=== PATIENT | male | born 1945 | race Caucasian/White ===

== ENCOUNTER 2019-12-30 07:54 | Outpatient (REF) | payer MEDICARE, SELFPAY ==
[2019-12-30 09:00] LABS: MANUAL DIFF FLAG NO
[2019-12-30 09:04] LABS: Basophils Percent Auto 0.7 % (0-2); Eosinophils Absolute Auto 0.1 X10*3/uL (0.0-0.4); Eosinophils Percent Auto 1.9 % (0-4); Hematocrit 37.9 % (42-52); Hemoglobin 12.8 g/dl (14.0-18.0); Imm Gran Abs Auto 0.02 X10*3/uL (0.00-0.03); Imm Gran Pct Auto 0.3 % (0.0-0.4); Lymphocytes Absolute Auto 1.5 X10*3/uL (1.2-4.9); Mean Corpuscular HGB Conc 33.8 g/dl (31.0-36.0); Mean Corpuscular Hemoglobin 33.7 pg (27.0-33.0); Mean Corpuscular Volume 99.7 fL (80-98); Mean Platelet Volume 9.4 fL (9.4-12.4); Monocytes Absolute Auto 0.5 X10*3/uL (0.1-1.2); Monocytes Percent Auto 8.4 % (2-11); Neutrophils Absolute Auto 3.7 X10*3/uL (2.0-8.3); Neutrophils Percent Auto 63.7 % (45-73); Platelet Count 218 X10*3/uL (160-400); Red Cell Distribution Width 12.5 % (11.0-16.0); White Blood Count 5.8 X10*3/uL (4.8-10.8)
[2019-12-30 09:13] LABS: Glucose Urine UA NEG (NEG); Leukocyte Esterase Urine NEG (NEG); Nitrite Urine NEG (NEG); Urine Blood NEG (NEG); Urine Ketones NEG (NEG); Urine Protein NEG (NEG-TRACE)
[2019-12-30 09:15] LABS: Appearance Urine CLEAR; Color Urine YELLOW
[2019-12-30 09:30] LABS: Alanine Aminotransferase 12 U/L (0-40); Albumin Level 4.1 g/dL (3.5-5.0); Alkaline Phosphatase 48 U/L (39-117); Anion Gap 12 (12-20); Aspartate Amino Transferase 14 U/L (5-37); Bilirubin Total 1.2 mg/dL (0.0-1.0); Blood Urea Nitrogen 17 mg/dL (9-16); Calcium 8.3 mg/dL (8.4-10.2); Carbon Dioxide 26 mmol/L (22-29); Chloride 108 mmol/L (96-108); Cholesterol 134 mg/dL; Estimated Glomerular Filt Rate > 60; Glucose Fasting 119 mg/dL (60-99); HDL Cholesterol 36 mg/dL; LDL Cholesterol Calculated 84 mg/dl; Potassium 4.5 mmol/l (3.3-5.1); Sodium 141 mmol/L (135-145); Total Protein 6.8 g/dL (6.5-8.0); Triglycerides 74 mg/dL
[2019-12-30 09:46] LABS: Estimated Average Glucose 120 mg/dL; Hemoglobin A1c % 5.8 %
[2019-12-30 09:51] LABS: PSA,Total (Free>4and<10) 0.78 ng/mL (0.00-4.00); TSH reflex Free T4 0.69 mIU/mL (0.32-4.0)
[2019-12-30 09:54] LABS: RBC Urine 0 /HPF (0); Squamous Epithelial Cell Urine TRACE /LPF; WBC Urine 0 /HPF (0-4)
[2019-12-31 13:21] LABS: Herpes Simplex Type 2 IgG 7.52 index
[2020-01-05 16:41] LABS: HSV 1 IgM IFA Negative (Negative); HSV 2 IgM IFA Negative (Negative)
== END 2019-12-30 07:55 | disposition home or self-care (01) ==
LOC: HO.LAB 07:54
PROVIDERS: Visit Provider Internal Medicine
DX: E78.5 Hyperlipidemia, unspecified (principal); I10 Essential (primary) hypertension; C79.51 Secondary malignant neoplasm of bone; I25.10 Atherosclerotic heart disease of native coronary artery without angina pectoris; C61 Malignant neoplasm of prostate; R31.9 Hematuria, unspecified; Z20.828 Contact with and (suspected) exposure to other viral communicable diseases; E66.9 Obesity, unspecified
CPT/HCPCS: 36415; 80053; 80061; 81001; 81003; 81015; 83036; 84153; 84443; 85025; 86695; 86696

== ENCOUNTER → 2020-01-26 08:30 | Outpatient (BNV) | payer MEDICARE, SELFPAY | PROVIDERS: PCP Internal Medicine; Visit Provider Internal Medicine | DX: C61 Malignant neoplasm of prostate (principal); C79.51 Secondary malignant neoplasm of bone; C78.7 Secondary malignant neoplasm of liver and intrahepatic bile duct | CPT/HCPCS: 99212; 99213; 99214; 99215 ==

== ENCOUNTER 2020-04-04 15:00 | Outpatient (REF) | payer MEDICARE, SELFPAY ==
--- NOTE | 2020-04-05 10:15 | XR_ITS ---
EXAMINATION: XR KNEE STANDING BILATERAL XR KNEE LEFT CLINICAL INFORMATION: Left knee pain COMPARISON: 07/21/2013 TECHNIQUE: AP standing view both knees [place] and lateral views of left knee FINDINGS: The AP standing view of both knees shows normal alignment bilaterally. No fracture or subluxation. Small marginal osteophyte present at the medial tibiofemoral compartment of the right knee. There is atherosclerotic calcification of the bilateral femoral, popliteal and leg vessels. There is a stent of the distal right popliteal artery. The two views of the left knee show normal alignment and well-preserved joint spaces. Small osteophytes are present at the patellofemoral compartment. Small knee joint effusion. Enthesophyte formation of the patella and anterior tibial tubercle. Peripheral vessels are calcified. XR/XR knee standing BI IMPRESSION: * Mild osteoarthritis of the patellofemoral joint, and small effusion, of the left knee. * Mild osteoarthritis of the medial tibiofemoral compartment of the right knee. * Atherosclerotic peripheral vascular disease.
--- NOTE | 2020-04-05 10:15 | XR_ITS ---
EXAMINATION: XR KNEE STANDING BILATERAL XR KNEE LEFT CLINICAL INFORMATION: Left knee pain COMPARISON: 07/21/2013 TECHNIQUE: AP standing view both knees [place] and lateral views of left knee FINDINGS: The AP standing view of both knees shows normal alignment bilaterally. No fracture or subluxation. Small marginal osteophyte present at the medial tibiofemoral compartment of the right knee. There is atherosclerotic calcification of the bilateral femoral, popliteal and leg vessels. There is a stent of the distal right popliteal artery. The two views of the left knee show normal alignment and well-preserved joint spaces. Small osteophytes are present at the patellofemoral compartment. Small knee joint effusion. Enthesophyte formation of the patella and anterior tibial tubercle. Peripheral vessels are calcified. XR/XR knee LT 2V IMPRESSION: * Mild osteoarthritis of the patellofemoral joint, and small effusion, of the left knee. * Mild osteoarthritis of the medial tibiofemoral compartment of the right knee. * Atherosclerotic peripheral vascular disease.
== END 2020-04-04 15:01 | disposition home or self-care (01) ==
LOC: HO.HOSX 15:00
PROVIDERS: Visit Provider Orthopaedic Surgery
DX: M25.562 Pain in left knee (principal); M25.561 Pain in right knee; R73.01 Impaired fasting glucose; E78.00 Pure hypercholesterolemia, unspecified; I10 Essential (primary) hypertension
CPT/HCPCS: 20610; 73560; 73565; 99202; J1040

== ENCOUNTER → 2020-04-05 10:12 | Outpatient (BNVA) | payer MEDICARE, SELFPAY | PROVIDERS: PCP Internal Medicine; Visit Provider Orthopaedic Surgery | DX: M17.12 Unilateral primary osteoarthritis, left knee (principal) | CPT/HCPCS: 20610; 99202; J1040 ==

== ENCOUNTER 2020-05-30 07:53 | Outpatient (REF) | payer MEDICARE, SELFPAY ==
[2020-05-30 09:15] LABS: Anion Gap 13 (12-20); Blood Urea Nitrogen 22 mg/dL (9-16); Calcium 8.8 mg/dL (8.4-10.2); Carbon Dioxide 25 mmol/L (22-29); Chloride 105 mmol/L (96-108); Estimated Glomerular Filt Rate > 60; Glucose Random 131 mg/dL (60-115); Potassium 4.1 mmol/L (3.3-5.1); Sodium 139 mmol/L (135-145)
== END 2020-05-30 07:54 | disposition home or self-care (01) ==
LOC: HO.LAB 07:53
PROVIDERS: PCP Internal Medicine; Visit Provider Internal Medicine Cardiovascular Disease
DX: I10 Essential (primary) hypertension (principal)
CPT/HCPCS: 36415; 80048

== ENCOUNTER 2020-06-26 14:41 | Outpatient (REF) | payer MEDICARE, SELFPAY ==
[2020-06-26 15:08] LABS: MANUAL DIFF FLAG NO
[2020-06-26 15:15] LABS: Basophils Percent Auto 0.5 % (0-2); Eosinophils Absolute Auto 0.1 X10*3/uL (0.0-0.4); Eosinophils Percent Auto 1.4 % (0-4); Hematocrit 36.8 % (42-52); Hemoglobin 12.6 g/dl (14.0-18.0); Imm Gran Abs Auto 0.02 X10*3/uL (0.00-0.03); Imm Gran Pct Auto 0.3 % (0.0-0.4); Lymphocytes Absolute Auto 2.1 X10*3/uL (1.2-4.9); Lymphocytes Percent Auto 27.1 % (20-40); Mean Corpuscular HGB Conc 34.2 g/dl (31.0-36.0); Mean Corpuscular Hemoglobin 34.1 pg (27.0-33.0); Mean Corpuscular Volume 99.7 fL (80-98); Mean Platelet Volume 9.3 fL (9.4-12.4); Monocytes Absolute Auto 0.7 X10*3/uL (0.1-1.2); Monocytes Percent Auto 8.3 % (2-11); Neutrophils Absolute Auto 4.9 X10*3/uL (2.0-8.3); Neutrophils Percent Auto 62.4 % (45-73); Platelet Count 181 X10*3/uL (160-400); Red Blood Count 3.69 X10*6/uL (4.60-5.80); Red Cell Distribution Width 12.6 % (11.0-16.0); White Blood Count 7.8 X10*3/uL (4.8-10.8)
[2020-06-26 15:38] LABS: Estimated Average Glucose 117 mg/dL; Hemoglobin A1c % 5.7 %
[2020-06-26 15:50] LABS: Alanine Aminotransferase 16 U/L (0-40); Albumin Level 4.4 g/dL (3.5-5.0); Alkaline Phosphatase 52 U/L (39-117); Anion Gap 14 (12-20); Aspartate Amino Transferase 18 U/L (5-37); Bilirubin Total 2.3 mg/dL (0.0-1.0); Blood Urea Nitrogen 24 mg/dL (9-16); Calcium 9.5 mg/dL (8.4-10.2); Carbon Dioxide 23 mmol/L (22-29); Chloride 109 mmol/L (96-108); Cholesterol 137 mg/dL; Estimated Glomerular Filt Rate > 60; Glucose Fasting 92 mg/dL (60-99); HDL Cholesterol 43 mg/dL; LDL Cholesterol Calculated 65 mg/dl; Sodium 142 mmol/L (135-145); Total Protein 7.4 g/dL (6.5-8.0); Triglycerides 147 mg/dL
[2020-06-26 15:57] LABS: Glucose Urine UA NEG (NEG); Leukocyte Esterase Urine TRACE (NEG); Nitrite Urine NEG (NEG); Specific Gravity - Urine 1.025 (1.005-1.025); UACC Culture Trigger YES; Urine Blood 3+ (NEG); Urine Ketones 5 MG/DL (NEG); Urine Protein TRACE MG/DL (NEG-TRACE)
[2020-06-26 16:04] LABS: Appearance Urine CLOUDY; Color Urine YELLOW
[2020-06-26 16:12] LABS: TSH reflex Free T4 0.87 uIU/mL (0.32-4.0)
[2020-06-26 16:23] LABS: Bacteria Urine 1+ /LPF; Squamous Epithelial Cell Urine 1+ /LPF
[2020-06-27 08:31] LABS: Lyme Abs Screen <0.90 index
== END 2020-06-26 14:42 | disposition home or self-care (01) ==
LOC: HO.LAB 14:41
PROVIDERS: PCP Internal Medicine; Visit Provider Internal Medicine
DX: R73.01 Impaired fasting glucose (principal); I10 Essential (primary) hypertension; I25.10 Atherosclerotic heart disease of native coronary artery without angina pectoris; R31.9 Hematuria, unspecified; C61 Malignant neoplasm of prostate; C79.51 Secondary malignant neoplasm of bone; E78.00 Pure hypercholesterolemia, unspecified; E66.9 Obesity, unspecified; T14.8XXA Other injury of unspecified body region, initial encounter
CPT/HCPCS: 36415; 80053; 80061; 81001; 81003; 83036; 84443; 85025; 86617; 86618; 87086; 87186

== ENCOUNTER 2020-08-31 09:43 | Outpatient (REF) | payer MEDICARE, SELFPAY ==
--- NOTE | ~2020-08-31 | CT_ITS ---
EXAMINATION: CT HIP WITHOUT CONTRAST, RIGHT CLINICAL INFORMATION: Right hip pain, right groin pain. COMPARISON: Multiple prior examinations including PET/CT exam April 2019. TECHNIQUE: CT scan of the right hip was performed with reconstruction imaging performed at the acquisition workstation. This CT examination was performed using dose optimization techniques as appropriate, variously including the following: *Automated exposure control *Adjustment of mA and/or kV according to patient size (this includes techniques or standardized protocols for targeted exams where dose is matched to indication/reason for exam; i.e. extremities or head) *Use of iterative reconstruction technique DLP: 515 mGy-cm. FINDINGS: Slightly patchy but mostly diffuse sclerotic density noted throughout the visualized iliac bone and sacrum. There is a rounded less dense sclerosis in the ischium, essentially unchanged compared with the prior CT examination in 2019. I do not see a fracture. The femoral acetabular joint space is normal. There is arterial calcification. Postsurgical changes related to reported penile implant is stable. Prostate not visualized, consistent with postsurgical change No lymphadenopathy. CT/CT hip RT wo con IMPRESSION: Stable sclerotic changes throughout the right pelvis and visualized sacrum, essentially unchanged compared with the prior PET/CT scan. This is consistent with sclerotic metastases or treated metastases in this patient with a diagnosis of prostate cancer based on history given on review of prior imaging examinations. I do not see a fracture or other acute abnormality.
== END 2020-08-31 09:44 | disposition home or self-care (01) ==
LOC: HO.CT 09:43
PROVIDERS: PCP Internal Medicine; Visit Provider Internal Medicine
DX: M25.551 Pain in right hip (principal); C61 Malignant neoplasm of prostate; C79.51 Secondary malignant neoplasm of bone
CPT/HCPCS: 73700

== ENCOUNTER → 2020-12-21 10:58 | Outpatient (REF) | payer MEDICARE, SELFPAY ==
--- NOTE | ~2020-12-21 | NM_ITS ---
EXAMINATION: NM BONE SCAN OF THE WHOLE BODY CLINICAL INFORMATION: Bone metastases from prostate cancer. COMPARISON: The previous bone scan dated 11/19/2018 is available for comparison. Radiographs of the bilateral knees and left knee dated 04/05/2020 are the only recent radiographs available for comparison. CT scan of the right hip dated 08/31/2020 is available for comparison. TECHNIQUE: Multiple gamma scintillation camera images of the whole body were performed 2.75 hours following the intravenous administration of 40 mCi Tc-99m MDP. FINDINGS: In the head, no significant abnormalities are present. In the thoracic cage and upper extremities, there is minimally increased activity in the acromioclavicular joints bilaterally. In the spine, no significant abnormalities are present. In the pelvis, there is intense abnormally increased activity in an expansile large focus in the posterior right iliac bone, likely extending medially into the right sacral ala. In the lower extremities, there is minimally increased activity in the patellar compartments of both knees and in a small mild focus in the medial compartment on the left. No other definite bony abnormalities are noted. The urinary bladder and faint visualization of both kidneys are noted. Compared to the previous bone scan dated 11/19/2018 there has been some enlargement of the posterior right iliac bone lesion which now extends more laterally. Abnormal activity in the right anterior iliac crest is much less intense but persists on the current study. The scan is otherwise not significantly changed. The CT scan of the right hip dated 08/31/2020 shows extensive sclerosis in the right iliac bone extending superiorly from the acetabulum that corresponds to the prominent bone scan abnormalities described above, and these changes a road into the right sacral ala, but are incompletely visualized on the CT study. NM/NM bone scan whole body IMPRESSION: Extensive metastatic disease to the right posterior iliac bone. No additional metastatic disease is present.
== END ==
LOC: HO.NUCMED 10:58
PROVIDERS: Visit Provider Internal Medicine
DX: C61 Malignant neoplasm of prostate (principal); C79.51 Secondary malignant neoplasm of bone
CPT/HCPCS: 78306; A9503

== ENCOUNTER 2021-01-30 08:13 | Outpatient (REF) | payer MEDICARE, SELFPAY ==
--- NOTE | ~2021-01-30 | PE_ITS ---
EXAMINATION: Fluorine-18 FDG PET/CT Scan CLINICAL INDICATION: Subsequent treatment management. Prostate cancer metastatic to bone, restaging. PROCEDURE: 66 minutes following the intravenous administration of 16.9 mCi of fluorine 18 FDG, images from the base of the skull to the mid thighs were obtained using a combined PET/CT scanner with CT scan based attenuation correction. No oral contrast was administered. No intravenous contrast was administered. Transverse, coronal, sagittal, and volume reconstruction projections were obtained. The patient's blood glucose as determined by a finger stick, was 110 mg/dl immediately prior to injection. Total CT exam dose-length product 1172.11 mGy-cm * These CT images were obtained using dose optimization techniques as appropriate, variously including the following: Automated exposure control * Adjustment of mA and/or kV according to patient size (this includes techniques or standardized protocols for targeted exams where dose is matched to indication/reason for exam; i.e. extremities or head) * Use of iterative reconstruction technique COMPARISON: Previous PET CT scans dated 04/20/2019 and 09/11/2017 are available for comparison. CT scan of the right hip dated 08/31/2020 and bone scan dated 12/21/2020 are also available for comparison FINDINGS: (Slice numbers described in this report are numbered superiorly to inferiorly with slice #1 in the head) NECK AND VISUALIZED HEAD: No foci of abnormal FDG activity are noted. The distribution of FDG activity is physiological. There is no cervical lymphadenopathy. THORAX: There is a posterolateral pleural-based FDG avid left lower lobe pulmonary nodule which has enlarged significantly since prior studies, now showing SUVmax 9.3, slice 84/311 an measuring 2.1 x 1.6 cm in largest transverse dimensions, and approximately 1.5 cm cephalocaudad. This showed only weak FDG activity, SUVs Max 2.0 and is much smaller in size measuring approximately 1.2 x 0.6 cm in largest transverse dimensions, both measurements made retrospectively on the 04/20/2019 PET/CT scan. Multiple additional subcentimeter pulmonary nodules are present and are similar or smaller in size than on 04/20/2019, with a few weakly FDG avid, such as a right upper lobe nodule that shows mild FDG activity, SUVmax 2.9, slice 80/311 corresponding to a nodule on the CT images that measures 1.4 x 0.9 cm in largest transverse dimensions. This is similar in size and FDG avidity to 04/20/2019. Multiple additional larger and more prominently FDG avid pulmonary nodules present on the baseline 09/11/2017 PET/CT scan are now much smaller and more difficult to resolve on the CT images and most of these are now too small to be characterized on the FDG PET images. There is no mediastinal, supraclavicular, or axillary lymphadenopathy. There is no pleural or pericardial fluid. Extensive calcification of the mitral valve annulus is noted. ABDOMEN AND PELVIS: No foci of abnormal FDG activity are present in the abdomen or pelvis. The liver, gallbladder, spleen, kidneys, adrenal glands, and pancreas are unremarkable. There is no retroperitoneal, mesenteric, pelvic or inguinal lymphadenopathy. There is mild FDG activity throughout the gastrointestinal tract without a suspicious focal component. There is a superficial focus of increased FDG activity in the midline anterior lower abdomen with no corresponding CT finding, likely some urinary contamination at this site. There is also a prominent focus of FDG activity in the region of the penile bulb which is probably some retained urinary activity in the proximal urethra. Again noted and unchanged from prior studies is a penile implant and associated reservoir and catheter. The prostate gland has been resected and fiducial markers unchanged in appearance from the prior study are present. MUSCULOSKELETAL: There is mild FDG activity associated with extensive sclerosis in the right iliac bone, now showing SUVmax 5.3, slice 193/311. This is significantly more intense than the FDG activity present at this site on 04/20/2019 when this region showed SUVmax 3.0, but this is also significantly less intense than on the baseline 09/11/2017 PET/CT scan when the region of FDG avidity was significantly larger and more intense, on that date showing SUVmax 7.7. Extensive sclerosis in the right iliac bone mid and right side of the sacrum, the latter with significant lytic component present does not show significant abnormal FDG activity. There are additional sclerotic foci with no associated abnormal FDG activity in the spine, most prominently at L4 and T7. There are diffuse degenerative changes in the spine. Was 7. VASCULAR: Diffuse vascular calcifications including coronary are noted. PET/PET CT fusion skull to thigh IMPRESSION: 1. There has been enlargement and increased FDG avidity of a left lower lobe pulmonary nodule, and this is evidence of progression of malignant disease at this site. 2. A few additional small FDG avid pulmonary nodules are present, similar or slightly smaller than on 04/20/2019 but much less FDG avid and smaller in size than these nodules were on the baseline 09/11/2017 study. 3. There has also been a mild increase in FDG avidity in a focus in the posterior right iliac bone, contained within an extensive larger sclerotic focus that shows only minimal FDG avidity. This region is more intense than on 04/20/2019, which is evidence of progression since that date, but remains much less extensive and less intense than on the baseline 09/11/2017 study. 4. No additional abnormalities suspicious for other new or progressive metastatic lesions. 5. Diffuse vascular calcifications including coronary.
== END 2021-01-30 08:14 | disposition home or self-care (01) ==
LOC: HO.PET 08:13
PROVIDERS: PCP Internal Medicine; Visit Provider Internal Medicine
DX: Z13.89 Encounter for screening for other disorder (principal)

== ENCOUNTER 2021-02-05 11:00 | Outpatient (REF) | payer MEDICARE, SELFPAY ==
[2021-02-05 11:10] LABS: MANUAL DIFF FLAG NO
[2021-02-05 11:59] LABS: Basophils Absolute Auto 0.1 X10*3/uL (0.0-0.2); Basophils Percent Auto 0.8 % (0-2); Eosinophils Absolute Auto 0.1 X10*3/uL (0.0-0.4); Eosinophils Percent Auto 1.5 % (0-4); Hematocrit 39.1 % (42.0-52.0); Hemoglobin 13.6 g/dl (14.0-18.0); Imm Gran Abs Auto 0.02 X10*3/uL (0.00-0.03); Imm Gran Pct Auto 0.3 % (0.0-0.4); Lymphocytes Absolute Auto 1.8 X10*3/uL (1.2-4.9); Lymphocytes Percent Auto 27.1 % (20-40); Mean Corpuscular HGB Conc 34.8 g/dl (31.0-36.0); Mean Corpuscular Hemoglobin 34.7 pg (27.0-33.0); Mean Corpuscular Volume 99.7 fL (80.0-98.0); Mean Platelet Volume 9.4 fL (9.4-12.4); Monocytes Absolute Auto 0.7 X10*3/uL (0.1-1.2); Neutrophils Percent Auto 60.3 % (45-73); Platelet Count 204 X10*3/uL (160-400); Red Blood Count 3.92 X10*6/uL (4.60-5.80); White Blood Count 6.6 X10*3/uL (4.8-10.8)
[2021-02-05 12:36] LABS: Vitamin D 25-OH Total 27.3 ng/mL (>30)
[2021-02-05 12:51] LABS: Alanine Aminotransferase 15 U/L (0-40); Albumin Level 4.4 g/dL (3.5-5.0); Alkaline Phosphatase 60 U/L (39-117); Anion Gap 16 (12-20); Aspartate Amino Transferase 15 U/L (5-37); Bilirubin Total 1.7 mg/dL (0.0-1.0); Blood Urea Nitrogen 20 mg/dL (9-16); Calcium 9.3 mg/dL (8.4-10.2); Carbon Dioxide 21 mmol/L (22-29); Chloride 108 mmol/L (96-108); Cholesterol 159 mg/dL; Estimated Glomerular Filt Rate > 60; Glucose Fasting 97 mg/dL (60-99); HDL Cholesterol 39 mg/dL; LDL Cholesterol Calculated 96 mg/dl; Sodium 141 mmol/L (135-145); Total Protein 7.4 g/dL (6.5-8.0); Triglycerides 121 mg/dL
[2021-02-05 12:57] LABS: Estimated Average Glucose 128 mg/dL; Hemoglobin A1c % 6.1 %
[2021-02-05 13:32] LABS: Appearance Urine CLEAR; Color Urine YELLOW; Glucose Urine UA NEG (NEG); Leukocyte Esterase Urine NEG (NEG); Nitrite Urine NEG (NEG); Specific Gravity - Urine 1.015 (1.005-1.025); Urine Blood NEG (NEG); Urine Ketones NEG (NEG); Urine Protein NEG (NEG-TRACE)
== END 2021-02-05 11:01 | disposition home or self-care (01) ==
LOC: HO.LAB 11:00
PROVIDERS: PCP Internal Medicine; Visit Provider Internal Medicine
DX: C61 Malignant neoplasm of prostate (principal); C79.51 Secondary malignant neoplasm of bone; E55.9 Vitamin D deficiency, unspecified; I10 Essential (primary) hypertension; I25.10 Atherosclerotic heart disease of native coronary artery without angina pectoris; R31.9 Hematuria, unspecified; E78.00 Pure hypercholesterolemia, unspecified; R73.01 Impaired fasting glucose; E66.9 Obesity, unspecified
CPT/HCPCS: 36415; 80053; 80061; 81003; 82306; 83036; 84443; 85025

== ENCOUNTER 2021-06-04 07:46 | Outpatient (REF) | payer MEDICARE, SELFPAY ==
[2021-06-04 08:51] LABS: Estimated Average Glucose 128 mg/dL; Hemoglobin A1c % 6.1 %
[2021-06-04 09:15] LABS: Cholesterol 145 mg/dL; HDL Cholesterol 25 mg/dL; LDL Cholesterol Calculated 93 mg/dl; Triglycerides 135 mg/dL
[2021-06-04 09:30] LABS: Appearance Urine CLEAR; Color Urine YELLOW; Glucose Urine UA NEG (NEG); Leukocyte Esterase Urine NEG (NEG); Nitrite Urine NEG (NEG); Specific Gravity - Urine 1.015 (1.005-1.025); TSH reflex Free T4 1.27 uIU/mL (0.32-4.0); Urine Blood NEG (NEG); Urine Ketones NEG (NEG); Urine Protein TRACE MG/DL (NEG-TRACE)
== END 2021-06-04 07:47 | disposition home or self-care (01) ==
LOC: HO.LAB 07:46
PROVIDERS: PCP Internal Medicine; Visit Provider Internal Medicine
DX: E78.00 Pure hypercholesterolemia, unspecified (principal); E55.9 Vitamin D deficiency, unspecified; I10 Essential (primary) hypertension; R73.01 Impaired fasting glucose
CPT/HCPCS: 36415; 80061; 81003; 82306; 83036; 84443

== ENCOUNTER 2021-08-03 09:32 | Outpatient (REF) | payer MEDICARE, SELFPAY ==
--- NOTE | ~2021-08-03 | XR_ITS ---
EXAMINATION: XR HIP, RIGHT CLINICAL INFORMATION: Chronic right hip pain. COMPARISON: CT right hip 08/31/2020. TECHNIQUE: Two views of the right hip. FINDINGS: There is a sclerotic-appearing entire right pelvis with mild thickening, likely metastatic disease. The sclerosis extends into the right acetabulum and likely narrows the right hip joint. The right femur appears unremarkable. No acute fracture or dislocation seen. There is vascular calcification of right superficial femoral vein. XR/XR hip RT min 2V IMPRESSION: Sclerotic-appearing entire right pelvis and likely right sacrum with mild thickening suspicious of sclerotic metastatic disease. This finding was seen on the previous CT hip exam 08/31/2020.
== END 2021-08-03 09:33 | disposition home or self-care (01) ==
LOC: HO.XRAY 09:32
PROVIDERS: PCP Internal Medicine; Visit Provider Internal Medicine
DX: C61 Malignant neoplasm of prostate (principal); C79.51 Secondary malignant neoplasm of bone
CPT/HCPCS: 73502

== ENCOUNTER 2021-08-14 10:11 | Outpatient (REF) | payer MEDICARE, SELFPAY ==
--- NOTE | ~2021-08-14 | PE_ITS ---
EXAMINATION: Fluorine-18 FDG PET/CT Scan CLINICAL INDICATION: Subsequent treatment management. Metastatic prostate cancer, post chemotherapy scan, last treatment 07/05/2021.. PROCEDURE: 66 minutes following the intravenous administration of 20.3 mCi of fluorine 18 FDG, images from the base of the skull to the mid thighs were obtained using a combined PET/CT scanner with CT scan based attenuation correction. No oral contrast was administered. No intravenous contrast was administered. Transverse, coronal, sagittal, and volume reconstruction projections were obtained. The patient's blood glucose as determined by a finger stick, was 110 mg/dl immediately prior to injection. Total CT exam dose-length product 1392.70 mGy-cm * These CT images were obtained using dose optimization techniques as appropriate, variously including the following: Automated exposure control * Adjustment of mA and/or kV according to patient size (this includes techniques or standardized protocols for targeted exams where dose is matched to indication/reason for exam; i.e. extremities or head) * Use of iterative reconstruction technique COMPARISON: Prior PET/CT scans dated 01/30/2021, 04/20/2019 and 09/11/2017 are available for comparison. FINDINGS: (Slice numbers described in this report are numbered superiorly to inferiorly with slice #1 in the head) NECK AND VISUALIZED HEAD: No foci of abnormal FDG activity are noted. The distribution of FDG activity is physiological. There is no cervical lymphadenopathy. THORAX: There is been a marked decrease in the FDG intensity of a left lower lobe pulmonary nodule, now showing SUVmax 4.1, slice 97/311 versus SUVmax 9.3 on 01/30/2021. This also appears slightly smaller in size on the CT images, now measuring 2.2 x 1.3 cm in largest transverse dimensions versus 2.1 x 1.6 cm previously. Superior and medial to this a smaller nodule is now only weakly FDG avid, SUVmax 1.5, slice 87/311 versus SUVmax 2.6 on 01/30/2021. A previously visualized 1.4 x 0.9 cm right upper lobe nodule present on 01/30/2021 is now inseparable from adjacent vessels and mild FDG activity present previously at this site is no longer present. A sharply marginated posterior pleural-based left lower lobe mass now shows fluid density and measures 3.9 x 2.5 cm in largest transverse dimensions, not significantly changed from the earliest PET/CT scan is available for comparison dated 09/11/2017 when this measured 3.7 x 2.4 cm in largest transverse dimensions. This shows mild FDG activity, SUVmax 3.3, slice 95/267, which is identical to the SUVmax 175-2018, and similar to the more recent PET CT scans. There is a posterior subpleural 1.4 x 0.8 cm nodule in the base of the left lower lobe, slice 127/311 with no associated abnormal FDG activity. This is significantly smaller than on the prior study when this measured 1.8 x 1.8 cm in largest transverse dimensions a few additional small subcentimeter pulmonary nodules are probably present but not well visualized and all are too small to be characterized on the FDG PET images. There are no additional foci of abnormal FDG activity in the chest. There is no mediastinal, supraclavicular, or axillary lymphadenopathy. There is no pleural or pericardial fluid, or pneumothorax. Dense calcifications of the mitral valve annulus and aortic valvular calcifications are noted, similar in appearance to the prior studies and with no associated abnormal FDG activity. ABDOMEN AND PELVIS: There are no foci of abnormal FDG activity in the abdomen or pelvis. The liver, gallbladder, adrenal glands, pancreas, and spleen are unremarkable. A hypodense posterior medial cyst in the left kidney is markedly FDG photopenic and unchanged from prior studies and likely a benign simple cyst. The kidneys are otherwise unremarkable the several calcifications which are likely vascular. There is mild FDG activity throughout the gastrointestinal tract without a suspicious focal component, likely physiological. There is diverticulosis without evidence of diverticulitis. The hollow viscera are otherwise unremarkable. The prostate gland has been resected and metallic fiducial markers are present in the prostate bed unchanged in appearance from prior studies. There is mildly increased activity in the region of the penile bulb, much less prominent than on the prior 01/30/2021 study and likely due to some retained urine in the urethra. A penile implant and associated reservoir and catheter are noted. MUSCULOSKELETAL: There is dense sclerosis throughout the left iliac bone and adjacent left side of the sacrum. This is similar in appearance on the CT images through the 01/30/2021 study but the FDG activity in this region is now significantly decreased, with a small focus of increased FDG activity in the posterior right iliac bone showing SUVmax 3.7, slice 307/311 versus SUVmax 5.3 on 01/30/2021. Dense sclerosis is also present in the posterior aspect of the L4 vertebral body and anteriorly abutting the superior endplate of T7 both showing no abnormal FDG activity. There are diffuse degenerative changes in the spine, most prominently in the mid and lower thoracic spine. No additional suspicious sclerotic or lytic lesions are visualized. VASCULAR: Diffuse vascular calcifications including coronary are noted. PET/PET CT fusion skull to thigh IMPRESSION: 1. There has been a significant decrease in the FDG avidity of a previously visualized left lower lobe pulmonary nodule, consistent with a significant partial metabolic response to therapy of this lesion. 2. A posterior pleural-based mass posteriorly in the left lower lobe appears stable in size on the CT images since the earliest PET/CT available, 09/11/2017 and now shows only very mild FDG activity. 3. Additional pulmonary nodules show only minimal FDG activity as described above and likely represent stable or improving malignant disease. 4. Several dense sclerotic lesions including extensive dense sclerosis of the left hemipelvis and left side of the sacrum now show only mild FDG activity in the posterior left iliac bone, consistent with healing metastases. These are less intensely FDG avid than the prior study and much less intensely FDG avid than the baseline 09/11/2017 PET/CT scan. 5. No additional abnormalities suspicious for other metastatic or malignant lesions are noted. 6. Diffuse vascular calcifications including dense coronary calcifications.
== END 2021-08-14 10:12 | disposition home or self-care (01) ==
LOC: HO.PET 10:11
PROVIDERS: PCP Internal Medicine; Visit Provider Internal Medicine
DX: Z13.89 Encounter for screening for other disorder (principal)

== ENCOUNTER 2021-09-11 08:44 | Outpatient (REF) | payer MEDICARE, SELFPAY ==
[2021-09-11 09:04] LABS: MANUAL DIFF FLAG NO
[2021-09-11 09:17] LABS: Basophils Percent Auto 0.3 % (0-2); Eosinophils Percent Auto 0.5 % (0-4); Hematocrit 36.9 % (42.0-52.0); Hemoglobin 12.3 g/dl (14.0-18.0); Imm Gran Abs Auto 0.03 X10*3/uL (0.00-0.03); Imm Gran Pct Auto 0.5 % (0.0-0.4); Lymphocytes Absolute Auto 1.6 X10*3/uL (1.2-4.9); Lymphocytes Percent Auto 27.1 % (20-40); Mean Corpuscular HGB Conc 33.3 g/dl (31.0-36.0); Mean Corpuscular Hemoglobin 33.1 pg (27.0-33.0); Mean Corpuscular Volume 99.2 fL (80.0-98.0); Mean Platelet Volume 8.9 fL (9.4-12.4); Monocytes Absolute Auto 0.5 X10*3/uL (0.1-1.2); Monocytes Percent Auto 7.7 % (2-11); Neutrophils Absolute Auto 3.7 x10*3/uL (2.0-8.3); Neutrophils Percent Auto 63.9 % (45-73); Platelet Count 165 X10*3/uL (160-400); Red Blood Count 3.72 X10*6/uL (4.60-5.80); Red Cell Distribution Width 14.6 % (11.0-16.0); White Blood Count 5.8 X10*3/uL (4.8-10.8)
[2021-09-11 09:33] LABS: Estimated Average Glucose 114 mg/dL; Hemoglobin A1c % 5.6 %
[2021-09-11 09:43] LABS: Alanine Aminotransferase 16 U/L (0-40); Albumin Level 4.5 g/dL (3.5-5.0); Alkaline Phosphatase 73 U/L (39-117); Anion Gap 13 (12-20); Aspartate Amino Transferase 19 U/L (5-37); Bilirubin Total 1.3 mg/dL (0.0-1.0); Blood Urea Nitrogen 17 mg/dL (9-16); Calcium 8.9 mg/dL (8.4-10.2); Carbon Dioxide 23 mmol/L (22-29); Chloride 109 mmol/L (96-108); Cholesterol 148 mg/dL; Estimated Glomerular Filt Rate > 60; Glucose Fasting 115 mg/dL (60-99); HDL Cholesterol 43 mg/dL; LDL Cholesterol Calculated 77 mg/dl; Potassium 4.2 mmol/L (3.3-5.1); Sodium 141 mmol/L (135-145); Triglycerides 142 mg/dL
[2021-09-11 09:56] LABS: Appearance Urine CLEAR; Color Urine YELLOW; Glucose Urine UA NEG (NEG); Leukocyte Esterase Urine NEG (NEG); Nitrite Urine NEG (NEG); UACC Culture Trigger NO; Urine Blood TRACE (NEG); Urine Ketones NEG (NEG); Urine Protein NEG (NEG-TRACE)
[2021-09-11 09:57] LABS: TSH reflex Free T4 1.08 uIU/mL (0.32-4.0); Vitamin D 25-OH Total 24.5 ng/mL (>30)
[2021-09-11 10:12] LABS: Squamous Epithelial Cell Urine TRACE /LPF; WBC Urine 0 /HPF (0-4)
== END 2021-09-11 08:45 | disposition home or self-care (01) ==
LOC: HO.LAB 08:44
PROVIDERS: PCP Internal Medicine; Visit Provider Internal Medicine
DX: I10 Essential (primary) hypertension (principal); E55.9 Vitamin D deficiency, unspecified; R73.01 Impaired fasting glucose; E78.00 Pure hypercholesterolemia, unspecified
CPT/HCPCS: 36415; 80053; 80061; 81001; 82306; 83036; 84443; 85025

== ENCOUNTER 2022-01-10 08:28 | Outpatient (REF) | payer MEDICARE, SELFPAY ==
[2022-01-10 08:38] LABS: MANUAL DIFF FLAG NO
[2022-01-10 09:43] LABS: Basophils Percent Auto 0.7 % (0-2); Eosinophils Absolute Auto 0.1 X10*3/uL (0.0-0.4); Eosinophils Percent Auto 1.7 % (0-4); Hematocrit 41.1 % (42.0-52.0); Hemoglobin 13.8 g/dl (14.0-18.0); Imm Gran Abs Auto 0.01 X10*3/uL (0.00-0.03); Imm Gran Pct Auto 0.2 % (0.0-0.4); Lymphocytes Absolute Auto 1.5 X10*3/uL (1.2-4.9); Lymphocytes Percent Auto 36.1 % (20-40); Mean Corpuscular HGB Conc 33.6 g/dl (31.0-36.0); Mean Corpuscular Hemoglobin 34.2 pg (27.0-33.0); Mean Corpuscular Volume 101.7 fL (80.0-98.0); Mean Platelet Volume 9.4 fL (9.4-12.4); Monocytes Absolute Auto 0.5 X10*3/uL (0.1-1.2); Monocytes Percent Auto 11.1 % (2-11); Neutrophils Absolute Auto 2.1 x10*3/uL (2.0-8.3); Neutrophils Percent Auto 50.2 % (45-73); Platelet Count 188 X10*3/uL (160-400); Red Blood Count 4.04 X10*6/uL (4.60-5.80); Red Cell Distribution Width 12.5 % (11.0-16.0); White Blood Count 4.2 X10*3/uL (4.8-10.8)
[2022-01-10 09:50] LABS: Estimated Average Glucose 120 mg/dL; Hemoglobin A1c % 5.8 %
[2022-01-10 10:06] LABS: Alanine Aminotransferase 15 U/L (0-40); Albumin Level 4.3 g/dL (3.5-5.0); Alkaline Phosphatase 123 U/L (39-117); Anion Gap 19 (12-20); Aspartate Amino Transferase 20 U/L (5-37); Bilirubin Total 1.5 mg/dL (0.0-1.0); Blood Urea Nitrogen 17 mg/dL (9-16); Calcium 9.3 mg/dL (8.4-10.2); Carbon Dioxide 19 mmol/L (22-29); Chloride 105 mmol/L (96-108); Cholesterol 163 mg/dL; Estimated Glomerular Filt Rate > 60; Glucose Fasting 104 mg/dL (60-99); HDL Cholesterol 39 mg/dL; LDL Cholesterol Calculated 100 mg/dl; Potassium 4.4 mmol/L (3.3-5.1); Sodium 139 mmol/L (135-145); Total Protein 7.1 g/dL (6.5-8.0); Triglycerides 123 mg/dL
[2022-01-10 10:31] LABS: Appearance Urine Hazy; Color Urine Yellow; Glucose Urine UA Negative (Negative); Leukocyte Esterase Urine Negative (Negative); Nitrite Urine Negative (Negative); Specific Gravity - Urine 1.025 (1.005-1.025); Urine Blood Negative (Negative); Urine Ketones Trace mg/dL (Negative); Urine Protein Trace mg/dL (Neg-Trace)
[2022-01-10 10:31] LABS: Vitamin D 25-OH Total 31.7 ng/mL (>30)
== END 2022-01-10 08:29 | disposition home or self-care (01) ==
LOC: HO.LAB 08:28
PROVIDERS: PCP Internal Medicine; Visit Provider Internal Medicine
DX: E55.9 Vitamin D deficiency, unspecified (principal); R73.01 Impaired fasting glucose; E78.00 Pure hypercholesterolemia, unspecified; I10 Essential (primary) hypertension
CPT/HCPCS: 36415; 80053; 80061; 81003; 82306; 83036; 85025

== ENCOUNTER 2022-02-21 10:43 | Outpatient (REF) | payer MEDICARE, SELFPAY ==
--- NOTE | 2022-02-21 09:00 | EMG_ITS ---
Left tibial and peroneal motor studies were performed. Left superficial peroneal and sural sensory studies were performed. Tibial H-reflex was obtained and EMG examination was done. 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 MD ORLIN Ortiz/JOVI / [phone]
== END 2022-02-21 10:44 | disposition home or self-care (01) ==
LOC: HO.NEURO 10:43
PROVIDERS: PCP Internal Medicine; Visit Provider Internal Medicine
DX: R20.2 Paresthesia of skin (principal)
CPT/HCPCS: 95886; 95909

== ENCOUNTER 2022-03-08 12:45 | Outpatient (REF) | payer MEDICARE, SELFPAY ==
--- NOTE | ~2022-03-08 | MR_ITS ---
MRI OF THE BRAIN WITH AND WITHOUT IV CONTRAST INDICATION: Brain lesion seen on PSMA PET scan. COMPARISON: PET/CT 08/14/2021. TECHNIQUE: Multiplanar multisequence MR imaging of the brain was obtained without and following the administration of 10 mL of Gadavist without complication. FINDINGS: Large volume heterogeneously enhancing metastatic disease burden throughout the supratentorial and infratentorial brain, some of which is hemorrhagic. The largest lesion within the supratentorial brain is located within the right temporal periventricular white matter measuring up to 4 cm in size surrounded by significant parenchymal edema. The largest lesion within the infratentorial brain is located within the left cerebellar hemisphere measuring up to 2.8 cm in size surrounded by parenchymal edema. There are multiple smaller enhancing lesions scattered throughout the cerebral and cerebellar hemispheres bilaterally. There is no significant midline shift or other herniation pattern. The larger lesions within the right temporal lobe and left cerebellum are hemorrhagic. There is no hydrocephalus, extra-axial surface collection, or herniation. The major flow voids at the skull base are preserved. There is no acute infarct on diffusion-weighted imaging. There is no intracranial hemorrhage on the gradient recalled echo acquisition. The midline structures are normal. The cerebellar tonsils are normally positioned. The cerebellum and brainstem are normal. The craniocervical junction is normal. Osseous marrow signal intensity is homogenous. The visualized soft tissues are unremarkable. There is a small fluid level within the right maxillary sinus. There is mild mucosal thickening within the ethmoid air cells bilaterally. Mastoid air cells are clear. There is a round 9 mm T2 signal hyperintense cystic focus within the deep lobe of the left parotid gland. MR/MR head/brain wo/w con IMPRESSION: Large volume heterogeneously enhancing metastatic disease burden throughout the supratentorial and infratentorial brain, some of which is hemorrhagic. The largest lesion within the supratentorial brain is located within the right temporal periventricular white matter measuring up to 4 cm in size surrounded by significant parenchymal edema. The largest lesion within the infratentorial brain is located within the left cerebellar hemisphere measuring up to 2.8 cm in size surrounded by parenchymal edema. There are multiple smaller enhancing lesions scattered throughout the cerebral and cerebellar hemispheres bilaterally. There is no significant midline shift or other herniation pattern. The larger lesions within the right temporal lobe and left cerebellum are hemorrhagic. Covering provider paged with these findings at 12:10 PM on 03/13/2022.
== END 2022-03-08 12:46 | disposition home or self-care (01) ==
LOC: HO.MRI 12:45
PROVIDERS: Visit Provider Internal Medicine
DX: C61 Malignant neoplasm of prostate (principal); C79.51 Secondary malignant neoplasm of bone; G93.9 Disorder of brain, unspecified
CPT/HCPCS: 70553; A9585

== ENCOUNTER 2022-03-27 08:59 | Outpatient (REF) | payer MEDICARE, SELFPAY ==
--- NOTE | ~2022-03-27 | US_ITS ---
EXAMINATION: US ABDOMEN COMPLETE CLINICAL INFORMATION: Liver mass seen on PSMA PET scan. COMPARISON: PET/CT fusion skull to thigh 08/14/2021. CT of the abdomen and pelvis with contrast 04/21/2014. TECHNIQUE: Real-time imaging of the abdominal viscera. Technically somewhat limited study secondary to body habitus. FINDINGS: PANCREAS: Normal. ABDOMINAL AORTA: The proximal, mid, and distal segments are normal in caliber. INFERIOR VENA CAVA: Visualized portions are normal. LIVER: The liver is normal in size. The liver contour is normal. Parenchymal echogenicity is normal. There is a 1.9 x 1.5 x 1.7 cm isoechoic to slightly hypoechoic mass seen in the right lobe of the liver, which demonstrates some vascularity. In the left lobe of the liver, there is a larger 7.4 x 4.8 x 7.7 cm hypoechoic mass present with well-defined border with internal vascularity. These masses are not seen on the 09/03/2021 Fluorine-18 FDG PET/CT Scan nor on the contrast-enhanced CT scan of the abdomen and pelvis from 04/21/2014. There is no intrahepatic biliary duct dilatation seen. GALLBLADDER: The gallbladder is physiologically distended without evidence of stones, sludge, polyps, wall thickening or pericholecystic fluid. COMMON BILE DUCT: Normal in caliber measuring 0.6 cm in diameter. RIGHT KIDNEY: No hydronephrosis. No renal calculi or focal parenchymal lesions. The kidney measures 11.5 cm in maximum dimension. LEFT KIDNEY: No hydronephrosis. No renal calculi or focal parenchymal lesions. The kidney measures 11.1 cm in maximum dimension. SPLEEN: Normal. The spleen measures 10.1 cm in maximum dimension. FREE FLUID: None. US/US abdomen complete IMPRESSION: Two liver masses are seen. These are not seen on the 09/03/2021 PET/CT scan or on the contrast-enhanced CT scan of the abdomen and pelvis from 04/21/2014. If biopsy is needed, these would be easily amenable to ultrasound-guided biopsy, especially the larger lesion in the left lobe of the liver.
== END 2022-03-27 09:00 | disposition home or self-care (01) ==
LOC: HO.US 08:59
PROVIDERS: PCP Internal Medicine; Visit Provider Internal Medicine
DX: C61 Malignant neoplasm of prostate (principal); C79.51 Secondary malignant neoplasm of bone; R16.0 Hepatomegaly, not elsewhere classified
CPT/HCPCS: 76700

== ENCOUNTER 2022-04-04 11:43 | Day surgery (SDC) | payer MEDICARE, SELFPAY ==
[2022-04-04] VITALS (7 sets, daily range): BP systolic 121–140; BP diastolic 58–67; PULSE 60–70; RESP 12–18; TEMP 36.6–36.8; O2SAT 96–98; BMI 28.0
--- NOTE | ~2022-04-04 | US_ITS ---
EXAMINATION: US ULTRASOUND-GUIDED LIVER BIOPSY CLINICAL INFORMATION: Liver masses with no primary known. COMPARISON: None. TECHNIQUE: Following explaining ultrasound-guided liver biopsy procedure, benefits and risks, a written consent was obtained. Patient was placed supine on ultrasound stretcher and preliminary ultrasound imaging was obtained through the right and left hepatic lobes. A left hepatic lobe lesion was targeted. An optimal site was selected along the epigastric region under ultrasound and the area marked. The marked area was cleaned and draped in the usual sterile manner. 1% lidocaine was injected at the puncture site. Through a small skin incision, a 20-gauge guide needle was advanced and placed along the outer capsule of the left hepatic lobe lesion. Coaxially, a 2-pass core biopsy of the lesion was obtained. Immediate results from pathology revealed abnormal liver cells and exam was terminated. The tissue collected was sent in formalin solution and for slide evaluation. Postprocedure, the needles were withdrawn and complete hemostasis was achieved at the puncture site. Sterile dressing was applied postprocedure. Patient tolerated the procedure extremely well. Conscious sedation was utilized during the exam and patient monitored by IR nursing and IR radiologist for 20 minutes. FINDINGS: On preliminary ultrasound imaging, there is a large left lobe lesion measuring 6.64 x 5.46 x 7.93 cm. Ultrasound-guided left hepatic lobe lesion core biopsy was performed coaxially. US/US biopsy liver IMPRESSION: Successful ultrasound-guided left hepatic lobe core biopsy performed.
[2022-04-04 12:07] LABS: INTERNATIONAL NORM RATIO 1.2 (0.9-1.1); Prothrombin Time 13.5 SEC (10.0-13.1)
[2022-04-04 12:10] LABS: Partial Thromboplastin Time 27.9 SEC (26.0-36.4)
[2022-04-04] MEDS: Lidocaine HCl 1 % MPF 5 ML VIAL 10 ML SUBCUT (14:05)
== END 2022-04-04 16:06 | disposition home or self-care (01) ==
PROVIDERS: PCP Internal Medicine; Visit Provider Radiology Diagnostic Radiology
DX: C78.7 Secondary malignant neoplasm of liver and intrahepatic bile duct (principal); C79.51 Secondary malignant neoplasm of bone; C79.31 Secondary malignant neoplasm of brain; R91.8 Other nonspecific abnormal finding of lung field; C61 Malignant neoplasm of prostate; Z92.21 Personal history of antineoplastic chemotherapy; Z90.79 Acquired absence of other genital organ(s); I10 Essential (primary) hypertension; E78.00 Pure hypercholesterolemia, unspecified; R73.01 Impaired fasting glucose; E66.9 Obesity, unspecified; Z68.30 Body mass index [BMI] 30.0-30.9, adult; Z79.52 Long term (current) use of systemic steroids; Z79.899 Other long term (current) drug therapy; Z88.8 Allergy status to other drugs, medicaments and biological substances; Z87.891 Personal history of nicotine dependence
CPT/HCPCS: 36415; 47000; 76942; 85610; 85730; 88307; 88333; 88341; 88342; 88344; 99152; 99153; J2250; J3010

== ENCOUNTER 2022-05-15 10:56 | Outpatient (REF) | payer MEDICARE, SELFPAY ==
[2022-05-15 11:22] LABS: Hematocrit 35.1 % (42.0-52.0); Hemoglobin 11.9 g/dl (14.0-18.0); Mean Corpuscular HGB Conc 33.9 g/dl (31.0-36.0); Mean Corpuscular Hemoglobin 33.8 pg (27.0-33.0); Mean Corpuscular Volume 99.7 fL (80.0-98.0); Mean Platelet Volume 9.7 fL (9.4-12.4); NRBC Pct Auto 0.3 /100WBC (0.0-0.2); Platelet Count 152 X10*3/uL (160-400); Red Blood Count 3.52 X10*6/uL (4.60-5.80); Red Cell Distribution Width 13.5 % (11.0-16.0); White Blood Count 13.3 X10*3/uL (4.8-10.8)
[2022-05-15 11:28] LABS: Estimated Average Glucose 134 mg/dL; Hemoglobin A1c % 6.3 %
[2022-05-15 11:46] LABS: Alanine Aminotransferase 22 U/L (0-40); Albumin Level 3.6 g/dL (3.5-5.0); Alkaline Phosphatase 210 U/L (39-117); Anion Gap 15 (12-20); Aspartate Amino Transferase 24 U/L (5-37); Bilirubin Total 0.8 mg/dL (0.0-1.0); Blood Urea Nitrogen 9 mg/dL (9-16); Carbon Dioxide 21 mmol/L (22-29); Chloride 105 mmol/L (96-108); Cholesterol 103 mg/dL; Estimated Glomerular Filt Rate > 60; Glucose Fasting 144 mg/dL (60-99); Glucose Random 144 mg/dL (60-115); HDL Cholesterol 25 mg/dL; LDL Cholesterol Calculated 51 mg/dl; Potassium 3.6 mmol/L (3.3-5.1); Sodium 137 mmol/L (135-145); Total Protein 6.1 g/dL (6.5-8.0); Triglycerides 135 mg/dL
[2022-05-15 11:49] LABS: Band Neutrophils Percent 7 % (3-5); Lymphocytes Absolute Manual 1.7 X10*3/uL (1.2-4.9); Lymphocytes Percent Manual 13 % (20-40); Metamyelocytes Absolute 1.1 X10*3/uL; Metamyelocytes Percent 8 %; Monocytes Absolute Manual 0.8 X10*3/uL (0.1-1.2); Monocytes Percent Manual 6 % (2-11); Myelocytes Absolute 0.4 X10*/uL; Myelocytes Percent 3 %; Neutrophils Absolute Manual 9.3 X10*3/uL (2.0-8.3); Neutrophils Percent Manual 63 % (45-73); RBC Morphology NORMAL
[2022-05-15 11:50] LABS: Platelet Estimate SLIGHTLY DECREASED (NORMAL); Platelet Morphology Comment NORMAL
[2022-05-15 12:14] LABS: TSH reflex Free T4 0.89 uIU/mL (0.32-4.0); Vitamin B12 1952 pg/mL (200-900); Vitamin D 25-OH Total 25.6 ng/mL (>30)
[2022-05-15 14:12] LABS: Appearance Urine Clear; Color Urine Yellow; Glucose Urine UA Negative (Negative); Leukocyte Esterase Urine Negative (Negative); Nitrite Urine Negative (Negative); Specific Gravity - Urine 1.015 (1.005-1.025); UMIC TRIGGER UACC YES; Urine Blood Negative (Negative); Urine Ketones Negative (Negative); Urine Protein 100 (2+) mg/dL (Neg-Trace)
[2022-05-15 14:15] LABS: Bacteria Urine None Seen (None Seen); RBC Urine 0-2 /HPF (0-2); UACC Culture Trigger YES
== END 2022-05-15 10:57 | disposition home or self-care (01) ==
LOC: HO.LAB 10:56
PROVIDERS: Absent Provider Internal Medicine; PCP Internal Medicine; Visit Provider Internal Medicine
DX: E55.9 Vitamin D deficiency, unspecified (principal); R73.01 Impaired fasting glucose; E53.8 Deficiency of other specified B group vitamins; C61 Malignant neoplasm of prostate; C79.51 Secondary malignant neoplasm of bone; E78.00 Pure hypercholesterolemia, unspecified; R82.90 Unspecified abnormal findings in urine
CPT/HCPCS: 36415; 80053; 80061; 81001; 82306; 82607; 82746; 83036; 84443; 85007; 85027; 87086

== ENCOUNTER 2022-06-07 11:59 | Observation (INO) | payer MEDICARE, SELFPAY ==
[2022-06-07] VITALS (11 sets, daily range): BP systolic 91–141; BP diastolic 54–72; PULSE 71–151; RESP 14–22; TEMP 36.4–36.8; O2SAT 94–100; BMI 27.7; BMI 25.9
--- NOTE | ~2022-06-07 | XR_ITS ---
EXAMINATION: XR CHEST CLINICAL INFORMATION: Metastatic prostate cancer COMPARISON: Radiographs 09/22/2017. CT 12/30/2017. PET CT 08/14/2021. TECHNIQUE: Frontal view of the chest was obtained. FINDINGS: Redemonstration of a circumscribed retrocardiac lesion. Scattered coarse and interstitial markings with linear scarring in the peripheral left upper lobe. No consolidation, edema, or pleural effusion. Stable cardiomediastinal silhouette. XR/XR chest 1V IMPRESSION: 1. No acute cardiopulmonary findings. 2. Redemonstration of a retrocardiac lesion.
--- NOTE | 2022-06-07 12:00 | ECG_ITS ---
Test Reason : AFIB Blood Pressure : / mmHG Vent. Rate : 154 BPM Atrial Rate : 159 BPM P-R Int : 000 ms QRS Dur : 138 ms QT Int : 306 ms P-R-T Axes : 000 125 -37 degrees QTc Int : 490 ms Atrial fibrillation with rapid ventricular response Right bundle branch block Left posterior fascicular block Bifascicular block T wave abnormality, consider inferior ischemia Abnormal ECG When compared with ECG of 07-JUN-2022 11:17, No significant changes seen Referred By: Sharmaine Monsalve Electronically Signed By:GELACIO FIGUEROA
[2022-06-07] MEDS: Metoprolol Tartrate 5 MG/5 ML VIAL IVPUSH (12:19)
--- NOTE | 2022-06-07 12:19 | ED.ARRPALP ---
HPI - Arrhythmia/Palpitations General Chief Complaint: Arrhythmia/Palpitations Stated Complaint: Afib? Time Seen by Provider: 06/07/22 12:07 History of Present Illness HPI narrative: Patient is a 76-year-old male with a history of prostate cancer metastatic to the bones. Presented today with having palpitations. Patient you very weak tired. Was at the oncologist's office. Noted to have a heart rate approximately 150. Sent to the emergency department for further evaluation. There is no fever no chills. No focal weakness. No nausea no vomiting. Feels very tired. Sent in for further eval. No change in sleep pattern. Last chemotherapy was approximately 1 week ago. Related Data Home Medications Medication Instructions Recorded Confirmed calcium carbonate 600 mg calcium 600 mg PO DAILY 01/03/20 06/07/22 (1,500 mg) tablet (Calcium) denosumab 120 mg/1.7 mL (70 mg/mL) 120 mg subcut Q4W 01/03/20 06/07/22 subcutaneous solution leuprolide acetate (6 month) 45 mg 45 mg IM [id number] 01/03/20 06/03/22 intramuscular syringe kit (Lupron Depot) metoprolol succinate 25 mg 25 mg PO DAILY 09/07/20 06/07/22 tablet,extended release 24 hr atorvastatin 80 mg tablet 80 mg PO BEDTIME 06/07/22 06/07/22 prednisone 5 mg tablet 5 mg PO DAILY 06/07/22 06/07/22 Previous Rx's Medication Instructions Recorded ondansetron 8 mg disintegrating 8 mg PO Q8H PRN Nausea #30 tabs 03/12/21 tablet prochlorperazine maleate 10 mg 10 mg PO Q6H PRN Nausea #30 tabs 06/03/22 tablet (Compazine) Allergies Allergy/AdvReac Type Severity Reaction Status Date / Time lisinopril Allergy Severe angioedema Verified 06/03/22 10:14 Review of Systems Review of Systems: No chest pain or diaphoresis Yes all other systems are reviewed and are negative PMFSH Past Medical History Attestation statement: The following information was validated with the patient. Medical History Benign essential hypertension CAD (coronary artery disease) Central serous retinopathy Hematuria Impaired fasting glucose Obesity (BMI 30-39.9) Psoriasis Pulmonary nodules Pure hypercholesterolemia Tick bite Surgical History History of bladder surgery History of prostatectomy History of right knee surgery Family History Family History Father Heart disease CVD (cardiovascular disease) Mother Acute CVA (cerebrovascular accident) CVD (cardiovascular disease) Sister No problems noted. Sister Pacemaker Social History Social History Household Members: Spouse Housing: House Are you a primary director critical care to a significant other at home: No Do you presently have visiting nurse or other home services: No Alcohol intake: never Patient Tobacco Use Status: Former Tobacco user Tobacco use type: Cigarette Smoked in Last 30 Days: No Second Hand Smoke Exposure: Yes Use of substances other than those prescribed or required for medical reasons: No Advance Directives: No Advance Directives Information Provided: Yes service: No Current occupational status: retired Cognitive needs: No Hearing needs: No Vision needs: Yes (reading glasses) Physical Exam Vital Signs: Vital Signs: Last Vital Signs Temp 97.8 F 06/07/22 12:07 Pulse 78 06/07/22 14:09 Resp 22 H 06/07/22 14:09 BP 130/65 06/07/22 14:09 Pulse Ox 100 06/07/22 14:09 O2 Del Method Room Air 06/07/22 14:09 BMI result Body Mass Index 27.7 Appearance: Alert. Oriented X3. No acute distress. Eyes: Pupils equal, round and reactive to light. ENT: Pharynx normal. Neck: Normal inspection. Neck supple. No lymph nodes noted. No crepitus CVS: Normal irregularly irregular Pulses normal. Positive 2/6 murmur Respiratory: No respiratory distress. Breath sounds normal. No Wheezing. No rales Abdomen: Soft and nontender. No rigidity. No distention. good BS x4 Skin: Skin warm and dry. Normal skin color. Normal skin turgor. Extremities: No lower extremity edema. Neurovascular intact to all extremities. No Lacerations. No Rash Neuro: Oriented X 3. No motor deficit. No sensory deficit. Moving all extermities. No slurred speech Medications Administered Discontinued Medications Generic Name Dose Route Start Last Admin Trade Name Freq PRN Reason Stop Dose Admin Sodium Chloride 500 mls @ 999 mls/hr 06/07/22 13:00 06/07/22 13:03 Ns IV 06/07/22 13:30 999 mls/hr .Q31M RICH Administration Metoprolol Tartrate 5 mg 06/07/22 12:14 06/07/22 12:19 Metoprolol Tartrate 5 Mg/5 Ml Vial IVPUSH 06/07/22 12:15 5 mg ONCE ONE Administration Metoprolol Tartrate 5 mg 06/07/22 12:53 06/07/22 14:17 Metoprolol Tartrate 5 Mg/5 Ml Vial IVPUSH 06/07/22 12:54 Not Given ONCE ONE Medical Decision Making Medical Decision Making [facility] Narrative: Patient is 76 years old with a history of prostate cancer with metastasis to the bones. Presented today with feeling generalized malaise weakness. The initial heart rate was 150. The initial EKG by my interpretation shows an atrial fibrillation/atrial flutter pattern heart rate was 150. Patient was given Lopressor 5 mg. Significant history of coronary artery disease. History of aortic stenosis. Heart rate came down to approximately 120. Blood pressure take down to approximately 90/50 IV fluids ordered. Blood pressure was coming back up a 2nd dose of Lopressor was to be given when patient broke spontaneously into a sinus pattern heart rate was 80 with a patterns consistent with right bundle branch block. Patient's case discussed with cardiology as troponin is elevated at 160. Will admit for further evaluation. Differential Diagnosis Differential Diagnoses: The differential diagnosis associated with the presentation includes Lab Data [facility] Lab Attestation statement: I reviewed the patient's lab results. 06/07/22 12:23 06/07/22 14:43 Labs: Lab Results 06/07/22 06/07/22 06/07/22 Range/Units 12:23 12: 13:03 WBC 11.4 H (4.8-10.8) X10*3/uL RBC 3.22 L (4.60-5.80) X10*6/uL Hgb 10.9 L (14.0-18.0) g/dl Hct 32.7 L (42.0-52.0) % MCV 101.6 H (80.0-98.0) fL MCH 33.9 H (27.0-33.0) pg MCHC 33.3 (31.0-36.0) g/dl RDW 15.7 (11.0-16.0) % Plt Count 155 L (160-400) X10*3/uL MPV 10.1 (9.4-12.4) fL Immature Gran % (Auto) 1.7 H (0.0-0.4) % Neut % (Auto) 78.7 H (45-73) % Lymph % (Auto) 10.6 L (20-40) % [place] % (Auto) 8.7 (2-11) % Eos % (Auto) 0.0 (0-4) % Baso % (Auto) 0.3 (0-2) % Lymph # (Auto) 1.2 (1.2-4.9) X10*3/uL [place] # (Auto) 1.0 (0.1-1.2) X10*3/uL Eos # (Auto) 0.0 (0.0-0.4) X10*3/uL Baso # (Auto) 0.0 (0.0-0.2) X10*3/uL Abs Immat Gran (auto) 0.20 H (0.00-0.03) X10*3/uL Absolute Neuts (auto) 9.0 H (2.0-8.3) x10*3/uL Absolute Nucleated RBC 0.000 (0.0-0.012) X10*3/uL Nucleated RBC % (auto) 0.0 (0.0-0.2) /100WBC Troponin I High Sens (<3.5-35.0) ng/L B-Natriuretic Peptide 428 H (<100) pg/mL COVID-19 ([facility]) Negative (Negative) COVID-19 Clin Com See Note 06/07/22 Range/Units Unknown WBC (4.8-10.8) X10*3/uL RBC (4.60-5.80) X10*6/uL Hgb (14.0-18.0) g/dl Hct (42.0-52.0) % MCV (80.0-98.0) fL MCH (27.0-33.0) pg MCHC (31.0-36.0) g/dl RDW (11.0-16.0) % Plt Count (160-400) X10*3/uL MPV (9.4-12.4) fL Immature Gran % (Auto) (0.0-0.4) % Neut % (Auto) (45-73) % Lymph % (Auto) (20-40) % [place] % (Auto) (2-11) % Eos % (Auto) (0-4) % Baso % (Auto) (0-2) % Lymph # (Auto) (1.2-4.9) X10*3/uL [place] # (Auto) (0.1-1.2) X10*3/uL Eos # (Auto) (0.0-0.4) X10*3/uL Baso # (Auto) (0.0-0.2) X10*3/uL Abs Immat Gran (auto) (0.00-0.03) X10*3/uL Absolute Neuts (auto) (2.0-8.3) x10*3/uL Absolute Nucleated RBC (0.0-0.012) X10*3/uL Nucleated RBC % (auto) (0.0-0.2) /100WBC Troponin I High Sens 162.1 H* (<3.5-35.0) ng/L B-Natriuretic Peptide (<100) pg/mL COVID-19 ([facility]) (Negative) COVID-19 Clin Com Independent Interpretation I performed an independent interpretation of an: EKG Interpretation: Initial EKG atrial fibrillation heart rate 150 2nd EKG atrial fibrillation Heart rate approximately 130 3rd EKG showed sinus pattern heart rate of 70 with a right bundle-branch block Independent Historian Daughter External Record Review External record reviewed: Inpatient record and Outpatient record Chronic Conditions Patient?s care impacted by: Hypertension Critical Care Time Critical Care Time Critical Care Time: Yes Total Critical Care Time: 40 Attestation: I have personally provided 40 minutes of critical care time exclusive of time spent on separately billable procedures. Time includes review of lab data, radiology results, discussion with consultants, and monitoring for potential decompensation. Interventions were performed as documented above Discharge Plan Discharge Clinical Impression: CAD (coronary artery disease), A-fib Patient Disposition: Admitted As Inpatient Prescriptions: No Action metoprolol succinate 25 mg tablet extended release 24 hr 25 mg PO DAILY ondansetron 8 mg Tablet,Disintegrating 8 mg PO Q8H PRN (Reason: Nausea) Qty: 30 3RF prochlorperazine maleate [Compazine] 10 mg Tablet 10 mg PO Q6H PRN (Reason: Nausea) Qty: 30 3RF atorvastatin 80 mg tablet 80 mg PO BEDTIME prednisone 5 mg tablet 5 mg PO DAILY calcium carbonate [Calcium 600] 600 mg calcium (1,500 mg) tablet 600 mg PO DAILY denosumab 120 mg/1.7 mL (70 mg/mL) solution 120 mg subcut Q4W Lupron Depot (6 Month) 45 mg syringe kit 45 mg IM [id number]
--- NOTE | 2022-06-07 12:33 | ECG_ITS ---
Test Reason : REPEAT AFIB Blood Pressure : / mmHG Vent. Rate : 141 BPM Atrial Rate : 000 BPM P-R Int : 000 ms QRS Dur : 144 ms QT Int : 340 ms P-R-T Axes : 000 108 -17 degrees QTc Int : 520 ms Atrial fibrillation with rapid ventricular response Right bundle branch block T wave abnormality, consider inferior ischemia Abnormal ECG When compared with ECG of 07-JUN-2022 12:04, No significant changes seen Referred By: Lisbet Singh Electronically Signed By:GELACIO FIGUEROA
[2022-06-07 12:34] LABS: Basophils Percent Auto 0.3 % (0-2); Hematocrit 32.7 % (42.0-52.0); Hemoglobin 10.9 g/dl (14.0-18.0); Imm Gran Pct Auto 1.7 % (0.0-0.4); Lymphocytes Absolute Auto 1.2 X10*3/uL (1.2-4.9); Lymphocytes Percent Auto 10.6 % (20-40); MANUAL DIFF FLAG NO; Mean Corpuscular HGB Conc 33.3 g/dl (31.0-36.0); Mean Corpuscular Hemoglobin 33.9 pg (27.0-33.0); Mean Corpuscular Volume 101.6 fL (80.0-98.0); Mean Platelet Volume 10.1 fL (9.4-12.4); Monocytes Percent Auto 8.7 % (2-11); Neutrophils Percent Auto 78.7 % (45-73); Platelet Count 155 X10*3/uL (160-400); Red Blood Count 3.22 X10*6/uL (4.60-5.80); Red Cell Distribution Width 15.7 % (11.0-16.0); White Blood Count 11.4 X10*3/uL (4.8-10.8)
--- NOTE | 2022-06-07 12:56 | ECG_ITS ---
Test Reason : REPEAT Blood Pressure : / mmHG Vent. Rate : 080 BPM Atrial Rate : 080 BPM P-R Int : 160 ms QRS Dur : 154 ms QT Int : 438 ms P-R-T Axes : 055 092 -02 degrees QTc Int : 505 ms Normal sinus rhythm Right bundle branch block Abnormal ECG When compared with ECG of 07-JUN-2022 12:46, Sinus rhythm has replaced Atrial fibrillation Vent. rate has decreased BY 61 BPM Referred By: Lisbet Singh Electronically Signed By:GELACIO FIGUEROA
[2022-06-07] MEDS: 0.9 % Sodium Chloride 500 ML 999 ML IV (13:03)
[2022-06-07 13:22] LABS: Troponin-I High Sensitivity 162.1 ng/L (<3.5-35.0)
[2022-06-07 13:25] LABS: COVID-19 Test Negative (Negative); IDNOW Serial# BCCEAD1C
--- NOTE | 2022-06-07 13:51 | PHA.MEDREC ---
Pharmacy Consult ? Medication Reconciliation Pharmacy has completed the medication reconciliation.
--- NOTE | 2022-06-07 13:58 | CA_ITS ---
Transthoracic Echocardiogram Patient (Last, First, Middle): Armin Guerra S Gender: Male Date of : 1945 Age: 76 Procedure Date: 06/07/2022 Procedure Type: Transthoracic Echocardiogram Location: ER Height: 185. cm Weight: 95.26 kg BSA: 2.19 m2 Heart Rate: 78 bpm BP: 115 / 62 mmHg Electroencephalographic Technologist: BETH Referring MD: aDvy Abdalla MD Symptoms: AFib, elevated trops Study Quality: Fair ECG Rhythm: Sinus Conclusions: - The left ventricular systolic function is normal. The calculated ejection fraction is 58% by biplane method. - There is moderate calcification of the aortic valve. There is mild to moderate aortic valve stenosis. - There is moderate mitral annular calcification. Findings Left Ventricle Normal left ventricular cavity size. There is mildly increased left ventricular wall thickness. The left ventricular systolic function is normal. The calculated ejection fraction is 58% by biplane method. There is no evidence of regional wall motion abnormalities. E/E prime ratio is >15, consistent with elevated filling pressures. Evidence suggests grade II (moderate) diastolic dysfunction. Right Ventricle Normal right ventricular cavity size and systolic function. Atria Both atria are normal in size. Aortic Valve There is moderate calcification of the aortic valve. There is mild to moderate aortic valve stenosis. The mean gradient is 14 mmHg. The aortic valve area is 1.33 cm2. There is mild aortic valve regurgitation. Mitral Valve There is moderate mitral annular calcification. There is trace mitral valve regurgitation. There is no mitral valve stenosis. Pulmonic Valve The pulmonic valve is likely normal. Tricuspid Valve There is trace tricuspid valve regurgitation. There is no evidence of pulmonary hypertension. Great Vessels The asc aorta is normal in size. Venous The inferior vena cava is normal in size and collapses greater than 50% with inspiration. Pericardium/Pleural There is no evidence of pericardial effusion. Prior Study Comparison Changes noted compared to prior study dated: 05/12/2007. Aortic stenosis present. Measurements 2D Linear Measurements IVSd: 1.21 0.6-0.9/0.6-1.0 cm LVIDd: 4.44 3.9-5.3/4.2-5.9 cm LVIDd Index: 2.03 2.4-3.2/2.2-3.1 cm/m2 LVIDs: 3.24 2.0-3.6 cm LVPWd: 1.18 0.7-1.1 cm LA Diam: 3.90 2.7-3.8/3.0-4.0 cm LAIDs Index: 1.78 1.5-2.3 cm/m2 LV Mass: 240.33 67-162/88-224 g LV Mass Index: 109.74 43-95/49-115 g/m2 LVOT Diam: 2.30 3.0+(-)1.3 cm 2D Systolic Function EF 4C: 56.90 >55% EF 2C: 57.90 >55% EF BiP: 57.70 >55% Mitral Valve MV Pk E: 1.15 MV PK A: 0.89 MV Decel Time: 219.00 E/A: 1.30 E'Lateral: 7.40 E'Medial: 5.00 E/E' Med: 23.00 E/E' Lat: 15.50 PHT: 64.00 MVA PHT: 3.44 Decel Greenlee: 5.25 Aortic Valve AoV Pk Theodore: 2.56 AoV Mn Theodore: 1.78 AoV VTI: 0.50 AoV Pk Grad: 26.00 Aov Mn Grad: 14.00 DOMINIQUE Cont.VTI: 1.33 AI Pk Theodore: 3.96 AI Greenlee: 2.42 LVOT LVOT Pk Theodore: 0.87 LVOT Mn Theodore: 0.54 LVOT VTI: 0.16 LVOT Pk Grad: 3.00 LVOT Mn Grad: 1.00 LVOT Diam: 2.30 LVOT Area: 4.15 Diastolic Function MV Pk E: 1.15 MV Pk A: 0.89 E/A: 1.30 E'Medial: 5.00 E/E' Med: 23.00 E' Laterial: 7.40 E/E' Lat: 15.50 Right Ventricle TAPSE (mm): 18.30 TVS' Theodore: 10.10 Tricuspid Valve TR Pk Theodore: 2.09 TR Pk Grad: 17.00 RA Press: 3.00 RVSP: 20.00 Great Vessels Aorta Sinus of Valsalva: 3.50 2.0-3.5 cm Ao Asc: 3.50 2.1-3.4 cm Pulmonary Valve PV Pk Theodore: 0.94 Peak PV Grad: 4.00 Updated in Other Vendor System with Status of Final Davy Rm MD electronically signed on 06/08/2022 9:22:28 AM with status of Final
[2022-06-07 14:04] LABS: B Type Natriuretic Peptide 428 pg/mL (<100)
--- NOTE | 2022-06-07 14:58 | P.HPHOSP_ITS ---
History of Present Illness Date of Service: 06/07/22 Attending physician on admission: August Ritter Chief Complaint: Tachycardia and hypertension Pt is a 76-year-old male with a PMH significant for?prostate cancer initially diagnosed in 2007 with metastasis to the bones and seen by Dr. Hartley, HLD, HTN, PVD, CAD, and PCI s/p drug-eluding stent to LAD who presents to the ED with?tachycardia and hypotension. Patient is being seen by Dr. Hartley for a follow-up visit after chemotherapy last week. Presented with generalized weakness, dizziness, anorexia, and recent weight loss. At the office he was noted to have a heart rate in the 120s and blood pressure of 80/50. EKG revealed atrial flutter with RVR of 150 and RBBB. Patient was given IV fluids in the office and sent to the ED for further evaluation and treatment. In the ED patient was given IV fluids with improvement due to his blood pressure. Given 2 doses of Lopressor, patient spontaneously converted back to normal sinus rhythm with a rate of 80. First troponin came back elevated at 160. ED talked to Cardiology who suggested admission for further workup and evaluation. After conversion back to normal sinus rhythm, patient states that he no longer feels dizzy lightheaded. Denies ever feeling any palpitations. Denies history of AFib. Patient does not complain any acute pain: No chest pain/pressure, shortness of breath, abdominal pain. No fever, chills, nausea, vomiting, diarrhea. In the ED patient was tachycardic up to 151, and tachypneic up to 22 satting at 100% on RA. Labs were significant for WBC of 11.4, H&H of 10.9/32.7, platelets of 155, BNP elevated of 428, initial troponin elevated at 162.1. EKG demonstrated atrial fibrillation with RVR of 152, repeat showed normal sinus rhythm with right bundle-branch block. Pt was treated with IVF and 2 doses of metoprolol IV. Pt will be admitted to observation on telemetry for further workup of new onset AFib with RVR. Review of Systems Review of Systems: Generalized weakness Dizziness/lightheadedness Anorexia Denies chest pain/pressure, palpitations No shortness of breath Denies fever, chills, nausea, vomiting, diarrhea, abdominal pain Yes all other systems are reviewed and are negative PMFSH Medical History Benign essential hypertension CAD (coronary artery disease) Central serous retinopathy Hematuria Impaired fasting glucose Obesity (BMI 30-39.9) Psoriasis Pulmonary nodules Pure hypercholesterolemia Tick bite Family History Father Heart disease CVD (cardiovascular disease) Mother Acute CVA (cerebrovascular accident) CVD (cardiovascular disease) Sister No problems noted. Sister Pacemaker Surgical History History of bladder surgery History of prostatectomy History of right knee surgery Social History Household Members: Spouse Housing: House Are you a primary critical care clinical nurse specialist to a significant other at home: No Do you presently have visiting nurse or other home services: No Alcohol intake: never Patient Tobacco Use Status: Former Tobacco user Tobacco use type: Cigarette Second Hand Smoke Exposure: Yes service: No Current occupational status: retired Cognitive needs: No Hearing needs: No Vision needs: Yes (reading glasses) Meds Allergies Allergy/AdvReac Type Severity Reaction Status Date / Time lisinopril Allergy Severe angioedema Verified 06/03/22 10:14 Active Medications: Current Medications Pharmacy Consult (Consult Rx Perform Med Rec) 1 each MISCELLANE ONCE PRN PRN Reason: Consult order Home Medications Medication Instructions Recorded Confirmed Last Taken Type calcium carbonate 600 mg calcium 600 mg PO DAILY 01/03/20 06/07/22 06/06/22 History (1,500 mg) tablet (Calcium) denosumab 120 mg/1.7 mL (70 mg/mL) 120 mg subcut Q4W 01/03/20 06/07/22 04/25/22 History subcutaneous solution leuprolide acetate (6 month) 45 mg 45 mg IM [id number] 01/03/20 06/03/22 Unknown History intramuscular syringe kit (Lupron Depot) atorvastatin 80 mg tablet 80 mg PO BEDTIME 06/07/22 06/07/22 06/06/22 History prednisone 5 mg tablet 5 mg PO DAILY 06/07/22 06/07/22 06/06/22 History Physical Exam Vital Signs and Narrative: Vital Signs: Last Vital Signs Temp 97.8 F 06/07/22 12:07 Pulse 78 06/07/22 14:09 Resp 22 H 06/07/22 14:09 BP 130/65 06/07/22 14:09 Pulse Ox 100 06/07/22 14:09 O2 Del Method Room Air 06/07/22 14:09 BMI result Body Mass Index 27.7 Constitutional: Alert, in no acute distress. Mental Status: Oriented to person, place and time. Eyes: Pupils are equal, round, and reactive to light. Ear, Nose, and Throat: Oropharynx clear, mucous membranes moist. Ears and nose without deformities. Trachea midline. Respiratory: Clear to auscultation bilaterally. No wheezing, rales, or rhonchi. Cardiovascular: S1, S2 regular. 2/6 murmur. Gastrointestinal: Abdomen soft, non-tender, non-distended. Normal bowel sounds. Neurologic: Cranial nerves II-XII are grossly intact bilaterally. No focal neurological deficits. Moves all extremities spontaneously. Skin: No rashes or lesions noted. Musculoskeletal: No cyanosis or clubbing. Extremities: No edema. Psychiatric: Normal mood and affect. Results Labs 06/07/22 12:23 06/07/22 14:43 Labs: Laboratory Results - last 24 hr 06/07/22 06/07/22 06/07/22 12:23 12:23 13:03 MCV 101.6 H MCH 33.9 H MCHC 33.3 RDW 15.7 Plt Count 155 L MPV 10.1 Immature Gran % (Auto) 1.7 H Neut % (Auto) 78.7 H Lymph % (Auto) 10.6 L Frontier % (Auto) 8.7 Eos % (Auto) 0.0 Baso % (Auto) 0.3 Lymph # (Auto) 1.2 Frontier # (Auto) 1.0 Eos # (Auto) 0.0 Baso # (Auto) 0.0 Abs Immat Gran (auto) 0.20 H Absolute Neuts (auto) 9.0 H Absolute Nucleated RBC 0.000 Nucleated RBC % (auto) 0.0 Troponin I High Sens B-Natriuretic Peptide 428 H COVID-19 ([facility]) Negative COVID-19 Clin Com See Note 06/07/22 Unknown MCV MCH MCHC RDW Plt Count MPV Immature Gran % (Auto) Neut % (Auto) Lymph % (Auto) Frontier % (Auto) Eos % (Auto) Baso % (Auto) Lymph # (Auto) Frontier # (Auto) Eos # (Auto) Baso # (Auto) Abs Immat Gran (auto) Absolute Neuts (auto) Absolute Nucleated RBC Nucleated RBC % (auto) Troponin I High Sens 162.1 H* B-Natriuretic Peptide COVID-19 ([facility]) COVID-19 Clin Com Assessment and Plan (1) Atrial fibrillation with RVR: Status: Acute Plan Pt is a 76-year-old male with a PMH significant for?prostate cancer initially diagnosed in 2007 with metastasis to the bones and seen by Dr. Hartley, HLD, HTN, PVD, CAD, and PCI s/p drug-eluding stent to LAD who presents to the ED with?tachycardia and hypotension. Patient is being seen by Dr. Hartley for a follow-up visit after chemotherapy last week. Presented with generalized weakne ss, dizziness, anorexia, and recent weight loss. At the office he was noted to have a heart rate in the 120s and blood pressure of 80/50. EKG revealed atrial flutter with RVR of 150 and RBBB. Pt will be admitted to observation on telemetry for further workup of new onset AFib with RVR. New onset AFib with RVR Patient presented with new onset AFib/atrial flutter with RVR in 150s Converted to normal sinus rhythm with rate in 70s-80s after 2 doses of IV metoprolol Check Echocardiogram Check CXR Lipid profile, check albumin, Check albumin Cardiology consult Discuss with Cardiology about long-term anticoagulation Admit to telemetry Elevated troponin Patient's initial troponin 162.1 Patient asymptomatic: Not complaining of chest pain/pressure, palpitations Repeat troponin Potassium Patient borderline hypokalemic at Will give 40 mEq of potassium chloride with goal of keeping potassium above 4 Follow BMP Magnesium Magnesium borderline low at 1.6 Will give Mag 2 g IV with goal of keeping magnesium above 2 Follow BMP Elevated BNP BNP elevated at 428, baseline unknown Most likely secondary to AFib Patient does not appear to be fluid overloaded, or in CHF HLD Continue statin DNR/DNI Attending:?Dr. Ritter DVT Prophylaxis: Lovenox Pt will be admitted to observation on telemetry for further workup and evaluation of new onset AFib with RVR. Time Spent With Patient Time: Total time managing care of this patient today ____ minutes. Quality Stroke Does the patient have a stroke diagnosis?: No VTE Prior VTE?: No VTE Risk Level:: Medical - moderate - high VTE Device Contraindication: Treatment Not Indicated VTE Drug Contraindication: N/A - Med Ordered
[2022-06-07 15:04] LABS: Anion Gap 11 (12-20); Blood Urea Nitrogen 7 mg/dL (9-16); Calcium 7.4 mg/dL (8.4-10.2); Carbon Dioxide 19 mmol/L (22-29); Chloride 111 mmol/L (96-108); Creatinine Clr Calc Pharmacy 104.2; Estimated Glomerular Filt Rate > 60; Glucose Random 121 mg/dL (60-115); Potassium 3.3 mmol/L (3.3-5.1); Sodium 138 mmol/L (135-145)
[2022-06-07 15:41] LABS: Magnesium 1.6 mg/dL (1.6-2.6)
[2022-06-07 16:02] LABS: Thyroid Stimulating Hormone 0.88 uIU/mL (0.32-4.0)
[2022-06-07 16:17] LABS: Albumin Level 3.4 g/dL (3.5-5.0)
[2022-06-07] MEDS: Enoxaparin Sodium 40 MG/0.4 ML SYRINGE SUBCUT (16:33)
[2022-06-07] MEDS: Potassium Chloride Packet 20 MEQ PACKET 40 MEQ PO (16:33)
[2022-06-07] MEDS: Magnesium Sulfate/H2O 2 GM/50 ML PIGGYBACK IV (16:34)
[2022-06-07] MEDS: 0.9 % Sodium Chloride Flush 3 ML SYRINGE IVFLUSH ×2 (16:41→19:42)
[2022-06-07 19:01] LABS: Cholesterol 101 mg/dL; HDL Cholesterol 27 mg/dL; LDL Cholesterol Calculated 50 mg/dl; Triglycerides 124 mg/dL
[2022-06-07 19:33] LABS: Troponin-I High Sensitivity 199.5 ng/L (<3.5-35.0)
[2022-06-07] MEDS: Atorvastatin Calcium 80 MG TABLET PO (19:41)
[2022-06-08 03:37] VITALS: BP 125/64; PULSE 74; RESP 20; TEMP 36.1; O2SAT 95
[2022-06-08] MEDS: Potassium Chloride Packet 20 MEQ PACKET 40 MEQ PO (05:42)
[2022-06-08] MEDS: Magnesium Sulfate/H2O 2 GM/50 ML PIGGYBACK IV (05:43)
[2022-06-08 06:43] LABS: Anion Gap 13 (12-20); Blood Urea Nitrogen 7 mg/dL (9-16); Calcium 7.5 mg/dL (8.4-10.2); Carbon Dioxide 20 mmol/L (22-29); Chloride 110 mmol/L (96-108); Creatinine Clr Calc Pharmacy 110.9; Estimated Glomerular Filt Rate > 60; Glucose Random 99 mg/dL (60-115); Potassium 3.7 mmol/L (3.3-5.1); Sodium 139 mmol/L (135-145)
[2022-06-08 07:39] VITALS: BP 113/60; PULSE 71; RESP 19; TEMP 36.7; O2SAT 97
[2022-06-08] MEDS: 0.9 % Sodium Chloride Flush 3 ML SYRINGE IVFLUSH (08:21)
[2022-06-08] MEDS: Metoprolol Succinate ER 25 MG TAB.ER.24H PO (08:22)
[2022-06-08] MEDS: predniSONE 5 MG TABLET PO (08:22)
--- NOTE | 2022-06-08 10:09 | P.CONCA_ITS ---
History of Present Illness History of Present Illness Date of Service: 06/08/22 Chief complaint: New onset Afib w/ RVR Narrative: This is a cardiology consultation regarding atrial fibrillation rapid rate. Patient states that he has a history of coronary stent many years ago. He sees Dr. Pina for outpatient care. For the last few days, he states he has not been feeling good. Extremely tired and weak and did not have any energy at all. 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 Yesterday, he has heart rate was rapid in the oncology office and he was sent to the emergency room. Found to be in atrial fibrillation rapid rate. It seems that he got IV Lopressor and then eventually converted back to sinus rhythm. There was slight increase in troponins. Subsequently admitted for further care. Patient does not have any chest pain or shortness of breath or palpitations or in fact any other cardiac complaints. Main issues tiredness and weakness. That seems improved from before. Review of Systems Review of Systems: Yes all other systems are reviewed and are negative Constitutional: Constitutional: Reports as per HPI, Reports no additional constitutional complaints, Reports fatigue, Reports lethargy and Reports malaise Eyes: Eyes: Reports as per HPI and Denies no additional eye complaints ENT: Denies system reviewed and no additional complaints, except as documented and Reports as per HPI Cardiovascular: Cardiovascular: Reports as per HPI, Reports no additional cardiovascular complaints, Denies acrocyanosis, Denies cool extremities, Denies chest pain, Denies leg edema, Denies lightheadedness, Denies palpitations and Denies dyspnea Respiratory: Respiratory: Reports as per HPI, Denies no additional respiratory complaints and Denies dyspnea Gastrointestinal: Gastrointestinal: Reports as per HPI and Denies no additional gastrointestinal complaints Genitourinary: Genitourinary: Reports no additional male genitourinary complaints and Reports as per HPI Musculoskeletal: Musculoskeletal: Reports no additional musculoskeletal c omplaints and Reports as per HPI Integumentary/Breasts: Skin/Breast: Reports system reviewed and no additional complaints, except as docu Neurologic: Reports system reviewed and no additional complaints, except as do cumented and Reports as per HPI Psychiatric: Psychiatric: Reports no additional psychiatric complaints and Reports as per HPI Endocrine: Endocrine: Reports no additional endocrine complaints, Reports as per HPI, Reports fatigue and Denies palpitations Hematologic/Lymphatic: Hematologic/Lymphatic: Reports no additional hematologic/lymphatic complaints and Reports as per HPI Allergic/Immunologic: Allergic/Immunologic: Reports no additional allergic/immunologic complaints and Reports as per HPI [facility] Past Medical History Medical History Benign essential hypertension CAD (coronary artery disease) Central serous retinopathy Hematuria Impaired fasting glucose Obesity (BMI 30-39.9) Psoriasis Pulmonary nodules Pure hypercholesterolemia Tick bite Family History Family History Father Heart disease CVD (cardiovascular disease) Mother Acute CVA (cerebrovascular accident) CVD (cardiovascular disease) Sister No problems noted. Sister Pacemaker Surgical History Surgical History History of bladder surgery History of prostatectomy History of right knee surgery Social History Social History Household Members: Spouse Housing: House Are you a primary acute care nursing assistant to a significant other at home: No Do you presently have visiting nurse or other home services: No Alcohol intake: never Patient Tobacco Use Status: Former Tobacco user Tobacco use type: Cigarette Smoked in Last 30 Days: No Patient Interested in Nicotine Replacement: No Second Hand Smoke Exposure: Yes Use of substances other than those prescribed or required for medical reasons: No Advance Directives: No Advance Directives Information Provided: Yes Nutrition Risks: Poor intake 0-25% >4 days service: No Current occupational status: retired Cognitive needs: No Hearing needs: No Vision needs: Yes (reading glasses) Meds Allergies Allergy/AdvReac Type Severity Reaction Status Date / Time lisinopril Allergy Severe angioedema Verified 06/03/22 10:14 Active Medications: Current Medications Acetaminophen (Acetaminophen 325 Mg Tablet) 650 mg PO Q6H PRN PRN Reason: Pain, Mild (Pain Scale 1-3) Atorvastatin Calcium (Atorvastatin Calcium 80 Mg Tablet) 80 mg PO BEDTIME [facility] Last Admin: 06/07/22 19:41 Dose: 80 mg Calcium Carbonate (Calcium Carbonate 500 Mg Tablet) 500 mg PO DAILY [facility] Last Admin: 06/08/22 08:22 Dose: 500 mg Docusate Sodium (Docusate Sodium 100 Mg Capsule) 100 mg PO DAILY PRN PRN Reason: Constipation Enoxaparin Sodium (Enoxaparin Sodium 40 Mg/0.4 Ml Syringe) 40 mg SUBCUT Q24H [facility] Last Admin: 06/07/22 16:33 Dose: 40 mg Metoprolol Succinate (Metoprolol Succinate Er 25 Mg Tab.Er.24h) 25 mg PO DAILY [facility]; Protocol Last Admin: 06/08/22 08:22 Dose: 25 mg Ondansetron HCl (Ondansetron Hcl 4 Mg/2 Ml Vial) 4 mg IVPUSH Q8H PRN PRN Reason: Nausea and Vomiting Pharmacy Consult (Consult Rx Perform Med Rec) 1 each MISCELLANE ONCE PRN PRN Reason: Consult order Prednisone (Prednisone 5 Mg Tablet) 5 mg PO DAILY [facility] Last Admin: 06/08/22 08:22 Dose: 5 mg Prochlorperazine Maleate (Prochlorperazine Maleate 5 Mg Tablet) 10 mg PO Q6H PRN PRN Reason: Nausea Sodium Chloride (0.9 % Sodium Chloride Flush 3 Ml Syringe) 3 ml IVFLUSH QSHIFT [facility] Last Admin: 06/08/22 08:21 Dose: 3 ml Home Medications Medication Instructions Recorded Confirmed Last Taken Type calcium carbonate 600 mg calcium 600 mg PO DAILY 01/03/20 06/07/22 06/06/22 History (1,500 mg) tablet (Calcium) denosumab 120 mg/1.7 mL (70 mg/mL) 120 mg subcut Q4W 01/03/20 06/07/22 04/25/22 History subcutaneous solution leuprolide acetate (6 month) 45 mg 45 mg IM [id number] 01/03/20 06/03/22 Unknown History intramuscular syringe kit (Lupron Depot) metoprolol succinate 25 mg 25 mg PO DAILY 09/07/20 06/07/22 06/06/22 History tablet,extended release 24 hr atorvastatin 80 mg tablet 80 mg PO BEDTIME 06/07/22 06/07/22 06/06/22 History prednisone 5 mg tablet 5 mg PO DAILY 06/07/22 06/07/22 06/06/22 History Physical Exam Vital Signs: Vital Signs: Last Vital Signs Temp 98.0 F 06/08/22 07:39 Pulse 71 06/08/22 07:39 Resp 19 06/08/22 07:39 BP 113/60 06/08/22 07:39 Pulse Ox 97 06/08/22 07:39 O2 Del Method Room Air 04/01/23 07:39 BMI result Body Mass Index 25.9 Const: General: comfortable and no acute distress Orientation/con sciousness: patient oriented x3 HEENT: Other: Unremarkable Head: Yes normal to inspection Neck: Neck: Yes normal visual inspection Chest: Chest palpation & inspection: normal inspection of the chest Resp: Auscultation: clear to auscultation bilaterally Cardio: Palpation: normal PMI Heart sounds: S1 normal heart sound present, S2 normal heart sound present, no gallops, Murmur heart sound present systolic II/ and at the right sternal border and no rubs GI: Palpation (GI): Soft to palpation Back/Spine/Pelvis: Other: unremarkable Skin: General skin exam: no rashes or lesions noted Neuro: General: patient oriented x3 Extrem: General: Yes normal to inspection Psych: Mental Status: mental status grossly normal Objective Labs and Meds 06/07/22 12:23 06/08/22 06:03 Lab results: Laboratory Results - last 24 hr 06/07/22 06/07/22 06/07/22 12:23 12:23 13:03 WBC 11.4 H RBC 3.22 L Hgb 10.9 L Hct 32.7 L MCV 101.6 H MCH 33.9 H MCHC 33.3 RDW 15.7 Plt Count 155 L MPV 10.1 Immature Gran % (Auto) 1.7 H Neut % (Auto) 78.7 H Lymph % (Auto) 10.6 L [place] % (Auto) 8.7 Eos % (Auto) 0.0 Baso % (Auto) 0.3 Lymph # (Auto) 1.2 [place] # (Auto) 1.0 Eos # (Auto) 0.0 Baso # (Auto) 0.0 Abs Immat Gran (auto) 0.20 H Absolute Neuts (auto) 9.0 H Absolute Nucleated RBC 0.000 Nucleated RBC % (auto) 0.0 Sodium Potassium Chloride Carbon Dioxide Anion Gap BUN Creatinine Estim Creat Clear Calc Estimated GFR Random Glucose Calcium Magnesium Troponin I High Sens B-Natriuretic Peptide 428 H Albumin Triglycerides Cholesterol LDL Cholesterol, Calc HDL Cholesterol TSH COVID-19 ([facility]) Negative COVID-19 Clin Com See Note 06/07/22 06/07/22 06/07/22 14:43 18:33 18:34 WBC RBC Hgb Hct MCV MCH MCHC RDW Plt Count MPV Immature Gran % (Auto) Neut % (Auto) Lymph % (Auto) [place] % (Auto) Eos % (Auto) Baso % (Auto) Lymph # (Auto) [place] # (Auto) Eos # (Auto) Baso # (Auto) Abs Immat Gran (auto) Absolute Neuts (auto) Absolute Nucleated RBC Nucleated RBC % (auto) Sodium 138 Potassium 3.3 Chloride 111 H Carbon Dioxide 19 L Anion Gap 11 L BUN 7 L Creatinine 0.66 Estim Creat Clear Calc 104.2 Estimated GFR > 60 Random Glucose 121 H Calcium 7.4 L D Magnesium 1.6 Troponin I High Sens 199.5 H* B-Natriuretic Peptide Albumin 3.4 L Triglycerides 124 Cholesterol 101 LDL Cholesterol, Calc 50 HDL Cholesterol 27 TSH 0.88 COVID-19 ([facility]) COVID-19 Clin Com 06/07/22 06/08/22 Unknown 06:03 WBC RBC Hgb Hct MCV MCH MCHC RDW Plt Count MPV Immature Gran % (Auto) Neut % (Auto) Lymph % (Auto) [place] % (Auto) Eos % (Auto) Baso % (Auto) Lymph # (Auto) [place] # (Auto) Eos # (Auto) Baso # (Auto) Abs Immat Gran (auto) Absolute Neuts (auto) Absolute Nucleated RBC Nucleated RBC % (auto) Sodium 139 Potassium 3.7 Chloride 110 H Carbon Dioxide 20 L Anion Gap 13 BUN 7 L Creatinine 0.62 Estim Creat Clear Calc 110.9 Estimated GFR > 60 Random Glucose 99 Calcium 7.5 L Magnesium 2.0 Troponin I High Sens 162.1 H* B-Natriuretic Peptide Albumin Triglycerides Cholesterol LDL Cholesterol, Calc HDL Cholesterol TSH COVID-19 ([facility]) COVID-19 Clin Com ECG Interpretation: EKG with likely atrial fibrillation rapid rate with right bundle-branch block pattern. Less likely flutter but can not exclude. Currently, on telemetry is in sinus rhythm. Imaging Radiologist's impression: Impressions Chest X-Ray 06/07/22 16:28 IMPRESSION: 1. No acute cardiopulmonary findings. 2. Redemonstration of a retrocardiac lesion. Assessment and Plan (1) Atrial fibrillation with RVR: Status: Acute (2) Myocardial injury: Status: Acute (3) CAD (coronary artery disease): Status: Acute (4) Prostate cancer metastatic to bone: Status: Chronic (5) Metabolic brain disease: Status: Acute (6) Non-rheumatic aortic stenosis: Status: Acute (7) Mitral annular calcification: Status: Acute Plan Echocardiogram with LVEF of 58%. No wall motion abnormalities. Grade 2 diastolic dysfunction. Moderate aortic valve calcification with [id number] stenosis. Moderate mitral annular calcification. High sensitivity troponins are 199 and 162. Cardiac BNP is 428. Overall, atrial fibrillation rapid rate in the setting of metastatic prostate cancer as well as brain metastasis. Currently, he is back in sinus rhythm on telemetry. We can increase home dose of beta-blockers. With regard to anticoagulation, due to brain Mets, probably increased chance of hemorrhagic complications and hence may hold off unless Hematology approves it. With regard to elevated troponins, likely from myocardial injury secondary to the atrial fibrillation rapid rate. No specific management for this. He does not have any angina. Also due to significant Oncology background, would not pursue this aggressively. With regard to aortic stenosis, not hemodynamically significant. Mitral annular calcification is also not of any significance at this time. Otherwise, likely conservative cardiac care due to metastatic prostate cancer/brain metastasis. Follow-up with his own nursing home administrator as an outpatient. Discussed with Dr. Car. Time Spent With Patient Time: Total time managing care of this patient today 75 minutes. This includes review of chart, laboratory data, imaging, review of telemetry, counseling patient, family, discussion with hospitalist, documentation, coordination of care. Procedures Date of Service Date of Service: 06/08/22
--- NOTE | 2022-06-08 10:47 | MHC.CM.PN ---
Addendum entered by Yamel Ramirez 06/08/22 14:03: DP: PT HAS BEEN MEDICALLY CLEARED FOR DC HOME, NO SERVICES. S/O [facility] WILL TRANSPORT HOME. Original Note: [facility] DELIVERED PT LIVES WITH S/O IN A [facility]. INDEPENDENT AT BASELINE. + HCP AT HOME, COPY REQUESTED. + COVID VAX X3 PCP DR. ALLEN AT [facility] DP: HOME, NO SERVICES ANTICIPATED. S/O WILL TRANSPORT
[2022-06-08 11:49] VITALS: BP 155/72; PULSE 74; RESP 18; TEMP 37.2; O2SAT 95
--- NOTE | 2022-06-08 14:01 | P.DS_ITS ---
DS: Providers Provider Date of Service: 06/08/22 Date of admission: 06/07/22 15:51 Date of discharge: 06/08/22 Primary care physician: Guido Joseph MD Consults: 06/07/22 16:02 Consult to Cardiology Routine Consulting Provider: [facility] Cardiovascular Services Reason for consultation: New onset AFib with RVR DS: Diagnosis Discharge Diagnosis (1) Atrial fibrillation with RVR: Status: Acute (2) Metabolic brain disease: Status: Acute (3) Non-rheumatic aortic stenosis: Status: Acute (4) Mitral annular calcification: Status: Acute (5) Metastasis to brain: Status: Acute DS: Summary Hospital Course Hospital Course: from admission H+P by hospitalist KATHLEEN Cardona, 06/07/22: Pt is a 76-year-old male with a PMH significant for?prostate cancer initially diagnosed in 2007 with metastasis to the bones and seen by Dr. Hartley, HLD, HTN, PVD, CAD, and PCI s/p drug-eluding stent to LAD who presents to the ED with?tachycardia and hypotension.? Patient is being seen by Dr. Hartley for a follow-up visit after chemotherapy last week.? Presented with generalized weakness, dizziness, anorexia, and recent weight loss. At the office he was noted to have a heart rate in the 120s and blood pressure of 80/50.? EKG revealed atrial flutter with RVR of 150 and RBBB.? Patient was given IV fluids in the office and sent to the ED for further evaluation and treatment.? In the ED patient was given IV fluids with improvement due to his blood pressure.? Given 2 doses of Lopressor, patient spontaneously converted back to normal sinus rhythm with a rate of 80.? First troponin came back elevated at 160.? ED talked to Cardiology who suggested admission for further workup and evaluation.? After conversion back to normal sinus rhythm, patient states that he no longer feels dizzy lightheaded.? Denies ever feeling any palpitations.? Denies history of AFib.? Patient does not complain any acute pain:? No chest pain/pressure, shortness of breath, abdominal pain.? No fever, chills, nausea, vomiting, diarrhea.? In the ED patient was tachycardic up to 151, and tachypneic up to 22 satting at 100% on RA. Labs were significant for WBC of 11.4, H&H of 10.9/32.7, platelets of 155, BNP elevated of 428, initial troponin elevated at 162.1. EKG demonstrated atrial fibrillation with RVR of 152, repeat showed normal sinus rhythm with right bundle-branch block. Pt was treated with IVF and 2 doses of metoprolol IV. Pt will be admitted to observation on telemetry for further workup of new onset AFib with RVR. He was admitted to the [facility] [place]. He remained in sinus rhythm with 3 short non-sustained runs of atrial fibrillation/atrial flutter. Cardiology was consulted. Per the investor relations manager Dr Jg Abdalla 06/08/22: This is a cardiology consultation regarding atrial fibrillation rapid rate.? Patient states that he has a history of coronary stent many years ago.? He sees Dr. Pina for outpatient care.? For the last few days, he states he has not been feeling good.? Extremely tired and weak and did not have any energy at all.? He is on chemotherapy for metastatic prostate cancer.? He also has brain metastasis.? Yesterday, he has heart rate was rapid in the oncology office and he was sent to the emergency room.? Found to be in atrial fibrillation rapid rate.? It seems that he got IV Lopressor and then eventually converted back to sinus rhythm.? There was slight increase in troponins.? Subsequently admitted for further care.? Patient does not have any chest pain or shortness of breath or palpitations or in fact any other cardiac complaints.? Main issues tiredness and weakness.? That seems improved from before... ...Echocardiogram with LVEF of 58%.? No wall motion abnormalities.? Grade 2 diastolic dysfunction.? Moderate aortic valve calcification with [id number] stenosis.? Moderate mitral annular calcification. High sensitivity troponins are 199 and 162.? Cardiac BNP is 428. Overall, atrial fibrillation rapid rate in the setting of metastatic prostate cancer as well as brain metastasis.? Currently, he is back in sinus rhythm on telemetry.? We can increase home dose of beta-blockers.? With regard to anticoagulation, due to brain Mets, probably increased chance of hemorrhagic complications and hence may hold off unless Hematology approves it.? With regard to elevated troponins, likely from myocardial injury secondary to the atrial fibrillation rapid rate.? No specific management for this.? He does not have any angina.? Also due to significant Oncology background, would not pursue this aggressively.? With regard to aortic stenosis, not hemodynamically significant.? Mitral annular calcification is also not of any significance at this time.? Otherwise, likely conservative cardiac care due to metastatic prostate cancer/brain metastasis. Follow-up with his own investor relations manager as an outpatient. So metoprolol succinate was increased from 25 mg once daily to 25 mg twice daily. Anticoagulation was not started given brain metastases that have bled in the past. He was discharged home to follow up with Primary Care, Oncology, and Cardiology. Time Spent with Patient Time attestation: Total time managing care of this patient today __30__ minutes. Discharge coordination time: Greater than 30 minutes Quality: Safe Use of Opioids Does Pt have an Active Cancer Diagnosis on the Problem List?: Yes Opioid Measure Date for [facility] Report: 05/09/22 Opioid Measure Time for [facility] Report: 14:05 Quality: Stroke Does the patient have a stroke diagnosis?: No Physical Exam Vital Signs: Vital Signs: Last Vital Signs Temp 98.9 F 06/08/22 11:49 Pulse 74 06/08/22 11:49 Resp 18 06/08/22 11:49 BP 155/72 H 06/08/22 11:49 Pulse Ox 95 06/08/22 11:49 O2 Del Method Room Air 06/08/22 11:49 BMI result Body Mass Index 25.9 Gen: in no acute distress HEENT: sclera anicteric, moist mucus membranes Neck: supple Lungs: clear to auscultation bilaterally Heart: regular rate and rhythm, no murmurs Abd: soft, non-tender, non-distended Ext: no edema Skin: warm/well-perfused Neuro: alert and oriented x3, no focal findings Psych: appropriate affect DS: Data Data Completed and Pending Completed studies during hospitalization [Text1]: Laboratory Results WBC 11.4 X10*3/uL (4.8-10.8) H 06/07/22 12:23 RBC 3.22 X10*6/uL (4.60-5.80) L 06/07/22 12:23 Hgb 10.9 g/dl (14.0-18.0) L 06/07/22 12:23 Hct 32.7 % (42.0-52.0) L 06/07/22 12:23 MCV 101.6 fL (80.0-98.0) H 06/07/22 12: MCH 33.9 pg (27.0-33.0) H 06/07/22 12: MCHC 33.3 g/dl (31.0-36.0) 06/07/22 12: RDW 15.7 % (11.0-16.0) 06/07/22 12: Plt Count 155 X10*3/uL (160-400) L 06/07/22 12: MPV 10.1 fL (9.4-12.4) 06/07/22 12: Immature Gran % (Auto) 1.7 % (0.0-0.4) H 06/07/22 12: Neut % (Auto) 78.7 % (45-73) H 06/07/22 12: Lymph % (Auto) 10.6 % (20-40) L 06/07/22 12: [place] % (Auto) 8.7 % (2-11) 06/07/22 12: Eos % (Auto) 0.0 % (0-4) 06/07/22 12: Baso % (Auto) 0.3 % (0-2) 06/07/22 12: Lymph # (Auto) 1.2 X10*3/uL (1.2-4.9) 06/07/22 12: [place] # (Auto) 1.0 X10*3/uL (0.1-1.2) 06/07/22 12: Eos # (Auto) 0.0 X10*3/uL (0.0-0.4) 06/07/22 12: Baso # (Auto) 0.0 X10*3/uL (0.0-0.2) 06/07/22 12: Abs Immat Gran (auto) 0.20 X10*3/uL (0.00-0.03) H 06/07/22 12: Absolute Neuts (auto) 9.0 x10*3/uL (2.0-8.3) H 06/07/22 12: Absolute Nucleated RBC 0.000 X10*3/uL (0.0-0.012) 06/07/22 12:23 Nucleated RBC % (auto) 0.0 /100WBC (0.0-0.2) 06/07/22 12:23 Sodium 139 mmol/L (135-145) 06/08/22 06:03 Potassium 3.7 mmol/L (3.3-5.1) 06/08/22 06:03 Chloride 110 mmol/L (96-108) H 06/08/22 06:03 Carbon Dioxide 20 mmol/L (22-29) L 06/08/22 06:03 Anion Gap 13 (12-20) 06/08/22 06:03 BUN 7 mg/dL (9-16) L 06/08/22 06:03 Creatinine 0.62 mg/dL (0.5-1.4) 06/08/22 06:03 Estim Creat Clear Calc 110.9 06/08/22 06:03 Estimated GFR > 60 06/08/22 06:03 Random Glucose 99 mg/dL (60-115) 06/08/22 06:03 Calcium 7.5 mg/dL (8.4-10.2) L 06/08/22 06:03 Magnesium 2.0 mg/dL (1.6-2.6) 06/08/22 06:03 Troponin I High Sens 162.1 ng/L (<3.5-35.0) H* 06/07/22 Unknown B-Natriuretic Peptide 428 pg/mL (<100) H 06/07/22 12:23 Albumin 3.4 g/dL (3.5-5.0) L 06/07/22 14:43 Triglycerides 124 mg/dL 06/07/22 18:33 Cholesterol 101 mg/dL 06/07/22 18:33 LDL Cholesterol, Calc 50 mg/dl 06/07/22 18:33 HDL Cholesterol 27 mg/dL 06/07/22 18:33 TSH 0.88 uIU/mL (0.32-4.0) 06/07/22 14:43 COVID-19 ([facility]) Negative (Negative) 06/07/22 13:03 COVID-19 Clin Com See Note 06/07/22 13:03 Impressions Chest X-Ray 06/07/22 16:28 IMPRESSION: 1. No acute cardiopulmonary findings. 2. Redemonstration of a retrocardiac lesion. Discharge Plan Discharge Patient Disposition: Home, Self-Care Discharge Diagnosis: paroxysmal atrial fibrillation Referrals: Guido Joseph MD [Primary Care Provider] - 1 Week Charles Pina MD [Physician] - 1 Week Cady Ordoñez MD [Physician] - 1 Week Discharge Medications: New metoprolol succinate 25 mg tablet extended release 24 hr 25 mg PO BID Qty: 60 0RF Continued ondansetron 8 mg Tablet,Disintegrating 8 mg PO Q8H PRN (Reason: Nausea) Qty: 30 3RF prochlorperazine maleate [Compazine] 10 mg Tablet 10 mg PO Q6H PRN (Reason: Nausea) Qty: 30 3RF atorvastatin 80 mg tablet 80 mg PO BEDTIME prednisone 5 mg tablet 5 mg PO DAILY calcium carbonate [Calcium 600] 600 mg calcium (1,500 mg) tablet 600 mg PO DAILY denosumab 120 mg/1.7 mL (70 mg/mL) solution 120 mg subcut Q4W Lupron Depot (6 Month) 45 mg syringe kit 45 mg IM [id number] Discontinued metoprolol succinate 25 mg tablet extended release 24 hr 25 mg PO DAILY Discharge Orders: Discharge Order (Routine); Ordered 06/08/22 Ordered By: Juliette Car Diet: Advance to usual diet Activity on Discharge: As tolerated Stand Alone Forms: Patient Portal Discharge page Care Plan Goals: control of atrial fibrillation Health Concerns: atrial fibrillation Plan of Treatment: increase metoprolol succinate to 25 mg twice daily no anticoagulation due to brain masses follow up with your primary care doctor, oncologist, and investor relations manager within 1-2 weeks Assessment: See Discharge Summary.
== END 2022-06-08 15:40 | disposition home or self-care (01) ==
LOC: HO.ED 14:58 → HO.EDOVER 16:01 → HO.IMC 16:11
PROVIDERS: Admitting Provider Student in an Organized Health Care Education/Training Program; Emergency Provider Emergency Medicine Emergency Medical Services; PCP Internal Medicine; Visit Provider Family Medicine
DX: I48.20 Chronic atrial fibrillation, unspecified (principal); I5A Non-ischemic myocardial injury (non-traumatic); I25.10 Atherosclerotic heart disease of native coronary artery without angina pectoris; G93.41 Metabolic encephalopathy; I35.0 Nonrheumatic aortic (valve) stenosis; I34.81 Nonrheumatic mitral (valve) annulus calcification; I45.10 Unspecified right bundle-branch block; R00.0 Tachycardia, unspecified; R53.1 Weakness; Z20.822 Contact with and (suspected) exposure to COVID-19; C61 Malignant neoplasm of prostate; C79.51 Secondary malignant neoplasm of bone; C79.31 Secondary malignant neoplasm of brain; I10 Essential (primary) hypertension; E78.00 Pure hypercholesterolemia, unspecified; Z87.891 Personal history of nicotine dependence; Z92.21 Personal history of antineoplastic chemotherapy; Z79.02 Long term (current) use of antithrombotics/antiplatelets; Z79.899 Other long term (current) drug therapy
CPT/HCPCS: 36415; 71045; 80048; 80061; 82040; 83735; 83880; 84443; 84484; 85025; 87635; 93005; 93306; 96361; 96365; 96366; 96372; 96374; 99222; 99285; J1650; J3475; Q9957

== ENCOUNTER 2022-09-18 11:00 | Outpatient (RCR) | payer MEDICARE, SELFPAY ==
[2019-12-28 08:33] LABS: MANUAL DIFF FLAG NO
[2019-12-28 08:43] LABS: Basophils Percent Auto 0.6 % (0-2); Eosinophils Absolute Auto 0.1 X10*3/uL (0.0-0.4); Eosinophils Percent Auto 1.8 % (0-4); Hematocrit 38.9 % (42-52); Hemoglobin 13.3 g/dl (14.0-18.0); Imm Gran Abs Auto 0.02 X10*3/uL (0.00-0.03); Imm Gran Pct Auto 0.3 % (0.0-0.4); Lymphocytes Absolute Auto 1.7 X10*3/uL (1.2-4.9); Lymphocytes Percent Auto 23.7 % (20-40); Mean Corpuscular HGB Conc 34.2 g/dl (31.0-36.0); Mean Corpuscular Hemoglobin 34.1 pg (27.0-33.0); Mean Corpuscular Volume 99.7 fL (80-98); Mean Platelet Volume 9.2 fL (9.4-12.4); Monocytes Absolute Auto 0.8 X10*3/uL (0.1-1.2); Monocytes Percent Auto 10.8 % (2-11); Neutrophils Absolute Auto 4.4 X10*3/uL (2.0-8.3); Neutrophils Percent Auto 62.8 % (45-73); Platelet Count 210 X10*3/uL (160-400); Red Cell Distribution Width 12.5 % (11.0-16.0)
[2019-12-28 09:07] LABS: Alanine Aminotransferase 13 U/L (0-40); Albumin Level 4.1 g/dL (3.5-5.0); Alkaline Phosphatase 47 U/L (39-117); Anion Gap 10 (12-20); Aspartate Amino Transferase 13 U/L (5-37); Bilirubin Total 1.5 mg/dL (0.0-1.0); Blood Urea Nitrogen 18 mg/dL (9-16); Calcium 8.7 mg/dL (8.4-10.2); Carbon Dioxide 27 mmol/L (22-29); Chloride 106 mmol/L (96-108); Estimated Glomerular Filt Rate > 60; Glucose Random 110 mg/dL (60-115); Potassium 4.2 mmol/l (3.3-5.1); Sodium 139 mmol/L (135-145); Total Protein 6.9 g/dL (6.5-8.0)
[2019-12-29 08:08] VITALS: BP 122/65; PULSE 60; RESP 20; TEMP 37.1; O2SAT 97
[2019-12-29 08:09] VITALS: BMI 32.3
[2020-01-25 08:28] LABS: MANUAL DIFF FLAG NO
[2020-01-25 08:29] LABS: Basophils Absolute Auto 0.1 X10*3/uL (0.0-0.2); Basophils Percent Auto 0.8 % (0-2); Eosinophils Absolute Auto 0.1 X10*3/uL (0.0-0.4); Eosinophils Percent Auto 1.7 % (0-4); Hematocrit 38.5 % (42-52); Hemoglobin 13.1 g/dl (14.0-18.0); Imm Gran Abs Auto 0.01 X10*3/uL (0.00-0.03); Imm Gran Pct Auto 0.2 % (0.0-0.4); Lymphocytes Absolute Auto 1.8 X10*3/uL (1.2-4.9); Lymphocytes Percent Auto 30.7 % (20-40); Mean Corpuscular Hemoglobin 33.4 pg (27.0-33.0); Mean Corpuscular Volume 98.2 fL (80-98); Mean Platelet Volume 9.3 fL (9.4-12.4); Monocytes Absolute Auto 0.5 X10*3/uL (0.1-1.2); Monocytes Percent Auto 8.8 % (2-11); Neutrophils Absolute Auto 3.5 X10*3/uL (2.0-8.3); Neutrophils Percent Auto 57.8 % (45-73); Platelet Count 207 X10*3/uL (160-400); Red Blood Count 3.92 X10*6/uL (4.60-5.80); Red Cell Distribution Width 12.5 % (11.0-16.0)
[2020-01-25 09:02] LABS: Alanine Aminotransferase 14 U/L (0-40); Albumin Level 4.3 g/dL (3.5-5.0); Alkaline Phosphatase 49 U/L (39-117); Anion Gap 15 (12-20); Aspartate Amino Transferase 16 U/L (5-37); Bilirubin Total 1.3 mg/dL (0.0-1.0); Blood Urea Nitrogen 19 mg/dL (9-16); Calcium 8.6 mg/dL (8.4-10.2); Carbon Dioxide 23 mmol/L (22-29); Chloride 107 mmol/L (96-108); Creatinine Clr Calc Pharmacy 87.4; Estimated Glomerular Filt Rate > 60; Glucose Random 103 mg/dL (60-115); Sodium 141 mmol/L (135-145); Total Protein 7.1 g/dL (6.5-8.0)
[2020-01-26 08:32] VITALS: BMI 32.5
[2020-01-26 08:34] VITALS: BP 141/66; PULSE 60; RESP 20; TEMP 37.1; O2SAT 97
--- NOTE | 2020-01-26 08:53 | P.PNHO_ITS ---
Medical Summary - Medical Summary Chief complaint: Follow-up Medical Summary: Diagnosis: Metastatic prostate cancer August 2017 Diagnosed with prostate cancer in 2007. Underwent robotic-assisted prostatectomy on 08/04/07. Adenocarcinoma with mucinous differentiation, pT3a pN0, [place] score 4+3 involving 75% of prostate gland. Underwent adjuvant IMRT following prostatectomy. Underwent surgery for correction of urinary incontinence in 2008, implantation of artificial urinary sphincter in September 2010. He has been on intermittent androgen deprivation, Eligard 45 mg q.6 months. Last PSA in August 2017 14.7 with the testosterone level at 29.5. He was started back on GnRH agonist q.6 months, he was prescribed Casodex but did not start it. One episode of gross hematuria which prompted urine cytology, negative, CT urogram abdomen/pelvis with adrenal cyst, no stone or obstruction. 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 CT abdomen/pelvis with IV contrast August 2017 at [facility] showed increasing size and number of pulmonary lesions, bony lesion in the right ilium measuring 5.7 cm and previously measured 1 cm. No Intra-abdominal lymphadenopathy, normal liver, spleen and pancreas. No hydronephrosis or nephrolithiasis. CT chest with contrast in August 2017 showed mild multiple pulmonary nodules concerning for metastatic disease some solid, some cavitary or cystic. Findings increased since February 2012. 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 Largest lesion in the right lung measuring 3.5x2.5 cm. PET scan performed 09/11/17 showed multifocal FDG avid metastatic lesions present throughout the lungs, largest in the left lower lobe measuring 3.7x2.4 cm with SUV of 3.3. Most intense lesion in the left upper lobe with SUV 4.7 measuring 1.5x1.1 cm. No other adenopathy. FDG avid sclerotic metastasis in the posterior right iliac bone SUV 7.7. Prominent activity in palatine tonsils bilaterally more intense on the right, nonspecific. No corresponding CT abnormality. Direct visualization is recommended. He was diagnosed with bone metastasis, bone scan performed at [facility] in August 2017 showed uptake in the right iliac bone representing a metastatic lesion. Resumed Eligard in August 2017, he stopped Casodex. PSA is rising, testosterone level was 0. Hormone refractory metastatic prostate cancer. Patient started abiraterone/prednisone on 07/15/18. Received 1st does of denosumab 07/02/2018.PET scan performed April 2019 shows marked metabolic response with minimal to no activity in the lung nodules and skeletal bones. Interval History Interval history: Patient is here in follow-up. He is doing quite well. He underwent bladder sphincter replacement surgery in December. He denies any significant urinary symptoms at this time. No significant fatigue. He denies exertional chest pain or shortness of breath. No change in bowel habits or leg swelling. He is taking prednisone and abiraterone, he reduced dose of abiraterone to half the amount. Review of Systems - Constitutional Reports as per HPI, Reports no additional constitutional complaints - Cardiovascular Reports no additional cardiovascular complaints - Respiratory Reports no additional respiratory complaints - Gastrointestinal Reports no additional gastrointestinal complaints - Genitourinary Genitourinary: Reports no additional male genitourinary complaints, Denies decreased urination, Denies urinary frequency, Denies urinary hesitancy, Denies urinary incontinence [facility] Medical History: Medical History (Last Updated 01/03/20 @ 10:19 by Guido Joseph MD) Benign essential hypertension CAD (coronary artery disease) Hematuria Impaired fasting glucose Obesity (BMI 30-39.9) Psoriasis Pulmonary nodules Pure hypercholesterolemia Family History: Family History (Last Updated 12/31/19 @ 13:12 by NAHOMI Brennan) Father Heart disease CVD (cardiovascular disease) Mother Acute CVA (cerebrovascular accident) CVD (cardiovascular disease) Sister No problems noted. Sister Pacemaker Surgical History: Surgical History (Last Updated 12/31/19 @ 13:10 by NAHOMI Brennan) History of bladder surgery History of prostatectomy Smoking status: Former smoker Oncology Screenings - ECOG Performance Status ECOG Performance Status: 1 Home Medications and Allergies Current Medications: Current Medications Generic Name Dose Route Start Last Admin Trade Name Freq PRN Reason Stop Dose Admin Denosumab 120 mg 01/26/20 00:00 01/26/20 08:44 Denosumab 120 Mg/1.7 Ml Vial SUBCUT 01/26/20 23:59 120 mg ONCE RICH Administration Home Medications Medication Instructions Recorded Confirmed Type amlodipine 1 tab PO DAILY 12/29/19 01/03/20 History atorvastatin 1 tab PO DAILY 12/29/19 01/03/20 History metoprolol succinate 1 tab PO BID 12/29/19 01/03/20 History abiraterone 250 mg tablet 500 mg PO DAILY tab 01/03/20 01/03/20 History calcium carbonate 600 mg calcium 600 mg PO DAILY 01/03/20 01/03/20 History (1,500 mg) tablet denosumab 120 mg/1.7 mL (70 mg/mL) 120 mg SUBCUT Q4W 01/03/20 01/03/20 History subcutaneous solution leuprolide (6 month) 45 mg 45 mg IM [id number] 01/03/20 01/03/20 History intramuscular syringe kit prednisone 5 mg tablet 5 mg PO DAILY tab 01/03/20 01/03/20 History Allergies Allergy/AdvReac Type Severity Reaction Status Date / Time lisinopril Allergy Severe angioedema Verified 01/03/20 10:06 Exam Vital signs: Vital Signs Temp 98.7 F 01/26/20 08:34 Pulse 60 01/26/20 08:34 Resp 20 01/26/20 08:34 BP 141/66 H 01/26/20 08:34 Pulse Ox 97 01/26/20 08:34 Intake & Output 01/25/20 01/26/20 01/26/20 18:59 06:59 18:59 Other: Weight 111.9 kg Weight 111.9 kg Body Mass Index 32.5 - Constitutional Present: no acute distress - Routine HEENT Exam Head: Present: normal inspection Eye: Present: EOMI - Routine Neck Exam Present: full ROM, normal inspection. Absent: lymphadenopathy - Routine Respiratory Exam Present: CTAB - Routine Cardiovascular Exam Cardiovascular: Present: S1, S2 - Routine Abdominal Exam Present: normal bowel sounds, soft - Routine Extremities Exam Absent: pedal edema Data - Labs CBC & Chem 7: 01/25/20 08:16 01/25/20 08:16 Labs: 12/28/19 08:20 Complete Blood Count Auto Diff Routine Comprehensive Met. Panel Routine 12/29/19 00:00 Denosumab [Xgeva] 120 mg SUBCUT ONCE 01/25/20 00:00 Denosumab [Xgeva] 120 mg SUBCUT ONCE 01/25/20 08:16 CBC W/AUTO DIFF [Complete Blood Count Auto Diff] Routine Profile w/ Glucose [place] [Comprehensive Met. Panel] Routine Laboratory Last Values WBC 6.0 X10*3/uL (4.8-10.8) 01/25/20 08:16 RBC 3.92 X10*6/uL (4.60-5.80) L 01/25/20 08:16 Hgb 13.1 g/dl (14.0-18.0) L 01/25/20 08:16 Hct 38.5 % (42-52) L 01/25/20 08:16 MCV 98.2 fL (80-98) H 01/25/20 08:16 MCH 33.4 pg (27.0-33.0) H 01/25/20 08:16 MCHC 34.0 g/dl (31.0-36.0) 01/25/20 08:16 RDW 12.5 % (11.0-16.0) 01/25/20 08:16 Plt Count 207 X10*3/uL (160-400) 01/25/20 08:16 MPV 9.3 fL (9.4-12.4) L 01/25/20 08:16 Immature Gran % (Auto) 0.2 % (0.0-0.4) 01/25/20 08:16 Neut % (Auto) 57.8 % (45-73) 01/25/20 08:16 Lymph % (Auto) 30.7 % (20-40) 01/25/20 08:16 [place] % (Auto) 8.8 % (2-11) 01/25/20 08:16 Eos % (Auto) 1.7 % (0-4) 01/25/20 08:16 Baso % (Auto) 0.8 % (0-2) 01/25/20 08:16 Lymph # (Auto) 1.8 X10*3/uL (1.2-4.9) 01/25/20 08:16 [place] # (Auto) 0.5 X10*3/uL (0.1-1.2) 01/25/20 08:16 Eos # (Auto) 0.1 X10*3/uL (0.0-0.4) 01/25/20 08:16 Baso # (Auto) 0.1 X10*3/uL (0.0-0.2) 01/25/20 08:16 Abs Immat Gran (auto) 0.01 X10*3/uL (0.00-0.03) 01/25/20 08:16 Absolute Neuts (auto) 3.5 X10*3/uL (2.0-8.3) 01/25/20 08:16 Absolute Nucleated RBC 0.000 X10*3/uL (0.0-0.012) 01/25/20 08:16 Nucleated RBC % (auto) 0.0 /100WBC (0.0-0.2) 01/25/20 08:16 Sodium 141 mmol/L (135-145) 01/25/20 08:16 Potassium 4.0 mmol/l (3.3-5.1) 01/25/20 08:16 Chloride 107 mmol/L (96-108) 01/25/20 08:16 Carbon Dioxide 23 mmol/L (22-29) 01/25/20 08:16 Anion Gap 15 (12-20) 01/25/20 08:16 BUN 19 mg/dL (9-16) H 01/25/20 08:16 Creatinine 0.94 mg/dL (0.5-1.4) 01/25/20 08:16 Estim Creat Clear Calc 87.4 01/25/20 08:16 Estimated GFR > 60 01/25/20 08:16 Random Glucose 103 mg/dL (60-115) 01/25/20 08:16 Calcium 8.6 mg/dL (8.4-10.2) 01/25/20 08:16 Total Bilirubin 1.3 mg/dL (0.0-1.0) H 01/25/20 08:16 AST 16 U/L (5-37) 01/25/20 08:16 ALT 14 U/L (0-40) 01/25/20 08:16 Alkaline Phosphatase 49 U/L (39-117) 01/25/20 08:16 Total Protein 7.1 g/dL (6.5-8.0) 01/25/20 08:16 Albumin 4.3 g/dL (3.5-5.0) 01/25/20 08:16 Progress Note: A/P (1) Prostate cancer metastatic to bone Status: Acute Assessment and plan: 1. This is a 73-year-old male with metastatic hormone refractory prostate cancer. Initially diagnosed in 2007, underwent radical prostatectomy followed by adjuvant IMRT, intermittent androgen deprivation. Patient is on Lupron every 6 months. He started Zytiga 1000 mg daily with prednisone 5 mg b.i.d. and denosumab since July 15, 2018. He is now on prednisone 5 mg once a day and Zytiga 500 mg daily. Patient cut down dose of Zytiga to 500 mg. he wants to stay with this does, he is aware of risk of progression of cancer. Continue to monitor PSA. 2. Bilateral pulmonary nodules, probably metastatic. FNA was nondiagnostic, he does not want repeat biopsy of excision biopsy. Size and FDG avidity of lung nodules is also decreasing with above treatment. 3. Recurrent hematuria. Diagnosed with hemorrhagic cystitis. Cystoscopy negative for bladder tumor. Radiation cystitis causing bleeding as well as increased risk because of aspirin and prednisone more likely. Zytiga is generally not associated with hematuria. 4. 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 Steroids are implicated in this disease. Last PSA was 0.76. Repeat next month. - Time Spent With Patient Total time spent is greater than 50% in coordination of care (as documented) at patient's floor/unit and/or counseling patient: 15 - 24 minutes
[2020-02-22 08:05] LABS: MANUAL DIFF FLAG NO
[2020-02-22 08:11] LABS: Basophils Absolute Auto 0.1 X10*3/uL (0.0-0.2); Basophils Percent Auto 0.8 % (0-2); Eosinophils Absolute Auto 0.1 X10*3/uL (0.0-0.4); Eosinophils Percent Auto 1.6 % (0-4); Hematocrit 38.7 % (42-52); Hemoglobin 13.3 g/dl (14.0-18.0); Imm Gran Abs Auto 0.01 X10*3/uL (0.00-0.03); Imm Gran Pct Auto 0.2 % (0.0-0.4); Lymphocytes Absolute Auto 1.8 X10*3/uL (1.2-4.9); Lymphocytes Percent Auto 29.4 % (20-40); Mean Corpuscular HGB Conc 34.4 g/dl (31.0-36.0); Mean Corpuscular Hemoglobin 33.8 pg (27.0-33.0); Mean Corpuscular Volume 98.2 fL (80-98); Mean Platelet Volume 9.3 fL (9.4-12.4); Monocytes Absolute Auto 0.4 X10*3/uL (0.1-1.2); Monocytes Percent Auto 6.6 % (2-11); Neutrophils Absolute Auto 3.8 X10*3/uL (2.0-8.3); Neutrophils Percent Auto 61.4 % (45-73); Platelet Count 195 X10*3/uL (160-400); Red Blood Count 3.94 X10*6/uL (4.60-5.80); Red Cell Distribution Width 12.2 % (11.0-16.0); White Blood Count 6.3 X10*3/uL (4.8-10.8)
[2020-02-22 08:41] LABS: Alanine Aminotransferase 16 U/L (0-40); Albumin Level 4.3 g/dL (3.5-5.0); Alkaline Phosphatase 42 U/L (39-117); Anion Gap 14 (12-20); Aspartate Amino Transferase 17 U/L (5-37); Bilirubin Total 1.4 mg/dL (0.0-1.0); Blood Urea Nitrogen 21 mg/dL (9-16); Carbon Dioxide 23 mmol/L (22-29); Chloride 106 mmol/L (96-108); Creatinine Clr Calc Pharmacy 81.5; Estimated Glomerular Filt Rate > 60; Glucose Random 129 mg/dL (60-115); Potassium 4.1 mmol/l (3.3-5.1); Sodium 139 mmol/L (135-145); Total Protein 7.1 g/dL (6.5-8.0)
[2020-02-22 09:03] LABS: Prostate Specific Antigen 1.04 ng/mL (<0.05-4.0)
--- NOTE | 2020-02-22 10:11 | MHC.HEMONC ---
Labs obtained follow up tomorrow for exam and denosumab injection.
[2020-02-23 08:13] VITALS: BP 131/64; PULSE 60; RESP 18; TEMP 36.7; O2SAT 98; BMI 32.3
--- NOTE | 2020-02-23 09:18 | PM.HEMONCPN ---
Medical Summary - Medical Summary Date of Service: 02/23/20 Chief complaint: Follow-up Medical Summary: Diagnosis: Metastatic prostate cancer August 2017 Diagnosed with prostate cancer in 2007. Underwent robotic-assisted prostatectomy on 08/04/07. Adenocarcinoma with mucinous differentiation, pT3a pN0, [place] score 4+3 involving 75% of prostate gland. Underwent adjuvant IMRT following prostatectomy. Underwent surgery for correction of urinary incontinence in 2008, implantation of artificial urinary sphincter in September 2010. He has been on intermittent androgen deprivation, Eligard 45 mg q.6 months. Last PSA in August 2017 14.7 with the testosterone level at 29.5. He was started back on GnRH agonist q.6 months, he was prescribed Casodex but did not start it. One episode of gross hematuria which prompted urine cytology, negative, CT urogram abdomen/pelvis with adrenal cyst, no stone or obstruction. 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 CT abdomen/pelvis with IV contrast August 2017 at [facility] showed increasing size and number of pulmonary lesions, bony lesion in the right ilium measuring 5.7 cm and previously measured 1 cm. No Intra-abdominal lymphadenopathy, normal liver, spleen and pancreas. No hydronephrosis or nephrolithiasis. CT chest with contrast in August 2017 showed mild multiple pulmonary nodules concerning for metastatic disease some solid, some cavitary or cystic. Findings increased since February 2012. 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 Largest lesion in the right lung measuring 3.5x2.5 cm. PET scan performed 09/11/17 showed multifocal FDG avid metastatic lesions present throughout the lungs, largest in the left lower lobe measuring 3.7x2.4 cm with SUV of 3.3. Most intense lesion in the left upper lobe with SUV 4.7 measuring 1.5x1.1 cm. No other adenopathy. FDG avid sclerotic metastasis in the posterior right iliac bone SUV 7.7. Prominent activity in palatine tonsils bilaterally more intense on the right, nonspecific. No corresponding CT abnormality. Direct visualization is recommended. He was diagnosed with bone metastasis, bone scan performed at [facility] in August 2017 showed uptake in the right iliac bone representing a metastatic lesion. Resumed Eligard in August 2017, he stopped Casodex. PSA is rising, testosterone level was 0. Hormone refractory metastatic prostate cancer. Patient started abiraterone/prednisone on 07/15/18. Received 1st does of denosumab 07/02/2018.PET scan performed April 2019 shows marked metabolic response with minimal to no activity in the lung nodules and skeletal bones. Interval History Interval history: Patient is here in follow-up. He is doing quite well. He reports some fatigue but he is able to exercise at home. He denies any significant urinary symptoms at this time. No significant fatigue. He denies exertional chest pain or shortness of breath. No change in bowel habits or leg swelling. He is taking prednisone and abiraterone, he reduced dose of abiraterone to half the amount. Review of Systems - Constitutional Reports no additional constitutional complaints - Respiratory Reports no additional respiratory complaints - Gastrointestinal Reports no additional gastrointestinal complaints - Genitourinary Genitourinary: Reports no additional male genitourinary complaints [facility]LY [facility], [facility] Medical History: Medical History (Last Reviewed 02/06/20 @ 11:05 by Guido Joseph MD) Benign essential hypertension CAD (coronary artery disease) Hematuria Impaired fasting glucose Obesity (BMI 30-39.9) Psoriasis Pulmonary nodules Pure hypercholesterolemia Family History: Family History (Last Reviewed 02/06/20 @ 11:05 by Guido Joseph MD) Father Heart disease CVD (cardiovascular disease) Mother Acute CVA (cerebrovascular accident) CVD (cardiovascular disease) Sister No problems noted. Sister Pacemaker Surgical History: Surgical History (Last Reviewed 02/06/20 @ 11:05 by Guido Joseph MD) History of bladder surgery History of prostatectomy Smoking status: Former smoker Oncology Screenings - ECOG Performance Status ECOG Performance Status: 1 Home Medications and Allergies Current Medications: Current Medications Generic Name Dose Route Start Last Admin Trade Name Tuanq PRN Reason Stop Dose Admin Denosumab 120 mg 02/23/20 00:00 Denosumab 120 Mg/1.7 Ml Vial SUBCUT 02/23/20 23:59 ONCE RICH Home Medications Medication Instructions Recorded Confirmed Type amlodipine 1 tab PO DAILY 12/29/19 02/23/20 History atorvastatin 1 tab PO DAILY 12/29/19 02/23/20 History metoprolol succinate 1 tab PO BID 12/29/19 02/23/20 History abiraterone 250 mg tablet 500 mg PO DAILY tab 01/03/20 02/23/20 History calcium carbonate 600 mg calcium 600 mg PO DAILY 01/03/20 02/23/20 History (1,500 mg) tablet denosumab 120 mg/1.7 mL (70 mg/mL) 120 mg SUBCUT Q4W 01/03/20 02/23/20 History subcutaneous solution leuprolide (6 month) 45 mg 45 mg IM [id number] 01/03/20 02/23/20 History intramuscular syringe kit prednisone 5 mg tablet 5 mg PO DAILY tab 01/03/20 02/23/20 History Allergies Allergy/AdvReac Type Severity Reaction Status Date / Time lisinopril Allergy Severe angioedema Verified 01/03/20 10:06 Exam Vital signs: Vital Signs Temp 98.0 F 02/23/20 08:13 Pulse 60 02/23/20 08:13 Resp 18 02/23/20 08:13 BP 131/64 02/23/20 08:13 Pulse Ox 98 02/23/20 08:13 Intake & Output 02/22/20 02/23/20 02/23/20 18:59 06:59 18:59 Other: Weight 111.9 kg 111.4 kg Weight 111.4 kg Body Mass Index 32.3 - Constitutional Present: no acute distress - Routine HEENT Exam Head: Present: normal inspection - Routine Neck Exam Present: full ROM, normal inspection. Absent: lymphadenopathy - Routine Respiratory Exam Present: CTAB - Routine Cardiovascular Exam Cardiovascular: Present: S1, S2 - Routine Abdominal Exam Present: normal bowel sounds, soft - Routine Extremities Exam Absent: pedal edema Data - Labs CBC & Chem 7: 02/22/20 08:03 02/22/20 08:03 Labs: 12/28/19 08:20 Complete Blood Count Auto Diff Routine Comprehensive Met. Panel Routine 12/29/19 00:00 Denosumab [Xgeva] 120 mg SUBCUT ONCE 01/25/20 00:00 Denosumab [Xgeva] 120 mg SUBCUT ONCE 01/25/20 08:16 CBC W/AUTO DIFF [Complete Blood Count Auto Diff] Routine Profile w/ Glucose [place] [Comprehensive Met. Panel] Routine 01/26/20 00:00 Denosumab [Xgeva] 120 mg SUBCUT ONCE 02/22/20 08:03 Complete Blood Count Auto Diff Routine Comprehensive Met. Panel Routine Prostate Specific Antigen Routine Laboratory Last Values WBC 6.3 X10*3/uL (4.8-10.8) 02/22/20 08:03 RBC 3.94 X10*6/uL (4.60-5.80) L 02/22/20 08:03 Hgb 13.3 g/dl (14.0-18.0) L 02/22/20 08:03 Hct 38.7 % (42-52) L 02/22/20 08:03 MCV 98.2 fL (80-98) H 02/22/20 08:03 MCH 33.8 pg (27.0-33.0) H 02/22/20 08:03 MCHC 34.4 g/dl (31.0-36.0) 02/22/20 08:03 RDW 12.2 % (11.0-16.0) 02/22/20 08:03 Plt Count 195 X10*3/uL (160-400) 02/22/20 08:03 MPV 9.3 fL (9.4-12.4) L 02/22/20 08:03 Immature Gran % (Auto) 0.2 % (0.0-0.4) 02/22/20 08:03 Neut % (Auto) 61.4 % (45-73) 02/22/20 08:03 Lymph % (Auto) 29.4 % (20-40) 02/22/20 08:03 [place] % (Auto) 6.6 % (2-11) 02/22/20 08:03 Eos % (Auto) 1.6 % (0-4) 02/22/20 08:03 Baso % (Auto) 0.8 % (0-2) 02/22/20 08:03 Lymph # (Auto) 1.8 X10*3/uL (1.2-4.9) 02/22/20 08:03 [place] # (Auto) 0.4 X10*3/uL (0.1-1.2) 02/22/20 08:03 Eos # (Auto) 0.1 X10*3/uL (0.0-0.4) 02/22/20 08:03 Baso # (Auto) 0.1 X10*3/uL (0.0-0.2) 02/22/20 08:03 Abs Immat Gran (auto) 0.01 X10*3/uL (0.00-0.03) 02/22/20 08:03 Absolute Neuts (auto) 3.8 X10*3/uL (2.0-8.3) 02/22/20 08:03 Absolute Nucleated RBC 0.000 X10*3/uL (0.0-0.012) 02/22/20 08:03 Nucleated RBC % (auto) 0.0 /100WBC (0.0-0.2) 02/22/20 08:03 Sodium 139 mmol/L (135-145) 02/22/20 08:03 Potassium 4.1 mmol/l (3.3-5.1) 02/22/20 08:03 Chloride 106 mmol/L (96-108) 02/22/20 08:03 Carbon Dioxide 23 mmol/L (22-29) 02/22/20 08:03 Anion Gap 14 (-20) 02/22/20 08:03 BUN 21 mg/dL (9-16) H 02/22/20 08:03 Creatinine 1.01 mg/dL (0.5-1.4) 02/22/20 08:03 Estim Creat Clear Calc 81.5 02/22/20 08:03 Estimated GFR > 60 02/22/20 08:03 Random Glucose 129 mg/dL (60-115) H 02/22/20 08:03 Calcium 8.0 mg/dL (8.4-10.2) L D 02/22/20 08:03 Total Bilirubin 1.4 mg/dL (0.0-1.0) H 02/22/20 08:03 AST 17 U/L (5-37) 02/22/20 08:03 ALT 16 U/L (0-40) 02/22/20 08:03 Alkaline Phosphatase 42 U/L (39-117) 02/22/20 08:03 Total Protein 7.1 g/dL (6.5-8.0) 02/22/20 08:03 Albumin 4.3 g/dL (3.5-5.0) 02/22/20 08:03 Prostate Specific Ag 1.04 ng/mL (<0.05-4.0) 02/22/20 08:03 Progress Note: A/P (1) Prostate cancer metastatic to bone Status: Chronic Assessment and plan: 1. This is a 74-year-old male with metastatic hormone refractory prostate cancer. Initially diagnosed in 2007, underwent radical prostatectomy followed by adjuvant IMRT, intermittent androgen deprivation. Patient is on Lupron every 6 months. He started Zytiga 1000 mg daily with prednisone 5 mg b.i.d. and denosumab since July 15, 2018. He is now on prednisone 5 mg once a day and Zytiga 500 mg daily. Patient cut down dose of Zytiga to 500 mg. he wants to stay with this does, he is aware of risk of progression of cancer. Continue to monitor PSA. 2. Bilateral pulmonary nodules, probably metastatic. FNA was nondiagnostic, he does not want repeat biopsy of excision biopsy. Size and FDG avidity of lung nodules is also decreasing with above treatment. 3. Recurrent hematuria. Diagnosed with hemorrhagic cystitis. Cystoscopy negative for bladder tumor. Radiation cystitis causing bleeding as well as increased risk because of aspirin and prednisone more likely. Zytiga is generally not associated with hematuria. 4. 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 Steroids are implicated in this disease. His PSA has increased from 0.76 to 1.04. If continues to rise, he needs to go back on full dose of Zytiga. Patient was not administered denosumab today because of hypercalcemia. He was advised to increase calcium supplementation to 3 times a day. Follow-up in 1 month. - Time Spent With Patient Total time spent is greater than 50% in coordination of care (as documented) at patient's floor/unit and/or counseling patient: 15 - 24 minutes
--- NOTE | 2020-02-23 10:33 | MHC.HEMONC ---
Patient seen today for follow-up and injection. Injection not given due to lab work that was drawn yesterday. Patient summary updated with nurses. Provider seen patient. Follow-up given via telephone and will be mailed.
[2020-03-21 09:19] LABS: Alanine Aminotransferase 20 U/L (0-40); Albumin Level 4.3 g/dL (3.5-5.0); Alkaline Phosphatase 39 U/L (39-117); Anion Gap 12 (12-20); Aspartate Amino Transferase 17 U/L (5-37); Bilirubin Total 1.3 mg/dL (0.0-1.0); Blood Urea Nitrogen 24 mg/dL (9-16); Calcium 8.9 mg/dL (8.4-10.2); Carbon Dioxide 27 mmol/L (22-29); Chloride 106 mmol/L (96-108); Creatinine Clr Calc Pharmacy 77.5; Estimated Glomerular Filt Rate > 60; Glucose Random 130 mg/dL (60-115); Potassium 4.3 mmol/l (3.3-5.1); Sodium 141 mmol/L (135-145); Total Protein 7.1 g/dL (6.5-8.0)
[2020-03-21 09:42] LABS: Prostate Specific Antigen 1.23 ng/mL (<0.05-4.0)
--- NOTE | 2020-03-21 11:58 | MHC.HEMONC ---
labs reviewed for Denosumab tomorrow. Calcium WNL.
[2020-03-22 08:09] VITALS: BP 148/70; PULSE 56; RESP 12; TEMP 36.6; O2SAT 97; BMI 32.7
--- NOTE | 2020-03-22 08:13 | P.PNHO_ITS ---
Medical Summary - Medical Summary Date of Service: 03/22/20 Chief complaint: Follow-up Medical Summary: Diagnosis: Metastatic prostate cancer August 2017 Diagnosed with prostate cancer in 2007. Underwent robotic-assisted prostatectomy on 08/04/07. Adenocarcinoma with mucinous differentiation, pT3a pN0, [place] score 4+3 involving 75% of prostate gland. Underwent adjuvant IMRT following prostatectomy. Underwent surgery for correction of urinary incontinence in 2008, implantation of artificial urinary sphincter in September 2010. He has been on intermittent androgen deprivation, Eligard 45 mg q.6 months. Last PSA in August 2017 14.7 with the testosterone level at 29.5. He was started back on GnRH agonist q.6 months, he was prescribed Casodex but did not start it. One episode of gross hematuria which prompted urine cytology, negative, CT urogram abdomen/pelvis with adrenal cyst, no stone or obstruction. 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 CT abdomen/pelvis with IV contrast August 2017 at [facility] showed increasing size and number of pulmonary lesions, bony lesion in the right ilium measuring 5.7 cm and previously measured 1 cm. No Intra-abdominal lymphadenopathy, normal liver, spleen and pancreas. No hydronephrosis or nephrolithiasis. CT chest with contrast in August 2017 showed mild multiple pulmonary nodules concerning for metastatic disease some solid, some cavitary or cystic. Findings increased since February 2012. 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 Largest lesion in the right lung measuring 3.5x2.5 cm. PET scan performed 09/11/17 showed multifocal FDG avid metastatic lesions present throughout the lungs, largest in the left lower lobe measuring 3.7x2.4 cm with SUV of 3.3. Most intense lesion in the left upper lobe with SUV 4.7 measuring 1.5x1.1 cm. No other adenopathy. FDG avid sclerotic metastasis in the posterior right iliac bone SUV 7.7. Prominent activity in palatine tonsils bilaterally more intense on the right, nonspecific. No corresponding CT abnormality. Direct visualization is recommended. He was diagnosed with bone metastasis, bone scan performed at [facility] in August 2017 showed uptake in the right iliac bone representing a metastatic lesion. Resumed Eligard in August 2017, he stopped Casodex. PSA is rising, testosterone level was 0. Hormone refractory metastatic prostate cancer. Patient started abiraterone/prednisone on 07/15/18. Received 1st does of denosumab 07/02/2018.PET scan performed April 2019 shows marked metabolic response with minimal to no activity in the lung nodules and skeletal bones. Interval History Interval history: Patient is here in follow-up. He is doing quite well. He denies any hip or bone pain. He has been taking calcium religiously.. He denies any significant urinary symptoms at this time. No significant fatigue. He denies exertional chest pain or shortness of breath. No change in bowel habits or leg swelling. Review of Systems - Constitutional Reports no additional constitutional complaints, Denies fatigue, Denies lack of energy, Denies night sweats - Cardiovascular Denies chest pain, Denies chest pain with activity, Denies fast heart rate - Respiratory Denies cough, Denies dyspnea - Gastrointestinal Denies abdominal pain PMF Medical History: Medical History (Last Reviewed 02/06/20 @ 11:05 by Guido Joseph MD) Benign essential hypertension CAD (coronary artery disease) Hematuria Impaired fasting glucose Obesity (BMI 30-39.9) Psoriasis Pulmonary nodules Pure hypercholesterolemia Family History: Family History (Last Reviewed 02/06/20 @ 11:05 by Guido Joseph MD) Father Heart disease CVD (cardiovascular disease) Mother Acute CVA (cerebrovascular accident) CVD (cardiovascular disease) Sister No problems noted. Sister Pacemaker Surgical History: Surgical History (Last Reviewed 02/06/20 @ 11:05 by Guido Joseph MD) History of bladder surgery History of prostatectomy Smoking status: Former smoker Home Medications and Allergies Current Medications: Current Medications Generic Name Dose Route Start Last Admin Trade Name Freq PRN Reason Stop Dose Admin Denosumab 120 mg 03/22/20 00:00 Denosumab 120 Mg/1.7 Ml Vial SUBCUT 03/22/20 23:59 ONCE RICH Home Medications Medication Instructions Recorded Confirmed Type amlodipine 1 tab PO DAILY 12/29/19 02/23/20 History atorvastatin 1 tab PO DAILY 12/29/19 02/23/20 History metoprolol succinate 1 tab PO BID 12/29/19 02/23/20 History abiraterone 250 mg tablet 500 mg PO DAILY tab 01/03/20 02/23/20 History calcium carbonate 600 mg calcium 600 mg PO DAILY 01/03/20 02/23/20 History (1,500 mg) tablet denosumab 120 mg/1.7 mL (70 mg/mL) 120 mg SUBCUT Q4W 01/03/20 02/23/20 History subcutaneous solution leuprolide (6 month) 45 mg 45 mg IM [id number] 01/03/20 02/23/20 History intramuscular syringe kit prednisone 5 mg tablet 5 mg PO DAILY tab 01/03/20 02/23/20 History Allergies Allergy/AdvReac Type Severity Reaction Status Date / Time lisinopril Allergy Severe angioedema Verified 01/03/20 10:06 Exam Vital signs: Vital Signs Temp 97.8 F 03/22/20 08:09 Pulse 56 03/22/20 08:09 Resp 12 03/22/20 08:09 BP 148/70 H 03/22/20 08:09 Pulse Ox 97 03/22/20 08:09 Intake & Output 03/21/20 03/22/20 03/22/20 18:59 06:59 18:59 Other: Weight 111.4 kg 112.5 kg Weight 112.5 kg Body Mass Index 32.7 - Constitutional Present: no acute distress - Routine HEENT Exam Head: Present: normal inspection - Routine Neck Exam Present: full ROM, normal inspection. Absent: lymphadenopathy - Routine Respiratory Exam Present: CTAB - Routine Cardiovascular Exam Cardiovascular: Present: S1, S2 - Routine Abdominal Exam Present: normal bowel sounds, soft - Routine Extremities Exam Absent: pedal edema Data - Labs CBC & Chem 7: 02/22/20 08:03 03/21/20 08:16 Labs: 12/28/19 08:20 Complete Blood Count Auto Diff Routine Comprehensive Met. Panel Routine 12/29/19 00:00 Denosumab [Xgeva] 120 mg SUBCUT ONCE 01/25/20 00:00 Denosumab [Xgeva] 120 mg SUBCUT ONCE 01/25/20 08:16 CBC W/AUTO DIFF [Complete Blood Count Auto Diff] Routine Profile w/ Glucose [place] [Comprehensive Met. Panel] Routine 01/26/20 00:00 Denosumab [Xgeva] 120 mg SUBCUT ONCE 02/22/20 08:03 Complete Blood Count Auto Diff Routine Comprehensive Met. Panel Routine Prostate Specific Antigen Routine 02/23/20 00:00 Denosumab [Xgeva] 120 mg SUBCUT ONCE 03/21/20 08:16 Comprehensive Met. Panel Routine Prostate Specific Antigen Routine Laboratory Last Values WBC 6.3 X10*3/uL (4.8-10.8) 02/22/20 08:03 RBC 3.94 X10*6/uL (4.60-5.80) L 02/22/20 08:03 Hgb 13.3 g/dl (14.0-18.0) L 02/22/20 08:03 Hct 38.7 % (42-52) L 02/22/20 08:03 MCV 98.2 fL (80-98) H 02/22/20 08:03 MCH 33.8 pg (27.0-33.0) H 02/22/20 08:03 MCHC 34.4 g/dl (31.0-36.0) 02/22/20 08:03 RDW 12.2 % (11.0-16.0) 02/22/20 08:03 Plt Count 195 X10*3/uL (160-400) 02/22/20 08:03 MPV 9.3 fL (9.4-12.4) L 02/22/20 08:03 Immature Gran % (Auto) 0.2 % (0.0-0.4) 02/22/20 08:03 Neut % (Auto) 61.4 % (45-73) 02/22/20 08:03 Lymph % (Auto) 29.4 % (20-40) 02/22/20 08:03 [place] % (Auto) 6.6 % (2-11) 02/22/20 08:03 Eos % (Auto) 1.6 % (0-4) 02/22/20 08:03 Baso % (Auto) 0.8 % (0-2) 02/22/20 08:03 Lymph # (Auto) 1.8 X10*3/uL (1.2-4.9) 02/22/20 08:03 [place] # (Auto) 0.4 X10*3/uL (0.1-1.2) 02/22/20 08:03 Eos # (Auto) 0.1 X10*3/uL (0.0-0.4) 02/22/20 08:03 Baso # (Auto) 0.1 X10*3/uL (0.0-0.2) 02/22/20 08:03 Abs Immat Gran (auto) 0.01 X10*3/uL (0.00-0.03) 02/22/20 08:03 Absolute Neuts (auto) 3.8 X10*3/uL (2.0-8.3) 02/22/20 08:03 Absolute Nucleated RBC 0.000 X10*3/uL (0.0-0.012) 02/22/20 08:03 Nucleated RBC % (auto) 0.0 /100WBC (0.0-0.2) 02/22/20 08:03 Sodium 141 mmol/L (135-145) 03/21/20 08:16 Potassium 4.3 mmol/l (3.3-5.1) 03/21/20 08:16 Chloride 106 mmol/L (96-108) 03/21/20 08:16 Carbon Dioxide 27 mmol/L (22-29) 03/21/20 08:16 Anion Gap 12 (12-20) 03/21/20 08:16 BUN 24 mg/dL (9-16) H 03/21/20 08:16 Creatinine 1.06 mg/dL (0.5-1.4) 03/21/20 08:16 Estim Creat Clear Calc 77.5 03/21/20 08:16 Estimated GFR > 60 03/21/20 08:16 Random Glucose 130 mg/dL (60-115) H 03/21/20 08:16 Calcium 8.9 mg/dL (8.4-10.2) D 03/21/20 08:16 Total Bilirubin 1.3 mg/dL (0.0-1.0) H 03/21/20 08:16 AST 17 U/L (5-37) 03/21/20 08:16 ALT 20 U/L (0-40) 03/21/20 08:16 Alkaline Phosphatase 39 U/L (39-117) 03/21/20 08:16 Total Protein 7.1 g/dL (6.5-8.0) 03/21/20 08:16 Albumin 4.3 g/dL (3.5-5.0) 03/21/20 08:16 Prostate Specific Ag 1.23 ng/mL (<0.05-4.0) 03/21/20 08:16 Progress Note: A/P (1) Prostate cancer metastatic to bone Status: Chronic Assessment and plan: 1. This is a 74-year-old male with metastatic hormone refractory prostate canc er. Initially diagnosed in 2007, underwent radical prostatectomy followed by adjuvant IMRT, intermittent androgen deprivation. Patient is on Lupron every 6 months. He started Zytiga 1000 mg daily with prednisone 5 mg b.i.d. and denosumab since July 15, 2018. He is now on prednisone 5 mg once a day and Zytiga 500 mg daily. Patient cut down dose of Zytiga to 500 mg. PSA has been rising. Patient is now willing to go back to full does and see how he tolerates it. 2. Bilateral pulmonary nodules, probably metastatic. FNA was nondiagnostic, he does not want repeat biopsy of excision biopsy. Size and FDG avidity of lung nodules is also decreasing with above treatment. 3. Recurrent hematuria. Diagnosed with hemorrhagic cystitis. Cystoscopy negative for bladder tumor. Radiation cystitis causing bleeding as well as increased risk because of aspirin and prednisone more likely. Zytiga is gene rally not associated with hematuria. 4. 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 I spoke to his family services coordinator, dose of prednisone has been decreased to 5 mg once a day. Steroids are implicated in this disease. His calcium levels are now normal. Denosumab will be administered today. Follow-up in 1 month. - Time Spent With Patient Total time spent is greater than 50% in coordination of care (as documented) at patient's floor/unit and/or counseling patient: 25 - 35 minutes
--- NOTE | 2020-03-22 08:30 | MHC.HEMONCMA ---
Patient came in for a follow up today, he is also here for an injection. Patient's medications and allergies were reviewed.
[2020-04-18 08:09] LABS: MANUAL DIFF FLAG NO
[2020-04-18 08:29] LABS: Basophils Percent Auto 0.3 % (0-2); Eosinophils Absolute Auto 0.1 X10*3/uL (0.0-0.4); Eosinophils Percent Auto 1.4 % (0-4); Hematocrit 39.4 % (42-52); Hemoglobin 13.3 g/dl (14.0-18.0); Imm Gran Abs Auto 0.03 X10*3/uL (0.00-0.03); Imm Gran Pct Auto 0.5 % (0.0-0.4); Lymphocytes Absolute Auto 1.5 X10*3/uL (1.2-4.9); Lymphocytes Percent Auto 26.3 % (20-40); Mean Corpuscular HGB Conc 33.8 g/dl (31.0-36.0); Mean Corpuscular Hemoglobin 33.7 pg (27.0-33.0); Mean Corpuscular Volume 99.7 fL (80-98); Mean Platelet Volume 9.4 fL (9.4-12.4); Monocytes Absolute Auto 0.4 X10*3/uL (0.1-1.2); Monocytes Percent Auto 6.2 % (2-11); Neutrophils Absolute Auto 3.8 X10*3/uL (2.0-8.3); Neutrophils Percent Auto 65.3 % (45-73); Platelet Count 212 X10*3/uL (160-400); Red Blood Count 3.95 X10*6/uL (4.60-5.80); Red Cell Distribution Width 12.2 % (11.0-16.0); White Blood Count 5.8 X10*3/uL (4.8-10.8)
[2020-04-18 08:41] LABS: Glucose Urine UA NEG (NEG); Leukocyte Esterase Urine NEG (NEG); Nitrite Urine NEG (NEG); Urine Blood TRACE (NEG); Urine Ketones NEG (NEG); Urine Protein NEG (NEG-TRACE)
[2020-04-18 08:44] LABS: Appearance Urine HAZY; Color Urine YELLOW
[2020-04-18 08:56] LABS: Mucus Urine 1+ /LPF; Renal Epithelial Cells Urine 1+ /LPF; Squamous Epithelial Cell Urine 2+ /LPF
[2020-04-18 09:12] LABS: Alanine Aminotransferase 12 U/L (0-40); Albumin Level 4.2 g/dL (3.5-5.0); Alkaline Phosphatase 50 U/L (39-117); Anion Gap 12 (12-20); Aspartate Amino Transferase 14 U/L (5-37); Bilirubin Total 1.1 mg/dL (0.0-1.0); Blood Urea Nitrogen 25 mg/dL (9-16); Calcium 8.5 mg/dL (8.4-10.2); Carbon Dioxide 24 mmol/L (22-29); Chloride 106 mmol/L (96-108); Creatinine Clr Calc Pharmacy 86.9; Estimated Glomerular Filt Rate > 60; Glucose Random 149 mg/dL (60-115); Potassium 4.2 mmol/L (3.3-5.1); Sodium 138 mmol/L (135-145); Total Protein 7.2 g/dL (6.5-8.0)
[2020-04-18 09:13] LABS: Cholesterol 139 mg/dL; HDL Cholesterol 41 mg/dL; LDL Cholesterol Calculated 82 mg/dl; Triglycerides 83 mg/dL
[2020-04-18 09:33] LABS: TSH reflex Free T4 1.13 uIU/mL (0.32-4.0)
--- NOTE | 2020-04-18 09:33 | MHC.HEMONC ---
Labs obtained, CA+ 8.5 patient to follow up on 04/19/20 for Denosumab injection.
[2020-04-19 08:17] VITALS: BP 132/66; PULSE 56; RESP 18; TEMP 36.7; O2SAT 96; BMI 32.8
--- NOTE | 2020-04-19 08:54 | MHC.HEMONC ---
Pt labs from yesterday reviewed. Calcium WNL. Pt feels well today. Received first Covid injection last week. He received Denosumab a/o this morning. Has f/u with Dr Ordoñez next month.
[2020-05-22 09:23] LABS: MANUAL DIFF FLAG NO
[2020-05-22 09:30] LABS: Basophils Absolute Auto 0.1 X10*3/uL (0.0-0.2); Basophils Percent Auto 0.8 % (0-2); Eosinophils Absolute Auto 0.1 X10*3/uL (0.0-0.4); Eosinophils Percent Auto 1.8 % (0-4); Hematocrit 40.5 % (42-52); Hemoglobin 13.8 g/dl (14.0-18.0); Imm Gran Abs Auto 0.02 X10*3/uL (0.00-0.03); Imm Gran Pct Auto 0.3 % (0.0-0.4); Lymphocytes Absolute Auto 1.6 X10*3/uL (1.2-4.9); Lymphocytes Percent Auto 24.7 % (20-40); Mean Corpuscular HGB Conc 34.1 g/dl (31.0-36.0); Mean Corpuscular Hemoglobin 33.8 pg (27.0-33.0); Mean Corpuscular Volume 99.3 fL (80-98); Mean Platelet Volume 9.4 fL (9.4-12.4); Monocytes Absolute Auto 0.4 X10*3/uL (0.1-1.2); Monocytes Percent Auto 6.8 % (2-11); Neutrophils Absolute Auto 4.1 X10*3/uL (2.0-8.3); Neutrophils Percent Auto 65.6 % (45-73); Platelet Count 193 X10*3/uL (160-400); Red Blood Count 4.08 X10*6/uL (4.60-5.80); Red Cell Distribution Width 12.4 % (11.0-16.0); White Blood Count 6.3 X10*3/uL (4.8-10.8)
[2020-05-22 09:59] LABS: Alanine Aminotransferase 13 U/L (0-40); Albumin Level 4.5 g/dL (3.5-5.0); Alkaline Phosphatase 52 U/L (39-117); Anion Gap 12 (12-20); Aspartate Amino Transferase 14 U/L (5-37); Bilirubin Total 1.4 mg/dL (0.0-1.0); Blood Urea Nitrogen 19 mg/dL (9-16); Calcium 9.5 mg/dL (8.4-10.2); Carbon Dioxide 27 mmol/L (22-29); Chloride 104 mmol/L (96-108); Creatinine Clr Calc Pharmacy 87.1; Estimated Glomerular Filt Rate > 60; Glucose Fasting 115 mg/dL (60-99); Potassium 4.4 mmol/L (3.3-5.1); Sodium 139 mmol/L (135-145); Total Protein 7.4 g/dL (6.5-8.0)
[2020-05-23 08:15] VITALS: BP 144/70; PULSE 54; RESP 12; TEMP 36.3; O2SAT 96; BMI 32.8
--- NOTE | 2020-05-23 08:25 | PM.HEMONCPN ---
Medical Summary - Medical Summary Date of Service: 05/23/20 Chief complaint: Follow-up Medical Summary: Diagnosis: Metastatic prostate cancer August 2017 Diagnosed with prostate cancer in 2007. Underwent robotic-assisted prostatectomy on 08/04/07. Adenocarcinoma with mucinous differentiation, pT3a pN0, Anthony score 4+3 involving 75% of prostate gland. Underwent adjuvant IMRT following prostatectomy. Underwent surgery for correction of urinary incontinence in 2008, implantation of artificial urinary sphincter in September 2010. He has been on intermittent androgen deprivation, Eligard 45 mg q.6 months. Last PSA in August 2017 14.7 with the testosterone level at 29.5. He was started back on GnRH agonist q.6 months, he was prescribed Casodex but did not start it. One episode of gross hematuria which prompted urine cytology, negative, CT urogram abdomen/pelvis with adrenal cyst, no stone or obstruction. 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 CT abdomen/pelvis with IV contrast August 2017 at [facility] showed increasing size and number of pulmonary lesions, bony lesion in the right ilium measuring 5.7 cm and previously measured 1 cm. No Intra-abdominal lymphadenopathy, normal liver, spleen and pancreas. No hydronephrosis or nephrolithiasis. CT chest with contrast in August 2017 showed mild multiple pulmonary nodules concerning for metastatic disease some solid, some cavitary or cystic. Findings increased since February 2012. 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 Largest lesion in the right lung measuring 3.5x2.5 cm. PET scan performed 09/11/17 showed multifocal FDG avid metastatic lesions present throughout the lungs, largest in the left lower lobe measuring 3.7x2.4 cm with SUV of 3.3. Most intense lesion in the left upper lobe with SUV 4.7 measuring 1.5x1.1 cm. No other adenopathy. FDG avid sclerotic metastasis in the posterior right iliac bone SUV 7.7. Prominent activity in palatine tonsils bilaterally more intense on the right, nonspecific. No corresponding CT abnormality. Direct visualization is recommended. He was diagnosed with bone metastasis, bone scan performed at [facility] in August 2017 showed uptake in the right iliac bone representing a metastatic lesion. Resumed Eligard in August 2017, he stopped Casodex. PSA is rising, testosterone level was 0. Hormone refractory metastatic prostate cancer. Patient started abiraterone/prednisone on 07/15/18. Received 1st does of denosumab 07/02/2018.PET scan performed April 2019 shows marked metabolic response with minimal to no activity in the lung nodules and skeletal bones. Interval History Interval history: Patient is here in follow-up. He is doing quite well. He denies any hip or bone pain. He reports intermittent mild hematuria. He is now taking full doses of the medication. No significant fatigue. He denies exertional chest pain or shortness of breath. No change in bowel habits or leg swelling. He has received both doses of COVID-19 vaccine and he tolerated it well. Review of Systems - Constitutional Reports no additional constitutional complaints - Cardiovascular Reports no additional cardiovascular complaints - Respiratory Reports no additional respiratory complaints - Gastrointestinal Reports no additional gastrointestinal complaints [facility] Medical History: Medical History (Last Reviewed 02/06/20 @ 11:05 by Guido Joseph MD) Benign essential hypertension CAD (coronary artery disease) Hematuria Impaired fasting glucose Obesity (BMI 30-39.9) Psoriasis Pulmonary nodules Pure hypercholesterolemia Family History: Family History (Last Reviewed 02/06/20 @ 11:05 by Guido Joseph MD) Father Heart disease CVD (cardiovascular disease) Mother Acute CVA (cerebrovascular accident) CVD (cardiovascular disease) Sister No problems noted. Sister Pacemaker Surgical History: Surgical History (Last Updated 04/05/20 @ 10:36 by Ericka Gomez MA) History of bladder surgery History of prostatectomy History of right knee surgery Social History: Social History (Last Updated 05/23/20 @ 08:18 by Melanie Catherine) Alcohol History: Alcohol intake: current Alcohol History Details: Alcohol intake frequency: a few times a month Alcohol type: beer Tobacco History: Smoking Status: Former smoker Tobacco Type: Cigarette Packs Per Day: 1.5 Smoking Quit Date: 1979 Substance Use History: Use of substances other than those prescribed or required for medical reasons: No Advance Directives: Advance Directives: No Advance Directives Information Provided: No Occupation Assessmet: Current occupational status: retired 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 Smoking status: Former smoker Home Medications and Allergies Home Medications Medication Instructions Recorded Confirmed Type amlodipine 1 tab PO DAILY 12/29/19 05/08/20 History atorvastatin 1 tab PO DAILY 12/29/19 05/08/20 History metoprolol succinate 1 tab PO BID 12/29/19 05/08/20 History abiraterone 250 mg tablet 500 mg PO DAILY tab 01/03/20 05/08/20 History calcium carbonate 600 mg calcium 600 mg PO DAILY 01/03/20 05/08/20 History (1,500 mg) tablet denosumab 120 mg/1.7 mL (70 mg/mL) 120 mg SUBCUT Q4W 01/03/20 05/08/20 History subcutaneous solution leuprolide (6 month) 45 mg 45 mg IM [id number] 01/03/20 05/08/20 History intramuscular syringe kit prednisone 5 mg tablet 5 mg PO DAILY tab 01/03/20 05/08/20 History losartan 50 mg tablet 50 mg PO DAILY 05/08/20 05/23/20 History Allergies Allergy/AdvReac Type Severity Reaction Status Date / Time lisinopril Allergy Severe angioedema Verified 05/08/20 10:38 Exam Vital signs: Vital Signs Temp 97.4 F 05/23/20 08:15 Pulse 54 05/23/20 08:15 Resp 12 05/23/20 08:15 BP 144/70 H 05/23/20 08:15 Pulse Ox 96 05/23/20 08:15 Intake & Output 05/22/20 05/23/20 05/23/20 18:59 06:59 18:59 Other: Weight 112.9 kg Weight in Grams [id number] Weight 112.9 kg Body Mass Index 32.8 - Constitutional Present: no acute distress - Routine HEENT Exam Head: Present: normal inspection - Routine Neck Exam Present: full ROM, normal inspection. Absent: lymphadenopathy - Routine Respiratory Exam Present: CTAB - Routine Cardiovascular Exam Cardiovascular: Present: S1, S2 - Routine Abdominal Exam Present: normal bowel sounds, soft - Routine Extremities Exam Absent: pedal edema Data - Labs CBC & Chem 7: 05/22/20 09:05 05/22/20 09:05 Labs: 12/28/19 08:20 Complete Blood Count Auto Diff Routine Comprehensive Met. Panel Routine 12/29/19 00:00 Denosumab [Xgeva] 120 mg SUBCUT ONCE 01/25/20 00:00 Denosumab [Xgeva] 120 mg SUBCUT ONCE 01/25/20 08:16 CBC W/AUTO DIFF [Complete Blood Count Auto Diff] Routine Profile w/ Glucose [place] [Comprehensive Met. Panel] Routine 01/26/20 00:00 Denosumab [Xgeva] 120 mg SUBCUT ONCE 02/22/20 08:03 Complete Blood Count Auto Diff Routine Comprehensive Met. Panel Routine Prostate Specific Antigen Routine 02/23/20 00:00 Denosumab [Xgeva] 120 mg SUBCUT ONCE 03/21/20 08:16 Comprehensive Met. Panel Routine Prostate Specific Antigen Routine Laboratory Last Values WBC 6.3 X10*3/uL (4.8-10.8) 02/22/20 08:03 RBC 3.94 X10*6/uL (4.60-5.80) L 02/22/20 08:03 Hgb 13.3 g/dl (14.0-18.0) L 02/22/20 08:03 Hct 38.7 % (42-52) L 02/22/20 08:03 MCV 98.2 fL (80-98) H 02/22/20 08:03 MCH 33.8 pg (27.0-33.0) H 02/22/20 08:03 MCHC 34.4 g/dl (31.0-36.0) 02/22/20 08:03 RDW 12.2 % (11.0-16.0) 02/22/20 08:03 Plt Count 195 X10*3/uL (160-400) 02/22/20 08:03 MPV 9.3 fL (9.4-12.4) L 02/22/20 08:03 Immature Gran % (Auto) 0.2 % (0.0-0.4) 02/22/20 08:03 Neut % (Auto) 61.4 % (45-73) 02/22/20 08:03 Lymph % (Auto) 29.4 % (20-40) 02/22/20 08:03 [place] % (Auto) 6.6 % (2-11) 02/22/20 08:03 Eos % (Auto) 1.6 % (0-4) 02/22/20 08:03 Baso % (Auto) 0.8 % (0-2) 02/22/20 08:03 Lymph # (Auto) 1.8 X10*3/uL (1.2-4.9) 02/22/20 08:03 [place] # (Auto) 0.4 X10*3/uL (0.1-1.2) 02/22/20 08:03 Eos # (Auto) 0.1 X10*3/uL (0.0-0.4) 02/22/20 08:03 Baso # (Auto) 0.1 X10*3/uL (0.0-0.2) 02/22/20 08:03 Abs Immat Gran (auto) 0.01 X10*3/uL (0.00-0.03) 02/22/20 08:03 Absolute Neuts (auto) 3.8 X10*3/uL (2.0-8.3) 02/22/20 08:03 Absolute Nucleated RBC 0.000 X10*3/uL (0.0-0.012) 02/22/20 08:03 Nucleated RBC % (auto) 0.0 /100WBC (0.0-0.2) 02/22/20 08:03 Sodium 141 mmol/L (135-145) 03/21/20 08:16 Potassium 4.3 mmol/l (3.3-5.1) 03/21/20 08:16 Chloride 106 mmol/L (96-108) 03/21/20 08:16 Carbon Dioxide 27 mmol/L (22-29) 03/21/20 08:16 Anion Gap 12 (-20) 03/21/20 08:16 BUN 24 mg/dL (9-16) H 03/21/20 08:16 Creatinine 1.06 mg/dL (0.5-1.4) 03/21/20 08:16 Estim Creat Clear Calc 77.5 03/21/20 08:16 Estimated GFR > 60 03/21/20 08:16 Random Glucose 130 mg/dL (60-115) H 03/21/20 08:16 Calcium 8.9 mg/dL (8.4-10.2) D 03/21/20 08:16 Total Bilirubin 1.3 mg/dL (0.0-1.0) H 03/21/20 08:16 AST 17 U/L (5-37) 03/21/20 08:16 ALT 20 U/L (0-40) 03/21/20 08:16 Alkaline Phosphatase 39 U/L (39-117) 03/21/20 08:16 Total Protein 7.1 g/dL (6.5-8.0) 03/21/20 08:16 Albumin 4.3 g/dL (3.5-5.0) 03/21/20 08:16 Prostate Specific Ag 1.23 ng/mL (<0.05-4.0) 03/21/20 08:16 Progress Note: A/P (1) Prostate cancer metastatic to bone Status: Chronic Assessment and plan: 1. This is a 74-year-old male with metastatic hormone refractory prostate cancer. Initially diagnosed in 2007, underwent radical prostatectomy followed by adjuvant IMRT, intermittent androgen deprivation. Patient is on Lupron every 6 months. He started Zytiga 1000 mg daily with prednisone 5 mg b.i.d. and denosumab since July 15, 2018. He is now on prednisone 5 mg once a day and Zytiga 1000 mg daily. He went back to full dose since March 2020. 2. Bilateral pulmonary nodules, probably metastatic. FNA was nondiagnostic, he does not want repeat biopsy of excision biopsy. Size and FDG avidity of lung nodules is also decreasing with above treatment. 3. Recurrent hematuria. Diagnosed with hemorrhagic cystitis. Cystoscopy negative for bladder tumor. Radiation cystitis causing bleeding as well as increased risk because of aspirin and prednisone more likely. Zytiga is generally not associated with hematuria. 4. 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 I spoke to his color room attendant, dose of prednisone has been decreased to 5 mg once a day. Steroids are implicated in this disease. His calcium levels are now normal. Denosumab will be administered today. Follow-up in 2 months. - Time Spent With Patient Total time spent is greater than 50% in coordination of care (as documented) at patient's floor/unit and/or counseling patient: 25 - 35 minutes
[2020-05-23 09:01] LABS: Prostate Specific Antigen 1.74 ng/mL (<0.05-4.0)
--- NOTE | 2020-05-23 09:13 | MHC.HEMONC ---
Pt here for ONC follow up with Dr Ordoñez and Xgeva injection ( no prior authorization required per Martha) Lab drawn yesterday 05/22/16, calcium level 104. Xgeva given SC in left arm per pt request. Follow up appointment given
--- NOTE | 2020-05-23 09:13 | MHC.HEMONCMA ---
Patient came in for a follow up today, states that he is doing well. He is also here for his XGEVA injection. Clinical summary was reviewed and updated. Pt had labs yesterday so no need for them today, he will come back in a month for another XGEVA injection and 6 months for a follow up with the doctor.
--- NOTE | 2020-05-23 09:44 | MHC.HEMONCSW ---
PATIENT HAD MONTHLY XGEVA INJECTION. REMAINS INDEPENDENT. REPORTS COPING WELL, DENIES DISTRESS. AWARE OF MY AVAILABILITY IF NEEDED.
[2020-06-19 08:29] LABS: MANUAL DIFF FLAG NO
[2020-06-19 08:34] LABS: Basophils Percent Auto 0.7 % (0-2); Eosinophils Absolute Auto 0.1 X10*3/uL (0.0-0.4); Eosinophils Percent Auto 1.3 % (0-4); Hematocrit 38.1 % (42-52); Hemoglobin 13.4 g/dl (14.0-18.0); Imm Gran Abs Auto 0.02 X10*3/uL (0.00-0.03); Imm Gran Pct Auto 0.3 % (0.0-0.4); Lymphocytes Absolute Auto 1.5 X10*3/uL (1.2-4.9); Lymphocytes Percent Auto 24.6 % (20-40); Mean Corpuscular HGB Conc 35.2 g/dl (31.0-36.0); Mean Corpuscular Hemoglobin 34.8 pg (27.0-33.0); Mean Platelet Volume 9.3 fL (9.4-12.4); Monocytes Absolute Auto 0.4 X10*3/uL (0.1-1.2); Monocytes Percent Auto 7.1 % (2-11); Neutrophils Absolute Auto 3.9 X10*3/uL (2.0-8.3); Platelet Count 178 X10*3/uL (160-400); Red Blood Count 3.85 X10*6/uL (4.60-5.80); Red Cell Distribution Width 12.4 % (11.0-16.0); White Blood Count 5.9 X10*3/uL (4.8-10.8)
[2020-06-19 09:06] LABS: Alanine Aminotransferase 15 U/L (0-40); Albumin Level 4.2 g/dL (3.5-5.0); Alkaline Phosphatase 50 U/L (39-117); Anion Gap 14 (12-20); Aspartate Amino Transferase 13 U/L (5-37); Bilirubin Total 1.6 mg/dL (0.0-1.0); Blood Urea Nitrogen 19 mg/dL (9-16); Calcium 8.7 mg/dL (8.4-10.2); Carbon Dioxide 22 mmol/L (22-29); Chloride 106 mmol/L (96-108); Estimated Glomerular Filt Rate > 60; Glucose Fasting 134 mg/dL (60-99); Potassium 3.9 mmol/L (3.3-5.1); Sodium 138 mmol/L (135-145); Total Protein 7.1 g/dL (6.5-8.0)
[2020-06-20 08:05] VITALS: BP 120/58; PULSE 58; RESP 18; TEMP 36.6; O2SAT 95; BMI 33.1
--- NOTE | 2020-06-20 08:34 | MHC.HEMONC ---
Pt here for Denosumab injection. Ca 8.7 Pt states he feels well. Clinical summary updated by nurse. Denosumab given SC in right deltoid. Follow up appointment and discharge packet given
[2020-07-17 08:59] LABS: MANUAL DIFF FLAG NO
[2020-07-17 09:05] LABS: Basophils Absolute Auto 0.1 X10*3/uL (0.0-0.2); Basophils Percent Auto 0.9 % (0-2); Eosinophils Absolute Auto 0.1 X10*3/uL (0.0-0.4); Eosinophils Percent Auto 1.9 % (0-4); Hematocrit 37.6 % (42-52); Imm Gran Abs Auto 0.02 X10*3/uL (0.00-0.03); Imm Gran Pct Auto 0.4 % (0.0-0.4); Lymphocytes Absolute Auto 1.5 X10*3/uL (1.2-4.9); Lymphocytes Percent Auto 28.5 % (20-40); Mean Corpuscular HGB Conc 34.6 g/dl (31.0-36.0); Mean Corpuscular Hemoglobin 34.7 pg (27.0-33.0); Mean Corpuscular Volume 100.3 fL (80-98); Mean Platelet Volume 9.6 fL (9.4-12.4); Monocytes Absolute Auto 0.4 X10*3/uL (0.1-1.2); Monocytes Percent Auto 8.3 % (2-11); Neutrophils Absolute Auto 3.2 X10*3/uL (2.0-8.3); Platelet Count 187 X10*3/uL (160-400); Red Blood Count 3.75 X10*6/uL (4.60-5.80); Red Cell Distribution Width 12.3 % (11.0-16.0); White Blood Count 5.3 X10*3/uL (4.8-10.8)
[2020-07-17 09:28] LABS: Alanine Aminotransferase 15 U/L (0-40); Albumin Level 4.2 g/dL (3.5-5.0); Alkaline Phosphatase 51 U/L (39-117); Anion Gap 13 (12-20); Aspartate Amino Transferase 15 U/L (5-37); Bilirubin Total 1.7 mg/dL (0.0-1.0); Blood Urea Nitrogen 21 mg/dL (9-16); Calcium 9.5 mg/dL (8.4-10.2); Carbon Dioxide 25 mmol/L (22-29); Chloride 106 mmol/L (96-108); Creatinine Clr Calc Pharmacy 87.5; Estimated Glomerular Filt Rate > 60; Glucose Random 135 mg/dL (60-115); Sodium 140 mmol/L (135-145); Total Protein 7.1 g/dL (6.5-8.0)
[2020-07-17 11:22] LABS: Prostate Specific Antigen 2.12 ng/mL (<0.05-4.0)
[2020-07-18 08:15] VITALS: BP 126/66; PULSE 59; RESP 18; TEMP 36.5; O2SAT 96; BMI 32.7
--- NOTE | 2020-07-18 08:21 | P.PNHO_ITS ---
Medical Summary - Medical Summary Date of Service: 07/18/20 Chief complaint: Follow-up Medical Summary: Diagnosis: Metastatic prostate cancer August 2017 Diagnosed with prostate cancer in 2007. Underwent robotic-assisted prostatectomy on 08/04/07. Adenocarcinoma with mucinous differentiation, pT3a pN0, Wet[place] score 4+3 involving 75% of prostate gland. Underwent adjuvant IMRT following prostatectomy. Underwent surgery for correction of urinary incontinence in 2008, implantation of artificial urinary sphincter in September 2010. He has been on intermittent androgen deprivation, Eligard 45 mg q.6 months. Last PSA in August 2017 14.7 with the testosterone level at 29.5. He was started back on GnRH agonist q.6 months, he was prescribed Casodex but did not start it. One episode of gross hematuria which prompted urine cytology, negative, CT urogram abdomen/pelvis with adrenal cyst, no stone or obstruction. 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 CT abdomen/pelvis with IV contrast August 2017 at [facility] showed increasing size and number of pulmonary lesions, bony lesion in the right ilium measuring 5.7 cm and previously measured 1 cm. No Intra-abdominal lymphadenopathy, normal liver, spleen and pancreas. No hydronephrosis or nephrolithiasis. CT chest with contrast in August 2017 showed mild multiple pulmonary nodules concerning for metastatic disease some solid, some cavitary or cystic. Findings increased since February 2012. 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 Largest lesion in the right lung measuring 3.5x2.5 cm. PET scan performed 09/11/17 showed multifocal FDG avid metastatic lesions present throughout the lungs, largest in the left lower lobe measuring 3.7x2.4 cm with SUV of 3.3. Most intense lesion in the left upper lobe with SUV 4.7 measuring 1.5x1.1 cm. No other adenopathy. FDG avid sclerotic metastasis in the posterior right iliac bone SUV 7.7. Prominent activity in palatine tonsils bilaterally more intense on the right, nonspecific. No corresponding CT abnormality. Direct visualization is recommended. He was diagnosed with bone metastasis, bone scan performed at [facility] in August 2017 showed uptake in the right iliac bone representing a metastatic lesion. Resumed Eligard in August 2017, he stopped Casodex. PSA is rising, testosterone level was 0. Hormone refractory metastatic prostate cancer. Patient started abiraterone/prednisone on 07/15/18. Received 1st does of denosumab 07/02/2018.PET scan performed April 2019 shows marked metabolic response with minimal to no activity in the lung nodules and skeletal bones. Interval History Interval history: Patient is here in follow-up. He is doing quite well and has no complaints today. He just started golfing. He denies any body pains, exertional chest pain or shortness of breath. He is taking full dose of Zytiga as well as prednisone once a day. Review of Systems - Constitutional Reports as per HPI, Reports no additional constitutional complaints - Cardiovascular Reports no additional cardiovascular complaints - Respiratory Reports no additional respiratory complaints - Gastrointestinal Reports no additional gastrointestinal complaints [facility] Medical History: Medical History (Last Updated 06/26/20 @ 14:32 by Guido Joseph MD) Benign essential hypertension CAD (coronary artery disease) Hematuria Impaired fasting glucose Obesity (BMI 30-39.9) Psoriasis Pulmonary nodules Pure hypercholesterolemia Tick bite Family History: Family History (Last Reviewed 07/03/20 @ 00:55 by Guido Joseph MD) Father Heart disease CVD (cardiovascular disease) Mother Acute CVA (cerebrovascular accident) CVD (cardiovascular disease) Sister No problems noted. Sister Pacemaker Surgical History: Surgical History (Last Reviewed 07/03/20 @ 00:55 by Guido Joseph MD) History of bladder surgery History of prostatectomy History of right knee surgery Social History: Social History (Last Reviewed 07/03/20 @ 00:55 by Guido Joseph MD) Alcohol History: Alcohol intake: current Alcohol History Details: Alcohol intake frequency: a few times a month Alcohol type: beer Tobacco History: Smoking Status: Former smoker Tobacco Type: Cigarette Packs Per Day: 1.5 Smoking Quit Date: 1979 Substance Use History: Use of substances other than those prescribed or required for medical reasons : No Advance Directives: Advance Directives: No Advance Directives Information Provided: No Occupation Assessmet: Current occupational status: retired 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 Smoking status: Former smoker Home Medications and Allergies Current Medications: Current Medications Generic Name Dose Route Start Last Admin Trade Name Freq PRN Reason Stop Dose Admin Denosumab 120 mg 07/18/20 00:00 Denosumab 120 Mg/1.7 Ml Vial SUBCUT 07/18/20 23:59 ONCE RICH Home Medications Medication Instructions Recorded Confirmed Type amlodipine 1 tab PO DAILY 12/29/19 07/18/20 History atorvastatin 1 tab PO DAILY 12/29/19 07/18/20 History metoprolol succinate 1 tab PO BID 12/29/19 07/18/20 History abiraterone 250 mg tablet 500 mg PO DAILY tab 01/03/20 07/18/20 History calcium carbonate 600 mg calcium 600 mg PO DAILY 01/03/20 07/18/20 History (1,500 mg) tablet denosumab 120 mg/1.7 mL (70 mg/mL) 120 mg SUBCUT Q4W 01/03/20 07/18/20 History subcutaneous solution leuprolide (6 month) 45 mg 45 mg IM [id number] 01/03/20 07/18/20 History intramuscular syringe kit prednisone 5 mg tablet 5 mg PO DAILY tab 01/03/20 07/18/20 History losartan 50 mg tablet 50 mg PO DAILY 05/08/20 07/18/20 History Allergies Allergy/AdvReac Type Severity Reaction Status Date / Time lisinopril Allergy Severe angioedema Verified 07/03/20 00:54 Exam Vital signs: Vital Signs Temp 97.7 F 07/18/20 08:15 Pulse 59 07/18/20 08:15 Resp 18 07/18/20 08:15 BP 126/66 07/18/20 08:15 Pulse Ox 96 07/18/20 08:15 Intake & Output 07/17/20 07/18/20 07/18/20 18:59 06:59 18:59 Other: Weight 112.4 kg Frederic Weight in Grams [id number] Weight 112.4 kg Body Mass Index 32.7 - Constitutional Present: no acute distress - Routine HEENT Exam Head: Present: normal inspection - Routine Neck Exam Present: full ROM, normal inspection. Absent: lymphadenopathy - Routine Respiratory Exam Present: CTAB - Routine Cardiovascular Exam Cardiovascular: Present: S1, S2 - Routine Abdominal Exam Present: normal bowel sounds, soft - Routine Extremities Exam Absent: pedal edema Data - Labs CBC & Chem 7: 07/17/20 08:43 07/17/20 08:43 Labs: 12/28/19 08:20 Complete Blood Count Auto Diff Routine Comprehensive Met. Panel Routine 12/29/19 00:00 Denosumab [Xgeva] 120 mg SUBCUT ONCE 01/25/20 00:00 Denosumab [Xgeva] 120 mg SUBCUT ONCE 01/25/20 08:16 CBC W/AUTO DIFF [Complete Blood Count Auto Diff] Routine Profile w/ Glucose [place] [Comprehensive Met. Panel] Routine 01/26/20 00:00 Denosumab [Xgeva] 120 mg SUBCUT ONCE 02/22/20 08:03 Complete Blood Count Auto Diff Routine Comprehensive Met. Panel Routine Prostate Specific Antigen Routine 02/23/20 00:00 Denosumab [Xgeva] 120 mg SUBCUT ONCE 03/21/20 08:16 Comprehensive Met. Panel Routine Prostate Specific Antigen Routine Laboratory Last Values WBC 6.3 X10*3/uL (4.8-10.8) 02/22/20 08:03 RBC 3.94 X10*6/uL (4.60-5.80) L 02/22/20 08:03 Hgb 13.3 g/dl (14.0-18.0) L 02/22/20 08:03 Hct 38.7 % (42-52) L 02/22/20 08:03 MCV 98.2 fL (80-98) H 02/22/20 08:03 MCH 33.8 pg (27.0-33.0) H 02/22/20 08:03 MCHC 34.4 g/dl (31.0-36.0) 02/22/20 08:03 RDW 12.2 % (11.0-16.0) 02/22/20 08:03 Plt Count 195 X10*3/uL (160-400) 02/22/20 08:03 MPV 9.3 fL (9.4-12.4) L 02/22/20 08:03 Immature Gran % (Auto) 0.2 % (0.0-0.4) 02/22/20 08:03 Neut % (Auto) 61.4 % (45-73) 02/22/20 08:03 Lymph % (Auto) 29.4 % (20-40) 02/22/20 08:03 [place] % (Auto) 6.6 % (2-11) 02/22/20 08:03 Eos % (Auto) 1.6 % (0-4) 02/22/20 08:03 Baso % (Auto) 0.8 % (0-2) 02/22/20 08:03 Lymph # (Auto) 1.8 X10*3/uL (1.2-4.9) 02/22/20 08:03 [place] # (Auto) 0.4 X10*3/uL (0.1-1.2) 02/22/20 08:03 Eos # (Auto) 0.1 X10*3/uL (0.0-0.4) 02/22/20 08:03 Baso # (Auto) 0.1 X10*3/uL (0.0-0.2) 02/22/20 08:03 Abs Immat Gran (auto) 0.01 X10*3/uL (0.00-0.03) 02/22/20 08:03 Absolute Neuts (auto) 3.8 X10*3/uL (2.0-8.3) 02/22/20 08:03 Absolute Nucleated RBC 0.000 X10*3/uL (0.0-0.012) 02/22/20 08:03 Nucleated RBC % (auto) 0.0 /100WBC (0.0-0.2) 02/22/20 08:03 Sodium 141 mmol/L (135-145) 03/21/20 08:16 Potassium 4.3 mmol/l (3.3-5.1) 03/21/20 08:16 Chloride 106 mmol/L (96-108) 03/21/20 08:16 Carbon Dioxide 27 mmol/L (22-29) 03/21/20 08:16 Anion Gap 12 (12-20) 03/21/20 08:16 BUN 24 mg/dL (9-16) H 03/21/20 08:16 Creatinine 1.06 mg/dL (0.5-1.4) 03/21/20 08:16 Estim Creat Clear Calc 77.5 03/21/20 08:16 Estimated GFR > 60 03/21/20 08:16 Random Glucose 130 mg/dL (60-115) H 03/21/20 08:16 Calcium 8.9 mg/dL (8.4-10.2) D 03/21/20 08:16 Total Bilirubin 1.3 mg/dL (0.0-1.0) H 03/21/20 08:16 AST 17 U/L (5-37) 03/21/20 08:16 ALT 20 U/L (0-40) 03/21/20 08:16 Alkaline Phosphatase 39 U/L (39-117) 03/21/20 08:16 Total Protein 7.1 g/dL (6.5-8.0) 03/21/20 08:16 Albumin 4.3 g/dL (3.5-5.0) 03/21/20 08:16 Prostate Specific Ag 1.23 ng/mL (<0.05-4.0) 03/21/20 08:16 Progress Note: A/P (1) Prostate cancer metastatic to bone Status: Chronic Assessment and plan: 1. This is a 74-year-old male with metastatic hormone refractory prostate cancer. Initially diagnosed in 2007, underwent radical prostatectomy followed by adjuvant IMRT, intermittent androgen deprivation. Patient is on Lupron every 6 months. He started Zytiga 1000 mg daily with prednisone 5 mg b.i.d. and denosumab since July 15, 2018. He is now on prednisone 5 mg once a day and Zytiga 1000 mg daily. He went back to full dose since March 2020. 2. Bilateral pulmonary nodules, probably metastatic. FNA was nondiagnostic, he did not want repeat biopsy or excision biopsy. Size and FDG avidity of lung nodules decreasing with above treatment. 3. Recurrent hematuria. Diagnosed with hemorrhagic cystitis. Cystoscopy negative for bladder tumor. Radiation cystitis causing bleeding as well as increased risk because of aspirin and prednisone more likely. Zytiga is generally not associated with hematuria. 4. 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 Steroids are implicated in this disease. PSA is slowly trending upward. Repeat imaging to be performed if this increase continues. Follow-up in 2 months. - Time Spent With Patient Total time spent is greater than 50% in coordination of care (as documented) at patient's floor/unit and/or counseling patient: 15 - 24 minutes
--- NOTE | 2020-07-18 08:49 | MHC.HEMONC ---
Pt here for ONC follow up with Dr Ordoñez and denosumab injection. Labs drawn yesterday 07/17/20 reviewed. Calcium level 9.5 Denosumab injection given in left arm per pt request. No edema or redness at site. Clinical summary updated by nurse. Dr Ordoñez into see pt. Follow up appointment made and given to pt. Discharged home.
--- NOTE | 2020-08-08 10:42 | PM.EVENT ---
Rt right hip and groin pain. Patient called stating that he has been having right hip pain for about a month. It is getting worse. Pain is nonradiating, localized to the hip. No associated swelling. No recent trauma. Patient has metastatic prostate cancer, metastasis to bone. I will order a CT scan of hip with and without contrast to rule out progressive metastatic disease.
[2020-08-21 08:43] LABS: MANUAL DIFF FLAG NO
[2020-08-21 08:45] LABS: Basophils Percent Auto 0.5 % (0-2); Eosinophils Absolute Auto 0.1 X10*3/uL (0.0-0.4); Eosinophils Percent Auto 1.8 % (0-4); Hematocrit 38.9 % (42-52); Hemoglobin 13.2 g/dl (14.0-18.0); Imm Gran Abs Auto 0.02 X10*3/uL (0.00-0.03); Imm Gran Pct Auto 0.4 % (0.0-0.4); Lymphocytes Absolute Auto 1.6 X10*3/uL (1.2-4.9); Lymphocytes Percent Auto 29.1 % (20-40); Mean Corpuscular HGB Conc 33.9 g/dl (31.0-36.0); Mean Corpuscular Volume 100.3 fL (80-98); Mean Platelet Volume 9.4 fL (9.4-12.4); Monocytes Absolute Auto 0.5 X10*3/uL (0.1-1.2); Monocytes Percent Auto 8.4 % (2-11); Neutrophils Absolute Auto 3.4 X10*3/uL (2.0-8.3); Neutrophils Percent Auto 59.8 % (45-73); Platelet Count 214 X10*3/uL (160-400); Red Blood Count 3.88 X10*6/uL (4.60-5.80); Red Cell Distribution Width 11.9 % (11.0-16.0); White Blood Count 5.6 X10*3/uL (4.8-10.8)
[2020-08-21 09:28] LABS: Alanine Aminotransferase 13 U/L (0-40); Albumin Level 4.2 g/dL (3.5-5.0); Alkaline Phosphatase 52 U/L (39-117); Anion Gap 15 (12-20); Aspartate Amino Transferase 15 U/L (5-37); Bilirubin Total 1.8 mg/dL (0.0-1.0); Blood Urea Nitrogen 20 mg/dL (9-16); Calcium 9.1 mg/dL (8.4-10.2); Carbon Dioxide 22 mmol/L (22-29); Chloride 107 mmol/L (96-108); Creatinine Clr Calc Pharmacy 84.2; Estimated Glomerular Filt Rate > 60; Glucose Random 127 mg/dL (60-115); Potassium 3.9 mmol/L (3.3-5.1); Sodium 140 mmol/L (135-145)
--- NOTE | 2020-08-21 16:18 | MHC.HEMONC ---
Pt here for lab draw. Blood work drawn by awake overnight monitor and sent to lab. Pt discharged home.
[2020-08-22 08:32] VITALS: BP 132/60; PULSE 59; RESP 18; TEMP 36.7; O2SAT 95; BMI 33.0
--- NOTE | 2020-08-22 09:14 | PM.HEMONCPN ---
Medical Summary - Medical Summary Date of Service: 08/22/20 Chief complaint: Right hip pain Medical Summary: Diagnosis: Metastatic prostate cancer August 2017 Diagnosed with prostate cancer in 2007. Underwent robotic-assisted prostatectomy on 08/04/07. Adenocarcinoma with mucinous differentiation, pT3a pN0, Castor score 4+3 involving 75% of prostate gland. Underwent adjuvant IMRT following prostatectomy. Underwent surgery for correction of urinary incontinence in 2008, implantation of artificial urinary sphincter in September 2010. He has been on intermittent androgen deprivation, Eligard 45 mg q.6 months. Last PSA in August 2017 14.7 with the testosterone level at 29.5. He was started back on GnRH agonist q.6 months, he was prescribed Casodex but did not start it. One episode of gross hematuria which prompted urine cytology, negative, CT urogram abdomen/pelvis with adrenal cyst, no stone or obstruction. 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 CT abdomen/pelvis with IV contrast August 2017 at [facility] showed increasing size and number of pulmonary lesions, bony lesion in the right ilium measuring 5.7 cm and previously measured 1 cm. No Intra-abdominal lymphadenopathy, normal liver, spleen and pancreas. No hydronephrosis or nephrolithiasis. CT chest with contrast in August 2017 showed mild multiple pulmonary nodules concerning for metastatic disease some solid, some cavitary or cystic. Findings increased since February 2012. 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 Largest lesion in the right lung measuring 3.5x2.5 cm. PET scan performed 09/11/17 showed multifocal FDG avid metastatic lesions present throughout the lungs, largest in the left lower lobe measuring 3.7x2.4 cm with SUV of 3.3. Most intense lesion in the left upper lobe with SUV 4.7 measuring 1.5x1.1 cm. No other adenopathy. FDG avid sclerotic metastasis in the posterior right iliac bone SUV 7.7. Prominent activity in palatine tonsils bilaterally more intense on the right, nonspecific. No corresponding CT abnormality. Direct visualization is recommended. He was diagnosed with bone metastasis, bone scan performed at [facility] in August 2017 showed uptake in the right iliac bone representing a metastatic lesion. Resumed Eligard in August 2017, he stopped Casodex. PSA is rising, testosterone level was 0. Hormone refractory metastatic prostate cancer. Patient started abiraterone/prednisone on 07/15/18. Received 1st does of denosumab 07/02/2018.PET scan performed April 2019 shows marked metabolic response with minimal to no activity in the lung nodules and skeletal bones. Interval History Interval history: patient is here in follow-up. He is doing okay but reports continued pain in the right anterior hip. It is more pronounced when he sits on a chair and twists over to the right side. He is able to walk and play golf. He denies excess fatigue, loss of appetite or weight loss. No chest pain or shortness of breath. No cough or fever. Review of Systems - Constitutional Reports as per HPI, Reports no additional constitutional complaints [facility] Medical History: Medical History (Last Updated 06/26/20 @ 14:32 by Guido Joseph MD) Benign essential hypertension CAD (coronary artery disease) Hematuria Impaired fasting glucose Obesity (BMI 30-39.9) Psoriasis Pulmonary nodules Pure hypercholesterolemia Tick bite Family History: Family History (Last Reviewed 07/03/20 @ 00:55 by Guido Joseph MD) Father Heart disease CVD (cardiovascular disease) Mother Acute CVA (cerebrovascular accident) CVD (cardiovascular disease) Sister No problems noted. Sister Pacemaker Surgical History: Surgical History (Last Reviewed 07/03/20 @ 00:55 by Guido Joseph MD) History of bladder surgery History of prostatectomy History of right knee surgery Social History: Social History (Last Reviewed 07/03/20 @ 00:55 by Guido Joseph MD) Alcohol History: Alcohol intake: current Alcohol History Details: Alcohol intake frequency: a few times a month Alcohol type: beer Tobacco History: Cigarette Packs Per Day: 1.5 Substance Use History: Use of substances other than those prescribed or required for medical reasons: No Advance Directives: Advance Directives: No Advance Directives Information Provided: No Occupation Assessmet: Current occupational status: retired 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 Home Medications and Allergies Current Medications: Current Medications Generic Name Dose Route Start Last Admin Trade Name Freq PRN Reason Stop Dose Admin Denosumab 120 mg 08/22/20 00:00 08/22/20 09:00 Denosumab 120 Mg/1.7 Ml Vial SUBCUT 08/22/20 23:59 120 mg ONCE RICH Administration Home Medications Medication Instructions Recorded Confirmed Type amlodipine 1 tab PO DAILY 12/29/19 08/22/20 History atorvastatin 1 tab PO DAILY 12/29/19 08/22/20 History metoprolol succinate 1 tab PO BID 12/29/19 08/22/20 History abiraterone 250 mg tablet 500 mg PO DAILY tab 01/03/20 08/22/20 History calcium carbonate 600 mg calcium 600 mg PO DAILY 01/03/20 08/22/20 History (1,500 mg) tablet denosumab 120 mg/1.7 mL (70 mg/mL) 120 mg SUBCUT Q4W 01/03/20 08/22/20 History subcutaneous solution leuprolide (6 month) 45 mg 45 mg IM [id number] 01/03/20 08/22/20 History intramuscular syringe kit prednisone 5 mg tablet 5 mg PO DAILY tab 01/03/20 08/22/20 History losartan 50 mg tablet 50 mg PO DAILY 05/08/20 08/22/20 History Allergies Allergy/AdvReac Type Severity Reaction Status Date / Time lisinopril Allergy Severe angioedema Verified 07/03/20 00:54 Exam Vital signs: Vital Signs Temp 98.1 F 08/22/20 08:32 Pulse 59 08/22/20 08:32 Resp 18 08/22/20 08:32 BP 132/60 08/22/20 08:32 Pulse Ox 95 08/22/20 08:32 Intake & Output 08/21/20 08/22/20 08/22/20 18:59 06:59 18:59 Other: Weight 113.4 kg Weight in Grams [id number] Weight 113.4 kg Body Mass Index 33.0 - Constitutional Present: no acute distress - Routine HEENT Exam Head: Present: normal inspection - Routine Neck Exam Present: full ROM, normal inspection. Absent: lymphadenopathy - Routine Respiratory Exam Present: CTAB - Routine Cardiovascular Exam Cardiovascular: Present: S1, S2 - Routine Abdominal Exam Present: normal bowel sounds, soft - Routine Extremities Exam Absent: pedal edema Data - Labs CBC & Chem 7: 08/21/20 08:19 08/21/20 08:19 Labs: 12/28/19 08:20 Complete Blood Count Auto Diff Routine Comprehensive Met. Panel Routine 12/29/19 00:00 Denosumab [Xgeva] 120 mg SUBCUT ONCE 01/25/20 00:00 Denosumab [Xgeva] 120 mg SUBCUT ONCE 01/25/20 08:16 CBC W/AUTO DIFF [Complete Blood Count Auto Diff] Routine Profile w/ Glucose [place] [Comprehensive Met. Panel] Routine 01/26/20 00:00 Denosumab [Xgeva] 120 mg SUBCUT ONCE 02/22/20 08:03 Complete Blood Count Auto Diff Routine Comprehensive Met. Panel Routine Prostate Specific Antigen Routine 02/23/20 00:00 Denosumab [Xgeva] 120 mg SUBCUT ONCE 03/21/20 08:16 Comprehensive Met. Panel Routine Prostate Specific Antigen Routine Laboratory Last Values WBC 6.3 X10*3/uL (4.8-10.8) 02/22/20 08:03 RBC 3.94 X10*6/uL (4.60-5.80) L 02/22/20 08:03 Hgb 13.3 g/dl (14.0-18.0) L 02/22/20 08:03 Hct 38.7 % (42-52) L 02/22/20 08:03 MCV 98.2 fL (80-98) H 02/22/20 08:03 MCH 33.8 pg (27.0-33.0) H 02/22/20 08:03 MCHC 34.4 g/dl (31.0-36.0) 02/22/20 08:03 RDW 12.2 % (11.0-16.0) 02/22/20 08:03 Plt Count 195 X10*3/uL (160-400) 02/22/20 08:03 MPV 9.3 fL (9.4-12.4) L 02/22/20 08:03 Immature Gran % (Auto) 0.2 % (0.0-0.4) 02/22/20 08:03 Neut % (Auto) 61.4 % (45-73) 02/22/20 08:03 Lymph % (Auto) 29.4 % (20-40) 02/22/20 08:03 [place] % (Auto) 6.6 % (2-11) 02/22/20 08:03 Eos % (Auto) 1.6 % (0-4) 02/22/20 08:03 Baso % (Auto) 0.8 % (0-2) 02/22/20 08:03 Lymph # (Auto) 1.8 X10*3/uL (1.2-4.9) 02/22/20 08:03 [place] # (Auto) 0.4 X10*3/uL (0.1-1.2) 02/22/20 08:03 Eos # (Auto) 0.1 X10*3/uL (0.0-0.4) 02/22/20 08:03 Baso # (Auto) 0.1 X10*3/uL (0.0-0.2) 02/22/20 08:03 Abs Immat Gran (auto) 0.01 X10*3/uL (0.00-0.03) 02/22/20 08:03 Absolute Neuts (auto) 3.8 X10*3/uL (2.0-8.3) 02/22/20 08:03 Absolute Nucleated RBC 0.000 X10*3/uL (0.0-0.012) 02/22/20 08:03 Nucleated RBC % (auto) 0.0 /100WBC (0.0-0.2) 02/22/20 08:03 Sodium 141 mmol/L (135-145) 03/21/20 08:16 Potassium 4.3 mmol/l (3.3-5.1) 03/21/20 08:16 Chloride 106 mmol/L (96-108) 03/21/20 08:16 Carbon Dioxide 27 mmol/L (22-29) 03/21/20 08:16 Anion Gap 12 (12-20) 03/21/20 08:16 BUN 24 mg/dL (9-16) H 03/21/20 08:16 Creatinine 1.06 mg/dL (0.5-1.4) 03/21/20 08:16 Estim Creat Clear Calc 77.5 03/21/20 08:16 Estimated GFR > 60 03/21/20 08:16 Random Glucose 130 mg/dL (60-115) H 03/21/20 08:16 Calcium 8.9 mg/dL (8.4-10.2) D 03/21/20 08:16 Total Bilirubin 1.3 mg/dL (0.0-1.0) H 03/21/20 08:16 AST 17 U/L (5-37) 03/21/20 08:16 ALT 20 U/L (0-40) 03/21/20 08:16 Alkaline Phosphatase 39 U/L (39-117) 03/21/20 08:16 Total Protein 7.1 g/dL (6.5-8.0) 03/21/20 08:16 Albumin 4.3 g/dL (3.5-5.0) 03/21/20 08:16 Prostate Specific Ag 1.23 ng/mL (<0.05-4.0) 03/21/20 08:16 Progress Note: A/P (1) Prostate cancer metastatic to bone Status: Chronic Assessment and plan: 1. This is a 74-year-old male with metastatic hormone refractory prostate cancer. Initially diagnosed in 2007, underwent radical prostatectomy followed by adjuvant IMRT, intermittent androgen deprivation. Patient is on Lupron every 6 months. He started Zytiga 1000 mg daily with prednisone 5 mg b.i.d. and denosumab since July 15, 2018. He is now on prednisone 5 mg once a day and Zytiga 1000 mg daily. He went back to full dose since March 2020. 2. Bilateral pulmonary nodules, probably metastatic. FNA was nondiagnostic, he did not want repeat biopsy or excision biopsy. Size and FDG avidity of lung nodules decreasing with above treatment. 3. Recurrent hematuria. Diagnosed with hemorrhagic cystitis. Cystoscopy negative for bladder tumor. Radiation cystitis causing bleeding as well as increased risk because of aspirin and prednisone more likely. Zytiga is generally not associated with hematuria. 4. 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 Steroids are implicated in this disease. 5. Right hip pain. Could be related to bone metastasis. CT of hip ordered. Radiation therapy will be recommended if pain secondary to bone Mets. PSA is slowly trending upward. Follow-up in 1 months. - Time Spent With Patient Total time spent is greater than 50% in coordination of care (as documented) at patient's floor/unit and/or counseling patient: 15 - 24 minutes
--- NOTE | 2020-08-22 09:27 | MHC.HEMONC ---
Pt here for ONC follow up and Denosumab injection. Labs drawn yesterday reviewed. CA 9.1 Dr Ordoñez into see pt. Clinical summary updated by nurse. Pt states he feels well today. Denosumab given in left arm SC per pt request. Follow up appointment made and given to pt. Discharged home.
[2020-09-18 09:40] LABS: Alanine Aminotransferase 11 U/L (0-40); Albumin Level 4.2 g/dL (3.5-5.0); Alkaline Phosphatase 55 U/L (39-117); Anion Gap 13 (12-20); Aspartate Amino Transferase 15 U/L (5-37); Bilirubin Total 1.6 mg/dL (0.0-1.0); Blood Urea Nitrogen 16 mg/dL (9-16); Calcium 9.2 mg/dL (8.4-10.2); Carbon Dioxide 25 mmol/L (22-29); Chloride 106 mmol/L (96-108); Creatinine Clr Calc Pharmacy 89.1; Estimated Glomerular Filt Rate > 60; Glucose Random 129 mg/dL (60-115); Potassium 4.1 mmol/L (3.3-5.1); Sodium 140 mmol/L (135-145); Total Protein 7.1 g/dL (6.5-8.0)
[2020-09-18 10:05] LABS: Prostate Specific Antigen 2.99 ng/mL (<0.05-4.0)
[2020-09-19 15:40] VITALS: BP 126/59; PULSE 66; RESP 14; TEMP 36.8; O2SAT 96; BMI 33.5
--- NOTE | 2020-09-19 15:53 | P.PNHO_ITS ---
Medical Summary - Medical Summary Date of Service: 09/19/20 Chief complaint: Right hip pain Medical Summary: Diagnosis: Metastatic prostate cancer August 2017 Diagnosed with prostate cancer in 2007. Underwent robotic-assisted prostatectomy on 08/04/07. Adenocarcinoma with mucinous differentiation, pT3a pN0, Logan score 4+3 involving 75% of prostate gland. Underwent adjuvant IMRT following prostatectomy. Underwent surgery for correction of urinary incontinence in 2008, implantation of artificial urinary sphincter in September 2010. He has been on intermittent androgen deprivation, Eligard 45 mg q.6 months. Last PSA in August 2017 14.7 with the testosterone level at 29.5. He was started back on GnRH agonist q.6 months, he was prescribed Casodex but did not start it. One episode of gross hematuria which prompted urine cytology, negative, CT urogram abdomen/pelvis with adrenal cyst, no stone or obstruction. 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 CT abdomen/pelvis with IV contrast August 2017 at [facility] showed increasing size and number of pulmonary lesions, bony lesion in the right ilium measuring 5.7 cm and previously measured 1 cm. No Intra-abdominal lymphadenopathy, normal liver, spleen and pancreas. No hydronephrosis or nephrolithiasis. CT chest with contrast in August 2017 showed mild multiple pulmonary nodules concerning for metastatic disease some solid, some cavitary or cystic. Findings increased since February 2012. 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 Largest lesion in the right lung measuring 3.5x2.5 cm. PET scan performed 09/11/17 showed multifocal FDG avid metastatic lesions present throughout the lungs, largest in the left lower lobe measuring 3.7x2.4 cm with SUV of 3.3. Most intense lesion in the left upper lobe with SUV 4.7 measuring 1.5x1.1 cm. No other adenopathy. FDG avid sclerotic metastasis in the posterior right iliac bone SUV 7.7. Prominent activity in palatine tonsils bilaterally mor e intense on the right, nonspecific. No corresponding CT abnormality. Direct visualization is recommended. He was diagnosed with bone metastasis, bone scan performed at [facility] in August 2017 showed uptake in the right iliac bone representing a metastatic lesion. Resumed Eligard in August 2017, he stopped Casodex. PSA is rising, testosterone level was 0. Hormone refractory metastatic prostate cancer. Patient started abiraterone/prednisone on 07/15/18. Received 1st does of denosumab 07/02/2018.PET scan performed April 2019 shows marked metabolic response with minimal to no activity in the lung nodules and skeletal bones. Interval History Interval history: Patient is here in follow-up. He underwent CT imaging of the hip which did not show any acute pathology. He continues to have on an off groin pain. No swelling. It seems to come and go without any triggering factors. Sometimes it is worse after he sits for a long period of time. He reports no change in bowel habits. No hematochezia melena. He continues to play golf and has no difficulty ambulating. Review of Systems - Constitutional Reports as per HPI, Reports no additional constitutional complaints - Cardiovascular Reports no additional cardiovascular complaints - Respiratory Reports no additional respiratory complaints - Gastrointestinal Reports no additional gastrointestinal complaints [facility] Medical History: Medical History (Last Updated 09/07/20 @ 09:28 by Guido Joseph MD) Benign essential hypertension CAD (coronary artery disease) Central serous retinopathy Hematuria Impaired fasting glucose Obesity (BMI 30-39.9) Psoriasis Pulmonary nodules Pure hypercholesterolemia Tick bite Family History: Family History (Last Reviewed 09/07/20 @ 08:57 by Guido Joseph MD) Father Heart disease CVD (cardiovascular disease) Mother Acute CVA (cerebrovascular accident) CVD (cardiovascular disease) Sister No problems noted. Sister Pacemaker Surgical History: Surgical History (Last Reviewed 09/07/20 @ 08:57 by Guido Joseph MD) History of bladder surgery History of prostatectomy History of right knee surgery Social History: Social History (Last Reviewed 09/07/20 @ 08:57 by Guido Joseph MD) Living Situation History: Housing: House Alcohol History: Alcohol intake: current Alcohol History Details: Alcohol intake frequency: a few times a week Alcohol type: beer Tobacco History: Patient Tobacco Use Status: Former Tobacco user Substance Use History: Use of substances other than those prescribed or required for medical reasons : No Advance Directives: Advance Directives: No Advance Directives Information Provided: No Occupation Assessmet: Current occupational status: retired 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 Home Medications and Allergies Current Medications: Current Medications Generic Name Dose Route Start Last Admin Trade Name Freq PRN Reason Stop Dose Admin Denosumab 120 mg 09/19/20 00:00 09/19/20 15:45 Denosumab 120 Mg/1.7 Ml Vial SUBCUT 09/19/20 23:59 120 mg ONCE RICH Administration Home Medications Medication Instructions Recorded Confirmed Type abiraterone 250 mg tablet 500 mg PO DAILY tab 01/03/20 09/07/20 History calcium carbonate 600 mg calcium 600 mg PO DAILY 01/03/20 09/07/20 History (1,500 mg) tablet denosumab 120 mg/1.7 mL (70 mg/mL) 120 mg SUBCUT Q4W 01/03/20 09/07/20 History subcutaneous solution leuprolide (6 month) 45 mg 45 mg IM [id number] 01/03/20 09/07/20 History intramuscular syringe kit prednisone 5 mg tablet 5 mg PO DAILY tab 01/03/20 09/07/20 History losartan 50 mg tablet 50 mg PO DAILY 05/08/20 09/07/20 History amlodipine 10 mg tablet 10 mg PO DAILY 09/07/20 09/19/20 History atorvastatin 80 mg tablet 80 mg PO DAILY 09/07/20 09/19/20 History metoprolol succinate 25 mg 25 mg PO BID 09/07/20 09/19/20 History tablet,extended release 24 hr Allergies Allergy/AdvReac Type Severity Reaction Status Date / Time lisinopril Allergy Severe angioedema Verified 09/07/20 08:56 Exam Vital signs: Vital Signs Temp 98.2 F 09/19/20 15:40 Pulse 66 09/19/20 15:40 Resp 14 09/19/20 15:40 BP 126/59 L 09/19/20 15:40 Pulse Ox 96 09/19/20 15:40 Intake & Output 09/18/20 09/19/20 09/19/20 18:59 06:59 18:59 Other: Weight 115.4 kg [place] Weight in Grams 225609 Weight 115.4 kg Body Mass Index 33.5 - Constitutional Present: no acute distress - Routine HEENT Exam Head: Present: normal inspection - Routine Neck Exam Present: full ROM, normal inspection. Absent: lymphadenopathy - Routine Respiratory Exam Present: CTAB - Routine Cardiovascular Exam Cardiovascular: Present: S1, S2 - Routine Abdominal Exam Present: normal bowel sounds, soft - Routine Extremities Exam Absent: pedal edema Data - Labs CBC & Chem 7: 08/21/20 08:19 09/18/20 09:01 Labs: 12/28/19 08:20 Complete Blood Count Auto Diff Routine Comprehensive Met. Panel Routine 10/21/20 00:00 Denosumab [Xgeva] 120 mg SUBCUT ONCE 01/25/20 00:00 Denosumab [Xgeva] 120 mg SUBCUT ONCE 01/25/20 08:16 CBC W/AUTO DIFF [Complete Blood Count Auto Diff] Routine Profile w/ Glucose [place] [Comprehensive Met. Panel] Routine 01/26/20 00:00 Denosumab [Xgeva] 120 mg SUBCUT ONCE 02/22/20 08:03 Complete Blood Count Auto Diff Routine Comprehensive Met. Panel Routine Prostate Specific Antigen Routine 02/23/20 00:00 Denosumab [Xgeva] 120 mg SUBCUT ONCE 03/21/20 08:16 Comprehensive Met. Panel Routine Prostate Specific Antigen Routine Laboratory Last Values WBC 6.3 X10*3/uL (4.8-10.8) 02/22/20 08:03 RBC 3.94 X10*6/uL (4.60-5.80) L 02/22/20 08:03 Hgb 13.3 g/dl (14.0-18.0) L 02/22/20 08:03 Hct 38.7 % (42-52) L 02/22/20 08:03 MCV 98.2 fL (80-98) H 02/22/20 08:03 MCH 33.8 pg (27.0-33.0) H 02/22/20 08:03 MCHC 34.4 g/dl (31.0-36.0) 02/22/20 08:03 RDW 12.2 % (11.0-16.0) 02/22/20 08:03 Plt Count 195 X10*3/uL (160-400) 02/22/20 08:03 MPV 9.3 fL (9.4-12.4) L 02/22/20 08:03 Immature Gran % (Auto) 0.2 % (0.0-0.4) 02/22/20 08:03 Neut % (Auto) 61.4 % (45-73) 02/22/20 08:03 Lymph % (Auto) 29.4 % (20-40) 02/22/20 08:03 [place] % (Auto) 6.6 % (2-11) 02/22/20 08:03 Eos % (Auto) 1.6 % (0-4) 02/22/20 08:03 Baso % (Auto) 0.8 % (0-2) 02/22/20 08:03 Lymph # (Auto) 1.8 X10*3/uL (1.2-4.9) 02/22/20 08:03 [place] # (Auto) 0.4 X10*3/uL (0.1-1.2) 02/22/20 08:03 Eos # (Auto) 0.1 X10*3/uL (0.0-0.4) 02/22/20 08:03 Baso # (Auto) 0.1 X10*3/uL (0.0-0.2) 02/22/20 08:03 Abs Immat Gran (auto) 0.01 X10*3/uL (0.00-0.03) 02/22/20 08:03 Absolute Neuts (auto) 3.8 X10*3/uL (2.0-8.3) 02/22/20 08:03 Absolute Nucleated RBC 0.000 X10*3/uL (0.0-0.012) 02/22/20 08:03 Nucleated RBC % (auto) 0.0 /100WBC (0.0-0.2) 02/22/20 08:03 Sodium 141 mmol/L (135-145) 03/21/20 08:16 Potassium 4.3 mmol/l (3.3-5.1) 03/21/20 08:16 Chloride 106 mmol/L (96-108) 03/21/20 08:16 Carbon Dioxide 27 mmol/L (22-29) 03/21/20 08:16 Anion Gap 12 (-20) 03/21/20 08:16 BUN 24 mg/dL (9-16) H 03/21/20 08:16 Creatinine 1.06 mg/dL (0.5-1.4) 03/21/20 08:16 Estim Creat Clear Calc 77.5 03/21/20 08:16 Estimated GFR > 60 03/21/20 08:16 Random Glucose 130 mg/dL (60-115) H 03/21/20 08:16 Calcium 8.9 mg/dL (8.4-10.2) D 03/21/20 08:16 Total Bilirubin 1.3 mg/dL (0.0-1.0) H 03/21/20 08:16 AST 17 U/L (5-37) 03/21/20 08:16 ALT 20 U/L (0-40) 03/21/20 08:16 Alkaline Phosphatase 39 U/L (39-117) 03/21/20 08:16 Total Protein 7.1 g/dL (6.5-8.0) 03/21/20 08:16 Albumin 4.3 g/dL (3.5-5.0) 03/21/20 08:16 Prostate Specific Ag 1.23 ng/mL (<0.05-4.0) 03/21/20 08:16 Progress Note: A/P (1) Prostate cancer metastatic to bone Status: Chronic Assessment and plan: 1. This is a 74-year-old male with metastatic hormone refractory prostate cancer. Initially diagnosed in 2007, underwent radical prostatectomy followed by adjuvant IMRT, intermittent androgen deprivation. Patient is on Lupron every 6 months. He started Zytiga 1000 mg daily with prednisone 5 mg b.i.d. and denosumab since July 15, 2018. He is now on prednisone 5 mg once a day and Zytiga 1000 mg daily. He went back to full dose since March 2020. 2. Bilateral pulmonary nodules, probably metastatic. FNA was nondiagnostic, he did not want repeat biopsy or excision biopsy. Size and FDG avidity of lung nodules decreasing with above treatment. 3. Recurrent hematuria. Diagnosed with hemorrhagic cystitis. Cystoscopy negative for bladder tumor. Radiation cystitis causing bleeding as well as increased risk because of aspirin and prednisone more likely. Zytiga is generally not associated with hematuria. 4. 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 I spoke to his featheredger and reducer machine, dose of prednisone has been decreased to 5 mg once a day. Steroids are implicated in this disease. 5. Right hip pain. CT of hip shows stable sclerotic bone metastasis and no acute pathology. Pain appears more to be arthritic in nature. I have recommended Tylenol alternating with ibuprofen for a week to 10 days to see if he has a response. Radiation therapy will be recommended if pain secondary to bone Mets. Follow-up in 2 months. - Time Spent With Patient Time Spent with Patient (in minutes): 15 Comment: Total time spent was 15 minutes, 10 minutes [id number] encounter and 5 minutes reviewing data.
--- NOTE | 2020-09-19 15:56 | MHC.HEMONC ---
labs reviewed. LEIGH given a/o.
--- NOTE | 2020-09-19 16:23 | MHC.HEMONCMA ---
Patient came in for a follow up today, states that he is still having right hip pain. Clinical summary was reviewed and updated. Patient had labs yesterday for today's injection and will return in 6 months for a follow up.
[2020-10-19 09:52] LABS: MANUAL DIFF FLAG NO
[2020-10-19 10:02] LABS: Basophils Absolute Auto 0.1 X10*3/uL (0.0-0.2); Basophils Percent Auto 0.9 % (0-2); Eosinophils Absolute Auto 0.2 X10*3/uL (0.0-0.4); Hematocrit 38.5 % (42-52); Hemoglobin 13.3 g/dl (14.0-18.0); Imm Gran Abs Auto 0.02 X10*3/uL (0.00-0.03); Imm Gran Pct Auto 0.3 % (0.0-0.4); Lymphocytes Absolute Auto 1.7 X10*3/uL (1.2-4.9); Lymphocytes Percent Auto 25.1 % (20-40); Mean Corpuscular HGB Conc 34.5 g/dl (31.0-36.0); Mean Corpuscular Hemoglobin 34.2 pg (27.0-33.0); Mean Platelet Volume 9.4 fL (9.4-12.4); Monocytes Absolute Auto 0.6 X10*3/uL (0.1-1.2); Monocytes Percent Auto 9.5 % (2-11); Neutrophils Absolute Auto 4.1 X10*3/uL (2.0-8.3); Neutrophils Percent Auto 61.2 % (45-73); Platelet Count 185 X10*3/uL (160-400); Red Blood Count 3.89 X10*6/uL (4.60-5.80); White Blood Count 6.7 X10*3/uL (4.8-10.8)
[2020-10-19 10:28] LABS: Alanine Aminotransferase 18 U/L (0-40); Albumin Level 4.4 g/dL (3.5-5.0); Alkaline Phosphatase 55 U/L (39-117); Anion Gap 13 (12-20); Aspartate Amino Transferase 19 U/L (5-37); Bilirubin Total 2.5 mg/dL (0.0-1.0); Blood Urea Nitrogen 18 mg/dL (9-16); Calcium 9.6 mg/dL (8.4-10.2); Carbon Dioxide 23 mmol/L (22-29); Chloride 107 mmol/L (96-108); Creatinine Clr Calc Pharmacy 80.4; Estimated Glomerular Filt Rate > 60; Glucose Random 100 mg/dL (60-115); Potassium 4.4 mmol/L (3.3-5.1); Sodium 139 mmol/L (135-145); Total Protein 7.3 g/dL (6.5-8.0)
[2020-10-20 09:32] VITALS: BP 146/69; PULSE 62; RESP 18; TEMP 36.7; O2SAT 96; BMI 33.0
--- NOTE | 2020-10-20 10:57 | MHC.HEMONC ---
CA+ 9.6 denosumab given follow up in 1 month.
[2020-11-20 08:33] LABS: MANUAL DIFF FLAG NO
[2020-11-20 08:41] LABS: Basophils Percent Auto 0.7 % (0-2); Eosinophils Absolute Auto 0.1 X10*3/uL (0.0-0.4); Eosinophils Percent Auto 1.5 % (0-4); Hematocrit 38.2 % (42-52); Hemoglobin 13.1 g/dl (14.0-18.0); Imm Gran Abs Auto 0.01 X10*3/uL (0.00-0.03); Imm Gran Pct Auto 0.2 % (0.0-0.4); Lymphocytes Absolute Auto 1.6 X10*3/uL (1.2-4.9); Lymphocytes Percent Auto 26.4 % (20-40); Mean Corpuscular HGB Conc 34.3 g/dl (31.0-36.0); Mean Corpuscular Hemoglobin 33.5 pg (27.0-33.0); Mean Corpuscular Volume 97.7 fL (80-98); Mean Platelet Volume 9.4 fL (9.4-12.4); Monocytes Absolute Auto 0.6 X10*3/uL (0.1-1.2); Monocytes Percent Auto 9.6 % (2-11); Neutrophils Absolute Auto 3.7 X10*3/uL (2.0-8.3); Neutrophils Percent Auto 61.6 % (45-73); Platelet Count 211 X10*3/uL (160-400); Red Blood Count 3.91 X10*6/uL (4.60-5.80); Red Cell Distribution Width 12.2 % (11.0-16.0); White Blood Count 6.1 X10*3/uL (4.8-10.8)
[2020-11-20 09:07] LABS: Alanine Aminotransferase 14 U/L (0-40); Albumin Level 4.3 g/dL (3.5-5.0); Alkaline Phosphatase 57 U/L (39-117); Anion Gap 12 (12-20); Aspartate Amino Transferase 14 U/L (5-37); Bilirubin Total 1.6 mg/dL (0.0-1.0); Blood Urea Nitrogen 16 mg/dL (9-16); Calcium 9.6 mg/dL (8.4-10.2); Carbon Dioxide 23 mmol/L (22-29); Chloride 108 mmol/L (96-108); Creatinine Clr Calc Pharmacy 83.7; Estimated Glomerular Filt Rate > 60; Glucose Random 130 mg/dL (60-115); Potassium 3.9 mmol/L (3.3-5.1); Sodium 139 mmol/L (135-145); Total Protein 7.1 g/dL (6.5-8.0)
[2020-11-20 10:54] VITALS: BP 170/78; PULSE 59; RESP 14; TEMP 36.2; O2SAT 97; BMI 33.3
--- NOTE | 2020-11-20 11:06 | P.PNHO_ITS ---
Medical Summary - Medical Summary Date of Service: 11/20/20 Chief complaint: Follow-up Medical Summary: Diagnosis: Metastatic prostate cancer August 2017 Diagnosed with prostate cancer in 2007. Underwent robotic-assisted prostatectomy on 08/04/07. Adenocarcinoma with mucinous differentiation, pT3a pN0, [place] score 4+3 involving 75% of prostate gland. Underwent adjuvant IMRT following prostatectomy. Underwent surgery for correction of urinary incontinence in 2008, implantation of artificial urinary sphincter in September 2010. He has been on intermittent androgen deprivation, Eligard 45 mg q.6 months. Last PSA in August 2017 14.7 with the testosterone level at 29.5. He was started back on GnRH agonist q.6 months, he was prescribed Casodex but did not start it. One episode of gross hematuria which prompted urine cytology, negative, CT urogram abdomen/pelvis with adrenal cyst, no stone or obstruction. 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 CT abdomen/pelvis with IV contrast August 2017 at [facility] showed increasing size and number of pulmonary lesions, bony lesion in the right ilium measuring 5.7 cm and previously measured 1 cm. No Intra-abdominal lymphadenopathy, normal liver, spleen and pancreas. No hydronephrosis or nephrolithiasis. CT chest with contrast in August 2017 showed mild multiple pulmonary nodules concerning for metastatic disease some solid, some cavitary or cystic. Findings increased since February 2012. 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 Largest lesion in the right lung measuring 3.5x2.5 cm. PET scan performed 09/11/17 showed multifocal FDG avid metastatic lesions present throughout the lungs, largest in the left lower lobe measuring 3.7x2.4 cm with SUV of 3.3. Most intense lesion in the left upper lobe with SUV 4.7 measuring 1.5x1.1 cm. No other adenopathy. FDG avid sclerotic metastasis in the posterior right iliac bone SUV 7.7. Prominent activity in palatine tonsils bilaterally more intense on the right, nonspecific. No corresponding CT abnormality. Direct visualization is recommended. He was diagnosed with bone metastasis, bone scan performed at [facility] in August 2017 showed uptake in the right iliac bone representing a metastatic lesion. Resumed Eligard in August 2017, he stopped Casodex. PSA is rising, testosterone level was 0. Hormone refractory metastatic prostate cancer. Patient started abiraterone/prednisone on 07/15/18. Received 1st does of denosumab 07/02/2018.PET scan performed April 2019 shows marked metabolic response with minimal to no activity in the lung nodules and skeletal bones. Interval History Interval history: Patient is here in follow-up. He continues to have right-sided hip pain some of which he attributes to increase golfing. He does not take any pain medication but it is more noticeable than his previous visit. It seems to come and go without any triggering factors. Sometimes it is worse after he sits for a long period of time. He reports no change in bowel habits. No hematochezia melena. He has no other complaints such as fatigue, loss of appetite or weight loss. Review of Systems - Constitutional Reports as per HPI, Reports no additional constitutional complaints - Cardiovascular Reports no additional cardiovascular complaints - Respiratory Reports no additional respiratory complaints - Gastrointestinal Reports no additional gastrointestinal complaints [facility] Medical History: Medical History (Last Reviewed 11/20/20 @ 10:55 by Melanie Catherine) Benign essential hypertension CAD (coronary artery disease) Central serous retinopathy Hematuria Impaired fasting glucose Obesity (BMI 30-39.9) Psoriasis Pulmonary nodules Pure hypercholesterolemia Tick bite Family History: Family History (Last Reviewed 11/20/20 @ 10:55 by Melanie Catherine) Father Heart disease CVD (cardiovascular disease) Mother Acute CVA (cerebrovascular accident) CVD (cardiovascular disease) Sister No problems noted. Sister Pacemaker Surgical History: Surgical History (Last Reviewed 11/20/20 @ 10:55 by Melanie Catherine) History of bladder surgery History of prostatectomy History of right knee surgery Social History: Social History (Last Reviewed 11/20/20 @ 10:55 by Melanie Catherine) Living Situation History: Housing: House Alcohol History: Alcohol intake: current Alcohol History Details: Alcohol intake frequency: a few times a week Alcohol type: beer Tobacco History: Patient Tobacco Use Status: Former Tobacco user Substance Use History: Use of substances other than those prescribed or required for medical reasons : No Advance Directives: Advance Directives: No Advance Directives Information Provided: No Occupation Assessmet: Current occupational status: retired 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 Performance Status ECOG Performance Status: 1 Home Medications and Allergies Current Medications: Current Medications Generic Name Dose Route Start Last Admin Trade Name Freq PRN Reason Stop Dose Admin Denosumab 120 mg 11/20/20 00:00 Denosumab 120 Mg/1.7 Ml Vial SUBCUT 11/20/20 23:59 ONCE RICH Home Medications Medication Instructions Recorded Confirmed Type abiraterone 250 mg tablet 500 mg PO DAILY tab 01/03/20 11/20/20 History calcium carbonate 600 mg calcium 600 mg PO DAILY 01/03/20 11/20/20 History (1,500 mg) tablet (Calcium) denosumab 120 mg/1.7 mL (70 mg/mL) 120 mg SUBCUT Q4W 01/03/20 11/20/20 History subcutaneous solution leuprolide (6 month) 45 mg 45 mg IM [id number] 01/03/20 11/20/20 History intramuscular syringe kit (Lupron Depot) prednisone 5 mg tablet 5 mg PO DAILY tab 01/03/20 11/20/20 History losartan 50 mg tablet 50 mg PO DAILY 05/08/20 11/20/20 History amlodipine 10 mg tablet 10 mg PO DAILY 09/07/20 11/20/20 History metoprolol succinate 25 mg 25 mg PO BID 09/07/20 11/20/20 History tablet,extended release 24 hr Allergies Allergy/AdvReac Type Severity Reaction Status Date / Time lisinopril Allergy Severe angioedema Verified 11/20/20 10:56 Exam Vital signs: Vital Signs Temp 97.2 F 11/20/20 10:54 Pulse 59 11/20/20 10:54 Resp 14 11/20/20 10:54 BP 170/78 H 11/20/20 10:54 Pulse Ox 97 11/20/20 10:54 Intake & Output 11/19/20 11/20/20 11/20/20 18:59 06:59 18:59 Other: Weight 114.6 kg Weight in Grams [id number] Weight 114.6 kg Body Mass Index 33.3 - Constitutional Present: no acute distress - Routine HEENT Exam Head: Present: normal inspection - Routine Neck Exam Present: full ROM, normal inspection. Absent: lymphadenopathy - Routine Respiratory Exam Present: CTAB - Routine Cardiovascular Exam Cardiovascular: Present: S1, S2 - Routine Abdominal Exam Present: normal bowel sounds, soft - Routine Extremities Exam Absent: pedal edema Data - Labs CBC & Chem 7: 11/20/20 08:20 11/20/20 08:20 Labs: 12/28/19 08:20 Complete Blood Count Auto Diff Routine Comprehensive Met. Panel Routine 12/29/19 00:00 Denosumab [Xgeva] 120 mg SUBCUT ONCE 01/25/20 00:00 Denosumab [Xgeva] 120 mg SUBCUT ONCE 01/25/20 08:16 CBC W/AUTO DIFF [Complete Blood Count Auto Diff] Routine Profile w/ Glucose Mcconnell [Comprehensive Met. Panel] Routine 01/26/20 00:00 Denosumab [Xgeva] 120 mg SUBCUT ONCE 02/22/20 08:03 Complete Blood Count Auto Diff Routine Comprehensive Met. Panel Routine Prostate Specific Antigen Routine 02/23/20 00:00 Denosumab [Xgeva] 120 mg SUBCUT ONCE 03/21/20 08:16 Comprehensive Met. Panel Routine Prostate Specific Antigen Routine Laboratory Last Values WBC 6.3 X10*3/uL (4.8-10.8) 02/22/20 08:03 RBC 3.94 X10*6/uL (4.60-5.80) L 02/22/20 08:03 Hgb 13.3 g/dl (14.0-18.0) L 02/22/20 08:03 Hct 38.7 % (42-52) L 02/22/20 08:03 MCV 98.2 fL (80-98) H 02/22/20 08:03 MCH 33.8 pg (27.0-33.0) H 02/22/20 08:03 MCHC 34.4 g/dl (31.0-36.0) 02/22/20 08:03 RDW 12.2 % (11.0-16.0) 02/22/20 08:03 Plt Count 195 X10*3/uL (160-400) 02/22/20 08:03 MPV 9.3 fL (9.4-12.4) L 02/22/20 08:03 Immature Gran % (Auto) 0.2 % (0.0-0.4) 02/22/20 08:03 Neut % (Auto) 61.4 % (45-73) 02/22/20 08:03 Lymph % (Auto) 29.4 % (20-40) 02/22/20 08:03 [place] % (Auto) 6.6 % (2-11) 02/22/20 08:03 Eos % (Auto) 1.6 % (0-4) 02/22/20 08:03 Baso % (Auto) 0.8 % (0-2) 02/22/20 08:03 Lymph # (Auto) 1.8 X10*3/uL (1.2-4.9) 02/22/20 08:03 [place] # (Auto) 0.4 X10*3/uL (0.1-1.2) 02/22/20 08:03 Eos # (Auto) 0.1 X10*3/uL (0.0-0.4) 02/22/20 08:03 Baso # (Auto) 0.1 X10*3/uL (0.0-0.2) 02/22/20 08:03 Abs Immat Gran (auto) 0.01 X10*3/uL (0.00-0.03) 02/22/20 08:03 Absolute Neuts (auto) 3.8 X10*3/uL (2.0-8.3) 02/22/20 08:03 Absolute Nucleated RBC 0.000 X10*3/uL (0.0-0.012) 02/22/20 08:03 Nucleated RBC % (auto) 0.0 /100WBC (0.0-0.2) 02/22/20 08:03 Sodium 141 mmol/L (135-145) 03/21/20 08:16 Potassium 4.3 mmol/l (3.3-5.1) 03/21/20 08:16 Chloride 106 mmol/L (96-108) 03/21/20 08:16 Carbon Dioxide 27 mmol/L (22-29) 03/21/20 08:16 Anion Gap 12 (-) 03/21/20 08:16 BUN 24 mg/dL (9-16) H 03/21/20 08:16 Creatinine 1.06 mg/dL (0.5-1.4) 03/21/20 08:16 Estim Creat Clear Calc 77.5 03/21/20 08:16 Estimated GFR > 60 03/21/20 08:16 Random Glucose 130 mg/dL (60-115) H 03/21/20 08:16 Calcium 8.9 mg/dL (8.4-10.2) D 03/21/20 08:16 Total Bilirubin 1.3 mg/dL (0.0-1.0) H 03/21/20 08:16 AST 17 U/L (5-37) 03/21/20 08:16 ALT 20 U/L (0-40) 03/21/20 08:16 Alkaline Phosphatase 39 U/L (39-117) 03/21/20 08:16 Total Protein 7.1 g/dL (6.5-8.0) 03/21/20 08:16 Albumin 4.3 g/dL (3.5-5.0) 03/21/20 08:16 Prostate Specific Ag 1.23 ng/mL (<0.05-4.0) 03/21/20 08:16 Assessment and Plan Patient Active problem list reviewed?: Yes (1) Prostate cancer metastatic to bone Status: Chronic Assessment and plan: 1. This is a 74-year-old male with metastatic hormone refractory prostate cancer. Initially diagnosed in 2007, underwent radical prostatectomy followed by adjuvant IMRT, intermittent androgen deprivation. Patient is on Lupron every 6 months. He started Zytiga 1000 mg daily with prednisone 5 mg b.i.d. and denosumab since July 15, 2018. He is now on prednisone 5 mg once a day and Zytiga 1000 mg daily. He went back to full dose since March 2020. 2. Bilateral pulmonary nodules, probably metastatic. FNA was nondiagnostic, he did not want repeat biopsy or excision biopsy. Size and FDG avidity of lung nodules decreasing with above treatment. 3. Recurrent hematuria. Diagnosed with hemorrhagic cystitis. Cystoscopy negative for bladder tumor. Radiation cystitis causing bleeding as well as increased risk because of aspirin and prednisone more likely. Zytiga is generally not associated with hematuria. 4. 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 I spoke to his market risk manager, dose of prednisone has been decreased to 5 mg once a day. Steroids are implicated in this disease. 5. Right hip pain. CT of hip shows stable sclerotic bone metastasis and no acute pathology. Pain appears more to be arthritic in nature. Restaging bone scan has been ordered. He had a previous 1 at [facility] in 2018. Follow-up in 2 months. - Time Spent With Patient Time Spent with Patient (in minutes): 20
[2020-11-20 12:34] LABS: Prostate Specific Antigen 3.13 ng/mL (<0.05-4.0)
--- NOTE | 2020-11-20 15:46 | MHC.HEMONCMA ---
Patient came in for a follow up, states he is doing well. Clinical summary was reviewed and updated. Patient had labs and will return in 2 months for a follow up.
--- NOTE | 2020-11-21 10:49 | MHC.HEMONCMA ---
Bone scan was placed in order french comber.
[2020-12-19 08:20] LABS: MANUAL DIFF FLAG NO
[2020-12-19 08:24] LABS: Basophils Absolute Auto 0.1 X10*3/uL (0.0-0.2); Eosinophils Absolute Auto 0.1 X10*3/uL (0.0-0.4); Eosinophils Percent Auto 1.8 % (0-4); Hematocrit 38.5 % (42-52); Hemoglobin 13.6 g/dl (14.0-18.0); Imm Gran Abs Auto 0.01 X10*3/uL (0.00-0.03); Imm Gran Pct Auto 0.2 % (0.0-0.4); Lymphocytes Absolute Auto 1.5 X10*3/uL (1.2-4.9); Mean Corpuscular HGB Conc 35.3 g/dl (31.0-36.0); Mean Corpuscular Hemoglobin 35.1 pg (27.0-33.0); Mean Corpuscular Volume 99.2 fL (80-98); Mean Platelet Volume 9.2 fL (9.4-12.4); Monocytes Absolute Auto 0.4 X10*3/uL (0.1-1.2); Monocytes Percent Auto 8.4 % (2-11); Neutrophils Absolute Auto 3.1 X10*3/uL (2.0-8.3); Neutrophils Percent Auto 59.6 % (45-73); Platelet Count 189 X10*3/uL (160-400); Red Blood Count 3.88 X10*6/uL (4.60-5.80); Red Cell Distribution Width 12.2 % (11.0-16.0); White Blood Count 5.1 X10*3/uL (4.8-10.8)
[2020-12-19 08:43] LABS: Alanine Aminotransferase 16 U/L (0-40); Albumin Level 4.3 g/dL (3.5-5.0); Alkaline Phosphatase 57 U/L (39-117); Anion Gap 12 (12-20); Aspartate Amino Transferase 15 U/L (5-37); Bilirubin Total 1.7 mg/dL (0.0-1.0); Blood Urea Nitrogen 16 mg/dL (9-16); Calcium 8.8 mg/dL (8.4-10.2); Carbon Dioxide 23 mmol/L (22-29); Chloride 108 mmol/L (96-108); Creatinine Clr Calc Pharmacy 89.1; Estimated Glomerular Filt Rate > 60; Glucose Random 131 mg/dL (60-115); Potassium 4.1 mmol/L (3.3-5.1); Sodium 139 mmol/L (135-145)
--- NOTE | 2020-12-20 13:29 | MHC.HEMONC ---
CA 8.8 Denosumabd given follow up in 1 month for follow up and injection. Patient requested labs friday before apt.
--- NOTE | 2021-01-05 12:21 | MHC.HEMONCMA ---
[facility] pharmacy called for refill on Zytiga 250mg for patient, note given to Dr Ordoñez for refill.
[2021-01-19 10:15] LABS: MANUAL DIFF FLAG NO
[2021-01-19 10:20] LABS: Basophils Absolute Auto 0.1 X10*3/uL (0.0-0.2); Eosinophils Absolute Auto 0.1 X10*3/uL (0.0-0.4); Eosinophils Percent Auto 1.8 % (0-4); Hematocrit 37.7 % (42.0-52.0); Hemoglobin 13.1 g/dl (14.0-18.0); Imm Gran Abs Auto 0.01 X10*3/uL (0.00-0.03); Imm Gran Pct Auto 0.2 % (0.0-0.4); Lymphocytes Absolute Auto 1.5 X10*3/uL (1.2-4.9); Mean Corpuscular HGB Conc 34.7 g/dl (31.0-36.0); Mean Corpuscular Hemoglobin 34.7 pg (27.0-33.0); Mean Platelet Volume 9.5 fL (9.4-12.4); Monocytes Absolute Auto 0.6 X10*3/uL (0.1-1.2); Monocytes Percent Auto 11.2 % (2-11); Neutrophils Absolute Auto 2.8 x10*3/uL (2.0-8.3); Neutrophils Percent Auto 55.8 % (45-73); Platelet Count 193 X10*3/uL (160-400); Red Blood Count 3.77 X10*6/uL (4.60-5.80); Red Cell Distribution Width 12.2 % (11.0-16.0)
[2021-01-19 10:34] LABS: Alanine Aminotransferase 17 U/L (0-40); Albumin Level 4.3 g/dL (3.5-5.0); Alkaline Phosphatase 58 U/L (39-117); Anion Gap 12 (12-20); Aspartate Amino Transferase 18 U/L (5-37); Bilirubin Total 1.9 mg/dL (0.0-1.0); Blood Urea Nitrogen 17 mg/dL (9-16); Calcium 9.4 mg/dL (8.4-10.2); Carbon Dioxide 23 mmol/L (22-29); Chloride 108 mmol/L (96-108); Creatinine Clr Calc Pharmacy 88.2; Estimated Glomerular Filt Rate > 60; Glucose Random 93 mg/dL (60-115); Potassium 4.1 mmol/L (3.3-5.1); Sodium 139 mmol/L (135-145); Total Protein 7.2 g/dL (6.5-8.0)
--- NOTE | 2021-01-22 09:50 | PM.HEMONCPN ---
Medical Summary - Medical Summary Date of Service: 01/22/21 Chief complaint: Follow-up Medical Summary: Diagnosis: Metastatic prostate cancer August 2017 Diagnosed with prostate cancer in 2007. Underwent robotic-assisted prostatectomy on 08/04/07. Adenocarcinoma with mucinous differentiation, pT3a pN0, [place] score 4+3 involving 75% of prostate gland. Underwent adjuvant IMRT following prostatectomy. Underwent surgery for correction of urinary incontinence in 2008, implantation of artificial urinary sphincter in September 2010. He has been on intermittent androgen deprivation, Eligard 45 mg q.6 months. Last PSA in August 2017 14.7 with the testosterone level at 29.5. He was started back on GnRH agonist q.6 months, he was prescribed Casodex but did not start it. One episode of gross hematuria which prompted urine cytology, negative, CT urogram abdomen/pelvis with adrenal cyst, no stone or obstruction. 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 CT abdomen/pelvis with IV contrast August 2017 at [facility] showed increasing size and number of pulmonary lesions, bony lesion in the right ilium measuring 5.7 cm and previously measured 1 cm. No Intra-abdominal lymphadenopathy, normal liver, spleen and pancreas. No hydronephrosis or nephrolithiasis. CT chest with contrast in August 2017 showed mild multiple pulmonary nodules concerning for metastatic disease some solid, some cavitary or cystic. Findings increased since February 2012. 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 Largest lesion in the right lung measuring 3.5x2.5 cm. PET scan performed 09/11/17 showed multifocal FDG avid metastatic lesions present throughout the lungs, largest in the left lower lobe measuring 3.7x2.4 cm with SUV of 3.3. Most intense lesion in the left upper lobe with SUV 4.7 measuring 1.5x1.1 cm. No other adenopathy. FDG avid sclerotic metastasis in the posterior right iliac bone SUV 7.7. Prominent activity in palatine tonsils bilaterally more intense on the right, nonspecific. No corresponding CT abnormality. Direct visualization is recommended. He was diagnosed with bone metastasis, bone scan performed at [facility] in August 2017 showed uptake in the right iliac bone representing a metastatic lesion. Resumed Eligard in August 2017, he stopped Casodex. PSA is rising, testosterone level was 0. Hormone refractory metastatic prostate cancer. Patient started abiraterone/prednisone on 07/15/18. Received 1st does of denosumab 07/02/2018.PET scan performed April 2019 shows marked metabolic response with minimal to no activity in the lung nodules and skeletal bones. Interval History Interval history: Patient is here in follow-up. He is doing quite well, he denies any complaints at this time. His right hip is not bothering him anymore. He reports no change in bowel habits. No hematochezia melena. He has no other complaints such as fatigue, loss of appetite or weight loss. Review of Systems - Constitutional Reports as per HPI, Reports no additional constitutional complaints - Cardiovascular Reports no additional cardiovascular complaints - Respiratory Reports no additional respiratory complaints - Gastrointestinal Reports no additional gastrointestinal complaints REPLACED BY [facility] Medical History: Medical History (Last Reviewed 01/22/21 @ 10:00 by Melanie Catherine) Benign essential hypertension CAD (coronary artery disease) Central serous retinopathy Hematuria Impaired fasting glucose Obesity (BMI 30-39.9) Psoriasis Pulmonary nodules Pure hypercholesterolemia Tick bite Family History: Family History (Last Reviewed 01/22/21 @ 10:00 by Melanie Catherine) Father Heart disease CVD (cardiovascular disease) Mother Acute CVA (cerebrovascular accident) CVD (cardiovascular disease) Sister No problems noted. Sister Pacemaker Surgical History: Surgical History (Last Reviewed 01/22/21 @ 10:00 by Melanie Catherine) History of bladder surgery History of prostatectomy History of right knee surgery Social History: Social History (Last Reviewed 01/22/21 @ 10:00 by Melanie Catherine) Living Situation History: Housing: House Alcohol History: Alcohol intake: current Alcohol History Details: Alcohol intake frequency: a few times a week Alcohol type: beer Tobacco History: Patient Tobacco Use Status: Former Tobacco user Substance Use History: Use of substances other than those prescribed or required for medical reasons: No Advance Directives: Advance Directives: No Advance Directives Information Provided: No Occupation Assessmet: Current occupational status: retired 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 Performance Status ECOG Performance Status: 1 Home Medications and Allergies Current Medications: Current Medications Denosumab (Denosumab 120 Mg/1.7 Ml Vial) 120 mg SUBCUT ONCE RICH Stop: 01/22/21 23:59 Home Medications Medication Instructions Recorded Confirmed Type calcium carbonate 600 mg calcium 600 mg PO DAILY 01/03/20 01/22/21 History (1,500 mg) tablet (Calcium) denosumab 120 mg/1.7 mL (70 mg/mL) 120 mg SUBCUT Q4W 01/03/20 01/22/21 History subcutaneous solution leuprolide (6 month) 45 mg 45 mg IM [id number] 01/03/20 01/22/21 History intramuscular syringe kit (Lupron Depot) prednisone 5 mg tablet 5 mg PO DAILY tab 01/03/20 01/22/21 History losartan 50 mg tablet 50 mg PO DAILY 05/08/20 01/22/21 History amlodipine 10 mg tablet 10 mg PO DAILY 09/07/20 01/22/21 History metoprolol succinate 25 mg 25 mg PO BID 09/07/20 01/22/21 History tablet,extended release 24 hr Allergies Allergy/AdvReac Type Severity Reaction Status Date / Time lisinopril Allergy Severe angioedema Verified 01/22/21 10:00 Exam Vital signs: Vital Signs Temp 97.2 F 11/20/20 10:54 Pulse 59 11/20/20 10:54 Resp 14 11/20/20 10:54 BP 170/78 H 11/20/20 10:54 Pulse Ox 97 11/20/20 10:54 Intake & Output 01/21/21 01/22/21 01/22/21 18:59 06:59 18:59 Other: Weight 114.6 kg Weight 114.6 kg Body Mass Index 33.3 - Constitutional Present: no acute distress - Routine HEENT Exam Head: Present: normal inspection - Routine Neck Exam Present: full ROM, normal inspection. Absent: lymphadenopathy - Routine Respiratory Exam Present: CTAB - Routine Cardiovascular Exam Cardiovascular: Present: S1, S2 - Routine Abdominal Exam Present: normal bowel sounds, soft - Routine Extremities Exam Absent: pedal edema Data - Labs CBC & Chem 7: 01/19/21 10:04 01/19/21 10:04 Assessment and Plan Patient Active problem list reviewed?: Yes (1) Prostate cancer metastatic to bone Status: Chronic Assessment and plan: 1. This is a 75-year-old male with metastatic hormone refractory prostate cancer. Initially diagnosed in 2007, underwent radical prostatectomy followed by adjuvant IMRT, intermittent androgen deprivation. Patient is on Lupron every 6 months. He started Zytiga 1000 mg daily with prednisone 5 mg b.i.d. and denosumab since July 15, 2018. He is now on prednisone 5 mg once a day and Zytiga 1000 mg daily. He went back to full dose since March 2020. 2. Bilateral pulmonary nodules, probably metastatic. FNA was nondiagnostic, he did not want repeat biopsy or excision biopsy. Size and FDG avidity of lung nodules decreasing with above treatment. 3. Recurrent hematuria. Diagnosed with hemorrhagic cystitis. Cystoscopy negative for bladder tumor. Radiation cystitis causing bleeding as well as increased risk because of aspirin and prednisone more likely. Zytiga is generally not associated with hematuria. 4. 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 I spoke to his banjo repairer, dose of prednisone has been decreased to 5 mg once a day. Steroids are implicated in this disease. 5. Right hip pain. CT of hip shows stable sclerotic bone metastasis and no acute pathology. Pain appears more to be arthritic in nature. PSA is slowly rising. Bone scan performed December 2020 shows extensive metastatic disease to right posterior iliac bone, this now extends more laterally compared to previous scan. He has been referred to Radiation Oncology. [id number] is also an option at this time. He would be a candidate now for docetaxel based on progressive disease on current treatment. Serum testosterone level is pending. Follow-up in 2 weeks. - Time Spent With Patient Time Spent with Patient (in minutes): 20
[2021-01-22 09:57] VITALS: BP 174/81; PULSE 60; RESP 16; TEMP 36.3; O2SAT 97; BMI 33.5
--- NOTE | 2021-01-22 10:45 | MHC.HEMONC ---
Patient present for follow up and monthly Xgeva injection. Labs from 01/19/21 reviewed, calcium=9.4. Medication administered in JACOBY, patient tolerated it well. Next injection and follow up scheduled for 02/21/21.
[2021-01-22 11:34] LABS: Prostate Specific Antigen Scr 4.75 ng/mL (<0.05-4.0)
--- NOTE | 2021-01-22 12:46 | MHC.HEMONCMA ---
Patient came in for a follow up, states that he is doing well. Clinical summary was reviewed and updated. Patient had labs and will return in 1 month for a follow up. Dr Ordoñez referred the patient to [facility] for RAD/ONC- I will call them to schedule an appt.
--- NOTE | 2021-01-26 10:01 | MHC.HEMONC ---
Pt has PET order being worked on by Melanie LR. I called [facility] at [facility] and pt will be seen by Dr Avery at 9AM on Feb 07. I called him and he knows where it is. He is being seen for bone mets.
--- NOTE | 2021-01-26 10:15 | MHC.HEMONCMA ---
[facility] PET form filled out and signed by the doctor, supporting documentation and form faxed to [facility]. Awaiting time/date.
[2021-02-01 10:27] LABS: Testosterone, Total <1 ng/dL (250-1100)
[2021-02-16 10:09] LABS: MANUAL DIFF FLAG NO
[2021-02-16 10:13] LABS: Basophils Absolute Auto 0.1 X10*3/uL (0.0-0.2); Basophils Percent Auto 0.9 % (0-2); Eosinophils Absolute Auto 0.1 X10*3/uL (0.0-0.4); Eosinophils Percent Auto 2.1 % (0-4); Hematocrit 39.9 % (42.0-52.0); Hemoglobin 13.6 g/dl (14.0-18.0); Imm Gran Abs Auto 0.01 X10*3/uL (0.00-0.03); Imm Gran Pct Auto 0.2 % (0.0-0.4); Lymphocytes Absolute Auto 1.7 X10*3/uL (1.2-4.9); Lymphocytes Percent Auto 29.7 % (20-40); Mean Corpuscular HGB Conc 34.1 g/dl (31.0-36.0); Mean Corpuscular Hemoglobin 33.8 pg (27.0-33.0); Mean Corpuscular Volume 99.3 fL (80.0-98.0); Monocytes Absolute Auto 0.6 X10*3/uL (0.1-1.2); Monocytes Percent Auto 11.1 % (2-11); Neutrophils Absolute Auto 3.2 x10*3/uL (2.0-8.3); Platelet Count 182 X10*3/uL (160-400); Red Blood Count 4.02 X10*6/uL (4.60-5.80); Red Cell Distribution Width 11.9 % (11.0-16.0); White Blood Count 5.7 X10*3/uL (4.8-10.8)
[2021-02-16 10:41] LABS: Alanine Aminotransferase 18 U/L (0-40); Albumin Level 4.4 g/dL (3.5-5.0); Alkaline Phosphatase 60 U/L (39-117); Anion Gap 12 (12-20); Aspartate Amino Transferase 19 U/L (5-37); Bilirubin Total 1.8 mg/dL (0.0-1.0); Blood Urea Nitrogen 17 mg/dL (9-16); Calcium 10.1 mg/dL (8.4-10.2); Carbon Dioxide 26 mmol/L (22-29); Chloride 107 mmol/L (96-108); Creatinine Clr Calc Pharmacy 74.1; Estimated Glomerular Filt Rate > 60; Glucose Random 115 mg/dL (60-115); Sodium 141 mmol/L (135-145); Total Protein 7.4 g/dL (6.5-8.0)
--- NOTE | 2021-02-21 13:32 | PM.HEMONCPN ---
Medical Summary - Medical Summary Date of Service: 02/21/21 Chief complaint: follow-up Medical Summary: Diagnosis: Metastatic prostate cancer August 2017 Diagnosed with prostate cancer in 2007. Underwent robotic-assisted prostatectomy on 08/04/07. Adenocarcinoma with mucinous differentiation, pT3a pN0, [place] score 4+3 involving 75% of prostate gland. Underwent adjuvant IMRT following prostatectomy. Underwent surgery for correction of urinary incontinence in 2008, implantation of artificial urinary sphincter in September 2010. He has been on intermittent androgen deprivation, Eligard 45 mg q.6 months. Last PSA in August 2017 14.7 with the testosterone level at 29.5. He was started back on GnRH agonist q.6 months, he was prescribed Casodex but did not start it. One episode of gross hematuria which prompted urine cytology, negative, CT urogram abdomen/pelvis with adrenal cyst, no stone or obstruction. 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 CT abdomen/pelvis with IV contrast August 2017 at [facility] showed increasing size and number of pulmonary lesions, bony lesion in the right ilium measuring 5.7 cm and previously measured 1 cm. No Intra-abdominal lymphadenopathy, normal liver, spleen and pancreas. No hydronephrosis or nephrolithiasis. CT chest with contrast in August 2017 showed mild multiple pulmonary nodules concerning for metastatic disease some solid, some cavitary or cystic. Findings increased since February 2012. 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 Largest lesion in the right lung measuring 3.5x2.5 cm. PET scan performed 09/11/17 showed multifocal FDG avid metastatic lesions present throughout the lungs, largest in the left lower lobe measuring 3.7x2.4 cm with SUV of 3.3. Most intense lesion in the left upper lobe with SUV 4.7 measuring 1.5x1.1 cm. No other adenopathy. FDG avid sclerotic metastasis in the posterior right iliac bone SUV 7.7. Prominent activity in palatine tonsils bilaterally more intense on the right, nonspecific. No corresponding CT abnormality. Direct visualization is recommended. He was diagnosed with bone metastasis, bone scan performed at [facility] in August 2017 showed uptake in the right iliac bone representing a metastatic lesion. Resumed Eligard in August 2017, he stopped Casodex. PSA is rising, testosterone level was 0. Hormone refractory metastatic prostate cancer. Patient started abiraterone/prednisone on 07/15/18. Received 1st does of denosumab 07/02/2018.PET scan performed April 2019 shows marked metabolic response with minimal to no activity in the lung nodules and skeletal bones. Interval History Interval history: Patient is here in follow-up. He is doing quite well, he denies any complaints at this time. His right hip is not bothering him anymore. He reports no change in bowel habits. No hematochezia melena. He has no other complaints such as fatigue, loss of appetite or weight loss. He is here to discuss results of PET scan and further management. [facility] Medical History: Medical History (Last Reviewed 02/21/21 @ 13:37 by Miguel Ángel Mcdonald RN) Benign essential hypertension CAD (coronary artery disease) Central serous retinopathy Hematuria Impaired fasting glucose Obesity (BMI 30-39.9) Psoriasis Pulmonary nodules Pure hypercholesterolemia Tick bite Family History: Family History (Last Reviewed 02/21/21 @ 13:37 by Miguel Ángel Mcdonald RN) Father Heart disease CVD (cardiovascular disease) Mother Acute CVA (cerebrovascular accident) CVD (cardiovascular disease) Sister No problems noted. Sister Pacemaker Surgical History: Surgical History (Last Reviewed 02/21/21 @ 13:37 by Miguel Ángel Mcdonald RN) History of bladder surgery History of prostatectomy History of right knee surgery Social History: Social History (Last Reviewed 02/21/21 @ 13:37 by Miguel Ángel Mcdonald RN) Living Situation History: Housing: House Alcohol History: Alcohol intake: current Alcohol History Details: Alcohol intake frequency: a few times a week Alcohol type: beer Tobacco History: Patient Tobacco Use Status: Former Tobacco user Substance Use History: Use of substances other than those prescribed or required for medical reasons: No Advance Directives: Advance Directives: No Advance Directives Information Provided: No Occupation Assessmet: Current occupational status: retired 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 Performance Status ECOG Performance Status: 1 Home Medications and Allergies Home Medications Medication Instructions Recorded Confirmed Type calcium carbonate 600 mg calcium 600 mg PO DAILY 01/03/20 02/21/21 History (1,500 mg) tablet (Calcium) denosumab 120 mg/1.7 mL (70 mg/mL) 120 mg SUBCUT Q4W 01/03/20 02/21/21 History subcutaneous solution leuprolide (6 month) 45 mg 45 mg IM [id number] 01/03/20 02/21/21 History intramuscular syringe kit (Lupron Depot) losartan 50 mg tablet 50 mg PO DAILY 05/08/20 02/21/21 History amlodipine 10 mg tablet 10 mg PO DAILY 09/07/20 02/21/21 History metoprolol succinate 25 mg 25 mg PO BID 09/07/20 02/21/21 History tablet,extended release 24 hr Allergies Allergy/AdvReac Type Severity Reaction Status Date / Time lisinopril Allergy Severe angioedema Verified 02/21/21 13:38 Exam Vital signs: Vital Signs Temp 97.3 F 01/22/21 09:57 Pulse 60 01/22/21 09:57 Resp 16 01/22/21 09:57 BP 174/81 H 01/22/21 09:57 Pulse Ox 97 01/22/21 09:57 Weight 115.2 kg BMI result Body Mass Index 33.5 - Constitutional Present: no acute distress - Routine HEENT Exam Head: Present: normal inspection - Routine Neck Exam Present: full ROM, normal inspection. Absent: lymphadenopathy - Routine Respiratory Exam Present: CTAB - Routine Cardiovascular Exam Cardiovascular: Present: S1, S2 - Routine Abdominal Exam Present: normal bowel sounds, soft - Routine Extremities Exam Absent: pedal edema Data - Labs CBC & Chem 7: 02/16/21 10:07 02/16/21 10:07 Assessment and Plan Patient Active problem list reviewed?: Yes (1) Prostate cancer metastatic to bone Status: Chronic Assessment and plan: 1. This is a 75-year-old male with metastatic hormone refractory prostate cancer. Initially diagnosed in 2007, underwent radical prostatectomy followed by adjuvant IMRT, intermittent androgen deprivation. Patient is on Lupron every 6 months. He started Zytiga 1000 mg daily with prednisone 5 mg b.i.d. and denosumab since July 15, 2018. He is now on prednisone 5 mg once a day and Zytiga 1000 mg daily. He went back to full dose since March 2020. 2. Bilateral pulmonary nodules, probably metastatic. FNA was nondiagnostic, he did not want repeat biopsy or excision biopsy. Size and FDG avidity of lung nodules decreasing with above treatment. PSA is slowly rising. Bone scan performed December 2020 shows extensive metastatic disease to right posterior iliac bone, this now extends more laterally compared to previous scan. PET-CT performed 02/2021 showed new uptake in enlargement of left lower lobe pulmonary nodules, few additional bilateral small pulmonary nodules seen. Mild increase in FDG avidity in right posterior iliac bone. He was seen by radiation oncology at [facility], as he is asymptomatic from bony disease, palliative radiation therapy is being deferred. Today we discussed treatment with chemotherapy, docetaxel 75 mg/M2 based on progressive disease has been recommended. He is willing to proceed, he wants to start in the 1st week of March. We discussed possible side effects such as leukopenia, risk of infection and organ damage. Zytiga will be discontinued. He will continue with Lupron every 6 months and denosumab monthly. Follow-up in 3 weeks. - Time Spent With Patient Time Spent with Patient (in minutes): 20
[2021-02-21 13:35] VITALS: BP 127/58; PULSE 61; RESP 18; TEMP 36.8; O2SAT 95; BMI 33.1
--- NOTE | 2021-02-21 15:53 | MHC.HEMONC ---
Pt arrived for his sched monthly Xgeva injection and Onc f/u, VSS, no labs drawn today, but labs drawn on 02/16 were reviewed, Ca was 10.1, Dr. Ordoñez was informed. Nurse updated pt's med/surg/fam hx and med list, and pt reported he continues on daily Zytiga 1,000 mg and Prednisone 5 mg. Pt said he feels well today, he had PET scan, and he met w/ [facility], was told he is not currently a candidate for rad tx. Nurse admin monthly Xgeve/Denosumab 120 mg SC to pt's LUE, which he tolerated well. Dr. Ordoñez was in to meet w/ pt, notified him that it is pertinent now to begin chemo tx, Taxotere [id number]. Pt reacted calmly, smiling, said it was about what I expected. Pt was d/c home w/ f/u appts for his next Xgeva injection and labs booked, was told nurse would call him at home to book his chemo tx and teaching appt. Nurse consulted w/ Nurse Jeff Sullivan, began chemo initiation checklist. Nurse printed pt's insurance info, pt is on Medicare, and submitted to [employer], as well as requesting that she check for PA for Taxotere, Neulasta, and Emend. Nurse reached pt by phone and booked his appts for chemo teaching on 03/08/21 at 13:00, and his first chemo tx, Taxotere, c1d1, on 03/13/21 at 10:00. Nurse also passed along Dr. Ordoñez's instructions that pt finish the daily Zytiga 1,000 mg that he has at home, which pt said was about 30 tabs, 4 tabs/day, and to continue daily prednisone 5 mg, even after Zytiga runs out, every day up until the start of his chemo on 03/13/21. Pt was lastly informed that his Xgeva 120 mg injections would now be given at a freq of [id number], and his next injection would coincide w/ his 2nd chemo day at the end of March. Pt was grateful. Nurse also sent an email to chemo pharmacists, notifying them of his upcoming chemo schedule.
--- NOTE | 2021-02-22 12:26 | HO.HEMONCPA ---
NO PA REQUIRED FOR EMEND,TAXOTERE, & NEULASTA. DRUGS COVERED UNDER MEDICARE PART B.
--- NOTE | 2021-02-26 13:01 | MHC.HEMONC ---
Nurse received t/c from pt, who stated that he is scheduled to see his urologist, Dr. Lin, the following day to receive his [id number] Eligard injection, and he inquired whether it is still appropriate to receive this when he is about to begin chemo the of March. Nurse checked w/ Nurse Jeff Sullivan, who was unable to contact Dr. Ordoñez, so nurse checked w/ covering provider, Dr. Hartley. Dr. Hartley states that it is standard for a pt to continue on Eligard injections while simultaneously receiving chemo tx. Nurse called pt at home, spoke w/ his HCP Janeen Escoto, left a message that pt should attend tomorrow's appt w/ Dr. Lin and receive his Eligard injection as scheduled.
--- NOTE | 2021-03-07 14:19 | MHC.HEMONC ---
pt not feeling well so teach for tomorrow cancelled. Will delay until chemo on 03/13. He will call if he does not feel better.
--- NOTE | 2021-03-12 08:49 | MHC.HEMONC ---
pt still not feeling well and wanted chemo moved to next week. I will inform Dr Ordoñez.
[2021-03-20 09:30] LABS: MANUAL DIFF FLAG NO
[2021-03-20 09:33] LABS: Basophils Percent Auto 0.5 % (0-2); Eosinophils Absolute Auto 0.1 X10*3/uL (0.0-0.4); Eosinophils Percent Auto 2.1 % (0-4); Hematocrit 37.5 % (42.0-52.0); Hemoglobin 12.9 g/dl (14.0-18.0); Imm Gran Abs Auto 0.05 X10*3/uL (0.00-0.03); Imm Gran Pct Auto 0.8 % (0.0-0.4); Lymphocytes Absolute Auto 1.5 X10*3/uL (1.2-4.9); Lymphocytes Percent Auto 24.3 % (20-40); Mean Corpuscular HGB Conc 34.4 g/dl (31.0-36.0); Mean Corpuscular Hemoglobin 33.7 pg (27.0-33.0); Mean Corpuscular Volume 97.9 fL (80.0-98.0); Mean Platelet Volume 8.9 fL (9.4-12.4); Monocytes Absolute Auto 0.5 X10*3/uL (0.1-1.2); Monocytes Percent Auto 8.1 % (2-11); Neutrophils Percent Auto 64.2 % (45-73); Platelet Count 240 X10*3/uL (160-400); Red Blood Count 3.83 X10*6/uL (4.60-5.80); Red Cell Distribution Width 11.9 % (11.0-16.0); White Blood Count 6.3 X10*3/uL (4.8-10.8)
[2021-03-20 09:38] VITALS: BP 171/72; PULSE 63; TEMP 36.1; O2SAT 96
[2021-03-20 09:39] VITALS: BMI 32.9
[2021-03-20 09:49] LABS: Alanine Aminotransferase 17 U/L (0-40); Albumin Level 3.9 g/dL (3.5-5.0); Alkaline Phosphatase 72 U/L (39-117); Anion Gap 11 (12-20); Aspartate Amino Transferase 15 U/L (5-37); Bilirubin Total 1.1 mg/dL (0.0-1.0); Blood Urea Nitrogen 20 mg/dL (9-16); Calcium 9.4 mg/dL (8.4-10.2); Carbon Dioxide 26 mmol/L (22-29); Chloride 106 mmol/L (96-108); Creatinine Clr Calc Pharmacy 82.4; Estimated Glomerular Filt Rate > 60; Glucose Random 121 mg/dL (60-115); Sodium 139 mmol/L (135-145)
[2021-03-20] MEDS: Famotidine 20 MG TABLET PO (10:41)
[2021-03-20] MEDS: diphenhydrAMINE HCL 25 MG TABLET PO (10:56)
[2021-03-20] MEDS: dexAMETHasone sod phosphate/NS 12 MG/50 ML PIGGYBACK 200 MG IV (10:59)
[2021-03-20] MEDS: Fosaprepitant Dimeglumine 150 MG in 0.9 % Sodium Chloride 145 ML 300 MG IV (11:27)
--- NOTE | 2021-03-20 11:52 | MHC.HEMONC ---
Addendum entered by Stephanie Ramey RN 03/20/21 12:05: Per Dr Ordoñez, no neulasta to be given. Original Note: Here for c1d1 taxotere. Premeds and chemo tolerated well. he will take dexamethasone for 2 days after chemo and prednisone daily. pt aware of next appt.
--- NOTE | 2021-03-20 12:27 | MHC.HEMONC ---
Pt in gor c1d1 Taxotere per Dr Ordoñez. He was supposed to start chemo a couple of weeks ago but was ill. I did teaching with him while Stephanie got his pre-meds going. I reviewed common side effects of systemic chemotherapy as he has not had before (lowered counts, decreased energy and appetite) as well as drug specific side effects (allergic reaction, neuropathy, nausea). He was given chemo book and drug information from [facility]. He will be taking Prednisone 5mg daily except for the two days following Taxotere as he will be on Dexamethasone. This will be clearly written on his D/C instructions. Pt signed consent and treatment was initiated.
--- NOTE | 2021-03-21 12:26 | MHC.HEMONC ---
c1d1 follow up call made. Pt feeling well, no side effects reported. He will call if anything changes. He is aware of lab draw in 2 weeks.
--- NOTE | 2021-03-26 10:50 | MHC.HEMONC ---
Pt called. He has had diarrhea since Friday. (1st Taxotere last Friday). He is going multiple times a day. Minimal c/o nausea. He is eating small amounts and drinking. He has not taken anything for diarrhea. I asked him to get Immodium AD. Take two tablets now and then one every six hours but not more than 4/day. He will call back later with update. May need hydration. Should be in for labs tomorrow.
--- NOTE | 2021-03-27 11:15 | MHC.HEMONC ---
Pt coming in following phone call that he is not feeling well. He is very weak and not drinking adequately. He had some relief from Immodium yesterday but had some explsive diarrhea at 3 a.m. He did take Immodium after that and it seems a bit better. No fevers but has minor sore throat. He also c/o headache. Dr Ordoñez asked that he come in for labs (including COVID swab) and hydration. Pt informed and will come in.
[2021-03-27 11:40] LABS: Hematocrit 37.7 % (42.0-52.0); Hemoglobin 12.9 g/dl (14.0-18.0); Mean Corpuscular HGB Conc 34.2 g/dl (31.0-36.0); Mean Corpuscular Hemoglobin 33.9 pg (27.0-33.0); Mean Platelet Volume 9.8 fL (9.4-12.4); Platelet Count 165 X10*3/uL (160-400); Red Blood Count 3.81 X10*6/uL (4.60-5.80); Red Cell Distribution Width 11.9 % (11.0-16.0); WBC ABN SCTR FOR CBC 1; White Blood Count 1.5 X10*3/uL (4.8-10.8)
[2021-03-27 11:51] VITALS: BP 106/56; PULSE 69; RESP 18; TEMP 35.6; O2SAT 96; BMI 32.5
[2021-03-27 11:56] LABS: Alanine Aminotransferase 22 U/L (0-40); Albumin Level 3.8 g/dL (3.5-5.0); Alkaline Phosphatase 62 U/L (39-117); Anion Gap 13 (12-20); Aspartate Amino Transferase 16 U/L (5-37); Bilirubin Total 1.8 mg/dL (0.0-1.0); Blood Urea Nitrogen 20 mg/dL (9-16); Carbon Dioxide 21 mmol/L (22-29); Chloride 104 mmol/L (96-108); Creatinine Clr Calc Pharmacy 87.1; Estimated Glomerular Filt Rate > 60; Glucose Random 136 mg/dL (60-115); Magnesium 1.9 mg/dL (1.6-2.6); Potassium 3.9 mmol/L (3.3-5.1); Sodium 134 mmol/L (135-145); Total Protein 6.7 g/dL (6.5-8.0)
[2021-03-27 12:01] LABS: Atypical Lymphs Percent Manual 1 % (0-6); Band Neutrophils Percent 14 % (3-5); Lymphocytes Absolute Manual 0.6 X10*3/uL (1.2-4.9); Lymphocytes Percent Manual 37 % (20-40); Monocytes Absolute Manual 0.1 X10*3/uL (0.1-1.2); Monocytes Percent Manual 4 % (2-11); Neutrophils Absolute Manual 0.9 X10*3/uL (2.0-8.3); Neutrophils Percent Manual 44 % (45-73)
[2021-03-27 12:06] LABS: Burr Cells 1+ (0-2) /OIF; Platelet Estimate NORMAL (NORMAL); Platelet Morphology Comment NORMAL; RBC Morphology NOTED
[2021-03-27] MEDS: 0.9 % Sodium Chloride 1,000 ML 999 ML IV (12:06)
[2021-03-27 12:07] LABS: WBC Morphology Comment DYSMORPHIC
[2021-03-27 13:18] LABS: Influenza A PCR NEGATIVE (Negative); Influenza B PCR NEGATIVE (Negative); Resp Syncy Virus RNA Qual PCR NEGATIVE (Negative); SARS COV2 PCR INHOUSE POSITIVE (Negative)
--- NOTE | 2021-03-27 14:42 | MHC.HEMONC ---
Pt here for lab draw and IV hydration. Pt states he has had diarrhea for several days. States immodium helps with diarrhea. States feels very fatigued with nausea and headache. States has had the chills. Dr Ordoñez notified. Covid swab obtained-specimen to lab. Labs drawn by phlebtomist-specimen to lab. #22 angio inserted in right hand with blood return noted. 1000ml 0.9% NS infusing. Covid positive. Dr Ordoñez notified. Pt given educational material on covid, quarantine, good hand washing and PPE use. Peripheral IV removed after IV fluids infused. No edema or redness at site. Discharge packet given with follow up appointment.
--- NOTE | 2021-03-29 16:20 | MHC.HEMONC ---
Pt called to re schedule lab draw to 04/09/21 at 1000 secondary to positive covid
[2021-04-09 10:36] LABS: MANUAL DIFF FLAG NO
[2021-04-09 10:38] LABS: Basophils Absolute Auto 0.1 X10*3/uL (0.0-0.2); Basophils Percent Auto 0.7 % (0-2); Eosinophils Percent Auto 0.4 % (0-4); Hematocrit 35.9 % (42.0-52.0); Imm Gran Abs Auto 0.06 X10*3/uL (0.00-0.03); Imm Gran Pct Auto 0.7 % (0.0-0.4); Lymphocytes Absolute Auto 1.9 X10*3/uL (1.2-4.9); Mean Corpuscular HGB Conc 33.4 g/dl (31.0-36.0); Mean Corpuscular Hemoglobin 33.6 pg (27.0-33.0); Mean Corpuscular Volume 100.6 fL (80.0-98.0); Mean Platelet Volume 8.7 fL (9.4-12.4); Monocytes Absolute Auto 0.6 X10*3/uL (0.1-1.2); Monocytes Percent Auto 7.4 % (2-11); Neutrophils Absolute Auto 5.9 x10*3/uL (2.0-8.3); Neutrophils Percent Auto 68.8 % (45-73); Platelet Count 252 X10*3/uL (160-400); Red Blood Count 3.57 X10*6/uL (4.60-5.80); Red Cell Distribution Width 12.3 % (11.0-16.0); White Blood Count 8.6 X10*3/uL (4.8-10.8)
[2021-04-09 11:01] LABS: Alanine Aminotransferase 24 U/L (0-40); Albumin Level 3.8 g/dL (3.5-5.0); Alkaline Phosphatase 56 U/L (39-117); Anion Gap 11 (12-20); Aspartate Amino Transferase 15 U/L (5-37); Bilirubin Total 0.7 mg/dL (0.0-1.0); Blood Urea Nitrogen 23 mg/dL (9-16); Calcium 9.7 mg/dL (8.4-10.2); Carbon Dioxide 25 mmol/L (22-29); Chloride 106 mmol/L (96-108); Creatinine Clr Calc Pharmacy 81.8; Estimated Glomerular Filt Rate > 60; Glucose Random 125 mg/dL (60-115); Sodium 138 mmol/L (135-145); Total Protein 6.6 g/dL (6.5-8.0)
[2021-04-10 09:53] VITALS: BMI 32.5
[2021-04-10] MEDS: Famotidine 20 MG TABLET PO (10:56)
[2021-04-10] MEDS: diphenhydrAMINE HCL 25 MG TABLET PO (10:57)
[2021-04-10 11:05] VITALS: BP 130/61; PULSE 65; RESP 20; TEMP 36.6; O2SAT 98
[2021-04-10] MEDS: dexAMETHasone sod phosphate/NS 12 MG/50 ML PIGGYBACK 200 MG IV (11:21)
--- NOTE | 2021-04-10 15:19 | MHC.HEMONC ---
Addendum entered by Elizabeth Saha RN 04/10/21 15:27: Xgeva sc given as ordered Original Note: Here for C2 D1 Docetaxel. Had covid in March, and is feeling much better, except he does state he still has some nasal stuffiness. Denies any other symptoms, no fever. IV started right hand, #22 angio with good blood return. Labs done 04/09 were reviewed. Premedicated as ordered. Treatment done and tolerated well. Scheduled for next treatment in 3 weeks.
[2021-05-01 09:05] VITALS: BMI 32.5
[2021-05-01 09:05] LABS: MANUAL DIFF FLAG NO
[2021-05-01 09:08] VITALS: BP 151/70; PULSE 65; RESP 20; TEMP 37.1; O2SAT 96
[2021-05-01 09:09] LABS: Basophils Absolute Auto 0.1 X10*3/uL (0.0-0.2); Basophils Percent Auto 0.6 % (0-2); Eosinophils Percent Auto 0.2 % (0-4); Hematocrit 35.9 % (42.0-52.0); Hemoglobin 12.2 g/dl (14.0-18.0); Imm Gran Abs Auto 0.08 X10*3/uL (0.00-0.03); Imm Gran Pct Auto 0.9 % (0.0-0.4); Lymphocytes Absolute Auto 1.9 X10*3/uL (1.2-4.9); Lymphocytes Percent Auto 20.8 % (20-40); Mean Corpuscular Hemoglobin 33.8 pg (27.0-33.0); Mean Corpuscular Volume 99.4 fL (80.0-98.0); Mean Platelet Volume 8.9 fL (9.4-12.4); Monocytes Absolute Auto 0.9 X10*3/uL (0.1-1.2); Monocytes Percent Auto 9.4 % (2-11); Neutrophils Absolute Auto 6.1 x10*3/uL (2.0-8.3); Neutrophils Percent Auto 68.1 % (45-73); Platelet Count 201 X10*3/uL (160-400); Red Blood Count 3.61 X10*6/uL (4.60-5.80); Red Cell Distribution Width 13.3 % (11.0-16.0)
[2021-05-01 09:22] LABS: Alanine Aminotransferase 17 U/L (0-40); Albumin Level 4.2 g/dL (3.5-5.0); Alkaline Phosphatase 48 U/L (39-117); Anion Gap 15 (12-20); Aspartate Amino Transferase 16 U/L (5-37); Bilirubin Total 1.1 mg/dL (0.0-1.0); Blood Urea Nitrogen 19 mg/dL (9-16); Calcium 9.5 mg/dL (8.4-10.2); Carbon Dioxide 21 mmol/L (22-29); Chloride 106 mmol/L (96-108); Creatinine Clr Calc Pharmacy 85.4; Estimated Glomerular Filt Rate > 60; Glucose Random 107 mg/dL (60-115); Potassium 3.8 mmol/L (3.3-5.1); Sodium 138 mmol/L (135-145); Total Protein 7.1 g/dL (6.5-8.0)
[2021-05-01] MEDS: Famotidine 20 MG TABLET PO (09:54)
[2021-05-01] MEDS: diphenhydrAMINE HCL 25 MG TABLET PO (09:55)
[2021-05-01] MEDS: dexAMETHasone sod phosphate/NS 12 MG/50 ML PIGGYBACK 200 MG IV (10:18)
--- NOTE | 2021-05-01 13:32 | MHC.HEMONC ---
Here for C3 D1 Docetaxel. States tolerated last treatment well. Labs drawn and reviewed. IV started right hand with good blood return noted. Premeds given as ordered. Treatment done and tolerated well. IV dc'd. Next treatment scheduled for 3 weeks.
[2021-05-21 09:09] LABS: MANUAL DIFF FLAG NO
[2021-05-21 09:17] LABS: Basophils Absolute Auto 0.1 X10*3/uL (0.0-0.2); Basophils Percent Auto 0.9 % (0-2); Eosinophils Percent Auto 0.2 % (0-4); Hematocrit 35.3 % (42.0-52.0); Hemoglobin 11.6 g/dl (14.0-18.0); Imm Gran Pct Auto 1.2 % (0.0-0.4); Lymphocytes Absolute Auto 1.3 X10*3/uL (1.2-4.9); Lymphocytes Percent Auto 15.6 % (20-40); Mean Corpuscular HGB Conc 32.9 g/dl (31.0-36.0); Mean Corpuscular Volume 100.6 fL (80.0-98.0); Mean Platelet Volume 8.8 fL (9.4-12.4); Monocytes Absolute Auto 0.8 X10*3/uL (0.1-1.2); Monocytes Percent Auto 10.3 % (2-11); Neutrophils Absolute Auto 5.8 x10*3/uL (2.0-8.3); Neutrophils Percent Auto 71.8 % (45-73); Platelet Count 188 X10*3/uL (160-400); Red Blood Count 3.51 X10*6/uL (4.60-5.80); White Blood Count 8.1 X10*3/uL (4.8-10.8)
--- NOTE | 2021-05-21 09:32 | MHC.HEMONC ---
Pt arrived for sched lab work on the day prior to chemo, was drawn peripherally and discharged.
[2021-05-21 09:48] LABS: Alanine Aminotransferase 18 U/L (0-40); Albumin Level 3.8 g/dL (3.5-5.0); Alkaline Phosphatase 51 U/L (39-117); Anion Gap 12 (12-20); Aspartate Amino Transferase 16 U/L (5-37); Bilirubin Total 1.2 mg/dL (0.0-1.0); Blood Urea Nitrogen 14 mg/dL (9-16); Calcium 9.3 mg/dL (8.4-10.2); Carbon Dioxide 23 mmol/L (22-29); Chloride 106 mmol/L (96-108); Creatinine Clr Calc Pharmacy 87.2; Estimated Glomerular Filt Rate > 60; Glucose Random 116 mg/dL (60-115); Potassium 4.1 mmol/L (3.3-5.1); Sodium 137 mmol/L (135-145); Total Protein 6.4 g/dL (6.5-8.0)
--- NOTE | 2021-05-22 09:52 | P.PNHO_ITS ---
Medical Summary - Medical Summary Date of Service: 05/22/21 Chief complaint: follow-up Medical Summary: Diagnosis: Metastatic prostate cancer August 2017 Diagnosed with prostate cancer in 2007. Underwent robotic-assisted prostatectomy on 08/04/07. Adenocarcinoma with mucinous differentiation, pT3a pN0, [place] score 4+3 involving 75% of prostate gland. Underwent adjuvant IMRT following prostatectomy. Underwent surgery for correction of urinary incontinence in 2008, implantation of artificial urinary sphincter in September 2010. He has been on intermittent androgen deprivation, Eligard 45 mg q.6 months. Last PSA in August 2017 14.7 with the testosterone level at 29.5. He was started back on GnRH agonist q.6 months, he was prescribed Casodex but did not start it. One episode of gross hematuria which prompted urine cytology, negative, CT urogram abdomen/pelvis with adrenal cyst, no stone or obstruction. 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 CT abdomen/pelvis with IV contrast August 2017 at [facility] showed increasing size and number of pulmonary lesions, bony lesion in the right ilium measuring 5.7 cm and previously measured 1 cm. No Intra-abdominal lymphadenopathy, normal liver, spleen and pancreas. No hydronephrosis or nephrolithiasis. CT chest with contrast in August 2017 showed mild multiple pulmonary nodules concerning for metastatic disease some solid, some cavitary or cystic. Findings increased since February 2012. 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 Largest lesion in the right lung measuring 3.5x2.5 cm. PET scan performed 09/11/17 showed multifocal FDG avid metastatic lesions present throughout the lungs, largest in the left lower lobe measuring 3.7x2.4 cm with SUV of 3.3. Most intense lesion in the left upper lobe with SUV 4.7 measuring 1.5x1.1 cm. No other adenopathy. FDG avid sclerotic metastasis in the posterior right iliac bone SUV 7.7. Prominent activity in palatine tonsils bilaterally more intense on the right, nonspecific. No corresponding CT abnormality. Direct visualization is recommended. He was diagnosed with bone metastasis, bone scan performed at [facility] in August 2017 showed uptake in the right iliac bone representing a metastatic lesion. Resumed Eligard in August 2017, he stopped Casodex. PSA is rising, testosterone level was 0. Hormone refractory metastatic prostate cancer. Patient started abiraterone/prednisone on 07/15/18. Received 1st does of denosumab 07/02/2018.PET scan performed April 2019 shows marked metabolic response with minimal to no activity in the lung nodules and skeletal bones. Bone scan performed December 2020 shows extensive metastatic disease to right posterior iliac bone, this now extends more laterally compared to previous scan. PET-CT performed 02/2021 showed new uptake in enlargement of left lower lobe pulmonary nodules, few additional bilateral small pulmonary nodules seen. Mild increase in FDG avidity in right posterior iliac bone. He was seen by radiation oncology at [facility], as he is asymptomatic from bony disease, palliative radiation therapy was deferred. He started chemotherapy, Taxotere in March 2021. Interval History Interval history: Patient is here in follow-up. He is doing okay, tolerating treatment fairly well. He does report fatigue but no acute complaints such as nausea, emesis, diarrhea or abdominal pain. Hips are not bothering him at this time. Review of Systems - Constitutional Reports as per HPI, Reports no additional constitutional complaints, Denies chills, Denies fatigue, Denies fever(s), Reports lack of energy, Denies poor appetite, Denies weight loss [facility] Medical History: Medical History (Last Reviewed 02/21/21 @ 13:37 by Miguel Ángel Mcdonald RN) Benign essential hypertension CAD (coronary artery disease) Central serous retinopathy Hematuria Impaired fasting glucose Obesity (BMI 30-39.9) Psoriasis Pulmonary nodules Pure hypercholesterolemia Tick bite Family History: Family History (Last Reviewed 02/21/21 @ 13:37 by Miguel Ángel Mcdonald RN) Father Heart disease CVD (cardiovascular disease) Mother Acute CVA (cerebrovascular accident) CVD (cardiovascular disease) Sister No problems noted. Sister Pacemaker Surgical History: Surgical History (Last Reviewed 02/21/21 @ 13:37 by Miguel Ángel Mcdonald RN) History of bladder surgery History of prostatectomy History of right knee surgery Social History: Social History (Last Reviewed 02/21/21 @ 13:37 by Miguel Ángel Mcdonald RN) Living Situation History: Housing: House Tobacco History: Patient Tobacco Use Status: Former Tobacco user Substance Use History: Use of substances other than those prescribed or required for medical reasons : No Advance Directives: Advance Directives: No Advance Directives Information Provided: No Occupation Assessmet: Current occupational status: retired 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 Performance Status ECOG Performance Status: 1 Home Medications and Allergies Home Medications Medication Instructions Recorded Confirmed Type calcium carbonate 600 mg calcium 600 mg PO DAILY 01/03/20 02/21/21 History (1,500 mg) tablet (Calcium) denosumab 120 mg/1.7 mL (70 mg/mL) 120 mg SUBCUT Q4W 01/03/20 02/21/21 History subcutaneous solution leuprolide (6 month) 45 mg 45 mg IM [id number] 01/03/20 02/21/21 History intramuscular syringe kit (Lupron Depot) losartan 50 mg tablet 50 mg PO DAILY 05/08/20 02/21/21 History amlodipine 10 mg tablet 10 mg PO DAILY 09/07/20 02/21/21 History metoprolol succinate 25 mg 25 mg PO BID 09/07/20 02/21/21 History tablet,extended release 24 hr Allergies Allergy/AdvReac Type Severity Reaction Status Date / Time lisinopril Allergy Severe angioedema Verified 02/21/21 13:38 Exam Vital signs: Vital Signs Temp 98.8 F 05/01/21 09:08 Pulse 65 05/01/21 09:08 Resp 20 05/01/21 09:08 BP 151/70 H 05/01/21 09:08 Pulse Ox 96 05/01/21 09:08 Weight 112 kg BMI result Body Mass Index 32.5 - Constitutional Present: no acute distress - Routine HEENT Exam Head: Present: normal inspection - Routine Neck Exam Present: full ROM, normal inspection. Absent: lymphadenopathy - Routine Respiratory Exam Present: CTAB - Routine Cardiovascular Exam Cardiovascular: Present: S1, S2 - Routine Abdominal Exam Present: normal bowel sounds, soft - Routine Extremities Exam Absent: pedal edema Data - Labs CBC & Chem 7: 05/21/21 09:07 05/21/21 09:07 Assessment and Plan Patient Active problem list reviewed?: Yes (1) Prostate cancer metastatic to bone Status: Chronic Assessment and plan: 1. This is a 75-year-old male with metastatic hormone refractory prostate cancer. Initially diagnosed in 2007, underwent radical prostatectomy followed by adjuvant IMRT, intermittent androgen deprivation. Patient is on Lupron every 6 months. He started Zytiga 1000 mg daily with prednisone 5 mg b.i.d. and denosumab since July 15, 2018. He is now on prednisone 5 mg once a day and Zytiga 1000 mg daily. He went back to full dose since March 2020. PET-CT performed 02/2021 showed new uptake in enlargement of left lower lobe pulmonary nodules, few additional bilateral small pulmonary nodules seen. Mild increase in FDG avidity in right posterior iliac bone. He started chemotherapy in the second-line setting, docetaxel 75 mg/M2 q. 3 weeks in March 2021. He will continue with Lupron every 6 months and denosumab monthly. Labs are good, PSA is pending. Proceed with cycle 4 treatment today. Follow-up in 3 weeks. - Time Spent With Patient Time Spent with Patient (in minutes): 10
[2021-05-22 10:13] VITALS: BP 152/75; PULSE 69; RESP 20; TEMP 37.3; O2SAT 96; BMI 32.3
[2021-05-22] MEDS: Famotidine 20 MG TABLET PO (10:50)
[2021-05-22] MEDS: diphenhydrAMINE HCL 25 MG TABLET PO (10:50)
[2021-05-22] MEDS: dexAMETHasone sod phosphate/NS 12 MG/50 ML PIGGYBACK 200 MG IV (11:11)
--- NOTE | 2021-05-22 13:49 | MHC.HEMONC ---
Pt here for C4 D1 Docetaxel. States feeling well after last treatment. Only c/o is he still has a lot of mucous from his nose, with some blood at times. Otherwise tolerating treatments well. IV started left hand, #22 angio. Premeds given as ordered. Treatment done and tolerated well. Dr Ordoñez in to see pt in follow up. Will have 2 more cycles, then will have scans. Next treatment scheduled in 3 weeks.
--- NOTE | 2021-05-22 13:55 | MHC.HEMONCSW ---
MET WITH PT WHO IS KNOWN TO ME FROM PREVIOUS ENCOUNTERS. HE IS ALERT, REMAINS INDEPENDENT AND REPORTS COPING WELL. HE IS RECEIVING CHEMOTHERAPY FOR PROSTATE CANCER WITH BONE METASTASES. PREVIOUS HEALTH CARE PROXY WAS DONE. AWARE OF AREA SERVICES BUT NOT INTERESTED AT THIS TIME. DOES NOT FEEL COUNSELING REFERRAL IS NEEDED. SUPPORTIVE COUNSELING PROVIDED.
--- NOTE | 2021-05-31 15:40 | HO.HEMONCSCH ---
Addendum entered by Miguel Ángel Mcdonald RN 06/01/21 14:53: Nurse notified Dr. Ordoñez that pt's next two txs have been pushed back from Fri to Fri of the same week. Original Note: Nurse called pt to inquire about switching his next chemo cycle start day. pt said he is feeling terrible. On further questioning, pt said his biggest complaint is the terrible fatigue, he's turning into a real couch potato . He said he has occasional constipation and diarrhea, but PRN meds manage those symptoms well enough. Nurse asked pt if he would be able to reschedule his next chemo cycle, C5D1 Taxotere, from 06/12 to 06/15/21, and continue having his txs on Fridays. Pt said that Dr. Ordoñez told him he only has 2 txs left anyway, but that this would be fine. Nurse confirmed w/ pt that he'll continue to come in the day beforehand to have labs drawn. Nurse rescheduled pt's next two chemo txs to be on Fridays.
[2021-06-14 09:07] LABS: MANUAL DIFF FLAG NO
[2021-06-14 09:30] LABS: Basophils Absolute Auto 0.1 X10*3/uL (0.0-0.2); Basophils Percent Auto 0.9 % (0-2); Eosinophils Absolute Auto 0.1 X10*3/uL (0.0-0.4); Eosinophils Percent Auto 0.7 % (0-4); Hematocrit 38.1 % (42.0-52.0); Hemoglobin 12.2 g/dl (14.0-18.0); Imm Gran Abs Auto 0.07 X10*3/uL (0.00-0.03); Lymphocytes Absolute Auto 1.6 X10*3/uL (1.2-4.9); Lymphocytes Percent Auto 23.7 % (20-40); Mean Corpuscular Hemoglobin 33.1 pg (27.0-33.0); Mean Corpuscular Volume 103.3 fL (80.0-98.0); Mean Platelet Volume 9.5 fL (9.4-12.4); Monocytes Absolute Auto 0.6 X10*3/uL (0.1-1.2); Neutrophils Absolute Auto 4.4 x10*3/uL (2.0-8.3); Neutrophils Percent Auto 64.7 % (45-73); Platelet Count 222 X10*3/uL (160-400); Red Blood Count 3.69 X10*6/uL (4.60-5.80); Red Cell Distribution Width 15.3 % (11.0-16.0); White Blood Count 6.9 X10*3/uL (4.8-10.8)
[2021-06-14 09:43] LABS: Alanine Aminotransferase 20 U/L (0-40); Alkaline Phosphatase 50 U/L (39-117); Anion Gap 13 (12-20); Aspartate Amino Transferase 17 U/L (5-37); Bilirubin Total 1.2 mg/dL (0.0-1.0); Blood Urea Nitrogen 14 mg/dL (9-16); Carbon Dioxide 21 mmol/L (22-29); Chloride 107 mmol/L (96-108); Creatinine Clr Calc Pharmacy 99.7; Estimated Glomerular Filt Rate > 60; Glucose Random 119 mg/dL (60-115); Potassium 4.2 mmol/L (3.3-5.1); Sodium 137 mmol/L (135-145); Total Protein 6.5 g/dL (6.5-8.0)
--- NOTE | 2021-06-14 16:11 | MHC.HEMONC ---
Pt was here for pre-chemo labs, had blood drawn peripherally, departed unit. Pt is booked for C5D1 Docetaxel the following day, 06/15/21.
--- NOTE | 2021-06-15 09:55 | PM.HEMONCPN ---
Medical Summary - Medical Summary Date of Service: 06/15/21 Chief complaint: Follow-up Medical Summary: Diagnosis: Metastatic prostate cancer August 2017 Diagnosed with prostate cancer in 2007. Underwent robotic-assisted prostatectomy on 08/04/07. Adenocarcinoma with mucinous differentiation, pT3a pN0, [place] score 4+3 involving 75% of prostate gland. Underwent adjuvant IMRT following prostatectomy. Underwent surgery for correction of urinary incontinence in 2008, implantation of artificial urinary sphincter in September 2010. He has been on intermittent androgen deprivation, Eligard 45 mg q.6 months. Last PSA in August 2017 14.7 with the testosterone level at 29.5. He was started back on GnRH agonist q.6 months, he was prescribed Casodex but did not start it. One episode of gross hematuria which prompted urine cytology, negative, CT urogram abdomen/pelvis with adrenal cyst, no stone or obstruction. 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 CT abdomen/pelvis with IV contrast August 2017 at [facility] showed increasing size and number of pulmonary lesions, bony lesion in the right ilium measuring 5.7 cm and previously measured 1 cm. No Intra-abdominal lymphadenopathy, normal liver, spleen and pancreas. No hydronephrosis or nephrolithiasis. CT chest with contrast in August 2017 showed mild multiple pulmonary nodules concerning for metastatic disease some solid, some cavitary or cystic. Findings increased since February 2012. 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 Largest lesion in the right lung measuring 3.5x2.5 cm. PET scan performed 09/11/17 showed multifocal FDG avid metastatic lesions present throughout the lungs, largest in the left lower lobe measuring 3.7x2.4 cm with SUV of 3.3. Most intense lesion in the left upper lobe with SUV 4.7 measuring 1.5x1.1 cm. No other adenopathy. FDG avid sclerotic metastasis in the posterior right iliac bone SUV 7.7. Prominent activity in palatine tonsils bilaterally more intense on the right, nonspecific. No corresponding CT abnormality. Direct visualization is recommended. He was diagnosed with bone metastasis, bone scan performed at [facility] in August 2017 showed uptake in the right iliac bone representing a metastatic lesion. Resumed Eligard in August 2017, he stopped Casodex. PSA is rising, testosterone level was 0. Hormone refractory metastatic prostate cancer. Patient started abiraterone/prednisone on 07/15/18. Received 1st does of denosumab 07/02/2018.PET scan performed April 2019 shows marked metabolic response with minimal to no activity in the lung nodules and skeletal bones. Bone scan performed December 2020 shows extensive metastatic disease to right posterior iliac bone, this now extends more laterally compared to previous scan. PET-CT performed 02/2021 showed new uptake in enlargement of left lower lobe pulmonary nodules, few additional bilateral small pulmonary nodules seen. Mild increase in FDG avidity in right posterior iliac bone. He was seen by radiation oncology at [facility], as he is asymptomatic from bony disease, palliative radiation therapy was deferred. He started chemotherapy, Taxotere in March 2021. Interval History Interval history: Patient is here in follow-up. He is doing okay, tolerating treatment fairly well. He does report fatigue but no acute complaints such as nausea, emesis, diarrhea or abdominal pain. He is getting rather more tired after his treatments lately. Otherwise, he has no new complaints. Review of Systems - Constitutional Reports as per HPI, Reports no additional constitutional complaints PMFSH Medical History: Medical History (Last Reviewed 06/05/21 @ 10:14 by Guido Joseph MD) Benign essential hypertension CAD (coronary artery disease) Central serous retinopathy Hematuria Impaired fasting glucose Obesity (BMI 30-39.9) Psoriasis Pulmonary nodules Pure hypercholesterolemia Tick bite Family History: Family History (Last Reviewed 06/05/21 @ 10:14 by Guido Joseph MD) Father Heart disease CVD (cardiovascular disease) Mother Acute CVA (cerebrovascular accident) CVD (cardiovascular disease) Sister No problems noted. Sister Pacemaker Surgical History: Surgical History (Last Reviewed 06/05/21 @ 10:14 by Guido Joseph MD) History of bladder surgery History of prostatectomy History of right knee surgery Social History: Social History (Last Reviewed 06/05/21 @ 10:14 by Guido Joseph MD) Living Situation History: Housing: House Tobacco History: Patient Tobacco Use Status: Former Tobacco user Second Hand Smoke Exposure: Yes Substance Use History: Use of substances other than those prescribed or required for medical reasons: No Advance Directives: Advance Directives: No Advance Directives Information Provided: No Occupation Assessmet: Current occupational status: retired Home Medications and Allergies Current Medications: Current Medications Diphenhydramine HCl (Diphenhydramine Hcl 25 Mg Tablet) 25 mg PO ONCE RICH Stop: 06/15/21 23:59 Famotidine (Famotidine 20 Mg Tablet) 20 mg PO ONCE RICH Stop: 06/15/21 23:59 Heparin Sodium (Porcine) (Heparin Sodium,Porcine Flush 500 Unit/5 Ml Syringe) 500 unit IVFLUSH ONCE RICH Stop: 06/15/21 23:59 Ondansetron HCl (Zofran) 16 mg in 50 mls @ 200 mls/hr IV ONCE RICH Stop: 06/15/21 23:59 Dexamethasone Sodium Phosphate (Decadron) 12 mg in 50 mls @ 200 mls/hr IV ONCE RICH Stop: 06/15/21 23:59 Home Medications Medication Instructions Recorded Confirmed Type calcium carbonate 600 mg calcium 600 mg PO DAILY 01/03/20 06/05/21 History (1,500 mg) tablet (Calcium) denosumab 120 mg/1.7 mL (70 mg/mL) 120 mg SUBCUT Q4W 01/03/20 06/05/21 History subcutaneous solution leuprolide (6 month) 45 mg 45 mg IM [id number] 01/03/20 06/05/21 History intramuscular syringe kit (Lupron Depot) losartan 50 mg tablet 50 mg PO DAILY 05/08/20 06/05/21 History amlodipine 10 mg tablet 10 mg PO DAILY 09/07/20 06/05/21 History metoprolol succinate 25 mg 25 mg PO BID 09/07/20 06/05/21 History tablet,extended release 24 hr Allergies Allergy/AdvReac Type Severity Reaction Status Date / Time lisinopril Allergy Severe angioedema Verified 06/05/21 10:12 Exam Vital signs: Vital Signs Temp 99.1 F 05/22/21 10:13 Pulse 69 05/22/21 10:13 Resp 20 05/22/21 10:13 BP 152/75 H 05/22/21 10:13 Pulse Ox 96 05/22/21 10:13 Weight 111.1 kg BMI result Body Mass Index 32.3 - Constitutional Present: no acute distress - Routine HEENT Exam Head: Present: normal inspection - Routine Neck Exam Present: full ROM, normal inspection. Absent: lymphadenopathy - Routine Respiratory Exam Present: CTAB - Routine Cardiovascular Exam Cardiovascular: Present: S1, S2 - Routine Abdominal Exam Present: normal bowel sounds, soft - Routine Extremities Exam Absent: pedal edema Data - Labs CBC & Chem 7: 06/14/21 09:04 06/14/21 09:04 Assessment and Plan Patient Active problem list reviewed?: Yes (1) Prostate cancer metastatic to bone Status: Chronic Assessment and plan: 1. This is a 75-year-old male with metastatic hormone refractory prostate cancer. Initially diagnosed in 2007, underwent radical prostatectomy followed by adjuvant IMRT, intermittent androgen deprivation. Patient is on Lupron every 6 months. He started Zytiga 1000 mg daily with prednisone 5 mg b.i.d. and denosumab since July 15, 2018. He is now on prednisone 5 mg once a day and Zytiga 1000 mg daily. He went back to full dose since March 2020. PET-CT performed 02/2021 showed new uptake in enlargement of left lower lobe pulmonary nodules, few additional bilateral small pulmonary nodules seen. Mild increase in FDG avidity in right posterior iliac bone. He started chemotherapy in the second-line setting, docetaxel 75 mg/M2 q. 3 weeks in March 2021. He will continue with Lupron every 6 months and denosumab q4-6 weeks. Labs are good, PSA is pending. Proceed with cycle 5 treatment today. Follow-up in 3 weeks. - Time Spent With Patient Time Spent with Patient (in minutes): 10
[2021-06-15 10:00] VITALS: BP 129/61; PULSE 74; RESP 20; TEMP 36.5; O2SAT 97; BMI 31.6
[2021-06-15] MEDS: Famotidine 20 MG TABLET PO (10:12)
[2021-06-15] MEDS: dexAMETHasone sod phosphate/NS 12 MG/50 ML PIGGYBACK 200 MG IV (10:12)
[2021-06-15] MEDS: diphenhydrAMINE HCL 25 MG TABLET PO (10:12)
--- NOTE | 2021-06-15 11:53 | MHC.HEMONC ---
pt tolerated chemo well. next treatment will be cycle 6 and his last. pt also recieved denosumab pre Dr aguilar denosumab can be given q6w while on treatment next scheduled for july. will have to verify with if radhae want to continue this schedule after chemo or go back to monthly.
--- NOTE | 2021-06-15 16:42 | HO.HEMONCPA ---
NO PA REQUIRED FOR DENOSUMAB. DRUGS COVERED UNDER MEDICARE PART B BENEFITS
--- NOTE | 2021-06-26 12:01 | MHC.HEMONC ---
pt called to state he had run out of his daily prednisone 5 mg tabs, said he wasn't sure whether Dr. Ordoñez wanted him to stop. Nurse read Dr. Ordoñez's recent note and consulted w/ Dr. Hartley, confirmed on pt's tx plan that he continues to take prednisone 5 mg PO daily as well as Dexamethasone on days [address] Hartley sent new scrip to pt's pharmacy, [facility] on . Nurse called pt and updated him. Pt was appreciative. Pt stated he knows his next cycle is the following week, 07/06, w/ labs to be drawn the day prior.
[2021-07-05 09:12] LABS: MANUAL DIFF FLAG NO
[2021-07-05 09:24] LABS: Basophils Percent Auto 0.6 % (0-2); Eosinophils Percent Auto 0.1 % (0-4); Hematocrit 35.6 % (42.0-52.0); Hemoglobin 11.8 g/dl (14.0-18.0); Imm Gran Abs Auto 0.03 X10*3/uL (0.00-0.03); Imm Gran Pct Auto 0.4 % (0.0-0.4); Lymphocytes Absolute Auto 1.4 X10*3/uL (1.2-4.9); Lymphocytes Percent Auto 20.6 % (20-40); Mean Corpuscular HGB Conc 33.1 g/dl (31.0-36.0); Mean Corpuscular Hemoglobin 32.6 pg (27.0-33.0); Mean Corpuscular Volume 98.3 fL (80.0-98.0); Mean Platelet Volume 9.3 fL (9.4-12.4); Monocytes Absolute Auto 0.6 X10*3/uL (0.1-1.2); Monocytes Percent Auto 8.5 % (2-11); Neutrophils Absolute Auto 4.7 x10*3/uL (2.0-8.3); Neutrophils Percent Auto 69.8 % (45-73); Platelet Count 198 X10*3/uL (160-400); Red Blood Count 3.62 X10*6/uL (4.60-5.80); Red Cell Distribution Width 15.4 % (11.0-16.0); White Blood Count 6.7 X10*3/uL (4.8-10.8)
[2021-07-05 09:45] LABS: Alanine Aminotransferase 14 U/L (0-40); Albumin Level 4.1 g/dL (3.5-5.0); Alkaline Phosphatase 42 U/L (39-117); Anion Gap 11 (12-20); Aspartate Amino Transferase 16 U/L (5-37); Bilirubin Total 1.4 mg/dL (0.0-1.0); Blood Urea Nitrogen 18 mg/dL (9-16); Calcium 9.6 mg/dL (8.4-10.2); Carbon Dioxide 24 mmol/L (22-29); Chloride 107 mmol/L (96-108); Estimated Glomerular Filt Rate > 60; Glucose Random 118 mg/dL (60-115); Potassium 4.4 mmol/L (3.3-5.1); Sodium 138 mmol/L (135-145); Total Protein 6.6 g/dL (6.5-8.0)
[2021-07-06 10:04] VITALS: BP 155/87; PULSE 71; RESP 18; TEMP 36.5; O2SAT 96; BMI 31.8
[2021-07-06] MEDS: diphenhydrAMINE HCL 25 MG TABLET PO (10:53)
[2021-07-06] MEDS: Famotidine 20 MG TABLET PO (10:53)
[2021-07-06] MEDS: dexAMETHasone sod phosphate/NS 12 MG/50 ML PIGGYBACK 200 MG IV (11:13)
--- NOTE | 2021-07-06 14:41 | MHC.HEMONC ---
C6: DOCETAXEL. Labs completed day prior and reviewed. VSS. #22 placed to right hand. Patient pre-medicated as ordered. No complaints at this time. Infusion well tolerated. Home medications reconciled. Patient scheduled 08/03 for both Denosumab and exam with Dr. Ordoñez. Patient requested to come day prior for labs. Will address with Dr. Ordoñez orders for imaging post chemotherapy.
[2021-08-02 10:33] LABS: MANUAL DIFF FLAG NO
[2021-08-02 10:38] LABS: Basophils Percent Auto 0.6 % (0-2); Eosinophils Absolute Auto 0.1 X10*3/uL (0.0-0.4); Eosinophils Percent Auto 1.2 % (0-4); Hematocrit 34.7 % (42.0-52.0); Hemoglobin 11.4 g/dl (14.0-18.0); Imm Gran Abs Auto 0.02 X10*3/uL (0.00-0.03); Imm Gran Pct Auto 0.4 % (0.0-0.4); Lymphocytes Absolute Auto 1.3 X10*3/uL (1.2-4.9); Lymphocytes Percent Auto 27.6 % (20-40); Mean Corpuscular HGB Conc 32.9 g/dl (31.0-36.0); Mean Corpuscular Hemoglobin 32.6 pg (27.0-33.0); Mean Corpuscular Volume 99.1 fL (80.0-98.0); Mean Platelet Volume 9.2 fL (9.4-12.4); Monocytes Absolute Auto 0.6 X10*3/uL (0.1-1.2); Monocytes Percent Auto 11.3 % (2-11); Neutrophils Absolute Auto 2.9 x10*3/uL (2.0-8.3); Neutrophils Percent Auto 58.9 % (45-73); Platelet Count 186 X10*3/uL (160-400); Red Cell Distribution Width 15.9 % (11.0-16.0); White Blood Count 4.9 X10*3/uL (4.8-10.8)
[2021-08-02 10:56] LABS: Alanine Aminotransferase 19 U/L (0-40); Alkaline Phosphatase 46 U/L (39-117); Anion Gap 14 (12-20); Aspartate Amino Transferase 22 U/L (5-37); Bilirubin Total 1.6 mg/dL (0.0-1.0); Blood Urea Nitrogen 16 mg/dL (9-16); Calcium 9.5 mg/dL (8.4-10.2); Carbon Dioxide 21 mmol/L (22-29); Chloride 109 mmol/L (96-108); Creatinine Clr Calc Pharmacy 91.2; Estimated Glomerular Filt Rate > 60; Glucose Random 127 mg/dL (60-115); Potassium 4.2 mmol/L (3.3-5.1); Sodium 140 mmol/L (135-145); Total Protein 6.4 g/dL (6.5-8.0)
[2021-08-03 08:57] VITALS: BP 147/67; PULSE 73; RESP 14; TEMP 37; O2SAT 97; BMI 31.7
--- NOTE | 2021-08-03 09:14 | PM.HEMONCPN ---
Medical Summary - Medical Summary Date of Service: 08/03/21 Chief complaint: Right hip pain Medical Summary: Diagnosis: Metastatic prostate cancer August 2017 Diagnosed with prostate cancer in 2007. Underwent robotic-assisted prostatectomy on 08/04/07. Adenocarcinoma with mucinous differentiation, pT3a pN0, Rocky score 4+3 involving 75% of prostate gland. Underwent adjuvant IMRT following prostatectomy. Underwent surgery for correction of urinary incontinence in 2008, implantation of artificial urinary sphincter in September 2010. He has been on intermittent androgen deprivation, Eligard 45 mg q.6 months. Last PSA in August 2017 14.7 with the testosterone level at 29.5. He was started back on GnRH agonist q.6 months, he was prescribed Casodex but did not start it. One episode of gross hematuria which prompted urine cytology, negative, CT urogram abdomen/pelvis with adrenal cyst, no stone or obstruction. 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 CT abdomen/pelvis with IV contrast August 2017 at [facility] showed increasing size and number of pulmonary lesions, bony lesion in the right ilium measuring 5.7 cm and previously measured 1 cm. No Intra-abdominal lymphadenopathy, normal liver, spleen and pancreas. No hydronephrosis or nephrolithiasis. CT chest with contrast in August 2017 showed mild multiple pulmonary nodules concerning for metastatic disease some solid, some cavitary or cystic. Findings increased since February 2012. 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 Largest lesion in the right lung measuring 3.5x2.5 cm. PET scan performed 09/11/17 showed multifocal FDG avid metastatic lesions present throughout the lungs, largest in the left lower lobe measuring 3.7x2.4 cm with SUV of 3.3. Most intense lesion in the left upper lobe with SUV 4.7 measuring 1.5x1.1 cm. No other adenopathy. FDG avid sclerotic metastasis in the posterior right iliac bone SUV 7.7. Prominent activity in palatine tonsils bilaterally more intense on the right, nonspecific. No corresponding CT abnormality. Direct visualization is recommended. He was diagnosed with bone metastasis, bone scan performed at [facility] in August 2017 showed uptake in the right iliac bone representing a metastatic lesion. Resumed Eligard in August 2017, he stopped Casodex. PSA is rising, testosterone level was 0. Hormone refractory metastatic prostate cancer. Patient started abiraterone/prednisone on 07/15/18. Received 1st does of denosumab 07/02/2018.PET scan performed April 2019 shows marked metabolic response with minimal to no activity in the lung nodules and skeletal bones. Bone scan performed December 2020 shows extensive metastatic disease to right posterior iliac bone, this now extends more laterally compared to previous scan. PET-CT performed 02/2021 showed new uptake in enlargement of left lower lobe pulmonary nodules, few additional bilateral small pulmonary nodules seen. Mild increase in FDG avidity in right posterior iliac bone. He was seen by radiation oncology at [facility], as he is asymptomatic from bony disease, palliative radiation therapy was deferred. He started chemotherapy, Taxotere in March 2021. Interval History Interval history: Patient is here in follow-up. He completed 6 cycles of treatment. He states that it was a rather rough going through chemotherapy. He was quite tired for 2 weeks following treatment. He had both mild diarrhea as well as constipation. He has completely recovered now. He went golfing this week and he now has pain in his right hip. He is able to walk and is no significant swelling. He denies any fever or chills. [facility] Medical History: Medical History (Last Reviewed 08/03/21 @ 09:02 by Asia Dickey CMA) Benign essential hypertension CAD (coronary artery disease) Central serous retinopathy Hematuria Impaired fasting glucose Obesity (BMI 30-39.9) Psoriasis Pulmonary nodules Pure hypercholesterolemia Tick bite Family History: Family History (Last Reviewed 08/03/21 @ 09:02 by Asia Dickey CMA) Father Heart disease CVD (cardiovascular disease) Mother Acute CVA (cerebrovascular accident) CVD (cardiovascular disease) Sister No problems noted. Sister Pacemaker Surgical History: Surgical History (Last Reviewed 08/03/21 @ 09:02 by Asia Dickey CMA) History of bladder surgery History of prostatectomy History of right knee surgery Social History: Social History (Last Updated 08/03/21 @ 09:03 by sAia Dickey CMA) Living Situation History: Household Members: Spouse Housing: House Are you a primary primary care physician to a significant other at home: No Do you presently have visiting nurse or other home services: No Alcohol History Details: 1. How often do you have a drink containing alcohol?: b. Monthly or less 2. How many drinks containing alcohol do you have on a typical day when you are drinking?: a. 1 or 2 Tobacco History: Patient Tobacco Use Status: Former Tobacco user Second Hand Smoke Exposure: Yes Substance Use History: Use of substances other than those prescribed or required for medical reasons: No Domestic Abuse History: Have you been hit, kicked, punched, or otherwise hurt by someone within the past year? If so, by whom?: No Do you feel safe in your current relationship?: Yes Advance Directives: Advance Directives: No Advance Directives Information Provided: No Homicidal Assessment: Do you have thoughts of harming others: None Do you have a plan to hurt others: No Plan Do you have the means to hurt others: No Nutrition Assessment: Recently lost weight without trying: No Occupation Assessmet: service: No Current occupational status: retired Oncology Screenings - ECOG Performance Status ECOG Performance Status: 1 Home Medications and Allergies Current Medications: Current Medications Denosumab (Denosumab 120 Mg/1.7 Ml Vial) 120 mg SUBCUT ONCE RICH Stop: 08/03/21 23:59 Home Medications Medication Instructions Recorded Confirmed Type calcium carbonate 600 mg calcium 600 mg PO DAILY 01/03/20 08/03/21 History (1,500 mg) tablet (Calcium) denosumab 120 mg/1.7 mL (70 mg/mL) 120 mg SUBCUT Q4W 01/03/20 08/03/21 History subcutaneous solution leuprolide acetate (6 month) 45 mg 45 mg IM [id number] 01/03/20 08/03/21 History intramuscular syringe kit (Lupron Depot) losartan 50 mg tablet 50 mg PO DAILY 05/08/20 08/03/21 History amlodipine 10 mg tablet 10 mg PO DAILY 09/07/20 08/03/21 History metoprolol succinate 25 mg 25 mg PO BID 09/07/20 08/03/21 History tablet,extended release 24 hr Allergies Allergy/AdvReac Type Severity Reaction Status Date / Time lisinopril Allergy Severe angioedema Verified 08/03/21 09:03 Exam Vital signs: Vital Signs Temp 98.6 F 08/03/21 08:57 Pulse 73 08/03/21 08:57 Resp 14 08/03/21 08:57 BP 147/67 H 08/03/21 08:57 Pulse Ox 97 08/03/21 08:57 Intake & Output 08/02/21 08/03/21 08/03/21 18:59 06:59 18:59 Other: Weight 109.2 kg [place] Weight in Grams [id number] Weight 109.2 kg BMI result Body Mass Index 31.7 - Constitutional Present: no acute distress - Routine HEENT Exam Head: Present: normal inspection - Routine Neck Exam Present: full ROM, normal inspection. Absent: lymphadenopathy - Routine Respiratory Exam Present: CTAB - Routine Cardiovascular Exam Cardiovascular: Present: S1, S2 - Routine Abdominal Exam Present: normal bowel sounds, soft - Routine Extremities Exam Absent: pedal edema Data - Labs CBC & Chem 7: 08/02/21 10:18 08/02/21 10:18 Assessment and Plan Patient Active problem list reviewed?: Yes (1) Prostate cancer metastatic to bone Status: Chronic Assessment and plan: 1. This is a 75-year-old male with metastatic hormone refractory prostate cancer. Initially diagnosed in 2007, underwent radical prostatectomy followed by adjuvant IMRT, intermittent androgen deprivation. Patient is on Lupron every 6 months. He started Zytiga 1000 mg daily with prednisone 5 mg b.i.d. and denosumab since July 15, 2018. He is now on prednisone 5 mg once a day and Zytiga 1000 mg daily. He went back to full dose since March 2020. PET-CT performed 02/2021 showed new uptake in enlargement of left lower lobe pulmonary nodules, few additional bilateral small pulmonary nodules seen. Mild increase in FDG avidity in right posterior iliac bone. He received chemotherapy docetaxel from March 2021 to July 2021. He is on Lupron every 6 months and denosumab q4-6 weeks. I will repeat PET scan in August 2021. 2. Right hip pain. He has bony metastasis. He was previously referred to Radiation oncologist but not treated as he did not have significant symptoms at that time. X-ray right hip has been ordered. Follow-up in 3 weeks. - Time Spent With Patient Time Spent with Patient (in minutes): 15
--- NOTE | 2021-08-03 10:52 | HO.HEMONCPA ---
NO PA IS REQUIRED FOR PET CT , PATIENT HAS MEDICARE . I SENT IN CLINICAL INFORMATION TO [facility] , AWAITING APPT DATE & TIME.
--- NOTE | 2021-08-03 13:39 | MHC.HEMONC ---
Denosumab 120mg administered to left upper arm- well tolerated. Exam with Dr. Ordoñez. Labs completed day prior. VSS. Follow up in 6 weeks with Xgeva. Order for PET scan given to Jenae to book. Order for XRAY of right hip today.
--- NOTE | 2021-08-07 11:32 | HO.HEMONCSCH ---
PET scan appt. scheduled on 08/14/21.
[2021-09-13 10:25] LABS: MANUAL DIFF FLAG NO
[2021-09-13 10:33] LABS: Basophils Percent Auto 0.4 % (0-2); Eosinophils Percent Auto 0.4 % (0-4); Hematocrit 36.3 % (42.0-52.0); Hemoglobin 12.5 g/dl (14.0-18.0); Imm Gran Abs Auto 0.01 X10*3/uL (0.00-0.03); Imm Gran Pct Auto 0.2 % (0.0-0.4); Lymphocytes Absolute Auto 1.5 X10*3/uL (1.2-4.9); Lymphocytes Percent Auto 28.7 % (20-40); Mean Corpuscular HGB Conc 34.4 g/dl (31.0-36.0); Mean Corpuscular Volume 98.6 fL (80.0-98.0); Monocytes Absolute Auto 0.6 X10*3/uL (0.1-1.2); Neutrophils Absolute Auto 3.1 x10*3/uL (2.0-8.3); Neutrophils Percent Auto 59.3 % (45-73); Platelet Count 168 X10*3/uL (160-400); Red Blood Count 3.68 X10*6/uL (4.60-5.80); Red Cell Distribution Width 14.2 % (11.0-16.0); White Blood Count 5.3 X10*3/uL (4.8-10.8)
[2021-09-13 10:46] LABS: Alanine Aminotransferase 18 U/L (0-40); Albumin Level 4.4 g/dL (3.5-5.0); Alkaline Phosphatase 68 U/L (39-117); Anion Gap 12 (12-20); Aspartate Amino Transferase 19 U/L (5-37); Bilirubin Total 1.4 mg/dL (0.0-1.0); Blood Urea Nitrogen 13 mg/dL (9-16); Calcium 8.8 mg/dL (8.4-10.2); Carbon Dioxide 22 mmol/L (22-29); Chloride 108 mmol/L (96-108); Creatinine Clr Calc Pharmacy 94.3; Estimated Glomerular Filt Rate > 60; Glucose Random 106 mg/dL (60-115); Potassium 3.9 mmol/L (3.3-5.1); Sodium 138 mmol/L (135-145); Total Protein 6.9 g/dL (6.5-8.0)
--- NOTE | 2021-09-13 16:13 | MHC.HEMONC ---
Pt was in for labs, one day prior to sched Xgeva injection, had labs drawn peripherally, departed w/ plans to return the following day for Xgeva injection. Nurse confirmed pt's Ca is 8.8, WNL for Xgeva admin.
--- NOTE | 2021-09-14 10:30 | P.PNHO-ONC_ITS ---
Medical Summary - Medical Summary Date of Service: 09/14/21 Chief complaint: Follow-up Medical Summary: Diagnosis: Metastatic prostate cancer August 2017 Diagnosed with prostate cancer in 2007. Underwent robotic-assisted prostatectomy on 08/04/07. Adenocarcinoma with mucinous differentiation, pT3a pN0, Como score 4+3 involving 75% of prostate gland. Underwent adjuvant IMRT following prostatectomy. Underwent surgery for correction of urinary incontinence in 2008, implantation of artificial urinary sphincter in September 2010. He has been on intermittent androgen deprivation, Eligard 45 mg q.6 months. Last PSA in August 2017 14.7 with the testosterone level at 29.5. He was started back on GnRH agonist q.6 months, he was prescribed Casodex but did not start it. One episode of gross hematuria which prompted urine cytology, negative, CT urogram abdomen/pelvis with adrenal cyst, no stone or obstruction. 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 CT abdomen/pelvis with IV contrast August 2017 at [facility] showed increasing size and number of pulmonary lesions, bony lesion in the right ilium measuring 5.7 cm and previously measured 1 cm. No Intra-abdominal lymphadenopathy, normal liver, spleen and pancreas. No hydronephrosis or nephrolithiasis. CT chest with contrast in August 2017 showed mild multiple pulmonary nodules concerning for metastatic disease some solid, some cavitary or cystic. Findings increased since February 2012. 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 Largest lesion in the right lung measuring 3.5x2.5 cm. PET scan performed 09/11/17 showed multifocal FDG avid metastatic lesions present throughout the lungs, largest in the left lower lobe measuring 3.7x2.4 cm with SUV of 3.3. Most intense lesion in the left upper lobe with SUV 4.7 measuring 1.5x1.1 cm. No other adenopathy. FDG avid sclerotic metastasis in the posterior right iliac bone SUV 7.7. Prominent activity in palatine tonsils bilaterally more intense on the right, nonspecific. No corresponding CT abnormality. Direct visualization is recommended. He was diagnosed with bone metastasis, bone scan performed at [facility] in August 2017 showed uptake in the right iliac bone representing a metastatic lesion. Resumed Eligard in August 2017, he stopped Casodex. PSA is rising, testosterone level was 0. Hormone refractory metastatic prostate cancer. Patient started abiraterone/prednisone on 07/15/18. Received 1st does of denosumab 07/02/2018.PET scan performed April 2019 shows marked metabolic response with minimal to no activity in the lung nodules and skeletal bones. Bone scan performed December 2020 shows extensive metastatic disease to right posterior iliac bone, this now extends more laterally compared to previous scan. PET-CT performed 02/2021 showed new uptake in enlargement of left lower lobe pulmonary nodules, few additional bilateral small pulmonary nodules seen. Mild increase in FDG avidity in right posterior iliac bone. He was seen by radiation oncology at [facility], as he is asymptomatic from bony disease, palliative radiation therapy was deferred. He started chemotherapy, Taxotere in March 2021. Interval History Interval history: Patient is here in follow-up. He is doing quite well overall. He does report neuropathy on the balls of his feet and some nail changes. He is going to see a director of teacher education. He denies leg pain or swelling. He is back to playing golf. He denies any excess fatigue, shortness of breath, loss of appetite or weight loss. Review of Systems - Constitutional Reports as per HPI, Reports no additional constitutional complaints - Cardiovascular Reports no additional cardiovascular complaints - Respiratory Reports no additional respiratory complaints - Gastrointestinal Reports no additional gastrointestinal complaints [facility] Medical History: Medical History (Last Reviewed 09/14/21 @ 10:42 by Heather Tubbs) Benign essential hypertension CAD (coronary artery disease) Central serous retinopathy Hematuria Impaired fasting glucose Obesity (BMI 30-39.9) Psoriasis Pulmonary nodules Pure hypercholesterolemia Tick bite Family History: Family History (Last Reviewed 09/14/21 @ 10:42 by Heather Tubbs) Father Heart disease CVD (cardiovascular disease) Mother Acute CVA (cerebrovascular accident) CVD (cardiovascular disease) Sister No problems noted. Sister Pacemaker Surgical History: Surgical History (Last Reviewed 09/14/21 @ 10:42 by Heather Tubbs) History of bladder surgery History of prostatectomy History of right knee surgery Social History: Social History (Last Updated 09/14/21 @ 10:42 by Heather Tubbs) Living Situation History: Household Members: Spouse Housing: House Are you a primary rn intensive care unit to a significant other at home: No Do you presently have visiting nurse or other home services: No Alcohol History Details: 1. How often do you have a drink containing alcohol?: b. Monthly or less 2. How many drinks containing alcohol do you have on a typical day when you are drinking?: a. 1 or 2 Tobacco History: Patient Tobacco Use Status: Former Tobacco user Tobacco use type: Cigarette Second Hand Smoke Exposure: Yes Substance Use History: Use of substances other than those prescribed or required for medical reasons : No Domestic Abuse History: Have you been hit, kicked, punched, or otherwise hurt by someone within the past year? If so, by whom?: No Do you feel safe in your current relationship?: Yes Advance Directives: Advance Directives: No Advance Directives Information Provided: No Homicidal Assessment: Do you have thoughts of harming others: None Do you have a plan to hurt others: No Plan Do you have the means to hurt others: No Nutrition Assessment: Recently lost weight without trying: No Occupation Assessmet: service: No Current occupational status: retired Oncology Screenings - ECOG Performance Status ECOG Performance Status: 0 Home Medications and Allergies Home Medications Medication Instructions Recorded Confirmed Type calcium carbonate 600 mg calcium 600 mg PO DAILY 01/03/20 09/14/21 History (1,500 mg) tablet (Calcium) denosumab 120 mg/1.7 mL (70 mg/mL) 120 mg subcut Q4W 01/03/20 09/14/21 History subcutaneous solution leuprolide acetate (6 month) 45 mg 45 mg IM [id number] 01/03/20 09/14/21 History intramuscular syringe kit (Lupron Depot) losartan 50 mg tablet 50 mg PO DAILY 05/08/20 09/14/21 History amlodipine 10 mg tablet 10 mg PO DAILY 09/07/20 09/14/21 History metoprolol succinate 25 mg 25 mg PO BID 09/07/20 09/14/21 History tablet,extended release 24 hr Allergies Allergy/AdvReac Type Severity Reaction Status Date / Time lisinopril Allergy Severe angioedema Verified 09/13/21 11:41 Exam Vital signs: Vital Signs Temp 98.6 F 08/03/21 08:57 Pulse 73 08/03/21 08:57 Resp 14 08/03/21 08:57 BP 147/67 H 08/03/21 08:57 Pulse Ox 97 08/03/21 08:57 O2 Del Method 08/03/21 08:57 Weight 109.2 kg BMI result Body Mass Index 31.7 - Constitutional Present: no acute distress - Routine HEENT Exam Head: Present: normal inspection - Routine Neck Exam Present: full ROM, normal inspection. Absent: lymphadenopathy - Routine Respiratory Exam Present: CTAB - Routine Cardiovascular Exam Cardiovascular: Present: S1, S2 - Routine Abdominal Exam Present: normal bowel sounds, soft - Routine Extremities Exam Absent: pedal edema Data - Labs CBC & Chem 7: 09/13/21 10:22 07 10:22 Assessment and Plan Patient Active problem list reviewed?: Yes (1) Prostate cancer metastatic to bone Status: Chronic Assessment and plan: 1. This is a 75-year-old male with metastatic hormone refractory prostate cancer. Initially diagnosed in 2007, underwent radical prostatectomy followed by adjuvant IMRT, intermittent androgen deprivation. Patient is on Lupron every 6 months. He started Zytiga 1000 mg daily with prednisone 5 mg b.i.d. and denosumab since July 15, 2018. He is now on prednisone 5 mg once a day and Zytiga 1000 mg daily. He went back to full dose since March 2020. PET-CT performed 02/2021 showed new uptake in enlargement of left lower lobe pulmonary nodules, few additional bilateral small pulmonary nodules seen. Mild increase in FDG avidity in right posterior iliac bone. He received chemotherapy docetaxel from March 2021 to July 2021. He is on Lupron every 6 months and denosumab q4-6 weeks. Repeat PET scan in August 2021 Sure improvement with decrease in FDG activity in lung nodules and bones compared to previous scan. PSA is now increasing. He will be started on enzalutamide 160 mg once daily for castrate resistant prostate cancer. He will be scheduled for chemotherapy teach appointment to discuss side effects. 2. 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 Follow-up in 4 weeks. - Time Spent With Patient Time Spent with Patient (in minutes): 15
[2021-09-14 10:39] VITALS: BP 142/67; PULSE 67; RESP 14; TEMP 37.2; O2SAT 97; BMI 31.8
[2021-09-14 11:20] LABS: Prostate Specific Antigen 5.42 ng/mL (<0.05-4.0)
--- NOTE | 2021-09-14 14:19 | MHC.HEMONC ---
I called pt to discuss starting new pill, XTANDI and set up teach. he is reluctant to take it at this time as he does not feel his PSA is very high. I informed Dr Ordoñez and so we will wait until next visit.
--- NOTE | 2021-09-14 15:34 | MHC.HEMONC ---
Pt was in for Q6week Xgeva/Denosumab injection along w/ Onc f/u appt. Pt's VSS, had labs drawn the previous day, Ca resulted at 8.8. Nurse admin Xgeva 120 mg to pt's RUE, which was tolerated well. Nurse booked pt's next Xgeva for 6weeks away on 10/26, but noted that pt has a 1 month Onc f/u appt. Nurse asked Dr. Ordoñez, who said that pt could have f/u in 6 weeks to coincide w/ Xgeva injection and avoid making extra trips. Nurse also booked pt for labs the day before on 10/25, as he requested. Pt received d/c packet.
--- NOTE | 2021-09-25 14:59 | MHC.HEMONC ---
Pt received anisa money so he is now considering taking the treatment with Xtandi that Dr Ordoñez wanted. Jocelyn is setting up delivery next week and pt will come in for teaching.
--- NOTE | 2021-10-04 14:40 | MHC.HEMONC ---
Here for Enzalutimide teach, has medicine in hand, it was delivered yesterday. Plan to start tomorrow am. Common side effects and schedule discussed. Pt to return in 2 weeks for CBCd/CMP and PSA. If labs are good then, may go to monthly labs. Has many question regarding finances, enzalutimide is expensive and anisa is for $8000. Laurie to investigate and call patient with further information.
[2021-10-17 16:23] VITALS: BP 133/61; PULSE 85; RESP 16; TEMP 36.8; O2SAT 97; BMI 31.8
--- NOTE | 2021-10-17 16:27 | P.PNHO-ONC_ITS ---
Medical Summary - Medical Summary Date of Service: 10/17/21 Chief complaint: Follow-up Medical Summary: Diagnosis: Metastatic prostate cancer August 2017 Diagnosed with prostate cancer in 2007. Underwent robotic-assisted prostatectomy on 08/04/07. Adenocarcinoma with mucinous differentiation, pT3a pN0, David score 4+3 involving 75% of prostate gland. Underwent adjuvant IMRT following prostatectomy. Underwent surgery for correction of urinary incontinence in 2008, implantation of artificial urinary sphincter in September 2010. He has been on intermittent androgen deprivation, Eligard 45 mg q.6 months. Last PSA in August 2017 14.7 with the testosterone level at 29.5. He was started back on GnRH agonist q.6 months, he was prescribed Casodex but did not start it. One episode of gross hematuria which prompted urine cytology, negative, CT urogram abdomen/pelvis with adrenal cyst, no stone or obstruction. 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 CT abdomen/pelvis with IV contrast August 2017 at [facility] showed increasing size and number of pulmonary lesions, bony lesion in the right ilium measuring 5.7 cm and previously measured 1 cm. No Intra-abdominal lymphadenopathy, normal liver, spleen and pancreas. No hydronephrosis or nephrolithiasis. CT chest with contrast in August 2017 showed mild multiple pulmonary nodules concerning for metastatic disease some solid, some cavitary or cystic. Findings increased since February 2012. 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 Largest lesion in the right lung measuring 3.5x2.5 cm. PET scan performed 09/11/17 showed multifocal FDG avid metastatic lesions present throughout the lungs, largest in the left lower lobe measuring 3.7x2.4 cm with SUV of 3.3. Most intense lesion in the left upper lobe with SUV 4.7 measuring 1.5x1.1 cm. No other adenopathy. FDG avid sclerotic metastasis in the posterior right iliac bone SUV 7.7. Prominent activity in palatine tonsils bilaterally more intense on the right, nonspecific. No corresponding CT abnormality. Direct visualization is recommended. He was diagnosed with bone metastasis, bone scan performed at [facility] in August 2017 showed uptake in the right iliac bone representing a metastatic lesion. Resumed Eligard in August 2017, he stopped Casodex. PSA is rising, testosterone level was 0. Hormone refractory metastatic prostate cancer. Patient started abiraterone/prednisone on 07/15/18. Received 1st does of denosumab 07/02/2018.PET scan performed April 2019 shows marked metabolic response with minimal to no activity in the lung nodules and skeletal bones. Bone scan performed December 2020 shows extensive metastatic disease to right posterior iliac bone, this now extends more laterally compared to previous scan. PET-CT performed 02/2021 showed new uptake in enlargement of left lower lobe pulmonary nodules, few additional bilateral small pulmonary nodules seen. Mild increase in FDG avidity in right posterior iliac bone. He was seen by radiation oncology at [facility], as he is asymptomatic from bony disease, palliative radiation therapy was deferred. He started chemotherapy, Taxotere in March 2021. Interval History Interval history: Patient is here in follow-up. He is doing quite well overall. He has recovered almost completely except for some nail changes related to his chemotherapy. He is a little perturbed because he has to start back on oral hormone pills. He has no bone pain, his appetite is good and he does not understand why he has to take treatment again. Review of Systems - Constitutional Reports as per HPI, Reports no additional constitutional complaints - Cardiovascular Reports no additional cardiovascular complaints [facility] Medical History: Medical History (Last Reviewed 10/17/21 @ 16:26 by BHASKAR Nuñez) Benign essential hypertension CAD (coronary artery disease) Central serous retinopathy Hematuria Impaired fasting glucose Obesity (BMI 30-39.9) Psoriasis Pulmonary nodules Pure hypercholesterolemia Tick bite Family History: Family History (Last Reviewed 10/17/21 @ 16:26 by BHASKAR Nuñez) Father Heart disease CVD (cardiovascular disease) Mother Acute CVA (cerebrovascular accident) CVD (cardiovascular disease) Sister No problems noted. Sister Pacemaker Surgical History: Surgical History (Last Reviewed 10/17/21 @ 16:26 by BHASKAR Nuñez) History of bladder surgery History of prostatectomy History of right knee surgery Social History: Social History (Last Updated 10/17/21 @ 16:27 by BHASKAR Nuñez) Living Situation History: Household Members: Spouse Housing: House Are you a primary nonfarm animal caretaker to a significant other at home: No Do you presently have visiting nurse or other home services: No Alcohol History Details: 1. How often do you have a drink containing alcohol?: b. Monthly or less 2. How many drinks containing alcohol do you have on a typical day when you are drinking?: a. 1 or 2 Tobacco History: Patient Tobacco Use Status: Former Tobacco user Tobacco use type: Cigarette Second Hand Smoke Exposure: Yes Substance Use History: Use of substances other than those prescribed or required for medical reasons : No Domestic Abuse History: Have you been hit, kicked, punched, or otherwise hurt by someone within the past year? If so, by whom?: No Do you feel safe in your current relationship?: Yes Advance Directives: Advance Directives: No Advance Directives Information Provided: No Homicidal Assessment: Do you have thoughts of harming others: None Do you have a plan to hurt others: No Plan Do you have the means to hurt others: No Nutrition Assessment: Recently lost weight without trying: No Occupation Assessmet: service: No Current occupational status: retired Oncology Screenings - ECOG Performance Status ECOG Performance Status: 1 Home Medications and Allergies Home Medications Medication Instructions Recorded Confirmed Type calcium carbonate 600 mg calcium 600 mg PO DAILY 01/03/20 10/17/21 History (1,500 mg) tablet (Calcium) denosumab 120 mg/1.7 mL (70 mg/mL) 120 mg subcut Q4W 01/03/20 10/17/21 History subcutaneous solution leuprolide acetate (6 month) 45 mg 45 mg IM [id number] 01/03/20 10/17/21 History intramuscular syringe kit (Lupron Depot) losartan 50 mg tablet 50 mg PO DAILY 05/08/20 10/17/21 History amlodipine 10 mg tablet 10 mg PO DAILY 09/07/20 10/17/21 History metoprolol succinate 25 mg 25 mg PO BID 09/07/20 10/17/21 History tablet,extended release 24 hr Allergies Allergy/AdvReac Type Severity Reaction Status Date / Time lisinopril Allergy Severe angioedema Verified 10/17/21 16:28 Exam Vital signs: Vital Signs Temp 98.2 F 10/17/21 16:23 Pulse 85 10/17/21 16:23 Resp 16 10/17/21 16:23 BP 133/61 10/17/21 16:23 Pulse Ox 97 10/17/21 16:23 O2 Del Method 10/17/21 16:23 Intake & Output 10/16/21 10/17/21 10/17/21 18:59 06:59 18:59 Other: Weight 109.6 kg [place] Weight in Grams [id number] Weight 109.6 kg BMI result Body Mass Index 31.8 - Constitutional Present: no acute distress - Routine HEENT Exam Head: Present: normal inspection - Routine Neck Exam Present: full ROM, normal inspection. Absent: lymphadenopathy - Routine Respiratory Exam Present: CTAB - Routine Cardiovascular Exam Cardiovascular: Present: S1, S2 - Routine Abdominal Exam Present: normal bowel sounds, soft - Routine Extremities Exam Absent: pedal edema Data - Labs CBC & Chem 7: 09/13/21 10:22 09/13/21 10:22 Assessment and Plan Patient Active problem list reviewed?: Yes (1) Prostate cancer metastatic to bone Status: Chronic Assessment and plan: 1. This is a 75-year-old male with metastatic hormone refractory prostate can cer. Initially diagnosed in 2007, underwent radical prostatectomy followed by adjuvant IMRT, intermittent androgen deprivation. Patient is on Lupron every 6 months. He started Zytiga 1000 mg daily with prednisone 5 mg b.i.d. and denosumab since July 15, 2018. He is now on prednisone 5 mg once a day and Zytiga 1000 mg daily. He went back to full dose since March 2020. He received chemotherapy docetaxel from March 2021 to July 2021 for progressive disease. Repeat PET scan in August 2021 Sure improvement with decrease in FDG activity in lung nodules and bones compared to previous scan. PSA is now increasing. We discussed enzalutamide 160 mg once daily for castrate resistant prostate cancer. He received the medication but he is hesitant to started. He feels very well and is not happy about possible side effects and also the cost of the medication although he is getting drug assistance. Repeat PSA today, he will decide about starting treatment in a few days. 2. 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 Follow-up in 2 months. - Time Spent With Patient Time Spent with Patient (in minutes): 20
--- NOTE | 2021-10-23 13:36 | MHC.HEMONC ---
Pt called for PSA result. I informed him and he stated that he would start XTANDI on . Dr Ordoñez wants labs in 2 weeks. OK to wait until then to give Denosumab. Pt given new schedule and told us to call with any concerns.
[2021-10-24 17:52] LABS: Testosterone, Total <1 ng/dL (250-1100)
[2021-11-06 09:26] LABS: MANUAL DIFF FLAG NO
[2021-11-06 09:32] LABS: Basophils Percent Auto 0.3 % (0-2); Eosinophils Percent Auto 0.5 % (0-4); Hematocrit 38.9 % (42.0-52.0); Hemoglobin 13.3 g/dl (14.0-18.0); Imm Gran Abs Auto 0.02 X10*3/uL (0.00-0.03); Imm Gran Pct Auto 0.3 % (0.0-0.4); Lymphocytes Absolute Auto 1.3 X10*3/uL (1.2-4.9); Lymphocytes Percent Auto 20.7 % (20-40); Mean Corpuscular HGB Conc 34.2 g/dl (31.0-36.0); Mean Corpuscular Hemoglobin 33.4 pg (27.0-33.0); Mean Corpuscular Volume 97.7 fL (80.0-98.0); Mean Platelet Volume 8.8 fL (9.4-12.4); Monocytes Absolute Auto 0.5 X10*3/uL (0.1-1.2); Monocytes Percent Auto 8.6 % (2-11); Neutrophils Absolute Auto 4.4 x10*3/uL (2.0-8.3); Neutrophils Percent Auto 69.6 % (45-73); Platelet Count 176 X10*3/uL (160-400); Red Blood Count 3.98 X10*6/uL (4.60-5.80); Red Cell Distribution Width 12.5 % (11.0-16.0); White Blood Count 6.3 X10*3/uL (4.8-10.8)
[2021-11-06 09:47] LABS: Alanine Aminotransferase 16 U/L (0-40); Albumin Level 4.4 g/dL (3.5-5.0); Alkaline Phosphatase 88 U/L (39-117); Anion Gap 14 (12-20); Aspartate Amino Transferase 19 U/L (5-37); Bilirubin Total 1.3 mg/dL (0.0-1.0); Blood Urea Nitrogen 16 mg/dL (9-16); Calcium 9.3 mg/dL (8.4-10.2); Carbon Dioxide 22 mmol/L (22-29); Chloride 108 mmol/L (96-108); Creatinine Clr Calc Pharmacy 81.1; Estimated Glomerular Filt Rate > 60; Glucose Random 106 mg/dL (60-115); Potassium 4.3 mmol/L (3.3-5.1); Sodium 140 mmol/L (135-145); Total Protein 7.1 g/dL (6.5-8.0)
--- NOTE | 2021-11-06 15:41 | MHC.HEMONC ---
Pt here for lab draw. Blood drawn by java [email or web address] software engineer-specimen to lab
[2021-11-08 10:27] VITALS: BP 166/74; PULSE 58; RESP 18; TEMP 35.9; O2SAT 97; BMI 31.1
--- NOTE | 2021-11-08 10:30 | MHC.HEMONC ---
Denosumab 120mg sc given left upper arm and tolerated well. Calcium level 9.3 on 11/06. Next injection scheduled in 6 weeks with follow up.
--- NOTE | 2021-12-18 13:54 | P.PNHO-ONC_ITS ---
Medical Summary - Medical Summary Date of Service: 12/18/21 Chief complaint: Follow-up Medical Summary: Diagnosis: Metastatic prostate cancer August 2017 Diagnosed with prostate cancer in 2007. Underwent robotic-assisted prostatectomy on 08/04/07. Adenocarcinoma with mucinous differentiation, pT3a pN0, [place] score 4+3 involving 75% of prostate gland. Underwent adjuvant IMRT following prostatectomy. Underwent surgery for correction of urinary incontinence in 2008, implantation of artificial urinary sphincter in September 2010. He has been on intermittent androgen deprivation, Eligard 45 mg q.6 months. Last PSA in August 2017 14.7 with the testosterone level at 29.5. He was started back on GnRH agonist q.6 months, he was prescribed Casodex but did not start it. One episode of gross hematuria which prompted urine cytology, negative, CT urogram abdomen/pelvis with adrenal cyst, no stone or obstruction. 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 CT abdomen/pelvis with IV contrast August 2017 at [facility] showed increasing size and number of pulmonary lesions, bony lesion in the right ilium measuring 5.7 cm and previously measured 1 cm. No Intra-abdominal lymphadenopathy, normal liver, spleen and pancreas. No hydronephrosis or nephrolithiasis. CT chest with contrast in August 2017 showed mild multiple pulmonary nodules concerning for metastatic disease some solid, some cavitary or cystic. Findings increased since February 2012. 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 Largest lesion in the right lung measuring 3.5x2.5 cm. PET scan performed 09/11/17 showed multifocal FDG avid metastatic lesions present throughout the lungs, largest in the left lower lobe measuring 3.7x2.4 cm with SUV of 3.3. Most intense lesion in the left upper lobe with SUV 4.7 measuring 1.5x1.1 cm. No other adenopathy. FDG avid sclerotic metastasis in the posterior right iliac bone SUV 7.7. Prominent activity in palatine tonsils bilaterally more intense on the right, nonspecific. No corresponding CT abnormality. Direct visualization is recommended. He was diagnosed with bone metastasis, bone scan performed at [facility] in August 2017 showed uptake in the right iliac bone representing a metastatic lesion. Resumed Eligard in August 2017, he stopped Casodex. PSA is rising, testosterone level was 0. Hormone refractory metastatic prostate cancer. Patient started abiraterone/prednisone on 07/15/18. Received 1st does of denosumab 07/02/2018.PET scan performed April 2019 shows marked metabolic response with minimal to no activity in the lung nodules and skeletal bones. Bone scan performed December 2020 shows extensive metastatic disease to right posterior iliac bone, this now extends more laterally compared to previous scan. PET-CT performed 02/2021 showed new uptake in enlargement of left lower lobe pulmonary nodules, few additional bilateral small pulmonary nodules seen. Mild increase in FDG avidity in right posterior iliac bone. He was seen by radiation oncology at [facility], as he is asymptomatic from bony disease, palliative radiation therapy was deferred. He started chemotherapy, Taxotere in March 2021. Interval History Interval history: Patient is here in follow-up. He is doing quite well overall. He started taking enzalutamide since end of October. He is tolerating it well. He denies any complaints such as fatigue, shortness of breath or body aches. Review of Systems - Constitutional Reports as per HPI, Reports no additional constitutional complaints - Cardiovascular Reports no additional cardiovascular complaints - Respiratory Reports no additional respiratory complaints - Gastrointestinal Reports no additional gastrointestinal complaints [facility] Medical History: Medical History (Last Reviewed 12/18/21 @ 14:11 by Heather Tubbs) Benign essential hypertension CAD (coronary artery disease) Central serous retinopathy Hematuria Impaired fasting glucose Obesity (BMI 30-39.9) Psoriasis Pulmonary nodules Pure hypercholesterolemia Tick bite Family History: Family History (Last Reviewed 12/18/21 @ 14:11 by Heather Tubbs) Father Heart disease CVD (cardiovascular disease) Mother Acute CVA (cerebrovascular accident) CVD (cardiovascular disease) Sister No problems noted. Sister Pacemaker Surgical History: Surgical History (Last Reviewed 12/18/21 @ 14:11 by Heather Tubbs) History of bladder surgery History of prostatectomy History of right knee surgery Social History: Social History (Last Reviewed 12/18/21 @ 14:11 by Heather Tubbs) Living Situation History: Household Members: Spouse Housing: House Are you a primary wound care nurse to a significant other at home: No Do you presently have visiting nurse or other home services: No Alcohol History Details: 1. How often do you have a drink containing alcohol?: b. Monthly or less 2. How many drinks containing alcohol do you have on a typical day when you are drinking?: a. 1 or 2 Tobacco History: Patient Tobacco Use Status: Former Tobacco user Tobacco use type: Cigarette Second Hand Smoke Exposure: Yes Substance Use History: Use of substances other than those prescribed or required for medical reasons : No Domestic Abuse History: Have you been hit, kicked, punched, or otherwise hurt by someone within the past year? If so, by whom?: No Do you feel safe in your current relationship?: Yes Advance Directives: Advance Directives: No Advance Directives Information Provided: No Homicidal Assessment: Do you have thoughts of harming others: None Do you have a plan to hurt others: No Plan Do you have the means to hurt others: No Nutrition Assessment: Recently lost weight without trying: No Occupation Assessmet: service: No Current occupational status: retired Oncology Screenings - ECOG Performance Status ECOG Performance Status: 1 Home Medications and Allergies Home Medications Medication Instructions Recorded Confirmed Type calcium carbonate 600 mg calcium 600 mg PO DAILY 01/03/20 12/18/21 History (1,500 mg) tablet (Calcium) denosumab 120 mg/1.7 mL (70 mg/mL) 120 mg subcut Q4W 01/03/20 12/18/21 History subcutaneous solution leuprolide acetate (6 month) 45 mg 45 mg IM [id number] 01/03/20 12/18/21 History intramuscular syringe kit (Lupron Depot) losartan 50 mg tablet 50 mg PO DAILY 05/08/20 12/18/21 History amlodipine 10 mg tablet 10 mg PO DAILY 09/07/20 12/18/21 History metoprolol succinate 25 mg 25 mg PO BID 09/07/20 12/18/21 History tablet,extended release 24 hr Allergies Allergy/AdvReac Type Severity Reaction Status Date / Time lisinopril Allergy Severe angioedema Verified 10/17/21 16:28 Exam Vital signs: Vital Signs Temp 96.7 F L 11/08/21 10:27 Pulse 58 11/08/21 10:27 Resp 18 11/08/21 10:27 BP 166/74 H 11/08/21 10:27 Pulse Ox 97 11/08/21 10:27 O2 Del Method 11/08/21 10:27 Weight 107 kg BMI result Body Mass Index 31.1 - Constitutional Present: no acute distress - Routine HEENT Exam Head: Present: normal inspection - Routine Neck Exam Present: full ROM, normal inspection. Absent: lymphadenopathy - Routine Respiratory Exam Present: CTAB - Routine Cardiovascular Exam Cardiovascular: Present: S1, S2 - Routine Abdominal Exam Present: normal bowel sounds, soft - Routine Extremities Exam Absent: pedal edema Data - Labs CBC & Chem 7: 12/18/21 14:15 12/18/21 14:15 Assessment and Plan Patient Active problem list reviewed?: Yes (1) Prostate cancer metastatic to bone Status: Chronic Assessment and plan: 1. This is a 76-year-old male with metastatic hormone refractory prostate cancer. Initially diagnosed in 2007, underwent radical prostatectomy followed by adjuvant IMRT, intermittent androgen deprivation. Patient is on Lupron every 6 months. He started Zytiga 1000 mg daily with prednisone 5 mg b.i.d. and denosumab since July 15, 2018. He is now on prednisone 5 mg once a day and Zytiga 1000 mg daily. He went back to full dose since March 2020. He received chemotherapy docetaxel from March 2021 to July 2021 for progressive disease. He started enzalutamide 160 mg once daily from 11/08/2021. He is tolerating it well. Follow-up in 2 months. - Time Spent With Patient Time Spent with Patient (in minutes): 15
[2021-12-18 14:08] VITALS: BP 157/75; PULSE 70; RESP 14; TEMP 36.4; O2SAT 98; BMI 30.7
[2021-12-18 14:19] LABS: MANUAL DIFF FLAG NO
[2021-12-18 14:24] LABS: Basophils Percent Auto 0.7 % (0-2); Eosinophils Absolute Auto 0.1 X10*3/uL (0.0-0.4); Hematocrit 37.2 % (42.0-52.0); Imm Gran Abs Auto 0.02 X10*3/uL (0.00-0.03); Imm Gran Pct Auto 0.3 % (0.0-0.4); Lymphocytes Absolute Auto 1.8 X10*3/uL (1.2-4.9); Lymphocytes Percent Auto 30.6 % (20-40); Mean Corpuscular HGB Conc 34.9 g/dl (31.0-36.0); Mean Corpuscular Hemoglobin 34.8 pg (27.0-33.0); Mean Corpuscular Volume 99.5 fL (80.0-98.0); Mean Platelet Volume 8.8 fL (9.4-12.4); Monocytes Absolute Auto 0.7 X10*3/uL (0.1-1.2); Monocytes Percent Auto 11.9 % (2-11); Neutrophils Absolute Auto 3.2 x10*3/uL (2.0-8.3); Neutrophils Percent Auto 55.5 % (45-73); Platelet Count 172 X10*3/uL (160-400); Red Blood Count 3.74 X10*6/uL (4.60-5.80); Red Cell Distribution Width 12.6 % (11.0-16.0); White Blood Count 5.8 X10*3/uL (4.8-10.8)
[2021-12-18 14:43] LABS: Alanine Aminotransferase 12 U/L (0-40); Albumin Level 4.3 g/dL (3.5-5.0); Alkaline Phosphatase 110 U/L (39-117); Anion Gap 16 (12-20); Aspartate Amino Transferase 20 U/L (5-37); Bilirubin Total 1.4 mg/dL (0.0-1.0); Blood Urea Nitrogen 17 mg/dL (9-16); Calcium 9.3 mg/dL (8.4-10.2); Carbon Dioxide 22 mmol/L (22-29); Chloride 106 mmol/L (96-108); Creatinine Clr Calc Pharmacy 77.6; Estimated Glomerular Filt Rate > 60; Glucose Random 116 mg/dL (60-115); Sodium 140 mmol/L (135-145); Total Protein 7.1 g/dL (6.5-8.0)
[2021-12-18 15:06] LABS: Prostate Specific Antigen 12.33 ng/mL (<0.05-4.0)
--- NOTE | 2021-12-18 15:18 | MHC.HEMONCMA ---
patient seen today for follow up, VSS, Labs, 1 month followup.
--- NOTE | 2021-12-18 17:00 | MHC.HEMONC ---
Pt here for Denosumab injection and f/u with Dr Ordoñez. Calcium 9.3 Denosumab given left upper arm. Pt toll well. Calendar given for next appt 6 weeks.
[2022-01-28 11:31] LABS: Alanine Aminotransferase 16 U/L (0-40); Albumin Level 4.3 g/dL (3.5-5.0); Alkaline Phosphatase 162 U/L (39-117); Anion Gap 15 (12-20); Aspartate Amino Transferase 19 U/L (5-37); Bilirubin Total 0.9 mg/dL (0.0-1.0); Blood Urea Nitrogen 15 mg/dL (9-16); Calcium 9.4 mg/dL (8.4-10.2); Carbon Dioxide 25 mmol/L (22-29); Chloride 103 mmol/L (96-108); Creatinine Clr Calc Pharmacy 86.2; Estimated Glomerular Filt Rate > 60; Glucose Random 140 mg/dL (60-115); Potassium 4.2 mmol/L (3.3-5.1); Sodium 139 mmol/L (135-145); Total Protein 6.9 g/dL (6.5-8.0)
[2022-01-28 12:15] LABS: Prostate Specific Antigen 22.03 ng/mL (<0.05-4.0)
[2022-01-29 14:38] VITALS: BP 156/74; PULSE 79; RESP 16; TEMP 36.4; O2SAT 97
--- NOTE | 2022-01-29 15:15 | MHC.HEMONC ---
Xgeva 120mg s/c administered to left upper arm and well tolerated. Calcium 9.4- VSS. Calender provided. Patient to return in 6 weeks for Xgeva. Patient requesting to have labs done the day prior.
[2022-02-13 14:32] VITALS: BP 158/75; PULSE 71; RESP 14; O2SAT 98; BMI 30.9
--- NOTE | 2022-02-13 14:33 | PM.HEMONCPN ---
Medical Summary - Medical Summary Date of Service: 02/13/22 Chief complaint: Follow-up Medical Summary: Diagnosis: Metastatic prostate cancer August 2017 Diagnosed with prostate cancer in 2007. Underwent robotic-assisted prostatectomy on 08/04/07. Adenocarcinoma with mucinous differentiation, pT3a pN0, [place] score 4+3 involving 75% of prostate gland. Underwent adjuvant IMRT following prostatectomy. Underwent surgery for correction of urinary incontinence in 2008, implantation of artificial urinary sphincter in September 2010. He has been on intermittent androgen deprivation, Eligard 45 mg q.6 months. Last PSA in August 2017 14.7 with the testosterone level at 29.5. He was started back on GnRH agonist q.6 months, he was prescribed Casodex but did not start it. One episode of gross hematuria which prompted urine cytology, negative, CT urogram abdomen/pelvis with adrenal cyst, no stone or obstruction. 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 CT abdomen/pelvis with IV contrast August 2017 at [facility] showed increasing size and number of pulmonary lesions, bony lesion in the right ilium measuring 5.7 cm and previously measured 1 cm. No Intra-abdominal lymphadenopathy, normal liver, spleen and pancreas. No hydronephrosis or nephrolithiasis. CT chest with contrast in August 2017 showed mild multiple pulmonary nodules concerning for metastatic disease some solid, some cavitary or cystic. Findings increased since February 2012. 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 Largest lesion in the right lung measuring 3.5x2.5 cm. PET scan performed 09/11/17 showed multifocal FDG avid metastatic lesions present throughout the lungs, largest in the left lower lobe measuring 3.7x2.4 cm with SUV of 3.3. Most intense lesion in the left upper lobe with SUV 4.7 measuring 1.5x1.1 cm. No other adenopathy. FDG avid sclerotic metastasis in the posterior right iliac bone SUV 7.7. Prominent activity in palatine tonsils bilaterally more intense on the right, nonspecific. No corresponding CT abnormality. Direct visualization is recommended. He was diagnosed with bone metastasis, bone scan performed at [facility] in August 2017 showed uptake in the right iliac bone representing a metastatic lesion. Resumed Eligard in August 2017, he stopped Casodex. PSA is rising, testosterone level was 0. Hormone refractory metastatic prostate cancer. Patient started abiraterone/prednisone on 07/15/18. Received 1st does of denosumab 07/02/2018.PET scan performed April 2019 shows marked metabolic response with minimal to no activity in the lung nodules and skeletal bones. Bone scan performed December 2020 shows extensive metastatic disease to right posterior iliac bone, this now extends more laterally compared to previous scan. PET-CT performed 02/2021 showed new uptake in enlargement of left lower lobe pulmonary nodules, few additional bilateral small pulmonary nodules seen. Mild increase in FDG avidity in right posterior iliac bone. He was seen by radiation oncology at [facility], as he is asymptomatic from bony disease, palliative radiation therapy was deferred. He started chemotherapy, Taxotere in March 2021. Interval History Interval history: Patient is here in follow-up. He reports some fatigue, loss of nail from 2 of his toes and some numbness in his feet. He denies nausea, headache or dizziness. No abdominal pain. Review of Systems - Constitutional Reports as per HPI, Denies fatigue, Denies fever(s), Denies lack of energy, Denies malaise - Cardiovascular Reports no additional cardiovascular complaints - Respiratory Reports no additional respiratory complaints - Gastrointestinal Reports no additional gastrointestinal complaints [facility] Medical History: Medical History (Last Reviewed 02/13/22 @ 14:33 by Heather Tubbs) Benign essential hypertension CAD (coronary artery disease) Central serous retinopathy Hematuria Impaired fasting glucose Obesity (BMI 30-39.9) Psoriasis Pulmonary nodules Pure hypercholesterolemia Tick bite Family History: Family History (Last Reviewed 02/13/22 @ 14:33 by Heather Tubbs) Father Heart disease CVD (cardiovascular disease) Mother Acute CVA (cerebrovascular accident) CVD (cardiovascular disease) Sister No problems noted. Sister Pacemaker Surgical History: Surgical History (Last Reviewed 02/13/22 @ 14:33 by Heather Tubbs) History of bladder surgery History of prostatectomy History of right knee surgery Social History: Social History (Last Reviewed 02/13/22 @ 14:33 by Heather Tubbs) Living Situation History: Household Members: Spouse Housing: House Are you a primary insurance healthcare consultant to a significant other at home: No Do you presently have visiting nurse or other home services: No Alcohol History Details: 1. How often do you have a drink containing alcohol?: b. Monthly or less 2. How many drinks containing alcohol do you have on a typical day when you are drinking?: a. 1 or 2 Tobacco History: Patient Tobacco Use Status: Former Tobacco user Tobacco use type: Cigarette Second Hand Smoke Exposure: Yes Substance Use History: Use of substances other than those prescribed or required for medical reasons: No Domestic Abuse History: Have you been hit, kicked, punched, or otherwise hurt by someone within the past year? If so, by whom?: No Do you feel safe in your current relationship?: Yes Advance Directives: Advance Directives: No Advance Directives Information Provided: No Homicidal Assessment: Do you have thoughts of harming others: None Do you have a plan to hurt others: No Plan Do you have the means to hurt others: No Nutrition Assessment: Recently lost weight without trying: No Occupation Assessmet: service: No Current occupational status: retired Oncology Screenings - ECOG Performance Status ECOG Performance Status: 1 Home Medications and Allergies Home Medications Medication Instructions Recorded Confirmed Type calcium carbonate 600 mg calcium 600 mg PO DAILY 01/03/20 02/13/22 History (1,500 mg) tablet (Calcium) denosumab 120 mg/1.7 mL (70 mg/mL) 120 mg subcut Q4W 01/03/20 02/13/22 History subcutaneous solution leuprolide acetate (6 month) 45 mg 45 mg IM [id number] 01/03/20 02/13/22 History intramuscular syringe kit (Lupron Depot) losartan 50 mg tablet 50 mg PO DAILY 05/08/20 02/13/22 History amlodipine 10 mg tablet 10 mg PO DAILY 09/07/20 02/13/22 History metoprolol succinate 25 mg 25 mg PO BID 09/07/20 02/13/22 History tablet,extended release 24 hr Allergies Allergy/AdvReac Type Severity Reaction Status Date / Time lisinopril Allergy Severe angioedema Verified 01/15/22 09:59 Exam Vital signs: Vital Signs Temp 97.5 F 01/29/22 14:38 Pulse 71 02/13/22 14:32 Resp 14 02/13/22 14:32 BP 158/75 H 02/13/22 14:32 Pulse Ox 98 02/13/22 14:32 O2 Del Method 02/13/22 14:32 Intake & Output 02/12/22 02/13/22 02/13/22 18:59 06:59 18:59 Other: Weight 106.2 kg Weight in Grams [id number] Weight 106.2 kg BMI result Body Mass Index 30.9 - Constitutional Present: no acute distress - Routine HEENT Exam Head: Present: normal inspection - Routine Neck Exam Present: full ROM, normal inspection. Absent: lymphadenopathy - Routine Respiratory Exam Present: CTAB - Routine Cardiovascular Exam Cardiovascular: Present: S1, S2 - Routine Abdominal Exam Present: normal bowel sounds, soft - Routine Extremities Exam Absent: pedal edema Data - Labs CBC & Chem 7: 02/13/22 14:37 02/13/22 14:37 Assessment and Plan Patient Active problem list reviewed?: Yes (1) Prostate cancer metastatic to bone Status: Chronic Assessment and plan: 1. This is a 76-year-old male with metastatic hormone refractory prostate cancer. Initially diagnosed in 2007, underwent radical prostatectomy followed by adjuvant IMRT, intermittent androgen deprivation. Patient is on Lupron every 6 months. He started Zytiga 1000 mg daily with prednisone 5 mg b.i.d. and denosumab since July 15, 2018. He is now on prednisone 5 mg once a day and Zytiga 1000 mg daily. He went back to full dose since March 2020. He received chemotherapy docetaxel from March 2021 to July 2021 for progressive disease. He started enzalutamide 160 mg once daily from 11/08/2021. He is tolerating it well. PSA is being monitored. There has been some elevation in the recent months. PSMA PET scan has been ordered. Follow-up in 1 months. - Time Spent With Patient Time Spent with Patient (in minutes): 15
[2022-02-13 15:01] LABS: Hematocrit 38.4 % (42.0-52.0); Hemoglobin 13.2 g/dl (14.0-18.0); Mean Corpuscular HGB Conc 34.4 g/dl (31.0-36.0); Mean Corpuscular Hemoglobin 34.8 pg (27.0-33.0); Mean Corpuscular Volume 101.3 fL (80.0-98.0); Mean Platelet Volume 8.8 fL (9.4-12.4); Platelet Count 191 X10*3/uL (160-400); Red Blood Count 3.79 X10*6/uL (4.60-5.80); Red Cell Distribution Width 12.3 % (11.0-16.0); White Blood Count 5.9 X10*3/uL (4.8-10.8)
--- NOTE | 2022-02-13 15:28 | MHC.HEMONCMA ---
patient seen today for followup prostate ca, VSS, labs, 1 month followup.
[2022-02-13 15:39] LABS: Alanine Aminotransferase 14 U/L (0-40); Albumin Level 4.4 g/dL (3.5-5.0); Alkaline Phosphatase 186 U/L (39-117); Anion Gap 14 (12-20); Aspartate Amino Transferase 20 U/L (5-37); Bilirubin Total 1.5 mg/dL (0.0-1.0); Blood Urea Nitrogen 19 mg/dL (9-16); Carbon Dioxide 25 mmol/L (22-29); Chloride 105 mmol/L (96-108); Creatinine Clr Calc Pharmacy 85.5; Estimated Glomerular Filt Rate > 60; Glucose Random 88 mg/dL (60-115); Potassium 4.5 mmol/L (3.3-5.1); Prostate Specific Antigen 21.84 ng/mL (<0.05-4.0); Sodium 139 mmol/L (135-145)
--- NOTE | 2022-02-13 15:50 | MHC.HEMONCMA ---
a petscan was ordered and given to [facility] for authorization.
--- NOTE | 2022-02-13 17:01 | HO.HEMONCPA ---
NO PA REQUIRED FOR PET/CT SCAN. SCAN COVERED [facility] PART B BENEFITS.
--- NOTE | 2022-02-13 17:20 | HO.HEMONCSCH ---
PSMA PET/CT SCAN FAXED TO [facility] AWAITING APPT DATE & TIME
--- NOTE | 2022-03-05 15:49 | MHC.HEMONCMA ---
Dr. Solares from [facility] [phone], called to speak with Dr. Ordoñez about PMSA scan.
[2022-03-12 09:46] LABS: MANUAL DIFF FLAG NO
[2022-03-12 09:49] LABS: Hematocrit 36.9 % (42.0-52.0); Hemoglobin 12.5 g/dl (14.0-18.0); Mean Corpuscular HGB Conc 33.9 g/dl (31.0-36.0); Mean Corpuscular Hemoglobin 33.9 pg (27.0-33.0); Platelet Count 246 X10*3/uL (160-400); Red Blood Count 3.69 X10*6/uL (4.60-5.80); Red Cell Distribution Width 11.9 % (11.0-16.0); White Blood Count 5.6 X10*3/uL (4.8-10.8)
[2022-03-12 09:50] LABS: Basophils Percent Auto 0.5 % (0-2); Eosinophils Absolute Auto 0.1 X10*3/uL (0.0-0.4); Eosinophils Percent Auto 0.9 % (0-4); Imm Gran Abs Auto 0.01 X10*3/uL (0.00-0.03); Imm Gran Pct Auto 0.2 % (0.0-0.4); Lymphocytes Absolute Auto 1.2 X10*3/uL (1.2-4.9); Mean Platelet Volume 8.6 fL (9.4-12.4); Monocytes Absolute Auto 0.7 X10*3/uL (0.1-1.2); Monocytes Percent Auto 11.8 % (2-11); Neutrophils Absolute Auto 3.7 x10*3/uL (2.0-8.3); Neutrophils Percent Auto 65.6 % (45-73)
[2022-03-12 10:10] LABS: Alanine Aminotransferase 10 U/L (0-40); Albumin Level 4.2 g/dL (3.5-5.0); Alkaline Phosphatase 241 U/L (39-117); Anion Gap 13 (12-20); Aspartate Amino Transferase 22 U/L (5-37); Bilirubin Total 1.1 mg/dL (0.0-1.0); Blood Urea Nitrogen 11 mg/dL (9-16); Calcium 8.5 mg/dL (8.4-10.2); Carbon Dioxide 24 mmol/L (22-29); Chloride 105 mmol/L (96-108); Creatinine Clr Calc Pharmacy 89.4; Estimated Glomerular Filt Rate > 60; Glucose Random 115 mg/dL (60-115); Potassium 4.2 mmol/L (3.3-5.1); Sodium 138 mmol/L (135-145); Total Protein 6.9 g/dL (6.5-8.0)
--- NOTE | 2022-03-12 16:18 | MHC.HEMONC ---
Pt here for lab draw. Blood drawn by filter worker-specimen to lab.
--- NOTE | 2022-03-13 14:46 | PM.HEMONCPN ---
Medical Summary - Medical Summary Date of Service: 03/13/22 Chief complaint: Follow-up Medical Summary: Diagnosis: Metastatic prostate cancer August 2017 Diagnosed with prostate cancer in 2007. Underwent robotic-assisted prostatectomy on 08/04/07. Adenocarcinoma with mucinous differentiation, pT3a pN0, [place] score 4+3 involving 75% of prostate gland. Underwent adjuvant IMRT following prostatectomy. Underwent surgery for correction of urinary incontinence in 2008, implantation of artificial urinary sphincter in September 2010. He has been on intermittent androgen deprivation, Eligard 45 mg q.6 months. Last PSA in August 2017 14.7 with the testosterone level at 29.5. He was started back on GnRH agonist q.6 months, he was prescribed Casodex but did not start it. One episode of gross hematuria which prompted urine cytology, negative, CT urogram abdomen/pelvis with adrenal cyst, no stone or obstruction. 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 CT abdomen/pelvis with IV contrast August 2017 at [facility] showed increasing size and number of pulmonary lesions, bony lesion in the right ilium measuring 5.7 cm and previously measured 1 cm. No Intra-abdominal lymphadenopathy, normal liver, spleen and pancreas. No hydronephrosis or nephrolithiasis. CT chest with contrast in August 2017 showed mild multiple pulmonary nodules concerning for metastatic disease some solid, some cavitary or cystic. Findings increased since February 2012. 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 Largest lesion in the right lung measuring 3.5x2.5 cm. PET scan performed 09/11/17 showed multifocal FDG avid metastatic lesions present throughout the lungs, largest in the left lower lobe measuring 3.7x2.4 cm with SUV of 3.3. Most intense lesion in the left upper lobe with SUV 4.7 measuring 1.5x1.1 cm. No other adenopathy. FDG avid sclerotic metastasis in the posterior right iliac bone SUV 7.7. Prominent activity in palatine tonsils bilaterally more intense on the right, nonspecific. No corresponding CT abnormality. Direct visualization is recommended. He was diagnosed with bone metastasis, bone scan performed at [facility] in August 2017 showed uptake in the right iliac bone representing a metastatic lesion. Resumed Eligard in August 2017, he stopped Casodex. PSA is rising, testosterone level was 0. Hormone refractory metastatic prostate cancer. Patient started abiraterone/prednisone on 07/15/18. Received 1st does of denosumab 07/02/2018.PET scan performed April 2019 shows marked metabolic response with minimal to no activity in the lung nodules and skeletal bones. Bone scan performed December 2020 shows extensive metastatic disease to right posterior iliac bone, this now extends more laterally compared to previous scan. PET-CT performed 02/2021 showed new uptake in enlargement of left lower lobe pulmonary nodules, few additional bilateral small pulmonary nodules seen. Mild increase in FDG avidity in right posterior iliac bone. He was seen by radiation oncology at [facility], as he is asymptomatic from bony disease, palliative radiation therapy was deferred. He started chemotherapy, Taxotere in March 2021. Interval History Interval history: Patient is here in follow-up. He denies any acute complaints such as headache or dizziness. No blurry vision, focal weakness. He denies nausea, headache or dizziness. He denies any gait or speech problems. No abdominal pain. He is here to discuss results of recently performed imaging studies. Review of Systems - Constitutional Reports as per HPI, Denies anorexia, Reports fatigue, Reports malaise, Denies weight loss - Cardiovascular Reports no additional cardiovascular complaints - Respiratory Reports no additional respiratory complaints [facility] Medical History: Medical History (Last Reviewed 03/13/22 @ 14:50 by Heather Tubbs) Benign essential hypertension CAD (coronary artery disease) Central serous retinopathy Hematuria Impaired fasting glucose Obesity (BMI 30-39.9) Psoriasis Pulmonary nodules Pure hypercholesterolemia Tick bite Family History: Family History (Last Reviewed 03/13/22 @ 14:50 by Heather Tubbs) Father Heart disease CVD (cardiovascular disease) Mother Acute CVA (cerebrovascular accident) CVD (cardiovascular disease) Sister No problems noted. Sister Pacemaker Surgical History: Surgical History (Last Reviewed 03/13/22 @ 14:50 by Heather Tubbs) History of bladder surgery History of prostatectomy History of right knee surgery Social History: Social History (Last Reviewed 03/13/22 @ 14:50 by Heather Tubbs) Living Situation History: Household Members: Spouse Housing: House Are you a primary child care assistant to a significant other at home: No Do you presently have visiting nurse or other home services: No Alcohol History Details: 1. How often do you have a drink containing alcohol?: b. Monthly or less 2. How many drinks containing alcohol do you have on a typical day when you are drinking?: a. 1 or 2 Tobacco History: Patient Tobacco Use Status: Former Tobacco user Tobacco use type: Cigarette Second Hand Smoke Exposure: Yes Substance Use History: Use of substances other than those prescribed or required for medical reasons: No Domestic Abuse History: Have you been hit, kicked, punched, or otherwise hurt by someone within the past year? If so, by whom?: No Do you feel safe in your current relationship?: Yes Advance Directives: Advance Directives: No Advance Directives Information Provided: No Homicidal Assessment: Do you have thoughts of harming others: None Do you have a plan to hurt others: No Plan Do you have the means to hurt others: No Nutrition Assessment: Recently lost weight without trying: No Occupation Assessmet: service: No Current occupational status: retired Oncology Screenings - ECOG Performance Status ECOG Performance Status: 1 Home Medications and Allergies Current Medications: Current Medications Denosumab (Denosumab 120 Mg/1.7 Ml Vial) 120 mg SUBCUT ONCE RICH Stop: 03/13/22 23:59 Home Medications Medication Instructions Recorded Confirmed Type calcium carbonate 600 mg calcium 600 mg PO DAILY 01/03/20 03/13/22 History (1,500 mg) tablet (Calcium) denosumab 120 mg/1.7 mL (70 mg/mL) 120 mg subcut Q4W 01/03/20 03/13/22 History subcutaneous solution leuprolide acetate (6 month) 45 mg 45 mg IM [id number] 01/03/20 03/13/22 History intramuscular syringe kit (Lupron Depot) losartan 50 mg tablet 50 mg PO DAILY 05/08/20 03/13/22 History amlodipine 10 mg tablet 10 mg PO DAILY 09/07/20 03/13/22 History metoprolol succinate 25 mg 25 mg PO BID 09/07/20 03/13/22 History tablet,extended release 24 hr Allergies Allergy/AdvReac Type Severity Reaction Status Date / Time lisinopril Allergy Severe angioedema Verified 01/15/22 09:59 Exam Vital signs: Vital Signs Temp 97.5 F 01/29/22 14:38 Pulse 71 02/13/22 14:32 Resp 14 02/13/22 14:32 BP 158/75 H 02/13/22 14:32 Pulse Ox 98 02/13/22 14:32 O2 Del Method 02/13/22 14:32 Weight 106.2 kg BMI result Body Mass Index 30.9 - Constitutional Present: no acute distress - Routine HEENT Exam Head: Present: normal inspection - Routine Neck Exam Present: full ROM, normal inspection. Absent: lymphadenopathy - Routine Respiratory Exam Present: CTAB - Routine Cardiovascular Exam Cardiovascular: Present: S1, S2 - Routine Abdominal Exam Present: normal bowel sounds, soft - Routine Extremities Exam Absent: pedal edema Data - Labs CBC & Chem 7: 03/12/22 09:34 03/12/22 09:34 Assessment and Plan Patient Active problem list reviewed?: Yes (1) Prostate cancer metastatic to bone Status: Chronic Assessment and plan: 1. This is a 76-year-old male with metastatic hormone refractory prostate cancer. Initially diagnosed in 2007, underwent radical prostatectomy followed by adjuvant IMRT, intermittent androgen deprivation. Patient is on Lupron every 6 months. He started Zytiga 1000 mg daily with prednisone 5 mg b.i.d. and denosumab since July 15, 2018. He is now on prednisone 5 mg once a day and Zytiga 1000 mg daily. He went back to full dose since March 2020. He received chemotherapy docetaxel from March 2021 to July 2021 for progressive disease. He started enzalutamide 160 mg once daily from 11/08/2021. He is tolerating it well. His PSA in February was 21.84 NG/mL. PSMA PET scan performed at [facility] on 03/05/2022 revealed multiple brain lesions in the cerebellar /left cerebellar hemisphere masses with uptake, SUV 8.4. Abnormal right temporal lobe mass with SUV 8.9 and surrounding edema, abnormal inferior medial right cerebellar hemispheric small rounded lesion. Multifocal irregular pulmonary nodular lesions with SUV 5.1. Abnormal left paraesophageal soft tissue lymph node with SUV 5.4, mass in the left lower lobe of lung measuring 2.5 x 3.6 cm with SUV 8, 5 cm heterogenous mass in the left hepatic lobe, peripheral uptake max as 7.4, abnormal multifocal right iliac bone sclerosis with uptake SUV 16.9 and abnormal extensive sclerotic sacral or she is uptake SUV 24.4 and L5 vertebral body sclerotic lesion with SUV 6.7. Brain MRI with and without contrast performed 03/08/2022 at [facility] showed large volume heterogenously enhancing metastatic disease throughout supratentorial and infratentorial brain some of which is hemorrhagic. Largest lesion with the supratentorial brain in the right temporal periventricular white matter measuring up to 4 cm in size surrounded by significant edema. Largest in the infratentorial brain located in the left cerebellar hemisphere measuring up to 2.8 cm. Multiple small enhancing lesions throughout cerebral and cerebellar hemispheres bilaterally. No midline shift or herniation. I discussed above findings with patient. He does not have overt symptoms or denies any significant symptoms. He is being started on dexamethasone 4 mg p.o. 3 times a day. He is being referred urgently to radiation oncologist at [facility]. It is not clear whether all of this metastatic disease is from prostate cancer or he has a 2nd primary. He does not have any skin lesions but melanoma is a possible diagnosis. I have ordered ultrasound of liver/abdomen to see if liver lesion is amenable for biopsy. Follow-up in 1 week. - Time Spent With Patient Time Spent with Patient (in minutes): 45
[2022-03-13 14:47] VITALS: BP 165/79; PULSE 79; RESP 15; TEMP 36.7; O2SAT 97; BMI 30.2
--- NOTE | 2022-03-13 14:48 | MHC.HEMONC ---
Pt has appt at [facility] with Dr Moreno rose: new brain mets. Appt is Friday03/18/22 at 9 am and pt is aware.
--- NOTE | 2022-03-13 15:50 | MHC.HEMONC ---
Xgeva 120mg administered to right upper arm and well tolerated. Calcium 8.5- Exam with Dr. Ordoñez. Patient to return in 6wks for labs and injection. Discharge packet provided.
--- NOTE | 2022-03-13 16:32 | MHC.HEMONCMA ---
patient seen today for followup, VSS, labs, u/s abd/liver, 2 week followup.
--- NOTE | 2022-03-14 11:36 | MHC.HEMONCMA ---
entered on OF u/s bX liver and us abd complete.
--- NOTE | 2022-03-21 11:00 | MHC.HEMONC ---
Triage call: Medication clarification on current steroids (Dexamethasone and Prednisone). Patient instructed to stop taking Prednisone 5mg daily per Dr. Ordoñez. Continue Dexamethasone 4mg but decrease from TID to BID. Patient verbalizes understanding. Follow up appt 04/03/22. Patient has had 2 radiation appts and 8 more to complete.
--- NOTE | 2022-03-21 15:08 | MHC.HEMONCMA ---
notified patient of u/s booked with [facility] [id number] 03/27/22 at 9:30am, told patient to come 15 min early to patient reg in lobby, no fasting req.
[2022-04-03 11:11] VITALS: BP 167/77; PULSE 78; RESP 15; TEMP 36.1; O2SAT 99; BMI 28.4
[2022-04-03 11:11] LABS: Hematocrit 37.4 % (42.0-52.0); Hemoglobin 12.9 g/dl (14.0-18.0); Mean Corpuscular HGB Conc 34.5 g/dl (31.0-36.0); Mean Corpuscular Hemoglobin 34.1 pg (27.0-33.0); Mean Corpuscular Volume 98.9 fL (80.0-98.0); Mean Platelet Volume 8.6 fL (9.4-12.4); Platelet Count 271 X10*3/uL (160-400); Red Blood Count 3.78 X10*6/uL (4.60-5.80); Red Cell Distribution Width 12.3 % (11.0-16.0); White Blood Count 11.6 X10*3/uL (4.8-10.8)
--- NOTE | 2022-04-03 11:27 | MHC.HEMONCMA ---
patient seen today for follow up prostate/bone mets ca, VSS, labs, patient has thrush-sending medication to pharmacy, 3 week followup .
[2022-04-03 11:46] LABS: Alanine Aminotransferase 11 U/L (0-40); Alkaline Phosphatase 209 U/L (39-117); Anion Gap 17 (12-20); Aspartate Amino Transferase 17 U/L (5-37); Bilirubin Total 1.1 mg/dL (0.0-1.0); Blood Urea Nitrogen 18 mg/dL (9-16); Calcium 8.9 mg/dL (8.4-10.2); Carbon Dioxide 21 mmol/L (22-29); Chloride 103 mmol/L (96-108); Creatinine Clr Calc Pharmacy 72.7; Estimated Glomerular Filt Rate > 60; Glucose Random 116 mg/dL (60-115); Lactate Dehydrogenase 290 U/L (118-273); Sodium 137 mmol/L (135-145)
--- NOTE | 2022-04-03 15:38 | PM.HEMONCPN ---
Medical Summary - Medical Summary Date of Service: 04/03/22 Chief complaint: Sore throat Medical Summary: Diagnosis: Metastatic prostate cancer August 2017 Diagnosed with prostate cancer in 2007. Underwent robotic-assisted prostatectomy on 08/04/07. Adenocarcinoma with mucinous differentiation, pT3a pN0, [place] score 4+3 involving 75% of prostate gland. Underwent adjuvant IMRT following prostatectomy. Underwent surgery for correction of urinary incontinence in 2008, implantation of artificial urinary sphincter in September 2010. He has been on intermittent androgen deprivation, Eligard 45 mg q.6 months. Last PSA in August 2017 14.7 with the testosterone level at 29.5. He was started back on GnRH agonist q.6 months, he was prescribed Casodex but did not start it. One episode of gross hematuria which prompted urine cytology, negative, CT urogram abdomen/pelvis with adrenal cyst, no stone or obstruction. 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 CT abdomen/pelvis with IV contrast August 2017 at [facility] showed increasing size and number of pulmonary lesions, bony lesion in the right ilium measuring 5.7 cm and previously measured 1 cm. No Intra-abdominal lymphadenopathy, normal liver, spleen and pancreas. No hydronephrosis or nephrolithiasis. CT chest with contrast in August 2017 showed mild multiple pulmonary nodules concerning for metastatic disease some solid, some cavitary or cystic. Findings increased since February 2012. 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 Largest lesion in the right lung measuring 3.5x2.5 cm. PET scan performed 09/11/17 showed multifocal FDG avid metastatic lesions present throughout the lungs, largest in the left lower lobe measuring 3.7x2.4 cm with SUV of 3.3. Most intense lesion in the left upper lobe with SUV 4.7 measuring 1.5x1.1 cm. No other adenopathy. FDG avid sclerotic metastasis in the posterior right iliac bone SUV 7.7. Prominent activity in palatine tonsils bilaterally more intense on the right, nonspecific. No corresponding CT abnormality. Direct visualization is recommended. He was diagnosed with bone metastasis, bone scan performed at [facility] in August 2017 showed uptake in the right iliac bone representing a metastatic lesion. Resumed Eligard in August 2017, he stopped Casodex. PSA is rising, testosterone level was 0. Hormone refractory metastatic prostate cancer. Patient started abiraterone/prednisone on 07/15/18. Received 1st does of denosumab 07/02/2018.PET scan performed April 2019 shows marked metabolic response with minimal to no activity in the lung nodules and skeletal bones. Bone scan performed December 2020 shows extensive metastatic disease to right posterior iliac bone, this now extends more laterally compared to previous scan. PET-CT performed 02/2021 showed new uptake in enlargement of left lower lobe pulmonary nodules, few additional bilateral small pulmonary nodules seen. Mild increase in FDG avidity in right posterior iliac bone. He was seen by radiation oncology at [facility], as he is asymptomatic from bony disease, palliative radiation therapy was deferred. He started chemotherapy, Taxotere in March 2021. Interval History Interval history: Patient is here in follow-up. He is accompanied by his significant other and daughter today. Today is his last day of whole-brain radiation therapy. He reports a sore throat that just started this morning. He denies any cough, no fever or chills. He denies any headache or dizziness. He is being tapered off the steroids. He is going for liver biopsy tomorrow. Review of Systems - Constitutional Reports as per HPI, Reports no additional constitutional complaints, Denies lack of energy, Reports malaise, Reports poor appetite, Reports weakness, Reports weight loss - Cardiovascular Reports no additional cardiovascular complaints - Respiratory Reports no additional respiratory complaints - Gastrointestinal Reports no additional gastrointestinal complaints [facility] Medical History: Medical History (Last Reviewed 04/03/22 @ 11:14 by Heather Tubbs) Benign essential hypertension CAD (coronary artery disease) Central serous retinopathy Hematuria Impaired fasting glucose Obesity (BMI 30-39.9) Psoriasis Pulmonary nodules Pure hypercholesterolemia Tick bite Family History: Family History (Last Reviewed 04/03/22 @ 11:14 by Heather Tubbs) Father Heart disease CVD (cardiovascular disease) Mother Acute CVA (cerebrovascular accident) CVD (cardiovascular disease) Sister No problems noted. Sister Pacemaker Surgical History: Surgical History (Last Reviewed 04/03/22 @ 11:14 by Heather Tubbs) History of bladder surgery History of prostatectomy History of right knee surgery Social History: Social History (Last Reviewed 04/03/22 @ 11:14 by Heather Tubbs) Living Situation History: Household Members: Spouse Housing: House Are you a primary health care facilities inspector to a significant other at home: No Do you presently have visiting nurse or other home services: No Alcohol History Details: 1. How often do you have a drink containing alcohol?: b. Monthly or less 2. How many drinks containing alcohol do you have on a typical day when you are drinking?: a. 1 or 2 Tobacco History: Patient Tobacco Use Status: Former Tobacco user Tobacco use type: Cigarette Second Hand Smoke Exposure: Yes Substance Use History: Use of substances other than those prescribed or required for medical reasons: No Domestic Abuse History: Have you been hit, kicked, punched, or otherwise hurt by someone within the past year? If so, by whom?: No Do you feel safe in your current relationship?: Yes Advance Directives: Advance Directives: No Advance Directives Information Provided: No Homicidal Assessment: Do you have thoughts of harming others: None Do you have a plan to hurt others: No Plan Do you have the means to hurt others: No Nutrition Assessment: Recently lost weight without trying: No Occupation Assessmet: service: No Current occupational status: retired Home Medications and Allergies Home Medications Medication Instructions Recorded Confirmed Type calcium carbonate 600 mg calcium 600 mg PO DAILY 01/03/20 04/03/22 History (1,500 mg) tablet (Calcium) denosumab 120 mg/1.7 mL (70 mg/mL) 120 mg subcut Q4W 01/03/20 04/03/22 History subcutaneous solution leuprolide acetate (6 month) 45 mg 45 mg IM [id number] 01/03/20 04/03/22 History intramuscular syringe kit (Lupron Depot) losartan 50 mg tablet 50 mg PO DAILY 05/08/20 04/03/22 History amlodipine 10 mg tablet 10 mg PO DAILY 09/07/20 04/03/22 History metoprolol succinate 25 mg 25 mg PO BID 09/07/20 04/03/22 History tablet,extended release 24 hr Allergies Allergy/AdvReac Type Severity Reaction Status Date / Time lisinopril Allergy Severe angioedema Verified 01/15/22 09:59 Exam Vital signs: Vital Signs Temp 97.0 F 04/03/22 11:11 Pulse 78 04/03/22 11:11 Resp 15 04/03/22 11:11 BP 167/77 H 04/03/22 11:11 Pulse Ox 99 04/03/22 11:11 O2 Del Method 04/03/22 11:11 Intake & Output 04/02/22 04/03/22 04/03/22 18:59 06:59 18:59 Other: Weight 97.7 kg Weight in Grams [id number] Weight 97.7 kg BMI result Body Mass Index 28.4 - Constitutional Present: no acute distress - Routine HEENT Exam Head: Present: normal inspection Eye: Present: PERRL - Detailed ENT Exam Oropharynx: Present: white patches - Routine Neck Exam Present: full ROM, normal inspection. Absent: lymphadenopathy - Routine Respiratory Exam Present: CTAB - Routine Cardiovascular Exam Cardiovascular: Present: S1, S2 - Routine Abdominal Exam Present: normal bowel sounds, soft - Routine Extremities Exam Absent: pedal edema Data - Labs CBC & Chem 7: 04/03/22 11:05 04/03/22 11:05 Assessment and Plan Patient Active problem list reviewed?: Yes (1) Prostate cancer metastatic to bone Status: Chronic Assessment and plan: 1. This is a 76-year-old male with metastatic hormone refractory prostate cancer. Initially diagnosed in 2007, underwent radical prostatectomy followed by adjuvant IMRT, intermittent androgen deprivation. Patient is on Lupron every 6 months. He started Zytiga 1000 mg daily with prednisone 5 mg b.i.d. and denosumab since July 15, 2018. He is now on prednisone 5 mg once a day and Zytiga 1000 mg daily. He went back to full dose since March 2020. He received chemotherapy docetaxel from March 2021 to July 2021 for progressive disease. He started enzalutamide 160 mg once daily from 11/08/2021. PSMA PET scan performed at [facility] on 03/05/2022 revealed multiple brain lesions in the cerebellar /left cerebellar hemisphere masses with uptake, SUV 8.4. Abnormal right temporal lobe mass with SUV 8.9 and surrounding edema, abnormal inferior medial right cerebellar hemispheric small rounded lesion. Multifocal irregular pulmonary nodular lesions with SUV 5.1. Abnormal left paraesophageal soft tissue lymph node with SUV 5.4, mass in the left lower lobe of lung measuring 2.5 x 3.6 cm with SUV 8, 5 cm heterogenous mass in the left hepatic lobe, peripheral uptake max as 7.4, abnormal multifocal right iliac bone sclerosis with uptake SUV 16.9 and abnormal extensive sclerotic sacral or she is uptake SUV 24.4 and L5 vertebral body sclerotic lesion with SUV 6.7. Brain MRI with and without contrast performed 03/08/2022 [place] [facility] showed large volume heterogenously enhancing metastatic disease throughout supratentorial and infratentorial brain some of which is hemorrhagic. Largest lesion with the supratentorial brain in the right temporal periventricular white matter measuring up to 4 cm in size surrounded by significant edema. Largest in the infratentorial brain located in the left cerebellar hemisphere measuring up to 2.8 cm. Multiple small enhancing lesions throughout cerebral and cerebellar hemispheres bilaterally. No midline shift or herniation. He completed whole-brain RT at [facility] on 04/03/2022. He is being tapered off dexamethasone. He underwent liver ultrasound which did show 2 large lesions. He is scheduled for ultrasound-guided biopsy of this. He does state that he had some skin lesions removed from his back many years ago but these were benign. 2. Oral thrush. Start nystatin 100 1000 units swish and swallow 3 times a day. Follow-up in 2 weeks. - Time Spent With Patient Time Spent with Patient (in minutes): 15
--- NOTE | 2022-04-05 16:09 | MHC.HEMONC ---
Pt took t/c from pt's Janeen, said [facility] on [address] would not fill [facility] scrip. Nurse called [facility], spoke to pharmacist, they said the Nystatin ordered is 100,000 units/ml, pt to swish/swallow 100,000 units TID, but the instructions say to swish 5ml TID, which would be 500,000 units TID. Nurse clarified that Dr. Ordoñez wants order to be for 5 ml TID swish and swallow. Nurse notified pt's Janeen by phone, who was appreciative.
[2022-04-16 14:28] VITALS: BP 115/59; PULSE 83; RESP 15; TEMP 37.3; O2SAT 97; BMI 27.5
--- NOTE | 2022-04-16 14:54 | PM.HEMONCPN ---
Medical Summary - Medical Summary Date of Service: 04/22/22 Chief complaint: follow-up Medical Summary: Diagnosis: Metastatic prostate cancer August 2017 Diagnosed with prostate cancer in 2007. Underwent robotic-assisted prostatectomy on 08/04/07. Adenocarcinoma with mucinous differentiation, pT3a pN0, [place] score 4+3 involving 75% of prostate gland. Underwent adjuvant IMRT following prostatectomy. Underwent surgery for correction of urinary incontinence in 2008, implantation of artificial urinary sphincter in September 2010. He has been on intermittent androgen deprivation, Eligard 45 mg q.6 months. Last PSA in August 2017 14.7 with the testosterone level at 29.5. He was started back on GnRH agonist q.6 months, he was prescribed Casodex but did not start it. One episode of gross hematuria which prompted urine cytology, negative, CT urogram abdomen/pelvis with adrenal cyst, no stone or obstruction. 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 CT abdomen/pelvis with IV contrast August 2017 at [facility] showed increasing size and number of pulmonary lesions, bony lesion in the right ilium measuring 5.7 cm and previously measured 1 cm. No Intra-abdominal lymphadenopathy, normal liver, spleen and pancreas. No hydronephrosis or nephrolithiasis. CT chest with contrast in August 2017 showed mild multiple pulmonary nodules concerning for metastatic disease some solid, some cavitary or cystic. Findings increased since February 2012. 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 Largest lesion in the right lung measuring 3.5x2.5 cm. PET scan performed 09/11/17 showed multifocal FDG avid metastatic lesions present throughout the lungs, largest in the left lower lobe measuring 3.7x2.4 cm with SUV of 3.3. Most intense lesion in the left upper lobe with SUV 4.7 measuring 1.5x1.1 cm. No other adenopathy. FDG avid sclerotic metastasis in the posterior right iliac bone SUV 7.7. Prominent activity in palatine tonsils bilaterally more intense on the right, nonspecific. No corresponding CT abnormality. Direct visualization is recommended. He was diagnosed with bone metastasis, bone scan performed at [facility] in August 2017 showed uptake in the right iliac bone representing a metastatic lesion. Resumed Eligard in August 2017, he stopped Casodex. PSA is rising, testosterone level was 0. Hormone refractory metastatic prostate cancer. Patient started abiraterone/prednisone on 07/15/18. Received 1st does of denosumab 07/02/2018.PET scan performed April 2019 shows marked metabolic response with minimal to no activity in the lung nodules and skeletal bones. Bone scan performed December 2020 shows extensive metastatic disease to right posterior iliac bone, this now extends more laterally compared to previous scan. PET-CT performed 02/2021 showed new uptake in enlargement of left lower lobe pulmonary nodules, few additional bilateral small pulmonary nodules seen. Mild increase in FDG avidity in right posterior iliac bone. He was seen by radiation oncology at [facility], as he is asymptomatic from bony disease, palliative radiation therapy was deferred. He started chemotherapy, Taxotere in March 2021. Interval History Interval history: Patient is here in follow-up. He is accompanied by his significant other today. He is here to discuss results of liver biopsy. He denies any headache or dizziness. He reports fatigue. His appetite has been poor and he has lost weight. Denies any new or acute complaints today. Review of Systems - Constitutional Reports fatigue, Reports lack of energy, Reports malaise, Reports weakness - Neurologic Reports weakness PMFSH Medical History: Medical History (Last Reviewed 04/16/22 @ 14:30 by Heather Tubbs) Benign essential hypertension CAD (coronary artery disease) Central serous retinopathy Hematuria Impaired fasting glucose Obesity (BMI 30-39.9) Psoriasis Pulmonary nodules Pure hypercholesterolemia Tick bite Family History: Family History (Last Reviewed 04/16/22 @ 14:30 by Heather Tubbs) Father Heart disease CVD (cardiovascular disease) Mother Acute CVA (cerebrovascular accident) CVD (cardiovascular disease) Sister No problems noted. Sister Pacemaker Surgical History: Surgical History (Last Reviewed 04/16/22 @ 14:30 by Haether Tubbs) History of bladder surgery History of prostatectomy History of right knee surgery Social History: Social History (Last Reviewed 04/16/22 @ 14:30 by Heather Tubbs) Living Situation History: Household Members: Spouse Housing: House Are you a primary care management associate to a significant other at home: No Do you presently have visiting nurse or other home services: No Alcohol History Details: 1. How often do you have a drink containing alcohol?: b. Monthly or less 2. How many drinks containing alcohol do you have on a typical day when you are drinking?: a. 1 or 2 Tobacco History: Patient Tobacco Use Status: Former Tobacco user Tobacco use type: Cigarette Second Hand Smoke Exposure: Yes Substance Use History: Use of substances other than those prescribed or required for medical reasons: No Domestic Abuse History: Have you been hit, kicked, punched, or otherwise hurt by someone within the past year? If so, by whom?: No Do you feel safe in your current relationship?: Yes Advance Directives: Advance Directives: No Advance Directives Information Provided: No Homicidal Assessment: Do you have thoughts of harming others: None Do you have a plan to hurt others: No Plan Do you have the means to hurt others: No Nutrition Assessment: Recently lost weight without trying: No Occupation Assessmet: service: No Current occupational status: retired Home Medications and Allergies Home Medications Medication Instructions Recorded Confirmed Type calcium carbonate 600 mg calcium 600 mg PO DAILY 01/03/20 04/16/22 History (1,500 mg) tablet (Calcium) denosumab 120 mg/1.7 mL (70 mg/mL) 120 mg subcut Q4W 01/03/20 04/16/22 History subcutaneous solution leuprolide acetate (6 month) 45 mg 45 mg IM [id number] 01/03/20 04/16/22 History intramuscular syringe kit (Lupron Depot) losartan 50 mg tablet 50 mg PO DAILY 05/08/20 04/16/22 History amlodipine 10 mg tablet 10 mg PO DAILY 09/07/20 04/16/22 History metoprolol succinate 25 mg 25 mg PO BID 09/07/20 04/16/22 History tablet,extended release 24 hr Allergies Allergy/AdvReac Type Severity Reaction Status Date / Time lisinopril Allergy Severe angioedema Verified 01/15/22 09:59 Exam Vital signs: Vital Signs Temp 99.2 F 04/16/22 14:28 Pulse 83 04/16/22 14:28 Resp 15 04/16/22 14:28 BP 115/59 L 04/16/22 14:28 Pulse Ox 97 04/16/22 14:28 O2 Del Method 04/16/22 14:28 Intake & Output 04/15/22 04/16/22 04/16/22 18:59 06:59 18:59 Other: Weight 94.7 kg [place] Weight in Grams [id number] Weight 94.7 kg BMI result Body Mass Index 27.5 - Constitutional Present: no acute distress - Routine HEENT Exam Head: Present: normal inspection - Routine Neck Exam Present: full ROM, normal inspection. Absent: lymphadenopathy - Routine Respiratory Exam Present: CTAB - Routine Cardiovascular Exam Cardiovascular: Present: S1, S2 - Routine Abdominal Exam Present: normal bowel sounds, soft - Routine Extremities Exam Absent: pedal edema Data - Labs CBC & Chem 7: 04/03/22 11:05 04/03/22 11:05 Assessment and Plan Patient Active problem list reviewed?: Yes (1) Prostate cancer metastatic to bone Status: Chronic Assessment and plan: 1. This is a 76-year-old male with metastatic hormone refractory prostate cancer. Initially diagnosed in 2007, underwent radical prostatectomy followed by adjuvant IMRT, intermittent androgen deprivation. Patient is on Lupron every 6 months. He started Zytiga 1000 mg daily with prednisone 5 mg b.i.d. and denosumab since July 15, 2018. He is now on prednisone 5 mg once a day and Zytiga 1000 mg daily. He went back to full dose since March 2020. He received chemotherapy docetaxel from March 2021 to July 2021 for progressive disease. He started enzalutamide 160 mg once daily from 11/08/2021. PSMA PET scan performed at [facility] on 03/05/2022 revealed multiple brain lesions in the cerebellar /left cerebellar hemisphere masses with uptake, SUV 8.4. Abnormal right temporal lobe mass with SUV 8.9 and surrounding edema, abnormal inferior medial right cerebellar hemispheric small rounded lesion. Multifocal irregular pulmonary nodular lesions with SUV 5.1. Abnormal left paraesophageal soft tissue lymph node with SUV 5.4, mass in the left lower lobe of lung measuring 2.5 x 3.6 cm with SUV 8, 5 cm heterogenous mass in the left hepatic lobe, peripheral uptake max as 7.4, abnormal multifocal right iliac bone sclerosis with uptake SUV 16.9 and abnormal extensive sclerotic sacral or she is uptake SUV 24.4 and L5 vertebral body sclerotic lesion with SUV 6.7. Brain MRI with and without contrast performed 03/08/2022 at [facility] [place] showed large volume heterogenously enhancing metastatic disease throughout supratentorial and infratentorial brain some of which is hemorrhagic. Largest lesion with the supratentorial brain in the right temporal periventricular white matter measuring up to 4 cm in size surrounded by significant edema. Largest in the infratentorial brain located in the left cerebellar hemisphere measuring up to 2.8 cm. Multiple small enhancing lesions throughout cerebral and cerebellar hemispheres bilaterally. No midline shift or herniation. He completed whole-brain RT at [facility] on 04/03/2022. He is being tapered off dexamethasone. He underwent liver ultrasound which did show 2 large lesions. Biopsy of liver lesion/right lobe performed 04/04/2022 revealed metastatic poorly differentiated carcinoma consistent with prostatic primary. NGS revealed PIK3C variant gene, TMPRSS2-ERG chromosomal rearrangement. Other biologically relevant mutations seen in TP53, APC, PTEN, SETD 2, TET2 mutations seen. TMB 5.3, MSI stabe. Patient was offered option of going to [facility] for 2nd opinion and also to see if he is eligible for clinical trials. He is no longer taking enzalutamide. I discussed starting him on chemotherapy with cabazitaxel with or without carboplatin. He may also be a candidate for lutetium but I am not sure if he is eligible since he had brain metastasis. He was encouraged to get an opinion from [facility] if possible. Follow-up in 2 weeks. - Time Spent With Patient Time Spent with Patient (in minutes): 25
--- NOTE | 2022-04-16 15:04 | MHC.HEMONC ---
I sat in with patient at his f/u with Dr Ordoñez. He was accompanied by his SO. Liver bx was reviewed and chemo option discussed. Once final path is read Dr Ordoñez will announce plan. Mr Guerra is willing to try infusional chemo again. He was told by Dr Ordoñez to stop Amlodipine and continue Metoprolol as his BP was low today. I write this on his discharge instructions for him. I scheduled him for chemo teach next week at his [facility] appt.
--- NOTE | 2022-04-16 15:16 | MHC.HEMONCMA ---
patient seen today for go over results of [facility] Nancy to handle followup.
--- NOTE | 2022-04-22 12:27 | MHC.HEMONC ---
Dr Ordoñez asked me to call pt to let him know that liver bx showed prostate cancer and to see if he wanted [facility] referral to see if they had any clinical trials for him as his path showed some mutations. He will be in for teach (Cabazitaxel/Carbo) on Friday and he will let me know then.
[2022-04-23 10:40] LABS: MANUAL DIFF FLAG NO
[2022-04-23 10:47] LABS: Basophils Percent Auto 0.5 % (0-2); Eosinophils Absolute Auto 0.1 X10*3/uL (0.0-0.4); Hematocrit 35.8 % (42.0-52.0); Hemoglobin 11.8 g/dl (14.0-18.0); Imm Gran Abs Auto 0.09 X10*3/uL (0.00-0.03); Imm Gran Pct Auto 1.4 % (0.0-0.4); Mean Corpuscular Hemoglobin 33.7 pg (27.0-33.0); Mean Corpuscular Volume 102.3 fL (80.0-98.0); Mean Platelet Volume 8.6 fL (9.4-12.4); Monocytes Absolute Auto 0.6 X10*3/uL (0.1-1.2); Monocytes Percent Auto 9.8 % (2-11); Neutrophils Absolute Auto 4.5 x10*3/uL (2.0-8.3); Neutrophils Percent Auto 71.3 % (45-73); Platelet Count 201 X10*3/uL (160-400); Red Cell Distribution Width 12.9 % (11.0-16.0); White Blood Count 6.3 X10*3/uL (4.8-10.8)
[2022-04-23 11:10] LABS: Alanine Aminotransferase 17 U/L (0-40); Albumin Level 3.5 g/dL (3.5-5.0); Alkaline Phosphatase 239 U/L (39-117); Anion Gap 12 (12-20); Aspartate Amino Transferase 19 U/L (5-37); Bilirubin Total 1.2 mg/dL (0.0-1.0); Blood Urea Nitrogen 10 mg/dL (9-16); Calcium 8.7 mg/dL (8.4-10.2); Carbon Dioxide 24 mmol/L (22-29); Chloride 104 mmol/L (96-108); Creatinine Clr Calc Pharmacy 88.2; Estimated Glomerular Filt Rate > 60; Glucose Random 100 mg/dL (60-115); Potassium 4.4 mmol/L (3.3-5.1); Sodium 136 mmol/L (135-145); Total Protein 6.1 g/dL (6.5-8.0)
[2022-04-23 11:26] LABS: Prostate Specific Antigen 66.41 ng/mL (<0.05-4.0)
--- NOTE | 2022-04-23 12:43 | MHC.HEMONC ---
Nurse called pt at home, notified him that his scheduled chemo teach and chemotherapy start of new regimen will actually be rescheduled for this 04/25/22, at 13:00, his Xgeva injection will also be rescheduled for this time as well, so he will not need to come in an extra day on 04/24. Pt's kavon/ta said that pt was not expecting to actually start this tx this week, said pt had told Nurse Jeff Sullivan he would have to think about whether he wants to pursue this tx. Nurse assured pt he would not be forced to do anything and should feel no pressure, he was agreeable that he will come in Thur for teach and Xgeva and will decide then.
--- NOTE | 2022-04-23 14:08 | HO.HEMONCPA ---
No PA required for cabazltaxel, carboplatin emend and neulasta. Drugs covered under Medicare Part B benefits.
[2022-04-25 13:05] VITALS: BP 149/69; PULSE 77; RESP 18; TEMP 36.9; O2SAT 96
[2022-04-25 13:14] VITALS: BMI 28.1
--- NOTE | 2022-04-25 17:13 | MHC.HEMONC ---
Addendum entered by Miguel Ángel Mcdonald RN 04/25/22 17:25: Nurse notified Dr. Ordoñez, Nurse Jeff Sullivan, and pharmacist Carol that pt refused tx today, to begin the following 05/02. Original Note: Pt was here today for chemo teach, accompanied by his gf, for Q6week Xgeva, and possible new-start of C1D1 Cabazetaxel/Carbo, weight stable, VSS, had labs drawn 2 days prior. Nurse confirmed pt does not need PA for these drugs, including Emend and Neulasta inj. Pt said that he was a bit confused, since he had expected Dr. Ordoñez to be here to discuss the final results of recent liver biopsy, didn't really think he'd be starting his tx until after discussing w/ her. Nurse consulted w/ Nurse Jeff Sullivan, who pointed out that she had spoken w/ pt by phone to say that preliminary results of biopsy were sufficient to show lesion consistent w/ prostate CA, and Dr. Ordoñez recommended tx. Pt did admit this was true, but said he had still said he wanted time to think about it, though he also seems reluctant at this time to follow thru w/ trip to [place] for 2nd opinion. Nurse spoke at length w/ pt, validated his feeling that he wished to speak to Dr. Ordoñez, but she does not work on . Nurse assured pt we will attempt to book subsequent txs on days other than . Pt also admitted that he knows he is going to pursue this new tx, but he refused to do so today, because he just wasn't expecting to start it so soon. Pt asked if he could start tomorrow, but nurse explained that he is going to be receiving Neulasta injection the day after tx, so he cannot receive tx on Fridays. Finally, pt and nurse agreed that, if he was not going to be treated today, he would be scheduled for the following , 05/02/22, w/ labs to be drawn the day before tx. Nurse gave chemo teach, reviewing common side effects of Cabazetaxel and Carbo, as well as reviewing details of tx plan, including pre-meds and freq, pt to be treated every 21 days. Nurse also explained that pt would begin taking Prednisone 5mg BID daily once he starts his tx, w/ exception of day of tx, when he'll receive IV Dexamethasone in lieu of PO prednisone. Pt agreed to be treated next Thur, but was very insistent that Dr. Ordoñez call him at home to review the result of biopsy and the plan going forward, before he has first tx. Nurse admin Xgeva 120 mg SC to pt's LUE, which was well-tolerated. Pt was given d/c packet.
--- NOTE | 2022-04-26 10:31 | MHC.HEMONC ---
appt made for pt to see Dr Ordoñez on Friday as he has some concerns prior to undergoing chemo.
[2022-05-01 12:06] LABS: MANUAL DIFF FLAG NO
--- NOTE | 2022-05-01 12:08 | MHC.HEMONC ---
I left message on pt voicemail that he will be ordered prednisone at Pharmacy as part of treatment plan and no longer should he take dexamethasone.
[2022-05-01 12:10] LABS: Basophils Percent Auto 0.4 % (0-2); Eosinophils Percent Auto 0.4 % (0-4); Hematocrit 36.2 % (42.0-52.0); Hemoglobin 12.2 g/dl (14.0-18.0); Imm Gran Abs Auto 0.05 X10*3/uL (0.00-0.03); Imm Gran Pct Auto 0.7 % (0.0-0.4); Lymphocytes Absolute Auto 1.2 X10*3/uL (1.2-4.9); Lymphocytes Percent Auto 17.5 % (20-40); Mean Corpuscular HGB Conc 33.7 g/dl (31.0-36.0); Mean Corpuscular Hemoglobin 33.7 pg (27.0-33.0); Mean Platelet Volume 8.3 fL (9.4-12.4); Monocytes Absolute Auto 0.5 X10*3/uL (0.1-1.2); Monocytes Percent Auto 7.9 % (2-11); Neutrophils Absolute Auto 4.9 x10*3/uL (2.0-8.3); Neutrophils Percent Auto 73.1 % (45-73); Platelet Count 209 X10*3/uL (160-400); Red Blood Count 3.62 X10*6/uL (4.60-5.80); White Blood Count 6.7 X10*3/uL (4.8-10.8)
[2022-05-01 12:30] LABS: Alanine Aminotransferase 18 U/L (0-40); Albumin Level 3.7 g/dL (3.5-5.0); Alkaline Phosphatase 268 U/L (39-117); Anion Gap 15 (12-20); Aspartate Amino Transferase 22 U/L (5-37); Bilirubin Total 1.3 mg/dL (0.0-1.0); Blood Urea Nitrogen 12 mg/dL (9-16); Calcium 8.9 mg/dL (8.4-10.2); Carbon Dioxide 24 mmol/L (22-29); Chloride 106 mmol/L (96-108); Creatinine Clr Calc Pharmacy 96.8; Estimated Glomerular Filt Rate > 60; Glucose Random 114 mg/dL (60-115); Potassium 4.5 mmol/L (3.3-5.1); Sodium 140 mmol/L (135-145); Total Protein 6.5 g/dL (6.5-8.0)
[2022-05-02 13:15] VITALS: BP 131/63; PULSE 70; RESP 20; TEMP 37.5; O2SAT 96
[2022-05-02 13:16] VITALS: BMI 28.0
[2022-05-02] MEDS: Famotidine/PF 20 MG/2 ML VIAL IVPUSH (13:41)
[2022-05-02] MEDS: ondansetron HCL 16 MG in 0.9 % Sodium Chloride 50 ML 232 MG IV (13:44)
[2022-05-02] MEDS: dexAMETHasone sod phosphate 12 MG in 0.9 % Sodium Chloride 50 ML 212 MG IV (13:44)
[2022-05-02] MEDS: diphenhydrAMINE HCL 25 MG CAPSULE PO (13:45)
[2022-05-02] MEDS: Fosaprepitant Dimeglumine 150 MG in 0.9 % Sodium Chloride 145 ML 300 MG IV (13:45)
[2022-05-02] MEDS: Acetaminophen 325 MG TABLET 650 MG PO (13:46)
[2022-05-02 16:45] VITALS: BP 136/82; PULSE 67; RESP 18; TEMP 36.9; O2SAT 99
--- NOTE | 2022-05-02 17:01 | MHC.HEMONC ---
Here for C1 Cabazitaxel/Carbo. Labs done 05/01 reviewed. Pt signed consent for treatment. IV started left wrist with good blood return noted. Pt states is feeling well. Premedicated with tylenol, benadryl po, dexamethasone, pepcid, zofran, emend IV. Treatment done and tolerated well. No s/s reaction noted. VSS. IV dc'd with no redness or swelling at site. Scheduled to return 05/03 for neulasta injection. Discussed when to call with pt and his S.O. and they both state understanding. Departure packet given and pt departed unit.
[2022-05-03 06:35] LABS: HBS Num1 0.16 mIU/mL (0-7.99); HBc Num1 0.09 S/CO (0.00-0.79); HBsAGNum1 0.28 S/CO (0.00-0.99); Hepatitis A Antibody IgM 0.13 Index (0-0.79); Hepatitis B Core Antibody Nonreactive (Nonreactive); Hepatitis B Surface Antigen Negative (Negative); ~HepC Num1 0.08 S/CO (0.00-0.79); ~Hepatitis A Antibody IgM Nonreactive (Nonreactive); ~Hepatitis B Surface Antibody NONREACTIVE (Nonreactive); ~Hepatitis C Antibody Nonreactive (Nonreactive)
[2022-05-03 15:34] VITALS: BP 149/68; PULSE 71; RESP 20; TEMP 36.7; O2SAT 98
--- NOTE | 2022-05-03 15:39 | MHC.HEMONC ---
Here for neulasta injection. States he tolerated his chemo treatment well. He states he just had some diarrhea this morning, but otherwise feels good. Neulasta 6mg sc given right arm and tolerated well. Scheduled for lab draw in 1 week. Departed unit.
[2022-05-10 13:32] LABS: Alanine Aminotransferase 12 U/L (0-40); Albumin Level 3.9 g/dL (3.5-5.0); Alkaline Phosphatase 296 U/L (39-117); Anion Gap 14 (12-20); Aspartate Amino Transferase 15 U/L (5-37); Bilirubin Total 1.2 mg/dL (0.0-1.0); Blood Urea Nitrogen 19 mg/dL (9-16); Calcium 7.7 mg/dL (8.4-10.2); Carbon Dioxide 19 mmol/L (22-29); Chloride 106 mmol/L (96-108); Creatinine Clr Calc Pharmacy 89.7; Estimated Glomerular Filt Rate > 60; Glucose Random 130 mg/dL (60-115); Hematocrit 36.3 % (42.0-52.0); Hemoglobin 12.2 g/dl (14.0-18.0); Magnesium 2.1 mg/dL (1.6-2.6); Mean Corpuscular HGB Conc 33.6 g/dl (31.0-36.0); Mean Corpuscular Hemoglobin 33.2 pg (27.0-33.0); Mean Corpuscular Volume 98.9 fL (80.0-98.0); Mean Platelet Volume 10.3 fL (9.4-12.4); Platelet Count 133 X10*3/uL (160-400); Red Blood Count 3.67 X10*6/uL (4.60-5.80); Red Cell Distribution Width 12.8 % (11.0-16.0); Sodium 135 mmol/L (135-145); Total Protein 6.7 g/dL (6.5-8.0)
[2022-05-10 13:34] LABS: WBC ABN SCTR FOR CBC 1
[2022-05-10] MEDS: 0.9 % Sodium Chloride 1,000 ML 500 ML IV (13:34)
[2022-05-10 13:48] VITALS: BP 127/64; PULSE 98; RESP 20; TEMP 36.6; O2SAT 100
[2022-05-10 13:54] LABS: Band Neutrophils Percent 5 % (3-5); Basophils Percent Manual 3 % (0-2); Eosinophils Percent Manual 2 % (0-4); Lymphocytes Percent Manual 39 % (20-40); Monocytes Percent Manual 9 % (2-11); Neutrophils Percent Manual 42 % (45-73)
[2022-05-10 13:56] LABS: Platelet Estimate SLIGHTLY DECREASED (NORMAL); Platelet Morphology Comment NORMAL; RBC Morphology NOTED
[2022-05-10 13:57] LABS: Burr Cells 2+ (3-5) /OIF; Lymphocytes Absolute Manual 0.4 X10*3/uL (1.2-4.9); Monocytes Absolute Manual 0.1 X10*3/uL (0.1-1.2); Neutrophils Absolute Manual 0.5 X10*3/uL (2.0-8.3); White Blood Count 1.1 X10*3/uL (4.8-10.8)
[2022-05-10] MEDS: Calcium Gluconate/NaCl,Iso-Osm 2 GM/100 ML PLAST..BAG IV (14:41)
--- NOTE | 2022-05-10 16:32 | MHC.HEMONC ---
Triage call from pts S.O. Janeen. She stated pt has not been feeling well, stating he has been weak, not eating well, diarrhea overnight. Came in for labs and hydration. Labs drawn and results reviewed by Dr Ordoñez. WBC 1.1, ANC 0.5, calcium 7.7. IV started left AC with good blood return noted. Received NS 1000cc at 500cc/hr. Also received calcium gluconate 2gm over 2hours. States he feels about the same. Was able to nap here. Instructions given for immodium for home. Did have episode of diarrhea prior to leaving. S.O. will give immodium as soon as they get home. Pt and S.O. both instructed to call the oncall oncologist with any fever, chills, uncontrolled diarrhea. Scheduled for labs on 05/15. Departure packet given.
[2022-05-21 11:08] LABS: MANUAL DIFF FLAG NO
[2022-05-21 11:11] VITALS: BP 124/57; PULSE 78; RESP 17; TEMP 37; O2SAT 96; BMI 26.6
[2022-05-21 11:16] LABS: Basophils Absolute Auto 0.1 X10*3/uL (0.0-0.2); Basophils Percent Auto 0.5 % (0-2); Hematocrit 32.9 % (42.0-52.0); Imm Gran Abs Auto 0.17 X10*3/uL (0.00-0.03); Imm Gran Pct Auto 1.6 % (0.0-0.4); Lymphocytes Absolute Auto 1.3 X10*3/uL (1.2-4.9); Lymphocytes Percent Auto 12.4 % (20-40); Mean Corpuscular HGB Conc 33.4 g/dl (31.0-36.0); Mean Corpuscular Hemoglobin 33.1 pg (27.0-33.0); Mean Corpuscular Volume 99.1 fL (80.0-98.0); Monocytes Absolute Auto 1.3 X10*3/uL (0.1-1.2); Monocytes Percent Auto 12.3 % (2-11); Neutrophils Absolute Auto 7.9 x10*3/uL (2.0-8.3); Neutrophils Percent Auto 73.2 % (45-73); Platelet Count 209 X10*3/uL (160-400); Red Blood Count 3.32 X10*6/uL (4.60-5.80); Red Cell Distribution Width 13.8 % (11.0-16.0); White Blood Count 10.8 X10*3/uL (4.8-10.8)
--- NOTE | 2022-05-21 11:17 | P.PNHO-ONC_ITS ---
Medical Summary - Medical Summary Date of Service: 05/21/22 Chief complaint: Follow up Primary Care Provider: Guido Joseph MD Medical Summary: Diagnosis: Metastatic prostate cancer August 2017 Diagnosed with prostate cancer in 2007. Underwent robotic-assisted prostatectomy on 08/04/07. Adenocarcinoma with mucinous differentiation, pT3a pN0, Monroe score 4+3 involving 75% of prostate gland. Underwent adjuvant IMRT following prostatectomy. Underwent surgery for correction of urinary incontinence in 2008, implantation of artificial urinary sphincter in September 2010. He has been on intermittent androgen deprivation, Eligard 45 mg q.6 months. Last PSA in August 2017 14.7 with the testosterone level at 29.5. He was started back on GnRH agonist q.6 months, he was prescribed Casodex but did not start it. One episode of gross hematuria which prompted urine cytology, negative, CT urogram abdomen/pelvis with adrenal cyst, no stone or obstruction. 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 CT abdomen/pelvis with IV contrast August 2017 at [facility] showed increasing size and number of pulmonary lesions, bony lesion in the right ilium measuring 5.7 cm and previously measured 1 cm. No Intra-abdominal lymphadenopa thy, normal liver, spleen and pancreas. No hydronephrosis or nephrolithiasis. CT chest with contrast in August 2017 showed mild multiple pulmonary nodules concerning for metastatic disease some solid, some cavitary or cystic. Findings increased since February 2012. 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 Largest lesion in the right lung measuring 3.5x2.5 cm. PET scan performed 09/11/17 showed multifocal FDG avid metastatic lesions present throughout the lungs, largest in the left lower lobe measuring 3.7x2.4 cm with SUV of 3.3. Most intense lesion in the left upper lobe with SUV 4.7 measuring 1.5x1.1 cm. No other adenopathy. FDG avid sclerotic metastasis in the posterior right iliac bone SUV 7.7. Prominent activity in palatine tonsils bilaterally more intense on the right, nonspecific. No corresponding CT abnormality. Direct visualization is recommended. He was diagnosed with bone metastasis, bone scan performed at [facility] in August 2017 showed uptake in the right iliac bone representing a metastatic lesion. Resumed Eligard in August 2017, he stopped Casodex. PSA is rising, testosterone level was 0. Hormone refractory metastatic prostate cancer. Patient started abiraterone/prednisone on 07/15/18. Received 1st does of denosumab 07/02/2018.PET scan performed April 2019 shows marked metabolic response with minimal to no activity in the lung nodules and skeletal bones. Bone scan performed December 2020 shows extensive metastatic disease to right posterior iliac bone, this now extends more laterally compared to previous scan. PET-CT performed 02/2021 showed new uptake in enlargement of left lower lobe pulmonary nodules, few additional bilateral small pulmonary nodules seen. Mild increase in FDG avidity in right posterior iliac bone. He was seen by radiation oncology at [facility], as he is asymptomatic from bony disease, palliative radiation therapy was deferred. He started chemotherapy, Taxotere in March 2021. Interval History Interval history: Patient is here in follow-up. He is accompanied by his significant other today. He started chemotherapy, appetite is down but he is trying to eat and stay hydrated. He denies headache, dizziness, chest pain or shortness of breath. No fever or chills. Diarrhea has now resolved. Review of Systems - Constitutional Reports as per HPI, Reports fatigue, Reports lack of energy, Reports weight loss - Cardiovascular Reports no additional cardiovascular complaints - Respiratory Reports no additional respiratory complaints - Gastrointestinal Reports no additional gastrointestinal complaints - Neurologic Reports weakness PMFSH Medical History: Medical History (Last Reviewed 04/16/22 @ 14:30 by Heather Tubsb) Benign essential hypertension CAD (coronary artery disease) Central serous retinopathy Hematuria Impaired fasting glucose Obesity (BMI 30-39.9) Psoriasis Pulmonary nodules Pure hypercholesterolemia Tick bite Family History: Family History (Last Reviewed 04/16/22 @ 14:30 by Heather Tubbs) Father Heart disease CVD (cardiovascular disease) Mother Acute CVA (cerebrovascular accident) CVD (cardiovascular disease) Sister No problems noted. Sister Pacemaker Surgical History: Surgical History (Last Reviewed 04/16/22 @ 14:30 by Heather Tubbs) History of bladder surgery History of prostatectomy History of right knee surgery Social History: Social History (Last Reviewed 04/16/22 @ 14:30 by Heather Tubbs) Living Situation History: Household Members: Spouse Housing: House Are you a primary career placement specialist to a significant other at home: No Do you presently have visiting nurse or other home services: No Alcohol History Details: 1. How often do you have a drink containing alcohol?: b. Monthly or less 2. How many drinks containing alcohol do you have on a typical day when you are drinking?: a. 1 or 2 Tobacco History: Patient Tobacco Use Status: Former Tobacco user Tobacco use type: Cigarette Second Hand Smoke Exposure: Yes Substance Use History: Use of substances other than those prescribed or required for medical reasons : No Domestic Abuse History: Have you been hit, kicked, punched, or otherwise hurt by someone within the past year? If so, by whom?: No Do you feel safe in your current relationship?: Yes Advance Directives: Advance Directives: No Advance Directives Information Provided: No Homicidal Assessment: Do you have thoughts of harming others: None Do you have a plan to hurt others: No Plan Do you have the means to hurt others: No Nutrition Assessment: Recently lost weight without trying: No Occupation Assessmet: service: No Current occupational status: retired Home Medications and Allergies Home Medications Medication Instructions Recorded Confirmed Type calcium carbonate 600 mg calcium 600 mg PO DAILY 01/03/20 05/21/22 History (1,500 mg) tablet (Calcium) denosumab 120 mg/1.7 mL (70 mg/mL) 120 mg subcut Q4W 01/03/20 05/21/22 History subcutaneous solution leuprolide acetate (6 month) 45 mg 45 mg IM [id number] 01/03/20 05/21/22 History intramuscular syringe kit (Lupron Depot) losartan 50 mg tablet 50 mg PO DAILY 05/08/20 05/21/22 History amlodipine 10 mg tablet 10 mg PO DAILY 09/07/20 05/21/22 History metoprolol succinate 25 mg 25 mg PO BID 09/07/20 05/21/22 History tablet,extended release 24 hr Allergies Allergy/AdvReac Type Severity Reaction Status Date / Time lisinopril Allergy Severe angioedema Verified 01/15/22 09:59 Exam Vital signs: Vital Signs Temp 98.6 F 05/21/22 11:11 Pulse 78 05/21/22 11:11 Resp 17 05/21/22 11:11 BP 124/57 L 05/21/22 11:11 Pulse Ox 96 05/21/22 11:11 O2 Del Method 05/21/22 11:11 Intake & Output 05/20/22 05/21/22 05/21/22 18:59 06:59 18:59 Other: Weight 91.6 kg Weight in Grams 52492 Weight 91.6 kg BMI result Body Mass Index 26.6 - Constitutional Present: no acute distress - Routine HEENT Exam Head: Present: normal inspection - Routine Neck Exam Present: full ROM, normal inspection. Absent: lymphadenopathy - Routine Respiratory Exam Present: CTAB - Routine Cardiovascular Exam Cardiovascular: Present: S1, S2 - Routine Abdominal Exam Present: normal bowel sounds, soft - Routine Extremities Exam Absent: pedal edema Data - Labs CBC & Chem 7: 05/21/22 11:05 05/21/22 11:05 Assessment and Plan Patient Active problem list reviewed?: Yes (1) Prostate cancer metastatic to bone Status: Chronic Assessment and plan: 1. This is a 76-year-old male with metastatic hormone refractory prostate cancer. Initially diagnosed in 2007, underwent radical prostatectomy followed by adjuvant IMRT, intermittent androgen deprivation. Patient is on Lupron every 6 months. He started Zytiga 1000 mg daily with prednisone 5 mg b.i.d. and denosumab since July 15, 2018. He is now on prednisone 5 mg once a day and Zytiga 1000 mg daily. He went back to full dose since March 2020. He received chemotherapy docetaxel from March 2021 to July 2021 for progressive disease. He started enzalutamide 160 mg once daily from 11/08/2021. PSMA PET scan performed at [facility] on 03/05/2022 revealed multiple brain lesions in the cerebellar /left cerebellar hemisphere masses with uptake, SUV 8.4. Abnormal right temporal lobe mass with SUV 8.9 and surrounding edema, abnormal inferior medial right cerebellar hemispheric small rounded lesion. Multifocal irregular pulmonary nodular lesions with SUV 5.1. Abnormal left paraesophageal soft tissue lymph node with SUV 5.4, mass in the left lower lobe of lung measuring 2.5 x 3.6 cm with SUV 8, 5 cm heterogenous mass in the left hepatic lobe, peripheral uptake max as 7.4, abnormal multifocal right iliac bone sclerosis with uptake SUV 16.9 and abnormal extensive sclerotic sacral or she is uptake SUV 24.4 and L5 vertebral body sclerotic lesion with SUV 6.7. Brain MRI with and without contrast performed 03/08/2022 at [facility] showed large volume heterogenously enhancing metastatic disease throughout supratentorial and infratentorial brain some of which is hemorrhagic. Largest lesion with the supratentorial brain in the right temporal periventricular white matter measuring up to 4 cm in size surrounded by significant edema. Largest in the infratentorial brain located in the left cerebellar hemisphere measuring up to 2.8 cm. Multiple small enhancing lesions throughout cerebral and cerebellar hemispheres bilaterally. No midline shift or herniation. He completed whole-brain RT at [facility] on 04/03/2022. He is being tapered off dexamethasone. He underwent liver ultrasound which did show 2 large lesions. Biopsy of liver lesion/right lobe performed 04/04/2022 revealed metastatic poorly differentiated carcinoma consistent with prostatic primary. NGS revealed PIK3C variant gene, TMPRSS2-ERG chromosomal rearrangement. Other biologically relevant mutations seen in TP53, APC, PTEN, SETD 2, TET2 mutations seen. TMB 5.3, MSI stabe. Patient was offered option of going to [place] for 2nd opinion and also to see if he is eligible for clinical trials. Patient started treatment with cabazitaxel and carboplatin. He did developed diarrhea after the 1st cycle for which he required hydration. He is using Imodium as prescribed and his symptoms are better controlled. Labs today look improved. PSA is coming down. Proceed with cycle 2 on 05/22/2022 as scheduled. Follow-up in 2 weeks. - Time Spent With Patient Time Spent with Patient (in minutes): 15
[2022-05-21 11:37] LABS: Alanine Aminotransferase 19 U/L (0-40); Albumin Level 3.4 g/dL (3.5-5.0); Alkaline Phosphatase 209 U/L (39-117); Anion Gap 11 (12-20); Aspartate Amino Transferase 20 U/L (5-37); Blood Urea Nitrogen 8 mg/dL (9-16); Calcium 8.4 mg/dL (8.4-10.2); Carbon Dioxide 26 mmol/L (22-29); Chloride 106 mmol/L (96-108); Creatinine Clr Calc Pharmacy 95.5; Estimated Glomerular Filt Rate > 60; Glucose Random 119 mg/dL (60-115); Magnesium 1.7 mg/dL (1.6-2.6); Potassium 4.1 mmol/L (3.3-5.1); Sodium 139 mmol/L (135-145); Total Protein 5.9 g/dL (6.5-8.0)
[2022-05-21 11:52] LABS: Prostate Specific Antigen 59.38 ng/mL (<0.05-4.0)
[2022-05-22 12:37] VITALS: BMI 26.9
[2022-05-22 12:58] VITALS: BP 118/56; PULSE 71; RESP 18; TEMP 37.2; O2SAT 98
[2022-05-22] MEDS: Famotidine/PF 20 MG/2 ML VIAL IVPUSH (13:06)
[2022-05-22] MEDS: dexAMETHasone sod phosphate/NS 12 MG/50 ML PIGGYBACK 200 MG IV (13:12)
[2022-05-22] MEDS: diphenhydrAMINE HCL 25 MG CAPSULE PO (13:13)
[2022-05-22] MEDS: Acetaminophen 325 MG TABLET 650 MG PO (13:13)
[2022-05-22] MEDS: Fosaprepitant Dimeglumine 150 MG in 0.9 % Sodium Chloride 145 ML 300 MG IV (13:13)
[2022-05-22] MEDS: CARBOplatin 410 MG in 0.9 % Sodium Chloride 250 ML 582 MG IV (15:44)
--- NOTE | 2022-05-22 16:26 | MHC.HEMONC ---
Here for C2 Cabazitaxel/Carbo. States is feeling better. No further diarrhea. Labs done 05/21 reviewed. IV placed right hand with good blood return noted. Premeds given as ordered. Treatment done and tolerated well. Spoke with Dr Ordoñez regarding pts denosumab. He receives his injection q6 weeks, and last time he received it was [address] Ordoñez, will hold today and give it with next scheduled chemo. Pt aware. Pt scheduled for neulasta 05/23, and labs in [address] Ordoñez. Next chemo scheduled in 3 weeks. Departure packet given with calendar. Pt departed unit.
[2022-05-23 15:08] VITALS: BP 127/60; PULSE 67; RESP 16; TEMP 36.6; O2SAT 98
--- NOTE | 2022-05-23 15:10 | MHC.HEMONC ---
Neulasta 6mg administered to left upper arm and well tolerated. Patient states he feels well no other complaints at this time. VSS. Declined discharge packet.
--- NOTE | 2022-05-24 12:18 | MHC.HEMONC ---
Pt SO called to review appts. She mentioned in passing that pt face was red earlier this morning and it felt warm so she checked temperature. It was 101. She gave him Tylenol and it has come down. I advised her to call the om-call with any fevers over the weekend. She did say this happened after Neulasta last time (he received yesterday). Dr Ordoñez advised.
[2022-06-03 09:45] LABS: Mean Corpuscular HGB Conc 33.3 g/dl (31.0-36.0); Mean Corpuscular Hemoglobin 33.4 pg (27.0-33.0); Mean Corpuscular Volume 100.3 fL (80.0-98.0); Mean Platelet Volume 9.9 fL (9.4-12.4); NRBC Pct Auto 0.3 /100WBC (0.0-0.2); Platelet Count 131 X10*3/uL (160-400); Red Blood Count 3.29 X10*6/uL (4.60-5.80); Red Cell Distribution Width 14.8 % (11.0-16.0); White Blood Count 6.5 X10*3/uL (4.8-10.8)
[2022-06-03] MEDS: 0.9 % Sodium Chloride 1,000 ML 999 ML IV (10:00)
[2022-06-03 10:11] VITALS: BP 101/56; PULSE 84; RESP 17; TEMP 36.5; O2SAT 98; BMI 25.0
[2022-06-03 10:13] LABS: Alanine Aminotransferase 21 U/L (0-40); Albumin Level 3.8 g/dL (3.5-5.0); Alkaline Phosphatase 191 U/L (39-117); Anion Gap 14 (12-20); Aspartate Amino Transferase 27 U/L (5-37); Blood Urea Nitrogen 9 mg/dL (9-16); Calcium 7.8 mg/dL (8.4-10.2); Carbon Dioxide 22 mmol/L (22-29); Chloride 102 mmol/L (96-108); Creatinine Clr Calc Pharmacy 89.3; Estimated Glomerular Filt Rate > 60; Glucose Random 108 mg/dL (60-115); Potassium 3.7 mmol/L (3.3-5.1); Sodium 134 mmol/L (135-145); Total Protein 6.1 g/dL (6.5-8.0)
[2022-06-03 10:42] LABS: Band Neutrophils Percent 4 % (3-5); Lymphocytes Absolute Manual 1.1 X10*3/uL (1.2-4.9); Lymphocytes Percent Manual 17 % (20-40); Metamyelocytes Absolute 0.1 X10*3/uL; Metamyelocytes Percent 1 %; Monocytes Absolute Manual 0.3 X10*3/uL (0.1-1.2); Monocytes Percent Manual 5 % (2-11); Myelocytes Absolute 0.1 X10*/uL; Myelocytes Percent 1 %; Neutrophils Absolute Manual 4.9 X10*3/uL (2.0-8.3); Neutrophils Percent Manual 72 % (45-73)
[2022-06-03 10:43] LABS: Burr Cells 1+ (0-2) /OIF; Macrocytosis 1+ (5-14) /OIF; RBC Morphology NOTED
[2022-06-03 10:45] LABS: Polychromasia 1+ (0-2) /OIF; Spherocytes 2+ (3-5) /OIF
[2022-06-03 10:46] LABS: Platelet Estimate SLIGHTLY DECREASED (NORMAL); Platelet Morphology Comment NORMAL
[2022-06-03] MEDS: Prochlorperazine Maleate 5 MG TABLET 10 MG PO (10:55)
[2022-06-03] MEDS: Calcium Gluconate/NaCl,Iso-Osm 1 GM/50 ML PLAST..BAG IV (12:57)
[2022-06-03 14:08] VITALS: BP 153/67; PULSE 81; RESP 22; TEMP 36.4; O2SAT 97
--- NOTE | 2022-06-03 16:24 | MHC.HEMONC ---
Triage call-received call from pt.'s SO stating pt has not eaten in 5 days, has nausea and vomiting. Instructed to come into department for hydration. Labs drawn by renovation plant supervisor-specimen to lab. #24 angio inserted in right forearm with blood return noted. 1000ml 0.9% NS infused. Calcium level 7.[address] Ordoñez-plan for IV calcium. Compazine given as ordered for nausea. Pt states zofran not working-provider notified-plan to order compazine at home. IV calcium given as ordered. Pt states he feels better after hydration. Peripheral IV removed-no edema or redness at site. Discharge packet given with next appointment scheduled.
[2022-06-05 12:46] LABS: MANUAL DIFF FLAG NO
[2022-06-05 12:54] LABS: Basophils Absolute Auto 0.1 X10*3/uL (0.0-0.2); Basophils Percent Auto 0.5 % (0-2); Eosinophils Percent Auto 0.1 % (0-4); Hematocrit 32.6 % (42.0-52.0); Imm Gran Abs Auto 0.43 X10*3/uL (0.00-0.03); Imm Gran Pct Auto 3.9 % (0.0-0.4); Lymphocytes Absolute Auto 1.5 X10*3/uL (1.2-4.9); Lymphocytes Percent Auto 13.8 % (20-40); Mean Corpuscular HGB Conc 33.7 g/dl (31.0-36.0); Mean Corpuscular Hemoglobin 34.2 pg (27.0-33.0); Mean Corpuscular Volume 101.2 fL (80.0-98.0); Mean Platelet Volume 9.6 fL (9.4-12.4); Monocytes Absolute Auto 0.9 X10*3/uL (0.1-1.2); Monocytes Percent Auto 8.3 % (2-11); Neutrophils Absolute Auto 8.1 x10*3/uL (2.0-8.3); Neutrophils Percent Auto 73.4 % (45-73); Platelet Count 139 X10*3/uL (160-400); Red Blood Count 3.22 X10*6/uL (4.60-5.80); Red Cell Distribution Width 15.5 % (11.0-16.0); White Blood Count 11.1 X10*3/uL (4.8-10.8)
[2022-06-05 13:22] LABS: Alanine Aminotransferase 17 U/L (0-40); Albumin Level 3.8 g/dL (3.5-5.0); Alkaline Phosphatase 178 U/L (39-117); Anion Gap 14 (12-20); Aspartate Amino Transferase 19 U/L (5-37); Bilirubin Total 0.9 mg/dL (0.0-1.0); Blood Urea Nitrogen 7 mg/dL (9-16); Calcium 8.2 mg/dL (8.4-10.2); Carbon Dioxide 21 mmol/L (22-29); Chloride 108 mmol/L (96-108); Creatinine Clr Calc Pharmacy 90.5; Estimated Glomerular Filt Rate > 60; Glucose Random 105 mg/dL (60-115); Magnesium 1.8 mg/dL (1.6-2.6); Potassium 3.6 mmol/L (3.3-5.1); Sodium 139 mmol/L (135-145); Total Protein 6.2 g/dL (6.5-8.0)
--- NOTE | 2022-06-07 10:01 | MHC.HEMONC ---
Triage call from pts kenia Vernon. She states pt is not feeling good, feeling weak and light headed. Pt to come in for IV hydration.
[2022-06-07 10:49] VITALS: BP 88/50; PULSE 122; RESP 20; TEMP 36.3; O2SAT 98; BMI 25.1
--- NOTE | 2022-06-07 10:53 | MHC.HEMONCSW ---
SW introduced self to Pt and his fiancee. Pt was with the nurse, so I checked with Janeen who indicated they have been together for 23 years. She believes she is taking good care of him, but would welcome assistance from the VNA.
--- NOTE | 2022-06-07 10:58 | MHC.HEMONC ---
Pt here for IV hydration. Not feeling well, color is very pale. HR irregular. Bp 80/50 manual. IV placed left hand, NS infusing at 500cc/hr. States he has been drinking fluids, and was able to eat oatmeal this morning and tolerated it well. He states he was sitting on the bed this morning, feeling very light headed, and unable to get up. Update to Dr Hartley. EKG ordered.
--- NOTE | 2022-06-07 11:14 | ECG_ITS ---
Test Reason : tachycardia Blood Pressure : / mmHG Vent. Rate : 152 BPM Atrial Rate : 000 BPM P-R Int : 000 ms QRS Dur : 142 ms QT Int : 316 ms P-R-T Axes : 000 117 -21 degrees QTc Int : 502 ms Atrial fibrillation with rapid ventricular response Right bundle branch block Abnormal ECG When compared with ECG of 08-APR-2013 12:32, Atrial fibrillation has replaced Sinus rhythm Vent. rate has increased BY 87 BPM Referred By: Irma Hartley Electronically Signed By:GELACIO FIGUEROA
--- NOTE | 2022-06-07 11:46 | MHC.HEMONCSW ---
[facility] faxed over signed referral to [facility].
--- NOTE | 2022-06-07 11:49 | P.PNHO-ONC_ITS ---
Medical Summary - Medical Summary Date of Service: 06/07/22 Chief complaint: FOLLOW-UP FOR: PROSTATE CANCER WITH BONE,BRAIN AND LIVER METASTASES Primary Care Provider: Guido Joseph MD Medical Summary: Diagnosis: Metastatic prostate cancer August 2017 Diagnosed with prostate cancer in 2007. Underwent robotic-assisted prostatectomy on 08/04/07. Adenocarcinoma with mucinous differentiation, pT3a pN0, Zoe score 4+3 involving 75% of prostate gland. Underwent adjuvant IMRT following prostatectomy. Underwent surgery for correction of urinary incontinence in 2008, implantation of artificial urinary sphincter in September 2010. He has been on intermittent androgen deprivation, Eligard 45 mg q.6 months. Last PSA in August 2017 14.7 with the testosterone level at 29.5. He was started back on GnRH agonist q.6 months, he was prescribed Casodex but did not start it. One episode of gross hematuria which prompted urine cytology, negative, CT urogram abdomen/pelvis with adrenal cyst, no stone or obstruction. 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 CT abdomen/pelvis with IV contrast August 2017 at [facility] showed increasing size and number of pulmonary lesions, bony lesion in the right ilium measuring 5.7 cm and previously measured 1 cm. No Intra-abdominal lymphadenopathy, normal liver, spleen and pancreas. No hydronephrosis or nephrolithiasis. CT chest with contrast in August 2017 showed mild multiple pulmon radhika nodules concerning for metastatic disease some solid, some cavitary or cystic. Findings increased since February 2012. 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 Largest lesion in the right lung measuring 3.5x2.5 cm. PET scan performed 09/11/17 showed multifocal FDG avid metastatic lesions present throughout the lungs, largest in the left lower lobe measuring 3.7x2.4 cm with SUV of 3.3. Most intense lesion in the left upper lobe with SUV 4.7 measuring 1.5x1.1 cm. No other adenopathy. FDG avid sclerotic metastasis in the posterior right iliac bone SUV 7.7. Prominent activity in palatine tonsils bilaterally more intense on the right, nonspecific. No corresponding CT abnormality. Direct visualization is recommended. He was diagnosed with bone metastasis, bone scan performed at [facility] in August 2017 showed uptake in the right iliac bone representing a metastatic lesion. Resumed Eligard in August 2017, he stopped Casodex. PSA is rising, testosterone level was 0. Hormone refractory metastatic prostate cancer. Patient started abiraterone/prednisone on 07/15/18. Received 1st does of denosumab 07/02/2018. PET scan performed April 2019 shows marked metabolic response with minimal to no activity in the lung nodules and skeletal bones. Bone scan performed December 2020 shows extensive metastatic disease to right posterior iliac bone, this now extends more laterally compared to previous scan. PET-CT performed 02/2021 showed new uptake in enlargement of left lower lobe pulmonary nodules, few additional bilateral small pulmonary nodules seen. Mild increase in FDG avidity in right posterior iliac bone. He was seen by radiation oncology at [facility], as he is asymptomatic from bony disease, palliative radiation therapy was deferred. He started chemotherapy, Taxotere in March 2021. He was diagnosed with brain metastases. Recently started on carboplatin and cabazitaxe.l Interval History Interval history: 76-year-old unfortunate gentleman, here for an unscheduled visit. He was brought in by . He underwent chemotherapy on 05/22.(carboplatin and cabazitaxel.) He has had dizziness and fatigability, over the past week. He has had dyspnea on exertion. He seems a bit spacey. No fever chills no night sweats. Denies any abdominal pain nausea vomiting heartburn indigestion. Bowels are working without gross blood in it. He has had a poor appetite. He has lost weight. Medical History: Benign essential hypertension CAD (coronary artery disease) Central serous retinopathy Hematuria Impaired fasting glucose Obesity (BMI 30-39.9) Psoriasis Pulmonary nodules Pure hypercholesterolemia Tick bite. Family History: Father Heart disease CVD (cardiovascular disease) Mother Acute CVA (cerebrovascular accident) CVD (cardiovascular disease) Sister No problems noted. Sister Pacemaker Surgical History: History of bladder surgery History of prostatectomy History of right knee surgery Social History: Living Situation History: Housing: House Tobacco History: Patient Tobacco Use Status: Former Tobacco user Substance Use History: Use of substances other than those prescribed or required for medical reasons: No Advance Directives: Advance Directives: No Review of Systems - Constitutional Reports no additional constitutional complaints, Reports fatigue, Reports lack of energy, Reports weakness, Reports weight loss - Eyes Reports no additional eye complaints - ENT Reports no additional ear, nose, mouth, and throat complaints - Cardiovascular Reports no additional cardiovascular complaints, Reports lightheadedness, Reports rapid, pounding, or irregular heartbeat, Reports shortness of breath, Reports shortness of breath with activity - Respiratory Reports no additional respiratory complaints - Gastrointestinal Reports no additional gastrointestinal complaints - Genitourinary Genitourinary: Reports no additional male genitourinary complaints - Musculoskeletal Reports no additional musculoskeletal complaints - Integumentary/Breasts Skin/Breast: Reports no additional skin complaints - Neurologic Reports weakness - Psychiatric Reports no additional psychiatric complaints - Endocrine Reports no additional endocrine complaints - Hematologic/Lymphatic Reports no additional hematologic/lymphatic complaints - Allergic/Immunologic Reports no additional allergic/immunologic complaints [facility] Medical History: Medical History (Last Reviewed 06/07/22 @ 16:26 by KATHLEEN Galan) Benign essential hypertension CAD (coronary artery disease) Central serous retinopathy Hematuria Impaired fasting glucose Obesity (BMI 30-39.9) Psoriasis Pulmonary nodules Pure hypercholesterolemia Tick bite Functional capacity: wheelchair bound Patient : No Family History: Family History (Last Reviewed 06/07/22 @ 16:26 by KATHLEEN Galan) Father Heart disease CVD (cardiovascular disease) Mother Acute CVA (cerebrovascular accident) CVD (cardiovascular disease) Sister No problems noted. Sister Pacemaker Surgical History: Surgical History (Last Reviewed 06/07/22 @ 16:26 by KATHLEEN Galan) History of bladder surgery History of prostatectomy History of right knee surgery Social History: Social History (Last Reviewed 06/07/22 @ 16:26 by KATHLEEN Galan) Living Situation History: Household Members: Spouse Housing: House Are you a primary acute care nurse to a significant other at home: No Do you presently have visiting nurse or other home services: No Tobacco History: Patient Tobacco Use Status: Former Tobacco user Tobacco use type: Cigarette Smoked in Last 30 Days: No Second Hand Smoke Exposure: Yes Substance Use History: Use of substances other than those prescribed or required for medical reasons : No Advance Directives: Advance Directives: No Advance Directives Information Provided: Yes Nutrition Assessment: Nutrition Risks: Poor intake 0-25% >4 days Occupation Assessmet: service: No Current occupational status: retired Oncology Screenings - ECOG Performance Status ECOG Performance Status: 2 Home Medications and Allergies Current Medications: Current Medications Sodium Chloride (Ns) 1,000 mls @ 500 mls/hr IVCONT .Q2H RICH Stop: 06/07/22 13:14 Home Medications Medication Instructions Recorded Confirmed Type calcium carbonate 600 mg calcium 600 mg PO DAILY 01/03/20 06/07/22 History (1,500 mg) tablet (Calcium) denosumab 120 mg/1.7 mL (70 mg/mL) 120 mg subcut Q4W 01/03/20 06/07/22 History subcutaneous solution leuprolide acetate (6 month) 45 mg 45 mg IM [id number] 01/03/20 06/03/22 History intramuscular syringe kit (Lupron Depot) metoprolol succinate 25 mg 25 mg PO DAILY 09/07/20 06/07/22 History tablet,extended release 24 hr atorvastatin 80 mg tablet 80 mg PO BEDTIME 06/07/22 06/07/22 History prednisone 5 mg tablet 5 mg PO DAILY 06/07/22 06/07/22 History Allergies Allergy/AdvReac Type Severity Reaction Status Date / Time lisinopril Allergy Severe angioedema Verified 06/03/22 10:14 Exam Vital signs: Vital Signs Temp 97.3 F 06/07/22 10:49 Pulse 122 H 06/07/22 10:49 Resp 20 06/07/22 10:49 BP 88/50 L 06/07/22 10:49 Pulse Ox 98 06/07/22 10:49 O2 Del Method Room Air 06/07/22 10:49 Intake & Output 06/06/22 06/07/22 06/07/22 18:59 06:59 18:59 Other: Weight 86.3 kg [place] Weight in Grams 82330 Weight 86.3 kg BMI result Body Mass Index 25.1 - Constitutional Present: no acute distress - Routine HEENT Exam Head: Present: normal inspection Eye: Present: normal appearance ENT: Present: mucous membranes moist - Routine Neck Exam Present: full ROM, normal inspection. Absent: lymphadenopathy - Routine Respiratory Exam Present: CTAB - Routine Cardiovascular Exam Cardiovascular: Present: S1, S2 - Routine Abdominal Exam Present: normal bowel sounds, soft - Routine Extremities Exam Absent: pedal edema - Routine Back/Spine/Pelvis Exam Back/Spine: Present: full ROM - Routine Skin Exam Present: intact - Routine Neurological Exam Present: alert, oriented X3 - Routine Psychiatric Exam Present: normal affect Data - Labs CBC & Chem 7: 06/05/22 12:43 06/05/22 12:43 Assessment and Plan Patient Active problem list reviewed?: Yes (1) Prostate cancer metastatic to bone Status: Chronic Assessment and plan: This is a 76-year-old male with metastatic hormone refractory prostate cancer. Initially diagnosed in 2007, underwent radical prostatectomy followed by adjuvant IMRT, intermittent androgen deprivation. Patient was on Lupron every 6 months. He started Zytiga 1000 mg daily with prednisone 5 mg b.i.d. and denosumab since July 15, 2018. He was then on prednisone 5 mg once a day and Zytiga 1000 mg daily. He went back to full dose since March 2020. He received chemotherapy docetaxel from March 2021 to July 2021 for pr ogressive disease. He started Enzalutamide 160 mg once daily from 11/08/2021. PSMA PET scan performed at [facility] on 03/05/2022 revealed multiple brain lesions in the cerebellar /left cerebellar hemisphere masses with uptake, SUV 8.4. Abnormal right temporal lobe mass with SUV 8.9 and surrounding edema, abnormal inferior medial right cerebellar hemispheric small rounded lesion. Mul tifocal irregular pulmonary nodular lesions with SUV 5.1. Abnormal left paraesophageal soft tissue lymph node with SUV 5.4, mass in the left lower lobe of lung measuring 2.5 x 3.6 cm with SUV 8, 5 cm heterogenous mass in the left hepatic lobe, peripheral uptake max as 7.4, abnormal multifocal right iliac bone sclerosis with uptake SUV 16.9 and abnormal extensive sclerotic sacral or she is uptake SUV 24.4 and L5 vertebral body sclerotic lesion with SUV 6.7. Brain MRI with and without contrast performed 03/08/2022 at [facility] showed large volume heterogenously enhancing metastatic disease throughout supratentorial and infratentorial brain some of which is hemorrhagic. Largest lesion with the sup ratentorial brain in the right temporal periventricular white matter measuring up to 4 cm in size surrounded by significant edema. Largest in the infratentorial brain located in the left cerebellar hemisphere measuring up to 2.8 cm. Multiple small enhancing lesions throughout cerebral and cerebellar hemispheres bilaterally. No midline shift or herniation. He completed whole-brain RT at [facility] on 04/03/2022. He is being tapered off dexamethasone. He underwent liver ultrasound which did show 2 large lesions. Biopsy of liver lesion/right lobe performed 04/04/2022 revealed metastatic poorly differentiated carcinoma consistent with prostatic primary. NGS revealed PIK3C variant gene, TMPRSS2-ERG chromosomal rearrangement. Other biologically relevant mutations seen in TP53, APC, PTEN, SETD 2, TET2 mutations seen. TMB 5.3, MSI stabe. Patient was offered option of going to [facility] for 2nd opinion and also to see if he is eligible for clinical trials. However he wanted to continue therapy here. Unfortunately he has widely metastatic disease, including brain lungs liver and bone. He started treatment with cabazitaxel and carboplatin. He did developed diarrhea after the 1st cycle for which he required hydration. He was treated with Imodium and his symptoms were better controlled. PSA came down. 04/23: PSA 66.41. 05/21: PSA 59.38. He received cycle 2 on 05/22/2022. He presents with generalized weakness, dizziness, shortness of breath, mental status changes, anorexia and weight loss. He was noted to have a heart rate in the 120 and blood pressure of 80/50 on the monitor. He was given IV fluids wide open. EKG revealed: Atrial flutter with the ventricular response of 150 per minute and right bundle branch block. He has new onset atrial fibrillation/flutter. He is hemodynamically unstable. PLAN: He was transferred to the ER for further management. Dr. Daigle has graciously accepted him to her care. He did convert to NSR after a couple of doses of Lopressor. His troponin was elevated, so was the BNP. He got [place] [facility] [place]. Thank you, Cc: Dr. Joseph. - Time Spent With Patient Time Spent with Patient (in minutes): 30
--- NOTE | 2022-06-07 12:06 | MHC.HEMONC ---
Ekg done and reviewed by Dr Hartley. Pt to be evaluated by ED. Telephone report called to MD by Dr Hartley. Report called to SHARON Chase in ED. Pt brought to ED via stretcher. Francheska Vernon called and notified.
--- NOTE | 2022-06-10 13:24 | MHC.HEMONC ---
Triage call- Janeen called regarding Armin. He is still feeling weak and was questioning if he will be getting chemo this weak. Discussed with Dr Hartley and will push chemo out 1 week to 06/19/22. Pt will come in on 06/13/22 for denosumab. This nurse called Janeen and let her know the plan to push out chemo 1 week but denosumab will remain on 06/13/22.
[2022-06-13 12:31] LABS: MANUAL DIFF FLAG NO
[2022-06-13 12:35] LABS: Basophils Percent Auto 0.5 % (0-2); Hematocrit 32.3 % (42.0-52.0); Hemoglobin 10.6 g/dl (14.0-18.0); Imm Gran Abs Auto 0.05 X10*3/uL (0.00-0.03); Imm Gran Pct Auto 0.6 % (0.0-0.4); Lymphocytes Absolute Auto 0.8 X10*3/uL (1.2-4.9); Lymphocytes Percent Auto 9.4 % (20-40); Mean Corpuscular HGB Conc 32.8 g/dl (31.0-36.0); Mean Corpuscular Hemoglobin 33.5 pg (27.0-33.0); Mean Corpuscular Volume 102.2 fL (80.0-98.0); Mean Platelet Volume 8.7 fL (9.4-12.4); Monocytes Absolute Auto 0.6 X10*3/uL (0.1-1.2); Neutrophils Absolute Auto 7.2 x10*3/uL (2.0-8.3); Neutrophils Percent Auto 82.5 % (45-73); Platelet Count 166 X10*3/uL (160-400); Red Blood Count 3.16 X10*6/uL (4.60-5.80); Red Cell Distribution Width 16.4 % (11.0-16.0); White Blood Count 8.7 X10*3/uL (4.8-10.8)
[2022-06-13 12:52] LABS: Alanine Aminotransferase 16 U/L (0-40); Albumin Level 3.5 g/dL (3.5-5.0); Alkaline Phosphatase 150 U/L (39-117); Anion Gap 11 (12-20); Aspartate Amino Transferase 22 U/L (5-37); Bilirubin Total 1.6 mg/dL (0.0-1.0); Blood Urea Nitrogen 6 mg/dL (9-16); Calcium 8.2 mg/dL (8.4-10.2); Carbon Dioxide 25 mmol/L (22-29); Chloride 105 mmol/L (96-108); Creatinine Clr Calc Pharmacy 99.7; Estimated Glomerular Filt Rate > 60; Glucose Random 140 mg/dL (60-115); Magnesium 1.8 mg/dL (1.6-2.6); Potassium 4.2 mmol/L (3.3-5.1); Sodium 137 mmol/L (135-145); Total Protein 5.7 g/dL (6.5-8.0)
--- NOTE | 2022-06-13 13:12 | MHC.HEMONCSW ---
Addendum entered by Nisa Chao 06/13/22 13:15: Additional error made in attempting to complete the original note Janeen spoke at length about her own diagnosis of Type 1 Diabetes, noting that her A1C is 341 and stating that her doctor stated never having seen such a high A1C. SW asked if I could help in any way and they declined. Addendum entered by Nisa Chao 06/13/22 13:13: Error made in initial note 0 Original Note: SW met with Pt and Janeen while they were waiting for the Denosumab. They are glad to have him home. Janeen spoke about having to not only deal with his illness, but she has Type 1 SD
--- NOTE | 2022-06-13 13:17 | MHC.HEMONC ---
Labs drawn and reviewed by Dr Hartley. Denosumab tolerated well, pt supplementing with Ca 600mg twice daily. Pt aware of next appt, calendar provided.
[2022-06-18 11:40] LABS: MANUAL DIFF FLAG NO
[2022-06-18 11:45] LABS: Basophils Percent Auto 0.4 % (0-2); Hematocrit 31.3 % (42.0-52.0); Hemoglobin 10.3 g/dl (14.0-18.0); Imm Gran Abs Auto 0.03 X10*3/uL (0.00-0.03); Imm Gran Pct Auto 0.4 % (0.0-0.4); Lymphocytes Absolute Auto 0.6 X10*3/uL (1.2-4.9); Lymphocytes Percent Auto 7.5 % (20-40); Mean Corpuscular HGB Conc 32.9 g/dl (31.0-36.0); Mean Corpuscular Hemoglobin 33.9 pg (27.0-33.0); Mean Platelet Volume 8.6 fL (9.4-12.4); Monocytes Absolute Auto 0.7 X10*3/uL (0.1-1.2); Monocytes Percent Auto 7.9 % (2-11); Neutrophils Percent Auto 83.8 % (45-73); Platelet Count 165 X10*3/uL (160-400); Red Blood Count 3.04 X10*6/uL (4.60-5.80); White Blood Count 8.3 X10*3/uL (4.8-10.8)
[2022-06-18 12:07] LABS: Alanine Aminotransferase 16 U/L (0-40); Albumin Level 3.5 g/dL (3.5-5.0); Alkaline Phosphatase 160 U/L (39-117); Anion Gap 13 (12-20); Aspartate Amino Transferase 18 U/L (5-37); Bilirubin Total 1.9 mg/dL (0.0-1.0); Blood Urea Nitrogen 7 mg/dL (9-16); Calcium 8.6 mg/dL (8.4-10.2); Carbon Dioxide 23 mmol/L (22-29); Chloride 103 mmol/L (96-108); Estimated Glomerular Filt Rate > 60; Glucose Random 136 mg/dL (60-115); Magnesium 1.8 mg/dL (1.6-2.6); Sodium 135 mmol/L (135-145); Total Protein 5.7 g/dL (6.5-8.0)
--- NOTE | 2022-06-19 11:49 | MHC.HEMONC ---
Triage call: Received call from Janeen- patient requesting to cancel chemotherapy today. He felt nauseated and lightheaded earlier this morning. Initial BP was 74/69 but patient ate breakfast -moved out of bed and BP improved to 107/58 and 115/66 Janeen states he is drinking fluids- denies vomiting, diarrhea, or fevers. Dr. Ordoñez notified and states ok to move chemotherapy by 1 week. Patient rescheduled to 06/27 and Morgan for 06/28. Patient will come in Friday for pre-chemo labs. Orders moved. Pharmacy notified.
[2022-06-25 11:03] LABS: MANUAL DIFF FLAG NO
[2022-06-25 11:07] LABS: Basophils Percent Auto 0.4 % (0-2); Eosinophils Percent Auto 0.1 % (0-4); Hematocrit 31.4 % (42.0-52.0); Hemoglobin 10.2 g/dl (14.0-18.0); Imm Gran Abs Auto 0.02 X10*3/uL (0.00-0.03); Imm Gran Pct Auto 0.3 % (0.0-0.4); Lymphocytes Absolute Auto 0.6 X10*3/uL (1.2-4.9); Lymphocytes Percent Auto 7.8 % (20-40); Mean Corpuscular HGB Conc 32.5 g/dl (31.0-36.0); Mean Corpuscular Hemoglobin 34.7 pg (27.0-33.0); Mean Corpuscular Volume 106.8 fL (80.0-98.0); Mean Platelet Volume 8.5 fL (9.4-12.4); Monocytes Absolute Auto 0.4 X10*3/uL (0.1-1.2); Monocytes Percent Auto 4.7 % (2-11); Neutrophils Absolute Auto 6.8 x10*3/uL (2.0-8.3); Neutrophils Percent Auto 86.7 % (45-73); Platelet Count 180 X10*3/uL (160-400); Red Blood Count 2.94 X10*6/uL (4.60-5.80); Red Cell Distribution Width 17.2 % (11.0-16.0); White Blood Count 7.8 X10*3/uL (4.8-10.8)
[2022-06-25 11:24] LABS: Alanine Aminotransferase 15 U/L (0-40); Albumin Level 3.8 g/dL (3.5-5.0); Alkaline Phosphatase 176 U/L (39-117); Anion Gap 11 (12-20); Aspartate Amino Transferase 18 U/L (5-37); Bilirubin Total 1.3 mg/dL (0.0-1.0); Blood Urea Nitrogen 7 mg/dL (9-16); Calcium 8.6 mg/dL (8.4-10.2); Carbon Dioxide 24 mmol/L (22-29); Chloride 108 mmol/L (96-108); Creatinine Clr Calc Pharmacy 96.9; Estimated Glomerular Filt Rate > 60; Glucose Random 124 mg/dL (60-115); Magnesium 1.8 mg/dL (1.6-2.6); Potassium 4.2 mmol/L (3.3-5.1); Sodium 139 mmol/L (135-145); Total Protein 5.9 g/dL (6.5-8.0)
[2022-06-27 12:31] VITALS: BP 123/61; PULSE 62; RESP 18; TEMP 36.5; O2SAT 99; BMI 25.1
[2022-06-27] MEDS: Fosaprepitant Dimeglumine 150 MG in 0.9 % Sodium Chloride 145 ML 300 MG IV (13:20)
--- NOTE | 2022-06-27 13:36 | MHC.HEMONCSW ---
SW checked in with Pt. who stated that so far he is doing ok, but he will wait to see after he gets pumped up with that chemo ! I reminded him that I am here if he should need any assistance. He thanked me.
[2022-06-27] MEDS: diphenhydrAMINE HCL 25 MG CAPSULE PO (13:41)
[2022-06-27] MEDS: Acetaminophen 325 MG TABLET 650 MG PO (13:42)
[2022-06-27] MEDS: Famotidine/PF 20 MG/2 ML VIAL IVPUSH (13:43)
[2022-06-27] MEDS: dexAMETHasone sod phosphate/NS 12 MG/50 ML PIGGYBACK 200 MG IV (13:47)
[2022-06-27] MEDS: CARBOplatin 410 MG in 0.9 % Sodium Chloride 250 ML 582 MG IV (15:49)
--- NOTE | 2022-06-27 17:26 | MHC.HEMONC ---
Pt was in today for C3D1 Cabazitaxel/Carboplatin, nurse confirmed no PA required for this, or for Emend or Neulasta. Pt's VSS, weight stable, pt reported feeling a but less tired recently, and has been eating more in the past week. Pt had labs drawn/reviewed the previous day. Nurse Lubna placed 24g PIV to pt's R hand, w/ positive blood return. Nurse admin pre-meds: PO tylenol, PO benadryl, IV Dexamethasone, IV Zofran, and IV Emend. Pt was admin IV Cabazitaxel/Carboplatin a/o, well-tolerated, PIV was flushed w/ NS and removed. Pt was given d/c packet, to return the next day for Neulasta injection. pt's ta left w/ pt, next C4 booked for 07/17/22, w/ lab draw the day before.
[2022-06-28 15:03] VITALS: BP 108/54; PULSE 65; RESP 17; O2SAT 99
--- NOTE | 2022-06-28 15:11 | MHC.HEMONC ---
Neulasta 6mg administered to left upper arm and well tolerated. VSS. BP slightly low 108/54 - denies dizziness or lightheadness. Patient states he had a good night. No complaints at this time.
--- NOTE | 2022-07-10 13:35 | MHC.HEMONC ---
Pt has been discharged from [facility] as he has met all of his goals per Ivonne.
[2022-07-16 10:08] LABS: MANUAL DIFF FLAG NO
[2022-07-16 10:19] LABS: Basophils Percent Auto 0.4 % (0-2); Hematocrit 27.7 % (42.0-52.0); Hemoglobin 9.1 g/dl (14.0-18.0); Imm Gran Abs Auto 0.12 X10*3/uL (0.00-0.03); Imm Gran Pct Auto 1.1 % (0.0-0.4); Lymphocytes Absolute Auto 0.9 X10*3/uL (1.2-4.9); Lymphocytes Percent Auto 8.7 % (20-40); Mean Corpuscular HGB Conc 32.9 g/dl (31.0-36.0); Mean Corpuscular Hemoglobin 35.4 pg (27.0-33.0); Mean Corpuscular Volume 107.8 fL (80.0-98.0); Mean Platelet Volume 9.6 fL (9.4-12.4); Monocytes Absolute Auto 0.8 X10*3/uL (0.1-1.2); Monocytes Percent Auto 7.2 % (2-11); Neutrophils Percent Auto 82.6 % (45-73); Platelet Count 122 X10*3/uL (160-400); Red Blood Count 2.57 X10*6/uL (4.60-5.80); Red Cell Distribution Width 16.3 % (11.0-16.0); White Blood Count 10.9 X10*3/uL (4.8-10.8)
[2022-07-16 12:01] LABS: Alanine Aminotransferase 11 U/L (0-40); Albumin Level 3.6 g/dL (3.5-5.0); Alkaline Phosphatase 129 U/L (39-117); Anion Gap 11 (12-20); Aspartate Amino Transferase 13 U/L (5-37); Blood Urea Nitrogen 6 mg/dL (9-16); Calcium 8.6 mg/dL (8.4-10.2); Carbon Dioxide 25 mmol/L (22-29); Chloride 105 mmol/L (96-108); Creatinine Clr Calc Pharmacy 96.9; Estimated Glomerular Filt Rate > 60; Glucose Random 113 mg/dL (60-115); Potassium 3.5 mmol/L (3.3-5.1); Sodium 137 mmol/L (135-145); Total Protein 5.8 g/dL (6.5-8.0)
[2022-07-17 10:48] LABS: Prostate Specific Antigen 42.64 ng/mL (<0.05-4.0)
--- NOTE | 2022-07-17 11:45 | P.PNHO-ONC_ITS ---
Medical Summary - Medical Summary Date of Service: 07/17/22 Chief complaint: Follow-up and scheduled treatment Primary Care Provider: Guido Joseph MD Medical Summary: Diagnosis: Metastatic prostate cancer August 2017 Diagnosed with prostate cancer in 2007. Underwent robotic-assisted prostatectomy on 08/04/07. Adenocarcinoma with mucinous differentiation, pT3a pN0, [place] score 4+3 involving 75% of prostate gland. Underwent adjuvant IMRT following prostatectomy. Underwent surgery for correction of urinary incontinence in 2008, implantation of artificial urinary sphincter in September 2010. He has been on intermittent androgen deprivation, Eligard 45 mg q.6 months. Last PSA in August 2017 14.7 with the testosterone level at 29.5. He was started back on GnRH agonist q.6 months, he was prescribed Casodex but did not start it. One episode of gross hematuria which prompted urine cytology, negative, CT urogram abdomen/pelvis with adrenal cyst, no stone or obstruction. 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 CT abdomen/pelvis with IV contrast August 2017 at [facility] showed increasing size and number of pulmonary lesions, bony lesion in the right ilium measuring 5.7 cm and previously measured 1 cm. No Intra-abdominal lymphadenopathy, normal liver, spleen and pancreas. No hydronephrosis or nephrolithiasis. CT chest with contrast in August 2017 showed mild multiple pulmonary nodules concerning for metastatic disease some solid, some cavitary or cystic. Findings increased since February 2012. 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 Largest lesion in the right lung measuring 3.5x2.5 cm. PET scan performed 09/11/17 showed multifocal FDG avid metastatic lesions present throughout the lungs, largest in the left lower lobe measuring 3.7x2.4 cm with SUV of 3.3. Most intense lesion in the left upper lobe with SUV 4.7 measuring 1.5x1.1 cm. No other adenopathy. FDG avid sclerotic metastasis in the posterior right iliac bone SUV 7.7. Prominent activity in palatine tonsils bilaterally more intense on the right, nonspecific. No corresponding CT abnormality. Direct visualization is recommended. He was diagnosed with bone metastasis, bone scan performed at [facility] in August 2017 showed uptake in the right iliac bone representing a metastatic lesion. Resumed Eligard in August 2017, he stopped Casodex. PSA is rising, testosterone level was 0. Hormone refractory metastatic prostate cancer. Patient started abiraterone/prednisone on 07/15/18. Received 1st does of denosumab 07/02/2018. PET scan performed April 2019 shows marked metabolic response with minimal to no activity in the lung nodules and skeletal bones. Bone scan performed December 2020 shows extensive metastatic disease to right posterior iliac bone, this now extends more laterally compared to previous scan. PET-CT performed 02/2021 showed new uptake in enlargement of left lower lobe pulmonary nodules, few additional bilateral small pulmonary nodules seen. Mild increase in FDG avidity in right posterior iliac bone. He was seen by radiation oncology at [facility], as he is asymptomatic from bony disease, palliative radiation therapy was deferred. He started chemotherapy, Taxotere in March 2021. He was diagnosed with brain metastases. Recently started on carboplatin and cabazitaxe.l Interval History Interval history: Patient is here in follow-up. He was hospitalized a month ago because of tachycardia. He was diagnosed with atrial fibrillation and he was admitted to observation. He converted to sinus rhythm. He was not started on any anticoagulation. 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 He feels weak and tired but denies any dizziness, palpitations or chest pain. He denies any fever or chills. Review of Systems - Constitutional Reports as per HPI, Reports lack of energy, Reports malaise - Cardiovascular Reports no additional cardiovascular complaints - Respiratory Reports no additional respiratory complaints - Gastrointestinal Reports no additional gastrointestinal complaints - Neurologic Reports weakness [facility] Medical History: Medical History (Last Updated 07/17/22 @ 11:34 by Cady Ordoñez MD) A-fib Benign essential hypertension CAD (coronary artery disease) Central serous retinopathy Hematuria Impaired fasting glucose Metabolic brain disease Mitral annular calcification Myocardial injury Non-rheumatic aortic stenosis Obesity (BMI 30-39.9) Prostate cancer metastatic to bone Psoriasis Pulmonary nodules Pure hypercholesterolemia Tick bite Functional capacity: wheelchair bound Family History: Family History (Last Reviewed 06/24/22 @ 13:40 by NAHOMI Gaitan) Father Heart disease CVD (cardiovascular disease) Mother Acute CVA (cerebrovascular accident) CVD (cardiovascular disease) Sister No problems noted. Sister Pacemaker Surgical History: Surgical History (Last Reviewed 06/24/22 @ 13:40 by NAHOMI Gaitan) History of bladder surgery History of prostatectomy History of right knee surgery Social History: Social History (Last Reviewed 06/24/22 @ 13:40 by NAHOMI Gaitan) Living Situation History: Household Members: Spouse Housing: House Are you a primary landcare officer to a significant other at home: No Do you presently have visiting nurse or other home services: No Alcohol History Details: 1. How often do you have a drink containing alcohol?: b. Monthly or less 2. How many drinks containing alcohol do you have on a typical day when you are drinking?: a. 1 or 2 Tobacco History: Patient Tobacco Use Status: Former Tobacco user Tobacco use type: Cigarette e-Cigarette/Vaping Use: Never Used Second Hand Smoke Exposure: Yes Substance Use History: Use of substances other than those prescribed or required for medical reasons : No Domestic Abuse History: Have you been hit, kicked, punched, or otherwise hurt by someone within the past year? If so, by whom?: No Do you feel safe in your current relationship?: Yes Advance Directives: Advance Directives: No Advance Directives Information Provided: No Homicidal Assessment: Do you have thoughts of harming others: None Do you have a plan to hurt others: No Plan Do you have the means to hurt others: No Nutrition Assessment: Recently lost weight without trying: No Patient : No Occupation Assessmet: service: No Current occupational status: retired Oncology Screenings - ECOG Performance Status ECOG Performance Status: 2 Home Medications and Allergies Home Medications Medication Instructions Recorded Confirmed Type calcium carbonate 600 mg calcium 600 mg PO DAILY 01/03/20 07/17/22 History (1,500 mg) tablet (Calcium) denosumab 120 mg/1.7 mL (70 mg/mL) 120 mg subcut Q4W 01/03/20 07/17/22 History subcutaneous solution leuprolide acetate (6 month) 45 mg 45 mg IM [id number] 01/03/20 07/17/22 History intramuscular syringe kit (Lupron Depot) atorvastatin 80 mg tablet 80 mg PO BEDTIME 06/07/22 07/17/22 History prednisone 5 mg tablet 5 mg PO DAILY 06/07/22 07/17/22 History Allergies Allergy/AdvReac Type Severity Reaction Status Date / Time lisinopril Allergy Severe angioedema Verified 06/24/22 14:02 Exam Vital signs: Vital Signs Temp 97.7 F 06/27/22 12:31 Pulse 65 06/28/22 15:03 Resp 17 06/28/22 15:03 BP 108/54 L 06/28/22 15:03 Pulse Ox 99 06/28/22 15:03 O2 Del Method Room Air 06/28/22 15:03 Weight 86.3 kg BMI result Body Mass Index 25.1 - Constitutional Present: no acute distress - Routine HEENT Exam Head: Present: normal inspection - Routine Neck Exam Present: full ROM, normal inspection. Absent: lymphadenopathy - Routine Respiratory Exam Present: CTAB - Routine Cardiovascular Exam Cardiovascular: Present: S1, S2 - Routine Abdominal Exam Present: normal bowel sounds, soft - Routine Extremities Exam Absent: pedal edema - Routine Back/Spine/Pelvis Exam Back/Spine: Present: full ROM - Routine Skin Exam Present: intact - Routine Neurological Exam Present: alert, oriented X3 - Routine Psychiatric Exam Present: normal affect Data - Labs CBC & Chem 7: 07/16/22 10:06 07/16/22 10:06 Assessment and Plan Patient Active problem list reviewed?: Yes (1) Prostate cancer metastatic to bone Status: Chronic Assessment and plan: 1. This is a 76-year-old male with metastatic hormone refractory prostate cancer. Initially diagnosed in 2007, underwent radical prostatectomy followed by adjuvant IMRT, intermittent androgen deprivation. Patient is on Lupron every 6 months. He started Zytiga 1000 mg daily with prednisone 5 mg b.i.d. and denosumab since July 15, 2018. He is now on prednisone 5 mg once a day and Zytiga 1000 mg daily. He went back to full dose since March 2020. He received chemotherapy docetaxel from March 2021 to July 2021 for progressive disease. He started enzalutamide 160 mg once daily from 11/08/2021. PSMA PET scan performed at [facility] on 03/05/2022 revealed multiple brain lesions in the cerebellar /left cerebellar hemisphere masses with uptake, SUV 8.4. Abnormal right temporal lobe mass with SUV 8.9 and surrounding edema, abnormal inferior medial right cerebellar hemispheric small rounded lesion. Multifocal irregular pulmonary nodular lesions with SUV 5.1. Abnormal left paraesophageal soft tissue lymph node with SUV 5.4, mass in the left lower lobe of lung measuring 2.5 x 3.6 cm with SUV 8, 5 cm heterogenous mass in the left hepatic lobe, peripheral uptake max as 7.4, abnormal multifocal right iliac bone sclerosis with uptake SUV 16.9 and abnormal extensive sclerotic sacral or she is uptake SUV 24.4 and L5 vertebral body sclerotic lesion with SUV 6.7. Brain MRI with and without contrast performed 03/08/2022 at [facility] showed large volume heterogenously enhancing metastatic disease throughout supratentorial and infratentorial brain some of which is hemorrhagic. Largest lesion with the supratentorial brain in the right temporal periventricular white matter measuring up to 4 cm in size surrounded by significant edema. Largest in the infratentorial brain located in the left cerebellar hemisphere measuring up to 2.8 cm. Multiple small enhancing lesions throughout cerebral and cerebellar hemispheres bilaterally. No midline shift or herniation. He completed whole-brain RT at [facility] on 04/03/2022. He is be ing tapered off dexamethasone. He underwent liver ultrasound which did show 2 large lesions. Biopsy of liver lesion/right lobe performed 04/04/2022 revealed metastatic poorly differentiated carcinoma consistent with prostatic primary. NGS revealed PIK3C variant gene, TMPRSS2-ERG chromosomal rearrangement. Other biologically relevant mutations seen in TP53, APC, PTEN, SETD 2, TET2 mutations seen. TMB 5.3, MSI stabe. Patient was offered option of going to [place] for 2nd opinion and also to see if he is eligible for clinical trials. Patient started treatment with cabazitaxel and carboplatin. He did developed diarrhea after the 1st cycle for which he required hydration. He is using Imodium as prescribed and his symptoms are better controlled. To 3rd cycle of chemotherapy, he was briefly hospitalized for atrial fibrillation. This resolved after IV fluids. He has remained in sinus rhythm, he is on a heart monitor. Overall, he is becoming rather frail. His PSA is declining and his labs show some improvement. I will proceed with cycle 4 chemotherapy today. Repeat PSMA PET scan after this cycle. Check labs weekly. Follow-up in 4 weeks. - Time Spent With Patient Time Spent with Patient (in minutes): 20
[2022-07-17 12:15] VITALS: BP 117/58; PULSE 71; RESP 18; TEMP 36.3; O2SAT 98; BMI 24.9
[2022-07-17] MEDS: Fosaprepitant Dimeglumine 150 MG in 0.9 % Sodium Chloride 145 ML 300 MG IV (13:04)
[2022-07-17] MEDS: diphenhydrAMINE HCL 25 MG CAPSULE PO (13:19)
[2022-07-17] MEDS: Acetaminophen 325 MG TABLET 650 MG PO (13:19)
[2022-07-17] MEDS: Famotidine/PF 20 MG/2 ML VIAL IVPUSH (13:20)
[2022-07-17] MEDS: dexAMETHasone sod phosphate/NS 12 MG/50 ML PIGGYBACK 200 MG IV (13:21)
--- NOTE | 2022-07-17 14:34 | MHC.HEMONCMA ---
Kenia ordered and given to MS to authorize.
--- NOTE | 2022-07-17 16:29 | MHC.HEMONC ---
Pt arrived for sched C4D1 Cabazitaxel/Carboplatin, nurse verified no PA required, or for Emend or Neulasta, pt also in for Onc f/u w/ Dr. Ordoñez. Nurse confirmed pt has no med changes after hospitalization, though is still wearing holter-monitor. Pt's VSS, weight stable, pt reported fatigue, but denied other symptoms. Pt's labs were drawn the previous day. Nurse Stephanie placed 22g PIV to pt's R hand, w/ positive blood return. Nurse admin pre-meds: PO tylenol, PO benadryl, IV Dexamethasone, IV pepcid, IV Zofran, and IV Emend. Pt was admin IV Cabazitaxel/Carboplatin a/o, well-tolerated, PIV was flushed w/ NS and removed. Nurse noted pt is scheduled to receive Q6week Xgeva inj the following week, asked Dr. Ordoñez to adjust schedule to match pt's chemo dates, as pt receives chemo [id number]. Pt's Calcium was within range at 8.6. Nurse admin Xgeva 120 mg SC to pt's RUE, well-tolerated. Pt was given d/c packet, to return the next day on 07/18/22 for Neulasta injection, next cycle is booked on 08/07/22 w/ lab appt the day before. Pt departed via w/c w/ family.
--- NOTE | 2022-07-17 16:41 | HO.HEMONCPA ---
Addendum entered by Eulalia Nieto 07/17/22 16:44: QUIRED FOR PET CT SCAN . ORDER FAXED TO [facility] Original Note: NO PA REQUIRED FOR PET CT SCAN . ORDER FAXED TO [facility]AEFER
--- NOTE | 2022-07-18 15:27 | MHC.HEMONC ---
Neulasta 6mg s/c administered to left upper arm and well tolerated. No complaints at this time. Patient to return in 3 weeks for next treatment. Declined discharge packet- did receive yesterday with treatment.
--- NOTE | 2022-07-18 15:32 | MHC.HEMONC ---
Per Dr Hartley-pt requesting to be seen by mental health provider for depression. Pt instructed to call PCP and notify them of request for Mental health provider for complaints of depression. Pt called and notified-verbalizes understanding of information given
--- NOTE | 2022-08-02 09:30 | MHC.HEMONC ---
Pt not yet scheduled for PET because they havn't reached him. I called pt and gave them number to call and book it. Per Dr Ordoñez - pt is still to get chemo next week with PET appt pending.
--- NOTE | 2022-08-02 11:33 | MHC.HEMONC ---
Pt PET at [facility] on 08/20/22 at 1pm per his SO.
[2022-08-06 11:21] LABS: MANUAL DIFF FLAG NO
[2022-08-06 11:31] LABS: Basophils Percent Auto 0.4 % (0-2); Hematocrit 27.4 % (42.0-52.0); Hemoglobin 9.1 g/dl (14.0-18.0); Imm Gran Abs Auto 0.06 X10*3/uL (0.00-0.03); Imm Gran Pct Auto 0.7 % (0.0-0.4); Lymphocytes Absolute Auto 1.2 X10*3/uL (1.2-4.9); Lymphocytes Percent Auto 14.2 % (20-40); Mean Corpuscular HGB Conc 33.2 g/dl (31.0-36.0); Mean Corpuscular Hemoglobin 36.5 pg (27.0-33.0); Mean Platelet Volume 9.9 fL (9.4-12.4); Monocytes Absolute Auto 0.6 X10*3/uL (0.1-1.2); Monocytes Percent Auto 6.8 % (2-11); Neutrophils Absolute Auto 6.4 x10*3/uL (2.0-8.3); Neutrophils Percent Auto 77.9 % (45-73); Platelet Count 115 X10*3/uL (160-400); Red Blood Count 2.49 X10*6/uL (4.60-5.80); Red Cell Distribution Width 15.9 % (11.0-16.0); White Blood Count 8.3 X10*3/uL (4.8-10.8)
[2022-08-06 11:45] LABS: Alanine Aminotransferase 10 U/L (0-40); Albumin Level 3.5 g/dL (3.5-5.0); Alkaline Phosphatase 99 U/L (39-117); Anion Gap 13 (12-20); Aspartate Amino Transferase 14 U/L (5-37); Bilirubin Total 1.3 mg/dL (0.0-1.0); Blood Urea Nitrogen 7 mg/dL (9-16); Calcium 8.1 mg/dL (8.4-10.2); Carbon Dioxide 21 mmol/L (22-29); Chloride 103 mmol/L (96-108); Creatinine Clr Calc Pharmacy 94.2; Estimated Glomerular Filt Rate > 60; Glucose Random 109 mg/dL (60-115); Sodium 134 mmol/L (135-145); Total Protein 5.9 g/dL (6.5-8.0)
[2022-08-06 11:47] VITALS: BP 95/52; PULSE 75; RESP 15; TEMP 36.2; O2SAT 100
--- NOTE | 2022-08-06 11:57 | P.PNHO-ONC_ITS ---
Medical Summary - Medical Summary Date of Service: 08/06/22 Chief complaint: Fell out of bed Primary Care Provider: Guido Joseph MD Medical Summary: Diagnosis: Metastatic prostate cancer August 2017 Diagnosed with prostate cancer in 2007. Underwent robotic-assisted prostatectomy on 08/04/07. Adenocarcinoma with mucinous differentiation, pT3a pN0, [place] score 4+3 involving 75% of prostate gland. Underwent adjuvant IMRT following prostatectomy. Underwent surgery for correction of urinary incontinence in 2008, implantation of artificial urinary sphincter in September 2010. He has been on intermittent androgen deprivation, Eligard 45 mg q.6 months. Last PSA in August 2017 14.7 with the testosterone level at 29.5. He was started back on GnRH agonist q.6 months, he was prescribed Casodex but did not start it. One episode of gross hematuria which prompted urine cytology, negative, CT urogram abdomen/pelvis with adrenal cyst, no stone or obstruction. 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 CT abdomen/pelvis with IV contrast August 2017 at [facility] showed increasing size and number of pulmonary lesions, bony lesion in the right ilium measuring 5.7 cm and previously measured 1 cm. No Intra-abdominal lympha denopathy, normal liver, spleen and pancreas. No hydronephrosis or nephrolithiasis. CT chest with contrast in August 2017 showed mild multiple pulmonary nodules concerning for metastatic disease some solid, some cavitary or cystic. Findings increased since February 2012. 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 Largest lesion in the right lung measuring 3.5x2.5 cm. PET scan performed 09/11/17 showed multifocal FDG avid metastatic lesions present throughout the lungs, largest in the left lower lobe measuring 3.7x2.4 cm with SUV of 3.3. Most intense lesion in the left upper lobe with SUV 4.7 measuring 1.5x1.1 cm. No other adenopathy. FDG avid sclerotic metastasis in the posterior right iliac bone SUV 7.7. Prominent activity in palatine tonsils bilaterally more intense on the right, nonspecific. No corresponding CT abnormality. Direct visualization is recommended. He was diagnosed with bone metastasis, bone scan performed at [facility] in August 2017 showed uptake in the right iliac bone representing a metastatic lesion. Resumed Eligard in August 2017, he stopped Casodex. PSA is rising, testosterone level was 0. Hormone refractory metastatic prostate cancer. Patient started abiraterone/prednisone on 07/15/18. Received 1st does of denosumab 07/02/2018. PET scan performed April 2019 shows marked metabolic response with minimal to no activity in the lung nodules and skeletal bones. Bone scan performed December 2020 shows extensive metastatic disease to right pos terior iliac bone, this now extends more laterally compared to previous scan. PET-CT performed 02/2021 showed new uptake in enlargement of left lower lobe pulmonary nodules, few additional bilateral small pulmonary nodules seen. Mild increase in FDG avidity in right posterior iliac bone. He was seen by radiation oncology at [facility], as he is asymptomatic from bony disease, palliative radiation therapy was deferred. He started chemotherapy, Taxotere in March 2021. He was diagnosed with brain metastases. Recently started on carboplatin and cabazitaxe in May 2022. He was diagnosed with atrial fibrillation 07/2022 and he was admitted to observation. He converted to sinus rhythm. He was not started on any anticoagulation. 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 Interval History Interval history: Patient was seen urgently today because of recent fall. He fell out of bed during the night and bruised his arm. No reports of loss of consciousness but he has been feeling very tired lately. He says after the most recent chemotherapy he has been experiencing more fatigue than usual. No nausea, emesis or diarrhea. His appetite has been poor. He has lost weight. He denies fever or chills. He has an appointment this afternoon with his doggy daycare activities director. He denies dizziness or chest pain Review of Systems - Constitutional Reports as per HPI, Reports fatigue, Reports malaise, Reports weight loss - Cardiovascular Reports no additional cardiovascular complaints - Respiratory Reports no additional respiratory complaints - Neurologic Reports weakness [facility] Medical History: Medical History (Last Reviewed 08/06/22 @ 11:48 by Heather Tubbs) A-fib Benign essential hypertension CAD (coronary artery disease) Central serous retinopathy Hematuria Impaired fasting glucose Metabolic brain disease Mitral annular calcification Myocardial injury Non-rheumatic aortic stenosis Obesity (BMI 30-39.9) Prostate cancer metastatic to bone Psoriasis Pulmonary nodules Pure hypercholesterolemia Tick bite Functional capacity: wheelchair bound Family History: Family History (Last Reviewed 06/24/22 @ 13:40 by NAHOMI Gaitan) Father Heart disease CVD (cardiovascular disease) Mother Acute CVA (cerebrovascular accident) CVD (cardiovascular disease) Sister No problems noted. Sister Pacemaker Surgical History: Surgical History (Last Reviewed 08/06/22 @ 11:48 by Heather Tubbs) History of bladder surgery History of prostatectomy History of right knee surgery Social History: Social History (Last Reviewed 08/06/22 @ 11:48 by Heather Tubbs) Living Situation History: Household Members: Spouse Housing: House Are you a primary client care consultant to a significant other at home: No Do you presently have visiting nurse or other home services: No Alcohol History Details: 1. How often do you have a drink containing alcohol?: b. Monthly or less 2. How many drinks containing alcohol do you have on a typical day when you are drinking?: a. 1 or 2 Tobacco History: Patient Tobacco Use Status: Former Tobacco user Tobacco use type: Cigarette e-Cigarette/Vaping Use: Never Used Second Hand Smoke Exposure: Yes Substance Use History: Use of substances other than those prescribed or required for medical reasons : No Domestic Abuse History: Have you been hit, kicked, punched, or otherwise hurt by someone within the past year? If so, by whom?: No Do you feel safe in your current relationship?: Yes Advance Directives: Advance Directives: No Advance Directives Information Provided: No Homicidal Assessment: Do you have thoughts of harming others: None Do you have a plan to hurt others: No Plan Do you have the means to hurt others: No Nutrition Assessment: Recently lost weight without trying: No Patient : No Occupation Assessmet: service: No Current occupational status: retired Home Medications and Allergies Home Medications Medication Instructions Recorded Confirmed Type calcium carbonate 600 mg calcium 600 mg PO DAILY 01/03/20 08/06/22 History (1,500 mg) tablet (Calcium) denosumab 120 mg/1.7 mL (70 mg/mL) 120 mg subcut Q4W 01/03/20 08/06/22 History subcutaneous solution leuprolide acetate (6 month) 45 mg 45 mg IM [id number] 01/03/20 08/06/22 History intramuscular syringe kit (Lupron Depot) atorvastatin 80 mg tablet 80 mg PO BEDTIME 06/07/22 08/06/22 History prednisone 5 mg tablet 5 mg PO DAILY 06/07/22 08/06/22 History Allergies Allergy/AdvReac Type Severity Reaction Status Date / Time lisinopril Allergy Severe angioedema Verified 06/24/22 14:02 Exam Vital signs: Vital Signs Temp 97.2 F 08/06/22 11:47 Pulse 75 08/06/22 11:47 Resp 15 08/06/22 11:47 BP 95/52 L 08/06/22 11:47 Pulse Ox 100 08/06/22 11:47 O2 Del Method Room Air 08/06/22 11:47 Weight 85.5 kg BMI result Body Mass Index 24.9 - Constitutional Present: no acute distress - Routine HEENT Exam Head: Present: normal inspection - Routine Neck Exam Present: full ROM, normal inspection. Absent: lymphadenopathy - Routine Respiratory Exam Present: CTAB - Routine Cardiovascular Exam Cardiovascular: Present: S1, S2 - Routine Abdominal Exam Present: normal bowel sounds, soft - Routine Extremities Exam Absent: pedal edema - Routine Back/Spine/Pelvis Exam Back/Spine: Present: full ROM - Routine Skin Exam Present: intact - Routine Neurological Exam Present: alert, oriented X3 - Routine Psychiatric Exam Present: normal affect Data - Labs CBC & Chem 7: 08/06/22 11:09 08/06/22 11:09 Assessment and Plan Patient Active problem list reviewed?: Yes (1) Prostate cancer metastatic to bone Status: Chronic Assessment and plan: 1. This is a 76-year-old male with metastatic hormone refractory prostate cancer. Initially diagnosed in 2007, underwent radical prostatectomy followed by adjuvant IMRT, intermittent androgen deprivation. Patient is on Lupron every 6 months. He started Zytiga 1000 mg daily with prednisone 5 mg b.i.d. and denosumab since July 15, 2018. He is now on prednisone 5 mg once a day and Zytiga 1000 mg daily. He went back to full dose since March 2020. He received chemotherapy docetaxel from March 2021 to July 2021 for progressive disease. He started enzalutamide 160 mg once daily from 11/08/2021. PSMA PET scan performed at [facility] on 03/05/2022 revealed multiple brain lesions in the cerebellar /left cerebellar hemisphere masses with uptake, SUV 8.4. Abnormal right temporal lobe mass with SUV 8.9 and surrounding edema, abnormal inferior medial right cerebellar hemispheric small rounded lesion. Multifocal irregular pulmonary nodular lesions with SUV 5.1. Abnormal left paraesophageal soft tissue lymph node with SUV 5.4, mass in the left lower lobe of lung measuring 2.5 x 3.6 cm with SUV 8, 5 cm heterogenous mass in the left hepatic lobe, peripheral uptake max as 7.4, abnormal multifocal right iliac bone sclerosis with uptake SUV 16.9 and abnormal extensive sclerotic sacral or she is uptake SUV 24.4 and L5 vertebral body sclerotic lesion with SUV 6.7. Brain MRI with and without contrast performed 03/08/2022 at [facility] showed large volume heterogenously enhancing metastatic disease throughout supratentorial and infratentorial brain some of which is hemorrhagic. Largest lesion with the supratentorial brain in the right temporal periventricular white matter measuring up to 4 cm in size surrounded by significant edema. Largest in the infratentorial brain located in the left cerebellar hemisphere measuring up to 2.8 cm. Multiple small enhancing lesions throughout cerebral and cerebellar hemispheres bilaterally. No midline shift or herniation. He completed whole-brain RT at [facility] on 04/03/2022. He is being tapered off dexamethasone. He underwent liver ultrasound which did show 2 large lesions. Biopsy of liver lesion/right lobe performed 04/04/2022 revealed metastatic poorly differentiated carcinoma consistent with prostatic primary. NGS revealed PIK3C variant gene, TMPRSS2-ERG chromosomal rearrangement. Other biologically relevant mutations seen in TP53, APC, PTEN, SETD 2, TET2 mutations seen. TMB 5.3, MSI stabe. Patient was offered option of going to [facility] for 2nd opinion and also to see if he is eligible for clinical trials. Patient started treatment with cabazitaxel and carboplatin. He did developed diarrhea after the 1st cycle for which he required hydration. He is using Imodium as prescribed and his symptoms are better controlled. To 3rd cycle of chemotherapy, he was briefly hospitalized for atrial fib rillation. This resolved after IV fluids. He has remained in sinus rhythm, he is on a heart monitor. Overall, he is becoming rather frail. His PSA is declining and his labs show some improvement. He has received 4 cycles of chemotherapy. Repeat PSMA PET scan has been ordered. Because of progressive weakness and declining performance status, have postpone chemotherapy this week. 2. Hyperkalemia he was advised to take oral potassium supplementation 10 mEq as daily as well as increase dietary potassium. Follow-up in 2 weeks. - Time Spent With Patient Time Spent with Patient (in minutes): 20
--- NOTE | 2022-08-06 12:01 | MHC.HEMONC ---
Pt here for Pre chemo labs. CBC,CMP reviewed by Dr Ordoñez. Chemo to be pushed out by 1 week. Pt declined hydration today.
--- NOTE | 2022-08-06 12:04 | MHC.HEMONCMA ---
Patient seen in clinic today due to fall and not feeling weel, VSS, labs, need fluids but patient declined to stay.
--- NOTE | 2022-08-06 12:05 | MHC.HEMONCMA ---
PSMA Petscan ordered for [facility] to be done, gave to MS to authorize.
--- NOTE | 2022-08-06 14:57 | MHC.HEMONC ---
I informed pt SO at Dr Ordoñez's request that rx for Potassium has been sent and he should eat bananas due to low potassium level today. I did check with him and he is taking prednisone daily as ordered. They are aware of chemo appt next week.
--- NOTE | 2022-08-06 16:49 | MHC.HEMONC ---
This nurse called patient, spoke with patient's . Potassium was 3.0 today and a script for potassium was sent into [facility]. He is to take one daily. Also verified that Pt is taking prednisone daily and states he is taking it [place] morning. Instructed if he starts feeling like he is dehydrated then call and we will have him come in for hydration. is aware that chemo was rescheduled. 08/13 labs, 08/14 chemo, 08/15 neulasta. verbalized understanding.
[2022-08-09 13:53] VITALS: BP 101/58; PULSE 79; RESP 18; TEMP 36.7; O2SAT 99
[2022-08-09] MEDS: 0.9 % Sodium Chloride 1,000 ML 500 ML IV (14:32)
[2022-08-09 16:35] VITALS: BP 137/62; PULSE 66; RESP 18; O2SAT 98
--- NOTE | 2022-08-09 16:36 | MHC.HEMONC ---
Significant other Janeen called- requesting IV hydration this afternoon for patient. Patient has had limited PO intake over the last several days- with intermittent nausea but no vomiting. #22 angio placed to right AC with positive blood return. 1L NS administered over 2 hours and well tolerated. BP 137/62 hr 66 02 sats 98% on room air. Chemotherapy postponed by another week. Orders moved. New calender provided. Patient to return next week for repeat labs and possible hydration. IV removed.
--- NOTE | 2022-08-15 15:35 | MHC.HEMONC ---
Pt was scheduled for labs today, but did not come in. Telephone call to his SSandra Vernon with no answer. Message left. Also called his daughter Mejia and that number is out of service.
[2022-08-16 09:23] LABS: MANUAL DIFF FLAG NO
--- NOTE | 2022-08-16 09:37 | MHC.HEMONC ---
Pt here for lab draw. Declines to wait for lab results. States he does not want IV fluids or blood transfusion today. States he feels better today than yesterday. Labs drawn by [email or web address]. Specimen to lab
[2022-08-16 09:45] LABS: Basophils Percent Auto 0.5 % (0-2); Eosinophils Percent Auto 0.5 % (0-4); Hematocrit 30.4 % (42.0-52.0); Imm Gran Abs Auto 0.02 X10*3/uL (0.00-0.03); Imm Gran Pct Auto 0.3 % (0.0-0.4); Lymphocytes Absolute Auto 1.1 X10*3/uL (1.2-4.9); Lymphocytes Percent Auto 17.5 % (20-40); Mean Corpuscular HGB Conc 32.9 g/dl (31.0-36.0); Mean Platelet Volume 9.3 fL (9.4-12.4); Monocytes Absolute Auto 0.5 X10*3/uL (0.1-1.2); Monocytes Percent Auto 8.4 % (2-11); Neutrophils Absolute Auto 4.5 x10*3/uL (2.0-8.3); Neutrophils Percent Auto 72.8 % (45-73); Platelet Count 170 X10*3/uL (160-400); Red Cell Distribution Width 15.9 % (11.0-16.0); White Blood Count 6.2 X10*3/uL (4.8-10.8)
[2022-08-16 09:50] LABS: Mean Corpuscular Volume 112.6 fL (80.0-98.0)
[2022-08-16 09:56] LABS: Alanine Aminotransferase 9 U/L (0-40); Albumin Level 3.5 g/dL (3.5-5.0); Alkaline Phosphatase 138 U/L (39-117); Anion Gap 14 (12-20); Aspartate Amino Transferase 14 U/L (5-37); Bilirubin Total 1.6 mg/dL (0.0-1.0); Blood Urea Nitrogen 8 mg/dL (9-16); Calcium 8.5 mg/dL (8.4-10.2); Carbon Dioxide 22 mmol/L (22-29); Chloride 102 mmol/L (96-108); Creatinine Clr Calc Pharmacy 91.7; Estimated Glomerular Filt Rate > 60; Glucose Random 102 mg/dL (60-115); Magnesium 1.7 mg/dL (1.6-2.6); Potassium 4.1 mmol/L (3.3-5.1); Sodium 134 mmol/L (135-145); Total Protein 6.1 g/dL (6.5-8.0)
--- NOTE | 2022-08-16 15:40 | MHC.HEMONC ---
Pt called with lab results
--- NOTE | 2022-08-19 09:59 | MHC.HEMONC ---
Pt's ta called, said pt does not want to have labs or treatment this week, wants tx after father's day. Nurse informed Dr. Ordoñez, rescheduled pt's tx for next Fri, 08/28, w/ lab appt the day before.
--- NOTE | 2022-08-26 08:17 | MHC.HEMONC ---
Per Dr Ordoñez-chemotherapy cancelled
[2022-08-27 10:39] LABS: MANUAL DIFF FLAG NO
--- NOTE | 2022-08-27 10:47 | P.PNHO-ONC_ITS ---
Medical Summary - Medical Summary Date of Service: 08/27/22 Chief complaint: Follow-up Primary Care Provider: Guido Joseph MD Medical Summary: Diagnosis: Metastatic prostate cancer August 2017 Diagnosed with prostate cancer in 2007. Underwent robotic-assisted prostatectomy on 08/04/07. Adenocarcinoma with mucinous differentiation, pT3a pN0, [place] score 4+3 involving 75% of prostate gland. Underwent adjuvant IMRT following prostatectomy. Underwent surgery for correction of urinary incontinence in 2008, implantation of artificial urinary sphincter in September 2010. He has been on intermittent androgen deprivation, Eligard 45 mg q.6 months. Last PSA in August 2017 14.7 with the testosterone level at 29.5. He was started back on GnRH agonist q.6 months, he was prescribed Casodex but did not start it. One episode of gross hematuria which prompted urine cytology, negative, CT urogram abdomen/pelvis with adrenal cyst, no stone or obstruction. 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 CT abdomen/pelvis with IV contrast August 2017 at [facility] showed increasing size and number of pulmonary lesions, bony lesion in the right ilium measuring 5.7 cm and previously measured 1 cm. No Intra-abdominal lymphadenopa thy, normal liver, spleen and pancreas. No hydronephrosis or nephrolithiasis. CT chest with contrast in August 2017 showed mild multiple pulmonary nodules concerning for metastatic disease some solid, some cavitary or cystic. Findings increased since February 2012. 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 Largest lesion in the right lung measuring 3.5x2.5 cm. PET scan performed 09/11/17 showed multifocal FDG avid metastatic lesions present throughout the lungs, largest in the left lower lobe measuring 3.7x2.4 cm with SUV of 3.3. Most intense lesion in the left upper lobe with SUV 4.7 measuring 1.5x1.1 cm. No other adenopathy. FDG avid sclerotic metastasis in the posterior right iliac bone SUV 7.7. Prominent activity in palatine tonsils bilaterally more intense on the right, nonspecific. No corresponding CT abnormality. Direct visualization is recommended. He was diagnosed with bone metastasis, bone scan performed at [facility] in August 2017 showed uptake in the right iliac bone representing a metastatic lesion. Resumed Eligard in August 2017, he stopped Casodex. PSA is rising, testosterone level was 0. Hormone refractory metastatic prostate cancer. Patient started abiraterone/prednisone on 07/15/18. Received 1st does of denosumab 07/02/2018. PET scan performed April 2019 shows marked metabolic response with minimal to no activity in the lung nodules and skeletal bones. Bone scan performed December 2020 shows extensive metastatic disease to right posterior iliac bone, this now extends more laterally compared to previous scan. PET-CT performed 02/2021 showed new uptake in enlargement of left lower lobe pulmonary nodules, few additional bilateral small pulmonary nodules seen. Mild increase in FDG avidity in right posterior iliac bone. He was seen by radiation oncology at [facility], as he is asymptomatic from bony disease, palliative radiation therapy was deferred. He started chemotherapy, Taxotere in March 2021. PSMA PET scan performed at [facility] on 03/05/2022 revealed multiple brain lesions in the cerebellar /left cerebellar hemisphere masses with uptake, SUV 8.4. Abnormal right temporal lobe mass with SUV 8.9 and surrounding edema, abnormal inferior medial right cerebellar hemispheric small rounded lesion. Multifocal irregular pulmonary nodular lesions with SUV 5.1. Abnormal left paraesophageal soft tissue lymph node with SUV 5.4, mass in the left lower lobe of lung measuring 2.5 x 3.6 cm with SUV 8, 5 cm heterogenous mass in the left hepatic lobe, peripheral uptake max as 7.4, abnormal multifocal right iliac bone sclerosis with uptake SUV 16.9 and abnormal extensive sclerotic sacral or she is uptake SUV 24.4 and L5 vertebral body sclerotic lesion with SUV 6.7. Brain MRI with and without contrast performed 03/08/2022 at [facility] showed large volume heterogenously enhancing metastatic disease throughout supratentorial and infratentorial brain some of which is hemorrhagic. Largest lesion with the supratentorial brain in the right temporal periventricular white matter measuring up to 4 cm in size surrounded by significant edema. Largest in the infratentorial brain located in the left cerebellar hemisphere measuring up to 2.8 cm. Multiple small enhancing lesions throughout cerebral and cerebellar hemispheres bilaterally. No midline shift or herniation. Recently started on carboplatin and cabazitaxe in May 2022. He was diagnosed with atrial fibrillation 07/2022 and he was admitted to observation. He converted to sinus rhythm. He was not started on any anticoagulation. 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 Interval History Interval history: Patient was seen urgently today because of recent fall. He is feeling slightly better now that he has not received chemotherapy in about 3 weeks. His appetite is okay. He denies abdominal or back pain. No significant nausea. Denies headache or dizziness. Fever or chills. Review of Systems - Constitutional Reports as per HPI, Reports fatigue, Reports malaise, Denies weight loss - Cardiovascular Reports no additional cardiovascular complaints - Respiratory Reports no additional respiratory complaints - Neurologic Reports weakness [facility] Medical History: Medical History (Last Reviewed 08/06/22 @ 11:48 by Heather Tubbs) A-fib Benign essential hypertension CAD (coronary artery disease) Central serous retinopathy Hematuria Impaired fasting glucose Metabolic brain disease Mitral annular calcification Myocardial injury Non-rheumatic aortic stenosis Obesity (BMI 30-39.9) Prostate cancer metastatic to bone Psoriasis Pulmonary nodules Pure hypercholesterolemia Tick bite Functional capacity: wheelchair bound Family History: Family History (Last Reviewed 06/24/22 @ 13:40 by NAHOMI Gaitan) Father Heart disease CVD (cardiovascular disease) Mother Acute CVA (cerebrovascular accident) CVD (cardiovascular disease) Sister No problems noted. Sister Pacemaker Surgical History: Surgical History (Last Reviewed 08/06/22 @ 11:48 by Heather Tubbs) History of bladder surgery History of prostatectomy History of right knee surgery Social History: Social History (Last Reviewed 08/06/22 @ 11:48 by Heather Tubbs) Living Situation History: Household Members: Spouse Housing: House Are you a primary healthcare or medical to a significant other at home: No Do you presently have visiting nurse or other home services: No Alcohol History Details: 1. How often do you have a drink containing alcohol?: b. Monthly or less 2. How many drinks containing alcohol do you have on a typical day when you are drinking?: a. 1 or 2 Tobacco History: Patient Tobacco Use Status: Former Tobacco user Tobacco use type: Cigarette e-Cigarette/Vaping Use: Never Used Second Hand Smoke Exposure: Yes Substance Use History: Use of substances other than those prescribed or required for medical reasons : No Domestic Abuse History: Have you been hit, kicked, punched, or otherwise hurt by someone within the past year? If so, by whom?: No Do you feel safe in your current relationship?: Yes Advance Directives: Advance Directives: No Advance Directives Information Provided: No Homicidal Assessment: Do you have thoughts of harming others: None Do you have a plan to hurt others: No Plan Do you have the means to hurt others: No Nutrition Assessment: Recently lost weight without trying: No Patient : No Occupation Assessmet: service: No Current occupational status: retired Oncology Screenings - ECOG Performance Status ECOG Performance Status: 3 Home Medications and Allergies Home Medications Medication Instructions Recorded Confirmed Type calcium carbonate 600 mg calcium 600 mg PO DAILY 01/03/20 08/06/22 History (1,500 mg) tablet (Calcium) denosumab 120 mg/1.7 mL (70 mg/mL) 120 mg subcut Q4W 01/03/20 08/06/22 History subcutaneous solution leuprolide acetate (6 month) 45 mg 45 mg IM [id number] 01/03/20 08/06/22 History intramuscular syringe kit (Lupron Depot) atorvastatin 80 mg tablet 80 mg PO BEDTIME 06/07/22 08/06/22 History prednisone 5 mg tablet 5 mg PO DAILY 06/07/22 08/06/22 History Allergies Allergy/AdvReac Type Severity Reaction Status Date / Time lisinopril Allergy Severe angioedema Verified 06/24/22 14:02 Exam Vital signs: Vital Signs Temp 98.0 F 08/09/22 13:53 Pulse 66 08/09/22 16:35 Resp 18 08/09/22 16:35 BP 137/62 08/09/22 16:35 Pulse Ox 98 08/09/22 16:35 O2 Del Method Room Air 08/09/22 16:35 Weight 85.5 kg BMI result Body Mass Index 24.9 - Constitutional Present: no acute distress - Routine HEENT Exam Head: Present: normal inspection - Routine Neck Exam Present: full ROM, normal inspection. Absent: lymphadenopathy - Routine Respiratory Exam Present: CTAB - Routine Cardiovascular Exam Cardiovascular: Present: S1, S2 - Routine Abdominal Exam Present: normal bowel sounds, soft - Routine Extremities Exam Absent: pedal edema - Routine Back/Spine/Pelvis Exam Back/Spine: Present: full ROM - Routine Skin Exam Present: intact - Routine Neurological Exam Present: alert, oriented X3 - Routine Psychiatric Exam Present: normal affect Data - Labs CBC & Chem 7: 08/27/22 10:38 08/27/22 10:38 Assessment and Plan Patient Active problem list reviewed?: Yes (1) Prostate cancer metastatic to bone Status: Chronic Assessment and plan: 1. This is a 76-year-old male with metastatic hormone refractory prostate cancer. Initially diagnosed in 2007, underwent radical prostatectomy followed by adjuvant IMRT, intermittent androgen deprivation. He started Zytiga 1000 mg daily with prednisone 5 mg b.i.d. and denosumab since July 15, 2018. He was now on prednisone 5 mg once a day and Zytiga 1000 mg daily. He went back to full dose since March 2020. He received chemotherapy docetaxel from March 2021 to July 2021 for progressive disease. He started enzalutamide 160 mg once daily from 11/08/2021. He was diagnosed with brain metastases based on PSMA PET scan at [facility] and subsequently brain MRI in February 2023. He completed whole-brain RT at [facility] on 04/03/2022. He underwent liver ultrasound which did show 2 large lesions. Biopsy of liver lesion/right lobe performed 04/04/2022 revealed metastatic poorly differentiated carcinoma consistent with prostatic primary. NGS revealed PIK3C variant gene, TMPRSS2-ERG chromosomal rearrangement. Other biologically relevant mutations seen in TP53, APC, PTEN, SETD 2, TET2 mutations seen. TMB 5.3, MSI stabe. Patient was offered option of going to [place] for 2nd opinion and also to see if he is eligible for clinical trials. Patient did not want to go to [place]. Patient started treatment with cabazitaxel and carboplatin. Repeat PSMA PET scan performed at [facility] on 08/20/2022 unfortunately showed worsening metastatic disease with increase in number and intensity of metabolically active disease in liver, lungs, osseous metastasis. Brain metastasis were read as stable. Because of progressive weakness and declining performance status, he has decided to not receive any further chemotherapy. This is reasonable given lack of benefit of recent multiple treatments with both hormonal and chemotherapy. He wishes to be DNR/DNI. His daughter and significant other are his healthcare proxy. We discussed hospice/palliative hospice care at this time. He feels he does not require any help at this time. He will call if this changes. Follow-up in 4 weeks. - Time Spent With Patient Time Spent with Patient (in minutes): 25
[2022-08-27 10:59] LABS: Basophils Percent Auto 0.4 % (0-2); Eosinophils Percent Auto 0.3 % (0-4); Hematocrit 31.9 % (42.0-52.0); Hemoglobin 10.6 g/dl (14.0-18.0); Imm Gran Abs Auto 0.02 X10*3/uL (0.00-0.03); Imm Gran Pct Auto 0.3 % (0.0-0.4); Lymphocytes Absolute Auto 0.6 X10*3/uL (1.2-4.9); Lymphocytes Percent Auto 8.1 % (20-40); Mean Corpuscular HGB Conc 33.2 g/dl (31.0-36.0); Mean Corpuscular Hemoglobin 37.2 pg (27.0-33.0); Mean Platelet Volume 8.9 fL (9.4-12.4); Monocytes Absolute Auto 0.4 X10*3/uL (0.1-1.2); Monocytes Percent Auto 5.5 % (2-11); Neutrophils Absolute Auto 6.7 x10*3/uL (2.0-8.3); Neutrophils Percent Auto 85.4 % (45-73); Platelet Count 143 X10*3/uL (160-400); Red Blood Count 2.85 X10*6/uL (4.60-5.80); Red Cell Distribution Width 14.5 % (11.0-16.0); White Blood Count 7.8 X10*3/uL (4.8-10.8)
[2022-08-27 11:04] LABS: Mean Corpuscular Volume 111.9 fL (80.0-98.0)
[2022-08-27 11:13] LABS: Alanine Aminotransferase 12 U/L (0-40); Albumin Level 3.5 g/dL (3.5-5.0); Alkaline Phosphatase 164 U/L (39-117); Anion Gap 15 (12-20); Aspartate Amino Transferase 20 U/L (5-37); Bilirubin Total 1.7 mg/dL (0.0-1.0); Blood Urea Nitrogen 10 mg/dL (9-16); Calcium 9.3 mg/dL (8.4-10.2); Carbon Dioxide 21 mmol/L (22-29); Chloride 101 mmol/L (96-108); Creatinine Clr Calc Pharmacy 84.9; Estimated Glomerular Filt Rate > 60; Glucose Random 143 mg/dL (60-115); Magnesium 1.8 mg/dL (1.6-2.6); Potassium 3.9 mmol/L (3.3-5.1); Sodium 133 mmol/L (135-145); Total Protein 6.6 g/dL (6.5-8.0)
--- NOTE | 2022-08-27 11:28 | MHC.HEMONC ---
Pt and his SO here to see Dr Ordoñez. He has decided no more treatment and will accept Palli/Hospice once it is needed. I filled out MOLST with him and left it to be scanned into his chart. I gave the patient a few copies as well as original. He will f/u in one month but he was told to call if anything comes up.
--- NOTE | 2022-08-27 11:46 | MHC.HEMONCMA ---
Patient seen today for followup CA, VSS, labs, 1 month followup.
[2022-08-27 12:42] LABS: Prostate Specific Antigen 54.56 ng/mL (<0.05-4.0)
--- NOTE | 2022-09-17 13:09 | HE.ONCSEC ---
rec'd call from [facility] urology requesting last two Dr notes to be faxed. Faxed to [phone].
[2022-09-18 11:10] VITALS: BP 112/59; PULSE 70; RESP 14; TEMP 36.2; O2SAT 98
--- NOTE | 2022-09-18 11:14 | PM.HEMONCPN ---
Medical Summary - Medical Summary Date of Service: 09/18/22 Chief complaint: Follow-up Primary Care Provider: Guido Joseph MD Medical Summary: Diagnosis: Metastatic prostate cancer August 2017 Diagnosed with prostate cancer in 2007. Underwent robotic-assisted prostatectomy on 08/04/07. Adenocarcinoma with mucinous differentiation, pT3a pN0, [place] score 4+3 involving 75% of prostate gland. Underwent adjuvant IMRT following prostatectomy. Underwent surgery for correction of urinary incontinence in 2008, implantation of artificial urinary sphincter in September 2010. He has been on intermittent androgen deprivation, Eligard 45 mg q.6 months. Last PSA in August 2017 14.7 with the testosterone level at 29.5. He was started back on GnRH agonist q.6 months, he was prescribed Casodex but did not start it. One episode of gross hematuria which prompted urine cytology, negative, CT urogram abdomen/pelvis with adrenal cyst, no stone or obstruction. 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 CT abdomen/pelvis with IV contrast August 2017 at [facility] showed increasing size and number of pulmonary lesions, bony lesion in the right ilium measuring 5.7 cm and previously measured 1 cm. No Intra-abdominal lymphadenopathy, normal liver, spleen and pancreas. No hydronephrosis or nephrolithiasis. CT chest with contrast in August 2017 showed mild multiple pulmonary nodules concerning for metastatic disease some solid, some cavitary or cystic. Findings increased since February 2012. 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 Largest lesion in the right lung measuring 3.5x2.5 cm. PET scan performed 09/11/17 showed multifocal FDG avid metastatic lesions present throughout the lungs, largest in the left lower lobe measuring 3.7x2.4 cm with SUV of 3.3. Most intense lesion in the left upper lobe with SUV 4.7 measuring 1.5x1.1 cm. No other adenopathy. FDG avid sclerotic metastasis in the posterior right iliac bone SUV 7.7. Prominent activity in palatine tonsils bilaterally more intense on the right, nonspecific. No corresponding CT abnormality. Direct visualization is recommended. He was diagnosed with bone metastasis, bone scan performed at [facility] in August 2017 showed uptake in the right iliac bone representing a metastatic lesion. Resumed Eligard in August 2017, he stopped Casodex. PSA is rising, testosterone level was 0. Hormone refractory metastatic prostate cancer. Patient started abiraterone/prednisone on 07/15/18. Received 1st does of denosumab 07/02/2018. PET scan performed April 2019 shows marked metabolic response with minimal to no activity in the lung nodules and skeletal bones. Bone scan performed December 2020 shows extensive metastatic disease to right posterior iliac bone, this now extends more laterally compared to previous scan. PET-CT performed 02/2021 showed new uptake in enlargement of left lower lobe pulmonary nodules, few additional bilateral small pulmonary nodules seen. Mild increase in FDG avidity in right posterior iliac bone. He was seen by radiation oncology at [facility], as he is asymptomatic from bony disease, palliative radiation therapy was deferred. He started chemotherapy, Taxotere in March 2021. PSMA PET scan performed at [facility] on 03/05/2022 revealed multiple brain lesions in the cerebellar /left cerebellar hemisphere masses with uptake, SUV 8.4. Abnormal right temporal lobe mass with SUV 8.9 and surrounding edema, abnormal inferior medial right cerebellar hemispheric small rounded lesion. Multifocal irregular pulmonary nodular lesions with SUV 5.1. Abnormal left paraesophageal soft tissue lymph node with SUV 5.4, mass in the left lower lobe of lung measuring 2.5 x 3.6 cm with SUV 8, 5 cm heterogenous mass in the left hepatic lobe, peripheral uptake max as 7.4, abnormal multifocal right iliac bone sclerosis with uptake SUV 16.9 and abnormal extensive sclerotic sacral or she is uptake SUV 24.4 and L5 vertebral body sclerotic lesion with SUV 6.7. Brain MRI with and without contrast performed 03/08/2022 at [facility] showed large volume heterogenously enhancing metastatic disease throughout supratentorial and infratentorial brain some of which is hemorrhagic. Largest lesion with the supratentorial brain in the right temporal periventricular white matter measuring up to 4 cm in size surrounded by significant edema. Largest in the infratentorial brain located in the left cerebellar hemisphere measuring up to 2.8 cm. Multiple small enhancing lesions throughout cerebral and cerebellar hemispheres bilaterally. No midline shift or herniation. Recently started on carboplatin and cabazitaxe in May 2022. He was diagnosed with atrial fibrillation 07/2022 and he was admitted to observation. He converted to sinus rhythm. He was not started on any anticoagulation. 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 Interval History Interval history: Patient is here in follow-up. He is feeling better today. Since he has not had any chemo for the last month, his energy level has improved. He is eating better. He is not in any pain. He denies any nausea or emesis. No fever or chills. He denies any headache or dizziness. Review of Systems - Neurologic Reports weakness [facility] Medical History: Medical History (Last Reviewed 09/18/22 @ 11:11 by Heather Tubbs) A-fib Benign essential hypertension CAD (coronary artery disease) Central serous retinopathy Hematuria Impaired fasting glucose Metabolic brain disease Mitral annular calcification Myocardial injury Non-rheumatic aortic stenosis Obesity (BMI 30-39.9) Prostate cancer metastatic to bone Psoriasis Pulmonary nodules Pure hypercholesterolemia Tick bite Functional capacity: wheelchair bound Family History: Family History (Last Reviewed 09/18/22 @ 11:11 by Heather Tubbs) Father Heart disease CVD (cardiovascular disease) Mother Acute CVA (cerebrovascular accident) CVD (cardiovascular disease) Sister No problems noted. Sister Pacemaker Surgical History: Surgical History (Last Reviewed 09/18/22 @ 11:11 by Heather Tubbs) History of bladder surgery History of prostatectomy History of right knee surgery Social History: Social History (Last Reviewed 09/18/22 @ 11:11 by Heather Tubbs) Living Situation History: Household Members: Spouse Housing: House Are you a primary healthcare science specialist to a significant other at home: No Do you presently have visiting nurse or other home services: No Alcohol History Details: 1. How often do you have a drink containing alcohol?: b. Monthly or less 2. How many drinks containing alcohol do you have on a typical day when you are drinking?: a. 1 or 2 Tobacco History: Patient Tobacco Use Status: Former Tobacco user Tobacco use type: Cigarette e-Cigarette/Vaping Use: Never Used Second Hand Smoke Exposure: Yes Substance Use History: Use of substances other than those prescribed or required for medical reasons: No Domestic Abuse History: Have you been hit, kicked, punched, or otherwise hurt by someone within the past year? If so, by whom?: No Do you feel safe in your current relationship?: Yes Advance Directives: Advance Directives: No Advance Directives Information Provided: No Homicidal Assessment: Do you have thoughts of harming others: None Do you have a plan to hurt others: No Plan Do you have the means to hurt others: No Nutrition Assessment: Recently lost weight without trying: No Patient : No Occupation Assessmet: service: No Current occupational status: retired Oncology Screenings - ECOG Performance Status ECOG Performance Status: 3 Home Medications and Allergies Home Medications Medication Instructions Recorded Confirmed Type calcium carbonate 600 mg calcium 600 mg PO DAILY 01/03/20 09/18/22 History (1,500 mg) tablet (Calcium) denosumab 120 mg/1.7 mL (70 mg/mL) 120 mg subcut Q4W 01/03/20 09/18/22 History subcutaneous solution leuprolide acetate (6 month) 45 mg 45 mg IM [id number] 01/03/20 09/18/22 History intramuscular syringe kit (Lupron Depot) atorvastatin 80 mg tablet 80 mg PO BEDTIME 06/07/22 09/18/22 History prednisone 5 mg tablet 5 mg PO DAILY 06/07/22 09/18/22 History Allergies Allergy/AdvReac Type Severity Reaction Status Date / Time lisinopril Allergy Severe angioedema Verified 06/24/22 14:02 Exam Vital signs: Vital Signs Temp 97.2 F 09/18/22 11:10 Pulse 70 09/18/22 11:10 Resp 14 09/18/22 11:10 BP 112/59 L 09/18/22 11:10 Pulse Ox 98 09/18/22 11:10 O2 Del Method Room Air 09/18/22 11:10 Weight 85.5 kg BMI result Body Mass Index 24.9 - Constitutional Present: no acute distress - Routine HEENT Exam Head: Present: normal inspection - Routine Neck Exam Present: full ROM, normal inspection. Absent: lymphadenopathy - Routine Respiratory Exam Present: CTAB - Routine Cardiovascular Exam Cardiovascular: Present: S1, S2 - Routine Abdominal Exam Present: normal bowel sounds, soft - Routine Extremities Exam Absent: pedal edema - Routine Back/Spine/Pelvis Exam Back/Spine: Present: full ROM - Routine Skin Exam Present: intact - Routine Neurological Exam Present: alert, oriented X3 - Routine Psychiatric Exam Present: normal affect Data - Labs CBC & Chem 7: 08/27/22 10:38 08/27/22 10:38 Assessment and Plan Patient Active problem list reviewed?: Yes (1) Prostate cancer metastatic to bone Status: Chronic Assessment and plan: 1. This is a 76-year-old male with metastatic hormone refractory prostate cancer. Initially diagnosed in 2007, underwent radical prostatectomy followed by adjuvant IMRT, intermittent androgen deprivation. He started Zytiga 1000 mg daily with prednisone 5 mg b.i.d. and denosumab since July 15, 2018. He was now on prednisone 5 mg once a day and Zytiga 1000 mg daily. He went back to full dose since March 2020. He received chemotherapy docetaxel from March 2021 to July 2021 for progressive disease. He started enzalutamide 160 mg once daily from 11/08/2021. He was diagnosed with brain metastases based on PSMA PET scan at [facility] and subsequently brain MRI in February 2023. He completed whole-brain RT at [facility] on 04/03/2022. He underwent liver ultrasound which did show 2 large lesions. Biopsy of liver lesion/right lobe performed 04/04/2022 revealed metastatic poorly differentiated carcinoma consistent with prostatic primary. NGS revealed PIK3C variant gene, TMPRSS2-ERG chromosomal rearrangement. Other biologically relevant mutations seen in TP53, APC, PTEN, SETD 2, TET2 mutations seen. TMB 5.3, MSI stabe. Patient was offered option of going to [place] for 2nd opinion and also to see if he is eligible for clinical trials. Patient did not want to go to [place]. Patient started treatment with cabazitaxel and carboplatin. Repeat PSMA PET scan performed at [facility] on 08/20/2022 unfortunately showed worsening metastatic disease with increase in number and intensity of metabolically active disease in liver, lungs, osseous metastasis. Brain metastasis were read as stable. Because of progressive weakness and declining performance status, he has decided to not receive any further chemotherapy. This is reasonable given lack of benefit of recent multiple treatments with both hormonal and chemotherapy. He wishes to be DNR/DNI. His daughter and significant other are his healthcare proxy. We discussed hospice/palliative hospice care at this time. He feels he does not require any help at this time. He will call if this changes. He requires wheelchair for ambulation but is managing fairly well at home. His girlfriend is able to take care of him. He will call when he is ready for hospice. Follow-up prn. - Time Spent With Patient Time Spent with Patient (in minutes): 15
--- NOTE | 2022-09-18 11:39 | MHC.HEMONCMA ---
Patient seen today for followup prostate ca, VSS, no followup needed at this time,
== END 2022-11-10 | disposition home or self-care (01) ==
LOC: HO.ONC 11:00
PROVIDERS: Internal Medicine; PCP Internal Medicine; Visit Provider Internal Medicine Medical Oncology
DX: C61 Malignant neoplasm of prostate (principal); C79.51 Secondary malignant neoplasm of bone; C79.31 Secondary malignant neoplasm of brain; C78.7 Secondary malignant neoplasm of liver and intrahepatic bile duct; C78.00 Secondary malignant neoplasm of unspecified lung; G62.0 Drug-induced polyneuropathy; T45.1X5D Adverse effect of antineoplastic and immunosuppressive drugs, subsequent encounter; Z79.52 Long term (current) use of systemic steroids; Z79.899 Other long term (current) drug therapy
CPT/HCPCS: 0241U; 36415; 80053; 80061; 81001; 82378; 83615; 83735; 84153; 84402; 84403; 84443; 85007; 85025; 85027; 86704; 86706; 86709; 86803; 86850; 86900; 86901; 87340; 93005; 96360; 96361; 96365; 96366; 96367; 96372; 96375; 96413; 96415; 96417; 99211; 99213; 99214; 99215; J0611; J0897; J1100; J1453; J2405; J2506; J9043; J9045; J9171; Q0163

== ENCOUNTER 2022-10-22 12:31 | Inpatient (IN) | payer MEDICARE, SELFPAY ==
[2022-10-22] VITALS (11 sets, daily range): BP systolic 69–112; BP diastolic 50–90; PULSE 109–160; RESP 12–24; TEMP 36.6–37; O2SAT 94–99; BMI 21.2; BMI 20.7
--- NOTE | 2022-10-22 | ECG_ITS ---
Test Reason : AFIB Blood Pressure : / mmHG Vent. Rate : 157 BPM Atrial Rate : 000 BPM P-R Int : 000 ms QRS Dur : 126 ms QT Int : 284 ms P-R-T Axes : 000 115 -50 degrees QTc Int : 459 ms Atrial fibrillation with rapid ventricular response Right bundle branch block T wave abnormality, consider inferior ischemia Abnormal ECG When compared with ECG of 07-JUN-2022 12:56, Atrial fibrillation has replaced Sinus rhythm Vent. rate has increased BY 77 BPM QRS duration has decreased T wave inversion now evident in Anterior leads ST now depressed in Anterolateral leads Referred By: Generic ED Physician Electronically Signed By:JOSE LUCAS
--- NOTE | ~2022-10-22 | XR_ITS ---
EXAMINATION: XR CHEST CLINICAL INFORMATION: Atrial fibrillation COMPARISON: May 2022. TECHNIQUE: Frontal view of the chest was obtained. FINDINGS: No new dominant airspace consolidation. Opacity in the left upper lobe is observed, superimposing the left anterior second rib, potentially related to scarring. Pleural surfaces are clear. Pulmonary vasculature unremarkable. Medial left lower lobe mass is again observed, measuring 3.7 cm transverse on the film, not appreciably changed. Possible left mid lung low opacity nodule at 1.7 cm transverse. XR/XR chest 1V IMPRESSION: No new dominant airspace consolidations. Probable scar in the left upper lobe. Left lower lobe nodule again demonstrated. Possible low opacity nodule left midlung.
[2022-10-22 12:57] LABS: MANUAL DIFF FLAG NO
[2022-10-22 12:59] LABS: Basophils Percent Auto 0.3 % (0-2); Eosinophils Percent Auto 0.2 % (0-4); Hematocrit 34.6 % (42.0-52.0); Hemoglobin 11.2 g/dl (14.0-18.0); Imm Gran Abs Auto 0.02 X10*3/uL (0.00-0.03); Imm Gran Pct Auto 0.3 % (0.0-0.4); Mean Corpuscular HGB Conc 32.4 g/dl (31.0-36.0); Mean Corpuscular Hemoglobin 34.6 pg (27.0-33.0); Mean Corpuscular Volume 106.8 fL (80.0-98.0); Mean Platelet Volume 9.7 fL (9.4-12.4); Monocytes Absolute Auto 0.5 X10*3/uL (0.1-1.2); Monocytes Percent Auto 7.7 % (2-11); Neutrophils Absolute Auto 4.5 x10*3/uL (2.0-8.3); Neutrophils Percent Auto 75.5 % (45-73); Platelet Count 129 X10*3/uL (160-400); Red Blood Count 3.24 X10*6/uL (4.60-5.80); Red Cell Distribution Width 14.1 % (11.0-16.0)
--- NOTE | 2022-10-22 12:59 | ED.GENADULT ---
HPI - General Adult General Chief complaint: Arrhythmia/Palpitations Stated complaint: Failure to thrive, Afib Time Seen by Provider: 10/22/22 12:54 Source: patient and EMS Mode of arrival: EMS Limitations: altered mental status History of Present Illness HPI narrative: 76-year-old with PMH significant for prostate cancer with metastases, HLD, HTN, PVD, CAD, PCI. Patient presented by EMS for evaluation of failure to thrive. In the emergency department patient found to be hypotensive and in atrial fibrillation with RVR at 157, no chest pain, no SOB. Related Data Home Medications Medication Instructions Recorded Confirmed calcium carbonate 600 mg calcium 600 mg PO DAILY 01/03/20 09/18/22 (1,500 mg) tablet (Calcium) denosumab 120 mg/1.7 mL (70 mg/mL) 120 mg subcut Q4W 01/03/20 09/18/22 subcutaneous solution leuprolide acetate (6 month) 45 mg 45 mg IM [id number] 01/03/20 09/18/22 intramuscular syringe kit (Lupron Depot) atorvastatin 80 mg tablet 80 mg PO BEDTIME 06/07/22 09/18/22 prednisone 5 mg tablet 5 mg PO DAILY 06/07/22 09/18/22 Previous Rx's Medication Instructions Recorded potassium chloride 10 mEq 10 meq PO DAILY #30 caps 08/06/22 capsule,extended release metoprolol succinate 25 mg 25 mg PO BID #60 tabs 10/21/22 tablet,extended release 24 hr Allergies Allergy/AdvReac Type Severity Reaction Status Date / Time lisinopril Allergy Severe angioedema Verified 06/24/22 14:02 Review of Systems Review of Systems: All other systems are reviewed and are negative Constitutional: Reports as per HPI and Reports no additional constitutional complaints Eyes: Reports as per HPI and Reports no additional eye complaints Reports system reviewed and no additional complaints, except as documented Cardiovascular: Reports as per HPI and Reports no additional cardiovascular complaints Respiratory: Reports as per HPI and Reports no additional respiratory complaints Gastrointestinal: Reports as per HPI and Reports no additional gastrointestinal complaints Genitourinary: Reports no additional female genitourinary complaints Musculoskeletal: Reports no additional musculoskeletal complaints Skin/Breast: Reports system reviewed and no additional complaints, except as docu Psychiatric: Reports no additional psychiatric complaints Endocrine: Reports no additional endocrine complaints Hematologic/Lymphatic: Reports no additional hematologic/lymphatic complaints Allergic/Immunologic: Reports no additional allergic/immunologic complaints Reports system reviewed and no additional complaints, except as documented and Reports Abnormal speech present [facility] Past Medical History Medical History A-fib Benign essential hypertension CAD (coronary artery disease) Central serous retinopathy Hematuria Impaired fasting glucose Metabolic brain disease Mitral annular calcification Myocardial injury Non-rheumatic aortic stenosis Obesity (BMI 30-39.9) Prostate cancer metastatic to bone Psoriasis Pulmonary nodules Pure hypercholesterolemia Tick bite Surgical History History of bladder surgery History of prostatectomy History of right knee surgery Family History Family History Father Heart disease CVD (cardiovascular disease) Mother Acute CVA (cerebrovascular accident) CVD (cardiovascular disease) Sister No problems noted. Sister Pacemaker Social History Social History Household Members: Spouse Housing: House Are you a primary personal care worker to a significant other at home: No Do you presently have visiting nurse or other home services: No Alcohol intake: never Patient Tobacco Use Status: Former Tobacco user Tobacco use type: Cigarette Smoked in Last 30 Days: No e-Cigarette/Vaping Use: Never Used Second Hand Smoke Exposure: Yes Use of substances other than those prescribed or required for medical reasons: No Advance Directives: Yes Advance Directives on File: Yes Advance Directives Date on File: 06/14/22 service: No Current occupational status: retired Cognitive needs: No Hearing needs: No Vision needs: Yes (reading glasses) Physical Exam ED Vital Signs: Vital Signs - 24 hr 10/22/22 12:45 10/22/22 13:19 10/22/22 13:51 Temperature Pulse Rate 157 H 145 H Respiratory Rate 18 24 H Blood Pressure 69/50 L 106/66 89/64 L Pulse Oximetry 99 Oxygen Delivery Method Room Air 10/22/22 14:13 10/22/22 14:35 10/22/22 14:47 Temperature Pulse Rate 141 H 139 H 143 H Respiratory Rate 23 H 18 18 Blood Pressure 97/53 L 102/66 110/81 Pulse Oximetry 99 95 96 Oxygen Delivery Method Room Air Room Air Room Air 10/22/22 15:29 10/22/22 15:51 Temperature 98.6 F Pulse Rate 144 H 109 H Respiratory Rate 12 18 Blood Pressure 112/90 H Pulse Oximetry 96 96 Oxygen Delivery Method Room Air Room Air BMI result Body Mass Index 21.2 Vital signs have been reviewed as appeared to be correct. Hypotensive. Heart rate elevated. Respiration rate normal. Temperature normal. Oxygen saturation normal. Appearance: Alert. Oriented X3. No acute distress. Head: Normal external exam. Normocephalic. Atraumatic. No Amaya signs noted. No raccoon eyes noted Eyes: PERRLA. EOMI. Conjunctiva and sclera normal. Eyelids normal. ENT: TM's Normal. Pharynx normal. Uvula midline. Moist mucous membranes. No trismus noted. No drooling noted. No muffled voice noted. Neck: Normal inspection. Neck supple. FROM. No adenopathy. Thyroid Normal. No meningeal signs. No neck mass noted. CVS: Normal heart rate is rapid and irregular.. No murmurs noted. Pulses normal throughout. Respiratory: No respiratory distress. Painless inspiration. Breath sounds normal. No wheezes/rales/rhonchi noted. Chest nontender. No accessory muscle usage noted or decreased air movement noted. Abdomen: Soft and nontender. Bowel sounds normal in all 4 quadrants. No distention noted. No organomegaly noted. No visible injury noted. Back: No CVA tenderness. Full range of motion noted. Skin: Skin warm and dry. Normal skin color. Normal skin turgor. No rashes/lesions/lacerations noted. Extremities: No lower extremity edema. Extremities exhibit normal range of motion. Extremities nontender. Neuro: Oriented X 3. Cranial nerve exam: II-XII are grossly intact No motor deficit. No sensory deficit. Reflexes normal. Course Course Course Narrative: 76-year-old male came in for failure to thrive and found to have hypotension and tachycardia found to be an AFib with RVR. Patient required multiple doses of AV blockage and digoxin, patient also was hypotensive that responded well to IV hydration. Finally heart rate is around 100s now. Will admit. Medications Administered Discontinued Medications Generic Name Dose Route Start Last Admin Trade Name Freq PRN Reason Stop Dose Admin Digoxin 0.25 mg 10/22/22 14:15 10/22/22 14:34 Digoxin 0.5 Mg/2 Ml Ampul IVPUSH 10/22/22 14:16 0.25 mg ONCE ONE Administration Diltiazem HCl 20 mg 10/22/22 15:18 10/22/22 15:28 Diltiazem Hcl 50 Mg/10 Ml Vial IVPUSH 10/22/22 15:19 20 mg STAT STA Administration Sodium Chloride 1,000 mls @ 999 mls/hr 10/22/22 12:57 10/22/22 14:00 Ns IV 10/22/22 13:57 Infused .Q1H1M ONE Infusion Sodium Chloride 1,000 mls @ 999 mls/hr 10/22/22 13:53 10/22/22 15:05 Ns IV 10/22/22 14:53 Infused .Q1H1M ONE Infusion Sodium Chloride 1,000 mls @ 999 mls/hr 10/22/22 14:15 10/22/22 15:02 Ns IV 10/22/22 15:15 999 mls/hr .Q1H1M ONE Administration Metoprolol Tartrate 5 mg 10/22/22 12:57 10/22/22 13:21 Metoprolol Tartrate 5 Mg/5 Ml Vial IVPUSH 10/22/22 12:58 5 mg ONCE ONE Administration Metoprolol Tartrate 5 mg 10/22/22 13:53 10/22/22 14:03 Metoprolol Tartrate 5 Mg/5 Ml Vial IVPUSH 10/22/22 13:54 5 mg ONCE ONE Administration Medical Decision Making Differential Diagnosis Differential Diagnoses: The differential diagnosis associated with the presentation includes (Hypotension, rapid atrial fibrillation, ACS, dehydration, electrolyte abnormality, severe anemia.) Admission/Observation Consideration of admission/observation: Escalation of care including admission/observation considered Consult Healthcare Provider Management of the patient was discussed with: Hospitalist (Dr. Bay) Lab Data MDM Lab Attestation statement: I reviewed the patient's lab results. 10/22/22 12:51 10/22/22 12:52 Labs: Lab Results 10/22/22 10/22/22 10/22/22 Range/Units 12:51 12:52 12:52 WBC 6.0 (4.8-10.8) X10*3/uL RBC 3.24 L (4.60-5.80) X10*6/uL Hgb 11.2 L (14.0-18.0) g/dl Hct 34.6 L (42.0-52.0) % MCV 106.8 H (80.0-98.0) fL MCH 34.6 H (27.0-33.0) pg MCHC 32.4 (31.0-36.0) g/dl RDW 14.1 (11.0-16.0) % Plt Count 129 L (160-400) X10*3/uL MPV 9.7 (9.4-12.4) fL Immature Gran % (Auto) 0.3 (0.0-0.4) % Neut % (Auto) 75.5 H (45-73) % Lymph % (Auto) 16.0 L (20-40) % [place] % (Auto) 7.7 (2-11) % Eos % (Auto) 0.2 (0-4) % Baso % (Auto) 0.3 (0-2) % Lymph # (Auto) 1.0 L (1.2-4.9) X10*3/uL [place] # (Auto) 0.5 (0.1-1.2) X10*3/uL Eos # (Auto) 0.0 (0.0-0.4) X10*3/uL Baso # (Auto) 0.0 (0.0-0.2) X10*3/uL Abs Immat Gran (auto) 0.02 (0.00-0.03) X10*3/uL Absolute Neuts (auto) 4.5 (2.0-8.3) x10*3/uL Absolute Nucleated RBC 0.000 (0.0-0.012) X10*3/uL Nucleated RBC % (auto) 0.0 (0.0-0.2) /100WBC PT (11.1-13.3) SEC INR (0.9-1.1) Sodium 135 (135-145) mmol/L Potassium 4.2 (3.3-5.1) mmol/L Chloride 105 (96-108) mmol/L Carbon Dioxide 20 L (22-29) mmol/L Anion Gap 14 (12-20) BUN 15 (9-16) mg/dL Creatinine 0.93 (0.5-1.4) mg/dL Estim Creat Clear Calc 69.3 Estimated GFR > 60 Random Glucose 122 H (60-115) mg/dL Calcium 7.5 L D (8.4-10.2) mg/dL Total Bilirubin 1.4 H (0.0-1.0) mg/dL AST 60 H (5-37) U/L ALT 13 (0-40) U/L Alkaline Phosphatase 552 H (39-117) U/L Troponin I High Sens 29.5 D (<3.5-35.0) ng/L Total Protein 7.0 (6.5-8.0) g/dL Albumin 2.8 L (3.5-5.0) g/dL Urine Color Urine Appearance Urine pH (5.0-9.0) Ur Specific [place] (1.005-1.025) Urine Protein (Neg-Trace) mg/dL Urine Glucose (UA) (Negative) mg/dL Urine Ketones (Negative) mg/dL Urine Blood (Negative) Urine Nitrite (Negative) Ur Leukocyte Esterase (Negative) Urine RBC (0-2) /HPF Urine WBC (0-5) /HPF Ur Squamous Epith Cells (0-2) /HPF Urine Bacteria (None Seen) Hyaline Casts (0-2) /LPF 10/22/22 10/22/22 Range/Units 12:52 15:06 WBC (4.8-10.8) X10*3/uL RBC (4.60-5.80) X10*6/uL Hgb (14.0-18.0) g/dl Hct (42.0-52.0) % MCV (80.0-98.0) fL MCH (27.0-33.0) pg MCHC (31.0-36.0) g/dl RDW (11.0-16.0) % Plt Count (160-400) X10*3/uL MPV (9.4-12.4) fL Immature Gran % (Auto) (0.0-0.4) % Neut % (Auto) (45-73) % Lymph % (Auto) (20-40) % [place] % (Auto) (2-11) % Eos % (Auto) (0-4) % Baso % (Auto) (0-2) % Lymph # (Auto) (1.2-4.9) X10*3/uL [place] # (Auto) (0.1-1.2) X10*3/uL Eos # (Auto) (0.0-0.4) X10*3/uL Baso # (Auto) (0.0-0.2) X10*3/uL Abs Immat Gran (auto) (0.00-0.03) X10*3/uL Absolute Neuts (auto) (2.0-8.3) x10*3/uL Absolute Nucleated RBC (0.0-0.012) X10*3/uL Nucleated RBC % (auto) (0.0-0.2) /100WBC PT 19.1 H (11.1-13.3) SEC INR 1.6 H (0.9-1.1) Sodium (135-145) mmol/L Potassium (3.3-5.1) mmol/L Chloride (96-108) mmol/L Carbon Dioxide (22-29) mmol/L Anion Gap (12-20) BUN (9-16) mg/dL Creatinine (0.5-1.4) mg/dL Estim Creat Clear Calc Estimated GFR Random Glucose (60-115) mg/dL Calcium (8.4-10.2) mg/dL Total Bilirubin (0.0-1.0) mg/dL AST (5-37) U/L ALT (0-40) U/L Alkaline Phosphatase (39-117) U/L Troponin I High Sens (<3.5-35.0) ng/L Total Protein (6.5-8.0) g/dL Albumin (3.5-5.0) g/dL Urine Color Dark Yellow Urine Appearance Clear Urine pH 5.5 (5.0-9.0) Ur Specific [place] 1.020 (1.005-1.025) Urine Protein Trace (Neg-Trace) mg/dL Urine Glucose (UA) Negative (Negative) mg/dL Urine Ketones Negative (Negative) mg/dL Urine Blood Negative (Negative) Urine Nitrite Negative (Negative) Ur Leukocyte Esterase Trace H (Negative) Urine RBC 0-2 (0-2) /HPF Urine WBC 0-5 (0-5) /HPF Ur Squamous Epith Cells 0-2 (0-2) /HPF Urine Bacteria None Seen (None Seen) Hyaline Casts 0-2 (0-2) /LPF Independent Interpretation I performed an independent interpretation of an: EKG (Atrial fibrillation with rapid ventricular response at 157, right axis deviation.) Discharge Plan Discharge Clinical Impression: Atrial fibrillation with RVR Patient Disposition: Admitted As Inpatient
[2022-10-22] MEDS: 0.9 % Sodium Chloride 1,000 ML 999 ML IV ×3 (13:01→15:02)
[2022-10-22 13:05] LABS: INTERNATIONAL NORM RATIO 1.6 (0.9-1.1); Prothrombin Time 19.1 SEC (11.1-13.3)
--- NOTE | 2022-10-22 13:06 | PC.NURSE ---
ta phone number [phone]
--- NOTE | 2022-10-22 13:07 | PC.NURSE ---
pt comes in via ems, placed on monitoring manager displaying rapid afib, soft BP, otherwise vss, 20gIV placed in the right AC w/o complications, labs drawn and sent to lab. per provider order, IVF hung and administered on pressure bag. provider at bedside confirming DNR/DNI w/ patient and fiance. fiance phone number placed in notes if needed, she is also pt's health care proxy. pt now resting comfortably under blankets.
--- NOTE | 2022-10-22 13:10 | PC.NURSE ---
will hold medication per provider order until pressures come up. will continue to monitor.
[2022-10-22] MEDS: Metoprolol Tartrate 5 MG/5 ML VIAL IVPUSH ×2 (13:21→14:03)
[2022-10-22 13:27] LABS: Alanine Aminotransferase 13 U/L (0-40); Albumin Level 2.8 g/dL (3.5-5.0); Alkaline Phosphatase 552 U/L (39-117); Anion Gap 14 (12-20); Aspartate Amino Transferase 60 U/L (5-37); Bilirubin Total 1.4 mg/dL (0.0-1.0); Blood Urea Nitrogen 15 mg/dL (9-16); Calcium 7.5 mg/dL (8.4-10.2); Carbon Dioxide 20 mmol/L (22-29); Chloride 105 mmol/L (96-108); Creatinine Clr Calc Pharmacy 69.3; Estimated Glomerular Filt Rate > 60; Glucose Random 122 mg/dL (60-115); Potassium 4.2 mmol/L (3.3-5.1); Sodium 135 mmol/L (135-145)
[2022-10-22 13:29] LABS: Troponin-I High Sensitivity 29.5 ng/L (<3.5-35.0)
[2022-10-22] MEDS: Digoxin 0.5 MG/2 ML AMPUL 0.25 MG IVPUSH (14:34)
--- NOTE | 2022-10-22 15:10 | PC.NURSE ---
16fr figueroa catheter placed w/o complications, 1200ml dark ernesto urine output post figueroa catheterization, urine obtained and sent to lab.
[2022-10-22 15:19] LABS: Appearance Urine Clear; Color Urine Dark Yellow; Glucose Urine UA Negative (Negative); Leukocyte Esterase Urine Trace (Negative); Nitrite Urine Negative (Negative); PH 5.5 (5.0-9.0); UMIC TRIGGER UACC YES; Urine Blood Negative (Negative); Urine Ketones Negative (Negative); Urine Protein Trace mg/dL (Neg-Trace)
[2022-10-22 15:21] LABS: Bacteria Urine None Seen (None Seen); Hyaline Casts Urine 0-2 /LPF (0-2); RBC Urine 0-2 /HPF (0-2); Squamous Epithelial Cell Urine 0-2 /HPF (0-2); WBC Urine 0-5 /HPF (0-5)
[2022-10-22] MEDS: dilTIAZem HCL 50 MG/10 ML VIAL 20 MG IVPUSH (15:28)
--- NOTE | 2022-10-22 15:37 | PC.NURSE ---
pt positioned in trendelenburg position to help w/ pressures, pt HR between low 100s-120s post cardizem administration. call perez within reach. will continue to monitor.
--- NOTE | 2022-10-22 16:10 | P.HPHOSP_ITS ---
History of Present Illness Date of Service: 10/22/22 Chief Complaint: Weakness 76 year man presenting with weakness poor appetite for one month. He did not eat anything for 2 days and hasn't been to stand up alone for 2 days. He has been lethargic and cold. Blood pressures have been low. He did not have any chest pain or trouble breathing but he had muscle pains diffusely throughout his body. He had some trouble urinating and has been experiencing diarrhea. He denied chest pain, shortness breath, nausea, vomiting, fever. The ER he was noted to be in atrial fibrillation with rapid ventricular response with heart rate up to 150. He was treated with multiple doses of Cardizem, metoprolol and digoxin. He was also noted to be hypotensive which the atrial fibrillation likely exacerbated. He was given 2 L of IV fluids. Chest x-ray negative for any consolidation or effusion. EKG without any acute ST wave abnormalities. Discussed with Akilah significant other ([phone]) plan is to admit patient for atrial fibrillation with rapid ventricular response and hypotension. Review of Systems Review of Systems: Denies any recent fever chills or decrease in appetite respiratory denies any shortness of breath coverage production cardiovascular Denied chest pain gastrointestinal denies any dysphagia abdominal pain nausea vomiting. genitourinary denies any dysuria frequency or hematuria musculoskeletal denies any joint pain or swelling neuropsych denies any weakness or seizures all other systems reviewed are negative [facility] Medical History A-fib Benign essential hypertension CAD (coronary artery disease) Central serous retinopathy Hematuria Impaired fasting glucose Metabolic brain disease Mitral annular calcification Myocardial injury Non-rheumatic aortic stenosis Obesity (BMI 30-39.9) Prostate cancer metastatic to bone Psoriasis Pulmonary nodules Pure hypercholesterolemia Tick bite Family History Father Heart disease CVD (cardiovascular disease) Mother Acute CVA (cerebrovascular accident) CVD (cardiovascular disease) Sister No problems noted. Sister Pacemaker Surgical History History of bladder surgery History of prostatectomy History of right knee surgery Social History Household Members: Spouse Housing: House Are you a primary healthcare market consultant to a significant other at home: No Do you presently have visiting nurse or other home services: No Alcohol intake: never Patient Tobacco Use Status: Former Tobacco user Tobacco use type: Cigarette Smoked in Last 30 Days: No e-Cigarette/Vaping Use: Never Used Second Hand Smoke Exposure: Yes Use of substances other than those prescribed or required for medical reasons: No Advance Directives: Yes Advance Directives on File: Yes Advance Directives Date on File: 06/14/22 service: No Current occupational status: retired Cognitive needs: No Hearing needs: No Vision needs: Yes (reading glasses) Meds Allergies Allergy/AdvReac Type Severity Reaction Status Date / Time lisinopril Allergy Severe angioedema Verified 06/24/22 14:02 Active Medications: Current Medications Pharmacy Consult (Consult Rx Perform Med Rec) 1 each MISCELLANE ONCE PRN PRN Reason: Consult order Home Medications Medication Instructions Recorded Confirmed Last Taken Type calcium carbonate 600 mg calcium 600 mg PO BID 01/03/20 10/22/22 06/06/22 History (1,500 mg) tablet (Calcium) leuprolide acetate (6 month) 45 mg 45 mg IM [id number] 01/03/20 10/22/22 Unknown History intramuscular syringe kit (Lupron Depot) atorvastatin 80 mg tablet 80 mg PO BEDTIME 06/07/22 10/22/22 06/06/22 History ammonium lactate 12 % topical cream 1 appl topical BID PRN Dry Skin 10/22/22 10/22/22 Unknown History Physical Exam Vital Signs and Narrative: Vital Signs: Last Vital Signs Temp 98.6 F 10/22/22 15:29 Pulse 109 H 10/22/22 15:51 Resp 18 10/22/22 15:51 BP 112/90 H 10/22/22 15:29 Pulse Ox 96 10/22/22 15:51 O2 Del Method Room Air 10/22/22 15:51 BMI result Body Mass Index 21.2 Appearing in no acute distress head is normocephalic atraumatic eyes pupils are PERRLA sclera is anicteric mouth throat mucous membranes are intact and moist neck is supple no lymphadenopathy, no JVD noted lung sounds are clear to auscultation heart regular rate rhythm, clear S1, S2 positive bowel sounds, abdomen is soft, nontender neuro patient is alert x3, no focal deficits Results Labs 10/22/22 12:51 10/22/22 12:52 Labs: Laboratory Results - last 24 hr 10/22/22 10/22/22 10/22/22 12:51 12:52 12:52 MCV 106.8 H MCH 34.6 H MCHC 32.4 RDW 14.1 Plt Count 129 L MPV 9.7 Immature Gran % (Auto) 0.3 Neut % (Auto) 75.5 H Lymph % (Auto) 16.0 L [place] % (Auto) 7.7 Eos % (Auto) 0.2 Baso % (Auto) 0.3 Lymph # (Auto) 1.0 L [place] # (Auto) 0.5 Eos # (Auto) 0.0 Baso # (Auto) 0.0 Abs Immat Gran (auto) 0.02 Absolute Neuts (auto) 4.5 Absolute Nucleated RBC 0.000 Nucleated RBC % (auto) 0.0 PT 19.1 H INR 1.6 H Anion Gap 14 Estim Creat Clear Calc 69.3 Estimated GFR > 60 Random Glucose 122 H Calcium 7.5 L D Total Bilirubin 1.4 H AST 60 H ALT 13 Alkaline Phosphatase 552 H Total Protein 7.0 Albumin 2.8 L Urine Color Urine Appearance Urine pH Ur Specific [place] Urine Protein Urine Glucose (UA) Urine Ketones Urine Blood Urine Nitrite Ur Leukocyte Esterase Urine RBC Urine WBC Ur Squamous Epith Cells Urine Bacteria Hyaline Casts 10/22/22 15:06 MCV MCH MCHC RDW Plt Count MPV Immature Gran % (Auto) Neut % (Auto) Lymph % (Auto) [place] % (Auto) Eos % (Auto) Baso % (Auto) Lymph # (Auto) [place] # (Auto) Eos # (Auto) Baso # (Auto) Abs Immat Gran (auto) Absolute Neuts (auto) Absolute Nucleated RBC Nucleated RBC % (auto) PT INR Anion Gap Estim Creat Clear Calc Estimated GFR Random Glucose Calcium Total Bilirubin AST ALT Alkaline Phosphatase Total Protein Albumin Urine Color Dark Yellow Urine Appearance Clear Urine pH 5.5 Ur Specific [place] 1.020 Urine Protein Trace Urine Glucose (UA) Negative Urine Ketones Negative Urine Blood Negative Urine Nitrite Negative Ur Leukocyte Esterase Trace H Urine RBC 0-2 Urine WBC 0-5 Ur Squamous Epith Cells 0-2 Urine Bacteria None Seen Hyaline Casts 0-2 Imaging Radiologist's Impressions: Impressions Chest X-Ray 10/22/22 12:48 IMPRESSION: No new dominant airspace consolidations. Probable scar in the left upper lobe. Left lower lobe nodule again demonstrated. Possible low opacity nodule left midlung. Assessment and Plan (1) Atrial fibrillation with RVR: Status: Acute Plan 76 year old man admitted with failure to thrive and afib rvr Atrial fibrillation with rapid ventricular response Treated in the ER with Cardizem, digoxin, metoprolol with good effect Continue digoxin Monitor on telemetry Cardiology consultation Echocardiogram Hypotension Has been low according to significant other Agrees for pressors if needed Will give albumin as albumin is low and this will help also with volume repletion Macrocytic anemia, non blood loss. 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 He also requires close monitoring for hypotension Daughter Mejia [phone] Akilah significant other [phone] Time Spent With Patient Time: Total time managing care of this patient today ____ minutes. Quality Stroke Does the patient have a stroke diagnosis?: No VTE Prior VTE?: No VTE Risk Level:: Medical - moderate - high VTE Device Contraindication: Treatment Not Indicated VTE Drug Contraindication: N/A - Med Ordered
[2022-10-22] MEDS: dilTIAZem HCL 30 MG TABLET PO (16:36)
--- NOTE | 2022-10-22 16:37 | PC.NURSE ---
medication administered per provider order.
--- NOTE | 2022-10-22 16:45 | PHA.MEDREC ---
Pharmacy Consult ? Medication Reconciliation Pharmacy has completed the medication reconciliation. Spoke with patient's ta Vernon, . She reported all medications. Moni Chang, PharmD
[2022-10-22] MEDS: Heparin Sodium,Porcine 5,000 UNIT/ML VIAL 5000 UNIT SUBCUT (18:15)
[2022-10-22] MEDS: Albumin Human 25 % 100 ML IV ×2 (18:15→19:51)
[2022-10-22] MEDS: Digoxin 0.5 MG/2 ML AMPUL 0.125 MG IVPUSH (19:33)
--- NOTE | 2022-10-22 19:55 | PC.NURSE ---
2nd bag of albumin administered per provider order. pt verbalizing no pain. call perez within reach. will continue to monitor.
--- NOTE | 2022-10-22 20:16 | PC.NURSE ---
attempted to give report to RN on [facility] but they were currently busy, states they will call back shortly.
[2022-10-22] MEDS: Metoprolol Succinate ER 25 MG TAB.ER.24H PO (20:20)
[2022-10-22] MEDS: Atorvastatin Calcium 80 MG TABLET PO (20:20)
--- NOTE | 2022-10-22 20:24 | PC.NURSE ---
medication administered per provider order. metoprolol administered as pt's most recent BP was within protocol range. pt resting comfortably watching tv. call perez placed within reach. will continue to monitor and give report to [facility] when able.
--- NOTE | 2022-10-22 20:49 | PC.NURSE ---
report given to RN on [facility]. messaged transport.
[2022-10-22] MEDS: 0.9 % Sodium Chloride Flush 3 ML SYRINGE IVFLUSH (22:54)
[2022-10-23] VITALS (8 sets, daily range): BP systolic 86–127; BP diastolic 54–73; PULSE 73–130; RESP 16–20; TEMP 36.3–37.2; O2SAT 92–100; BMI 20.7
[2022-10-23] MEDS: Digoxin 0.5 MG/2 ML AMPUL 0.125 MG IVPUSH ×2 (01:35→07:53)
--- NOTE | 2022-10-23 04:30 | MHC.PIE ---
P.AFIB RVR I.PT CONTINUES WITH AFIB RVR.HR DROPPED SOME AFTER DIG IV GIVEN BUT INCREASED AGAIN TO 120-140,BP 106/61.PT ALSO WITH LOOSE GAXIOLA/BROWN STOOLS. UPDATED REGARDING HR AND ? DEHYDRATED ?IV FLUIDS.ORDER GIVEN FOR IV ALBUMIN X 1.PT UPDATED. E.ALBUMIN GIVEN,CONT TO MONITOR.NEXT SHIFT UPDATED.
[2022-10-23] MEDS: Heparin Sodium,Porcine 5,000 UNIT/ML VIAL 5000 UNIT SUBCUT ×2 (06:16→16:51)
[2022-10-23] MEDS: Albumin Human 25 % 50 ML 100 ML IV (06:32)
--- NOTE | 2022-10-23 07:00 | CA_ITS ---
Transthoracic Echocardiogram Patient (Last, First, Middle): Armin Guerra S Gender: Male Date of : 1945 Age: 76 Procedure Date: 10/23/2022 Procedure Type: Transthoracic Echocardiogram Location: [facility] Height: 187.96 cm Weight: 72.58 kg BSA: 1.98 m2 Heart Rate: 88 bpm BP: 86 / 54 mmHg High School Music Director: KARO Referring MD: Olga Caban NP Burring Machine Operator: Frantz Lemus MD Symptoms: AFib RVR Study Quality: Adequate ECG Rhythm: Atrial Fibrillation Conclusions: - 1. Normal LV ejection fraction 55-60% with mild LVH 2. Moderate left atrial enlargement 3. Mild aortic stenosis 4. Upper limits of normal ascending aortic size 5. No pericardial effusion Findings Left Ventricle Normal left ventricular size and systolic function. There is mildly increased left ventricular wall thickness. The visually estimated ejection fraction is between 55-60%. Diastolic function is indeterminate on the basis of available data. Right Ventricle Mildly increased right ventricular cavity size. There is normal right ventricular systolic function. Atria The left atrium is moderately dilated. Interatrial shunt cannot be excluded. The right atrium is likely dilated. Aortic Valve There is moderate calcification of the aortic valve. There is moderate thickening of the aortic valve. There is mild aortic valve stenosis. The peak aortic gradient is 33 mmHg.The mean gradient is 15 mmHg. The aortic valve area is 1.56 cm2. There is no aortic valve regurgitation. Mitral Valve There is mild anterior and moderate posterior mitral leaflet thickening. There is mild mitral annular calcification. There is trace mitral valve regurgitation. There is no mitral valve stenosis. Pulmonic Valve The pulmonic valve was not well visualized. Tricuspid Valve Likely normal tricuspid valve structure and function. Tricuspid regurgitation envelope is inadequate for calculation of right ventricular systolic pressure. Normal right atrial pressure. Great Vessels The pulmonary artery was not well visualized. Venous The inferior vena cava is normal in size and collapses greater than 50% with inspiration. Pericardium/Pleural There is no evidence of pericardial effusion. Measurements 2D Linear Measurements IVSd: 1.34 0.6-0.9/0.6-1.0 cm LVIDd: 4.41 3.9-5.3/4.2-5.9 cm LVIDd Index: 2.23 2.4-3.2/2.2-3.1 cm/m2 LVIDs: 3.04 2.0-3.6 cm LVPWd: 1.36 0.7-1.1 cm LA Diam: 4.20 2.7-3.8/3.0-4.0 cm LAIDs Index: 2.12 1.5-2.3 cm/m2 LV Mass: 284.61 67-162/88-224 g LV Mass Index: 143.74 43-95/49-115 g/m2 LVOT Diam: 2.40 3.0+(-)1.3 cm Mitral Valve MV VTI: 0.28 MV Pk Theodore: 1.32 MV Mn Theodore: 0.72 MV Pk Grad: 7.00 MV Mn Grad: 3.00 MV Pk E: 1.34 MV Decel Time: 205.00 E'Lateral: 11.40 E'Medial: 8.92 E/E' Med: 15.00 E/E' Lat: 11.80 PHT: 60.00 MVA PHT: 3.67 MVA Continuity: 2.85 Decel [place]: 6.51 Aortic Valve AoV Pk Theodore: 2.86 AoV Mn Theodore: 1.74 AoV VTI: 0.52 AoV Pk Grad: 33.00 Aov Mn Grad: 15.00 DOMINIQUE Cont.VTI: 1.56 LVOT LVOT Pk Theodore: 0.87 LVOT Mn Theodore: 0.53 LVOT VTI: 0.18 LVOT Pk Grad: 3.00 LVOT Mn Grad: 1.00 LVOT Diam: 2.40 LVOT Area: 4.52 Diastolic Function MV Pk E: 1.34 E'Medial: 8.92 E/E' Med: 15.00 E' Laterial: 11.40 E/E' Lat: 11.80 Right Ventricle TAPSE (mm): 18.20 Tricuspid Valve TR Pk Theodore: 2.82 TR Pk Grad: 32.00 RA Press: 3.00 Great Vessels Aorta Sinus of Valsalva: 3.20 2.0-3.5 cm Ao Asc: 3.60 2.1-3.4 cm Pulmonary Valve PV Pk Theodore: 1.23 Peak PV Grad: 6.00 Updated in Other Vendor System with Status of Final Frantz Lemus MD electronically signed on 10/23/2022 3:02:44 PM with status of Final
[2022-10-23 07:02] LABS: MANUAL DIFF FLAG NO
[2022-10-23 07:10] LABS: Basophils Percent Auto 0.4 % (0-2); Eosinophils Percent Auto 0.5 % (0-4); Hemoglobin 8.2 g/dl (14.0-18.0); Imm Gran Abs Auto 0.03 X10*3/uL (0.00-0.03); Imm Gran Pct Auto 0.5 % (0.0-0.4); Lymphocytes Absolute Auto 0.7 X10*3/uL (1.2-4.9); Lymphocytes Percent Auto 12.8 % (20-40); Mean Corpuscular HGB Conc 31.5 g/dl (31.0-36.0); Mean Corpuscular Hemoglobin 34.6 pg (27.0-33.0); Mean Corpuscular Volume 109.7 fL (80.0-98.0); Mean Platelet Volume 9.8 fL (9.4-12.4); Monocytes Absolute Auto 0.5 X10*3/uL (0.1-1.2); Monocytes Percent Auto 9.7 % (2-11); Neutrophils Absolute Auto 4.2 x10*3/uL (2.0-8.3); Neutrophils Percent Auto 76.1 % (45-73); Red Blood Count 2.37 X10*6/uL (4.60-5.80); Red Cell Distribution Width 14.5 % (11.0-16.0); White Blood Count 5.5 X10*3/uL (4.8-10.8)
[2022-10-23 07:11] LABS: Platelet Count 92 X10*3/uL (160-400)
[2022-10-23 07:26] LABS: Alanine Aminotransferase 9 U/L (0-40); Albumin Level 2.8 g/dL (3.5-5.0); Alkaline Phosphatase 390 U/L (39-117); Anion Gap 12 (12-20); Aspartate Amino Transferase 41 U/L (5-37); Bilirubin Total 1.4 mg/dL (0.0-1.0); Blood Urea Nitrogen 11 mg/dL (9-16); Carbon Dioxide 19 mmol/L (22-29); Chloride 113 mmol/L (96-108); Creatinine Clr Calc Pharmacy 89.8; Estimated Glomerular Filt Rate > 60; Glucose Random 97 mg/dL (60-115); Potassium 3.6 mmol/L (3.3-5.1); Sodium 140 mmol/L (135-145); Total Protein 5.6 g/dL (6.5-8.0)
[2022-10-23] MEDS: 0.9 % Sodium Chloride Flush 3 ML SYRINGE IVFLUSH ×3 (07:53→21:14)
[2022-10-23] MEDS: 0.9 % Sodium Chloride 1,000 ML 500 ML IVCONT (07:53)
--- NOTE | 2022-10-23 08:23 | HO.PM.IMPN ---
Subjective Subjective Date of Service: 10/23/22 Review of Systems Follow-up atrial fibrillation with rapid ventricular response and hypotension Denies chest pain, shortness breath, palpitations Physical Exam Vital Signs: Vital Signs: Last Vital Signs Temp 97.4 F 10/23/22 06:59 Pulse 120 H 10/23/22 06:59 Resp 18 10/23/22 06:59 BP 86/54 L 10/23/22 06:59 Pulse Ox 96 10/23/22 06:59 O2 Del Method Room Air 10/23/22 06:59 BMI result Body Mass Index 20.7 Appearing in no acute distress lung sounds are clear to auscultation heart regular rate rhythm, clear S1, S2 positive bowel sounds, abdomen is soft, nontender neuro patient is alert x3, no focal deficits Objective Data Active Medications Acetaminophen (Acetaminophen 325 Mg Tablet) 650 mg PO Q6H PRN PRN Reason: Pain, Mild (Pain Scale 1-3) Atorvastatin Calcium (Atorvastatin Calcium 80 Mg Tablet) 80 mg PO BEDTIME [facility] Last Admin: 10/22/22 20:20 Dose: 80 mg Documented By: CELINA Calcium Carbonate (Calcium Carbonate 500 Mg Tablet) 500 mg PO BID [facility] Last Admin: 10/23/22 07:53 Dose: 500 mg Documented By: CORBIN Heparin Sodium (Porcine) (Heparin Sodium,Porcine 5,000 Unit/Ml Vial) 5,000 unit SUBCUT Q12H [facility] Last Admin: 10/23/22 06:16 Dose: 5,000 unit Documented By: SARA Sodium Chloride (Ns) 1,000 mls @ 500 mls/hr IVCONT .Q2H [facility] Stop: 10/23/22 09:29 Last Admin: 10/23/22 07:53 Dose: 500 mls/hr Documented By: CORBIN Metoprolol Succinate (Metoprolol Succinate Er 25 Mg Tab.Er.24h) 25 mg PO BID [facility]; Protocol Last Admin: 10/23/22 07:44 Dose: Not Given Documented By: CORBIN Non-Admin Reason: Decreased Blood Pressure Ondansetron HCl (Ondansetron Hcl 4 Mg/2 Ml Vial) 4 mg IVPUSH Q8H PRN PRN Reason: Nausea and Vomiting Pharmacy Consult (Consult Rx Perform Med Rec) 1 each MISCELLANE ONCE PRN PRN Reason: Consult order Sodium Chloride (0.9 % Sodium Chloride Flush 3 Ml Syringe) 3 ml IVFLUSH QSHIFT [facility] Last Admin: 10/23/22 07:53 Dose: 3 ml Documented By: CORBIN Labs 10/23/22 06:43 10/23/22 06:43 Labs: Laboratory Results - last 24 hr 10/22/22 10/22/22 10/22/22 12:51 12:52 12:52 MCV 106.8 H MCH 34.6 H MCHC 32.4 RDW 14.1 Plt Count 129 L MPV 9.7 Immature Gran % (Auto) 0.3 Neut % (Auto) 75.5 H Lymph % (Auto) 16.0 L [place] % (Auto) 7.7 Eos % (Auto) 0.2 Baso % (Auto) 0.3 Lymph # (Auto) 1.0 L [place] # (Auto) 0.5 Eos # (Auto) 0.0 Baso # (Auto) 0.0 Abs Immat Gran (auto) 0.02 Absolute Neuts (auto) 4.5 Absolute Nucleated RBC 0.000 Nucleated RBC % (auto) 0.0 PT 19.1 H INR 1.6 H Anion Gap 14 Estim Creat Clear Calc 69.3 Estimated GFR > 60 Random Glucose 122 H Calcium 7.5 L D Magnesium Total Bilirubin 1.4 H AST 60 H ALT 13 Alkaline Phosphatase 552 H Total Protein 7.0 Albumin 2.8 L Urine Color Urine Appearance Urine pH Ur Specific [place] Urine Protein Urine Glucose (UA) Urine Ketones Urine Blood Urine Nitrite Ur Leukocyte Esterase Urine RBC Urine WBC Ur Squamous Epith Cells Urine Bacteria Hyaline Casts 10/22/22 10/23/22 10/23/22 15:06 06:43 06:43 MCV 109.7 H MCH 34.6 H MCHC 31.5 RDW 14.5 Plt Count 92 L D MPV 9.8 Immature Gran % (Auto) 0.5 H Neut % (Auto) 76.1 H Lymph % (Auto) 12.8 L [place] % (Auto) 9.7 Eos % (Auto) 0.5 Baso % (Auto) 0.4 Lymph # (Auto) 0.7 L [place] # (Auto) 0.5 Eos # (Auto) 0.0 Baso # (Auto) 0.0 Abs Immat Gran (auto) 0.03 Absolute Neuts (auto) 4.2 Absolute Nucleated RBC 0.000 Nucleated RBC % (auto) 0.0 PT INR Anion Gap 12 Estim Creat Clear Calc 89.8 Estimated GFR > 60 Random Glucose 97 Calcium 7.0 L D Magnesium 2.0 Total Bilirubin 1.4 H AST 41 H ALT 9 Alkaline Phosphatase 390 H Total Protein 5.6 L Albumin 2.8 L Urine Color Dark Yellow Urine Appearance Clear Urine pH 5.5 Ur Specific [place] 1.020 Urine Protein Trace Urine Glucose (UA) Negative Urine Ketones Negative Urine Blood Negative Urine Nitrite Negative Ur Leukocyte Esterase Trace H Urine RBC 0-2 Urine WBC 0-5 Ur Squamous Epith Cells 0-2 Urine Bacteria None Seen Hyaline Casts 0-2 10/23/22 06:43 MCV MCH MCHC RDW Plt Count MPV Immature Gran % (Auto) Neut % (Auto) Lymph % (Auto) [place] % (Auto) Eos % (Auto) Baso % (Auto) Lymph # (Auto) [place] # (Auto) Eos # (Auto) Baso # (Auto) Abs Immat Gran (auto) Absolute Neuts (auto) Absolute Nucleated RBC Nucleated RBC % (auto) PT INR Anion Gap Estim Creat Clear Calc Estimated GFR Random Glucose Calcium Magnesium Cancelled Total Bilirubin AST ALT Alkaline Phosphatase Total Protein Albumin Urine Color Urine Appearance Urine pH Ur Specific [place] Urine Protein Urine Glucose (UA) Urine Ketones Urine Blood Urine Nitrite Ur Leukocyte Esterase Urine RBC Urine WBC Ur Squamous Epith Cells Urine Bacteria Hyaline Casts Assessment and Plan (1) Atrial fibrillation with RVR: Status: Acute Plan 76 year old man admitted with failure to thrive and afib rvr Atrial fibrillation with rapid ventricular response Continue digoxin Monitor on telemetry Cardiology consultation rec> cardizem drip and digoxin Echocardiogram pending Hypotension Has been low according to significant other asymptomatic Agrees for pressors if needed Status post albumin 1 L of normal saline now Macrocytic anemia, non blood loss.? 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 Bermeo DNR/DNI Continue hospitalization for treatment of atrial fibrillation with rapid ventricular response requiring close monitoring and medication administration to lower the heart rate.? He also requires close monitoring for hypotension Daughter Mejia [phone] Akilah significant other [phone] Time Spent With Patient Time: Total time managing care of this patient today ____ minutes. Quality Stroke Does the patient have a stroke diagnosis?: No VTE Prior VTE?: No VTE Risk Level:: Medical - moderate - high VTE Device Contraindication: Treatment Not Indicated VTE Drug Contraindication: N/A - Med Ordered
--- NOTE | 2022-10-23 08:34 | MHC.CM.PN ---
IMM 10/23. Pt admitted with dx hypotension, and a-fib with RVR. Pt lives at home with his fiance, is independent/self-care. D/C plan is to return home self-care when medically cleared. Pts fiance to transport. HCP and [facility] on file and verified. PCP: Guido Montero vax: x 4
--- NOTE | 2022-10-23 10:03 | P.CONCA_ITS ---
History of Present Illness History of Present Illness Date of Service: 10/23/22 Requesting physician: Olga Caban Consult reason: atrial fibrillation Chief complaint: hypotension ,afib, with rapid ventricular response Narrative: I was consulted to see Armin in cardiology consultation today for management of atrial fibrillation. Patient with metastatic prostate cancer resistant to treatment and has decided to follow-up palliative care currently do not resuscitate do not intubate with no therapy plan for prostate cancer at this point time. Patient has a gradual decline in his health over the last month with poor appetite and over the last 2 days not been eating well. Patient present to the hospital with weakness although he says he came because he could not urinate. Patient was cold and hypotensive when he came in. Also noted to be in atrial fibrillation rapid ventricular response. On asking further as to if he is having any symptoms, patient says he is currently not having any symptoms related to atrial fibrillation. Denies any rapid heart rate or palpitations. Denies any shortness of breath or fatigue or lightheadedness. Denies any chest pain. Overnight still remains in rapid atrial fibrillation. Blood pressure is improved with IV fluids. Review of Systems Constitutional: Constitutional: Reports anorexia, Denies chills, Denies fever(s), Reports lethargy and Reports weakness ENT: Reports system reviewed and no additional complaints, except as documented Cardiovascular: Cardiovascular: Reports no additional cardiovascular complaints Respiratory: Respiratory: Reports no additional respiratory complaints Gastrointestinal: Gastrointestinal: Reports no additional gastrointestinal complaints Genitourinary: Genitourinary: Reports no additional male genitourinary complaints Integumentary/Breasts: Skin/Breast: Reports system reviewed and no additional complaints, except as docu Neurologic: Reports system reviewed and no additional complaints, except as documented and Reports weakness Psychiatric: Psychiatric: Reports no additional psychiatric complaints [facility] Past Medical History Medical History A-fib Benign essential hypertension CAD (coronary artery disease) Central serous retinopathy Hematuria Impaired fasting glucose Metabolic brain disease Mitral annular calcification Myocardial injury Non-rheumatic aortic stenosis Obesity (BMI 30-39.9) Prostate cancer metastatic to bone Psoriasis Pulmonary nodules Pure hypercholesterolemia Tick bite Family History Family History Father Heart disease CVD (cardiovascular disease) Mother Acute CVA (cerebrovascular accident) CVD (cardiovascular disease) Sister No problems noted. Sister Pacemaker Surgical History Surgical History History of bladder surgery History of prostatectomy History of right knee surgery Social History Social History Household Members: Caregiver Household Members Other:: 2 Housing: House Are you a primary urgent care technician to a significant other at home: No Do you presently have visiting nurse or other home services: No Alcohol intake: never Patient Tobacco Use Status: Former Tobacco user Tobacco use type: Cigarette Smoked in Last 30 Days: No e-Cigarette/Vaping Use: Never Used Second Hand Smoke Exposure: Yes Use of substances other than those prescribed or required for medical reasons: No Currently Displaying Signs/Symptoms of Drug Intoxication Withdrawal: No Any prior treatment program specific to substance use: No Have you been hit, kicked, punched, or otherwise hurt by someone within the past year? If so, by whom?: No Do you feel safe in your current relationship?: Yes Is there a partner from a previous relationship who is making you feel unsafe now?: No Are you made to feel afraid or neglected: No Advance Directives: Yes Advance Directives on File: Yes Advance Directives Date on File: 06/14/22 Do you have thoughts of harming others: None Do you have a plan to hurt others: No Plan Recently lost weight without trying: Yes How much weight loss: 34pounds or more Eating poorly because of decreased appetite: Yes Nutrition screen score: 7 Nutrition Risks: Emaciation/Cachexia Poor oral hygiene: No service: No Current occupational status: retired Cognitive needs: No Hearing needs: No Vision needs: Yes (reading glasses) Meds Allergies Allergy/AdvReac Type Severity Reaction Status Date / Time lisinopril Allergy Severe angioedema Verified 06/24/22 14:02 Active Medications: Current Medications Acetaminophen (Acetaminophen 325 Mg Tablet) 650 mg PO Q6H PRN PRN Reason: Pain, Mild (Pain Scale 1-3) Atorvastatin Calcium (Atorvastatin Calcium 80 Mg Tablet) 80 mg PO BEDTIME [facility] Last Admin: 10/22/22 20:20 Dose: 80 mg Calcium Carbonate (Calcium Carbonate 500 Mg Tablet) 500 mg PO BID [facility] Last Admin: 10/23/22 07:53 Dose: 500 mg Heparin Sodium (Porcine) (Heparin Sodium,Porcine 5,000 Unit/Ml Vial) 5,000 unit SUBCUT Q12H [facility] Last Admin: 10/23/22 06:16 Dose: 5,000 unit Metoprolol Succinate (Metoprolol Succinate Er 25 Mg Tab.Er.24h) 25 mg PO BID [facility]; Protocol Last Admin: 10/23/22 07:44 Dose: Not Given Ondansetron HCl (Ondansetron Hcl 4 Mg/2 Ml Vial) 4 mg IVPUSH Q8H PRN PRN Reason: Nausea and Vomiting Pharmacy Consult (Consult Rx Perform Med Rec) 1 each MISCELLANE ONCE PRN PRN Reason: Consult order Sodium Chloride (0.9 % Sodium Chloride Flush 3 Ml Syringe) 3 ml IVFLUSH QSHIFT [facility] Last Admin: 10/23/22 07:53 Dose: 3 ml Home Medications Medication Instructions Recorded Confirmed Last Taken Type calcium carbonate 600 mg calcium 600 mg PO BID 01/03/20 10/22/22 06/06/22 History (1,500 mg) tablet (Calcium) leuprolide acetate (6 month) 45 mg 45 mg IM [id number] 01/03/20 10/22/22 Unknown History intramuscular syringe kit (Lupron Depot) atorvastatin 80 mg tablet 80 mg PO BEDTIME 06/07/22 10/22/22 06/06/22 History ammonium lactate 12 % topical cream 1 appl topical BID PRN Dry Skin 10/22/22 10/22/22 Unknown History Physical Exam Vital Signs: Vital Signs: Last Vital Signs Temp 97.4 F 10/23/22 06:59 Pulse 120 H 10/23/22 06:59 Resp 18 10/23/22 06:59 BP 103/57 L 10/23/22 08:24 Pulse Ox 96 10/23/22 06:59 O2 Del Method Room Air 10/23/22 06:59 BMI result Body Mass Index 20.7 Const: General: cooperative, comfortable, alert, awake and tired appearing Nutritional Appearance: malnourished Orientation/consciousness: patient oriented x3 HEENT: Head: Yes normocephalic and Yes atraumatic Neck: Neck: Yes trachea midline, Yes supple and Yes no JVD Resp: Effort & Inspection: decreased respiratory effort Auscultation: clear to auscultation bilaterally Cardio: Jugular venous distension: no JVD Rate: tachycardic Rhythm: abnormal rhythm irregularly irregular Heart sounds: S1 normal heart sound present and S2 normal heart sound present GI: Auscultation: normal bowel sounds Skin: General skin exam: no rashes or lesions noted Neuro: General: patient oriented x3 Extrem: General: Yes no clubbing, cyanosis or edema Objective Labs and Meds 10/23/22 06:43 10/23/22 06:43 Lab results: Laboratory Results - last 24 hr 10/22/22 10/22/22 10/22/22 12:51 12:52 12:52 WBC 6.0 RBC 3.24 L Hgb 11.2 L Hct 34.6 L MCV 106.8 H MCH 34.6 H MCHC 32.4 RDW 14.1 Plt Count 129 L MPV 9.7 Immature Gran % (Auto) 0.3 Neut % (Auto) 75.5 H Lymph % (Auto) 16.0 L [place] % (Auto) 7.7 Eos % (Auto) 0.2 Baso % (Auto) 0.3 Lymph # (Auto) 1.0 L [place] # (Auto) 0.5 Eos # (Auto) 0.0 Baso # (Auto) 0.0 Abs Immat Gran (auto) 0.02 Absolute Neuts (auto) 4.5 Absolute Nucleated RBC 0.000 Nucleated RBC % (auto) 0.0 PT INR Sodium 135 Potassium 4.2 Chloride 105 Carbon Dioxide 20 L Anion Gap 14 BUN 15 Creatinine 0.93 Estim Creat Clear Calc 69.3 Estimated GFR > 60 Random Glucose 122 H Calcium 7.5 L D Magnesium Total Bilirubin 1.4 H AST 60 H ALT 13 Alkaline Phosphatase 552 H Troponin I High Sens 29.5 D Total Protein 7.0 Albumin 2.8 L Urine Color Urine Appearance Urine pH Ur Specific [place] Urine Protein Urine Glucose (UA) Urine Ketones Urine Blood Urine Nitrite Ur Leukocyte Esterase Urine RBC Urine WBC Ur Squamous Epith Cells Urine Bacteria Hyaline Casts 10/22/22 10/22/22 10/23/22 12:52 15:06 06:43 WBC 5.5 RBC 2.37 L D Hgb 8.2 L D Hct 26.0 L D MCV 109.7 H MCH 34.6 H MCHC 31.5 RDW 14.5 Plt Count 92 L D MPV 9.8 Immature Gran % (Auto) 0.5 H Neut % (Auto) 76.1 H Lymph % (Auto) 12.8 L [place] % (Auto) 9.7 Eos % (Auto) 0.5 Baso % (Auto) 0.4 Lymph # (Auto) 0.7 L [place] # (Auto) 0.5 Eos # (Auto) 0.0 Baso # (Auto) 0.0 Abs Immat Gran (auto) 0.03 Absolute Neuts (auto) 4.2 Absolute Nucleated RBC 0.000 Nucleated RBC % (auto) 0.0 PT 19.1 H INR 1.6 H Sodium Potassium Chloride Carbon Dioxide Anion Gap BUN Creatinine Estim Creat Clear Calc Estimated GFR Random Glucose Calcium Magnesium Total Bilirubin AST ALT Alkaline Phosphatase Troponin I High Sens Total Protein Albumin Urine Color Dark Yellow Urine Appearance Clear Urine pH 5.5 Ur Specific [place] 1.020 Urine Protein Trace Urine Glucose (UA) Negative Urine Ketones Negative Urine Blood Negative Urine Nitrite Negative Ur Leukocyte Esterase Trace H Urine RBC 0-2 Urine WBC 0-5 Ur Squamous Epith Cells 0-2 Urine Bacteria None Seen Hyaline Casts 0-2 10/23/22 10/23/22 06:43 06:43 WBC RBC Hgb Hct MCV MCH MCHC RDW Plt Count MPV Immature Gran % (Auto) Neut % (Auto) Lymph % (Auto) [place] % (Auto) Eos % (Auto) Baso % (Auto) Lymph # (Auto) [place] # (Auto) Eos # (Auto) Baso # (Auto) Abs Immat Gran (auto) Absolute Neuts (auto) Absolute Nucleated RBC Nucleated RBC % (auto) PT INR Sodium 140 Potassium 3.6 Chloride 113 H Carbon Dioxide 19 L Anion Gap 12 BUN 11 Creatinine 0.70 Estim Creat Clear Calc 89.8 Estimated GFR > 60 Random Glucose 97 Calcium 7.0 L D Magnesium 2.0 Cancelled Total Bilirubin 1.4 H AST 41 H ALT 9 Alkaline Phosphatase 390 H Troponin I High Sens Total Protein 5.6 L Albumin 2.8 L Urine Color Urine Appearance Urine pH Ur Specific [place] Urine Protein Urine Glucose (UA) Urine Ketones Urine Blood Urine Nitrite Ur Leukocyte Esterase Urine RBC Urine WBC Ur Squamous Epith Cells Urine Bacteria Hyaline Casts Imaging Radiologist's impression: Impressions Chest X-Ray 10/22/22 12:48 IMPRESSION: No new dominant airspace consolidations. Probable scar in the left upper lobe. Left lower lobe nodule again demonstrated. Possible low opacity nodule left midlung. Assessment and Plan (1) Atrial fibrillation with RVR: Status: Acute Atrial fibrillation rapid ventricular response in this elderly gentleman who presents with failure to thrive and poor oral intake over the last couple days with dehydration. Difficult control rate given low blood pressure. However the blood pressures improved with IV fluid. Continue IV fluids as well as oral intake. I would start him on IV Cardizem drip for now for rate control and also give him digoxin 3 doses IV push 6 hours apart at 0.25 mg for better rate control. Given his advanced malignancy as well as significant anemia would avoid oral anticoagulation therapy to reduce bleeding complications. This was discussed with him. Management of atrial fibrillation was discussed and would be conservative with rate control. Will follow with you Time Spent With Patient Time: Total time managing care of this patient today ____ minutes. Procedures Date of Service Date of Service: 10/23/22
[2022-10-23] MEDS: dilTIAZem HCL 125 MG in 0.9 % Sodium Chloride 100 ML 10 MG IVCONT (10:42)
[2022-10-23] MEDS: Digoxin 0.5 MG/2 ML AMPUL 0.25 MG IVPUSH ×2 (10:42→16:50)
--- NOTE | 2022-10-23 12:05 | MHC.CLN ---
RE: CONSULT PT IS MODERATELY MALNOURISHED PT WITH 24% SIGNIFICANT WT LOSS X 6 MONTHS, WITH CHRONIC POOR PO INTAKE X 1 MONTHS AND RECENTLY COMPLETED CHEMO TREATMENTS AUGUST 2022 FOR PROSTATE CA WITH METS TO [facility] PT'S UBW 260# BEFORE CHEMO APPROX 6-8 MONTHS AGO DIET RX: 2GM NA -APPROPRIATE BUT CAN LIBERALIZE IF PO REMAINS POOR PT RECEPTIVE TO DRINKING ENSURE SUPPLEMENTS AND TRIAL OF THRIVE ICE CREAM TO INCREASE KCALS WILL START ENSURE AND THRIVE SUPPLEMENTS MONITOR PO INTAKE CLOSELY SEE ALSO FULL CLINICAL NUTRITION ASSESSMENT
--- NOTE | 2022-10-23 14:02 | MHC.CM.PN ---
Per hospitalist, pt is interested in pursuing hospice care. This CM met with pt and his family present at bedside to discuss, and they would like to move forward with hospice referral. Preference to which agency is able to see pt the soonest. Ashley FLAHERTY able to meet with pt and family this afternoon for a hospice info session. Pts fiance/HCP Janeen [phone] confirmed that she will be with pt at home to care for him 30/09 once he is discharged.
--- NOTE | 2022-10-23 14:40 | PC.NURSE ---
report recieved from overnight RN, thoracic medicine physician per MAY. Malu gtt started per protocol, see MAY. HR at 1430 sustaining between 80s-90s, provider notified and verbal orders to run the drip at 5mg/hr and hold for HR sustaining in 70s - titrated per MAY. Pt offering no complaints at this time, updated on his plan of care. Safety precautions remain in place, call perez within reach.
[2022-10-23 17:23] LABS: OBS Int Ctl Valid YES; OBS1 NEGATIVE (NEGATIVE)
[2022-10-23] MEDS: Metoprolol Succinate ER 25 MG TAB.ER.24H PO (21:14)
[2022-10-23] MEDS: Atorvastatin Calcium 80 MG TABLET PO (21:14)
[2022-10-24 03:17] VITALS: BP 97/54; PULSE 109; RESP 20; TEMP 36.4; O2SAT 93
[2022-10-24] MEDS: Heparin Sodium,Porcine 5,000 UNIT/ML VIAL 5000 UNIT SUBCUT ×2 (05:15→18:34)
[2022-10-24 06:20] LABS: Anion Gap 10 (12-20); Blood Urea Nitrogen 8 mg/dL (9-16); Calcium 7.4 mg/dL (8.4-10.2); Carbon Dioxide 18 mmol/L (22-29); Chloride 112 mmol/L (96-108); Creatinine Clr Calc Pharmacy 104.7; Estimated Glomerular Filt Rate > 60; Glucose Random 98 mg/dL (60-115); Potassium 3.1 mmol/L (3.3-5.1); Sodium 137 mmol/L (135-145)
[2022-10-24 07:35] VITALS: BP 98/60; PULSE 86; RESP 20; TEMP 37.1; O2SAT 91
[2022-10-24] MEDS: dilTIAZem HCL 125 MG in 0.9 % Sodium Chloride 100 ML IVCONT (07:41)
[2022-10-24] MEDS: Metoprolol Succinate ER 25 MG TAB.ER.24H PO (08:55)
[2022-10-24] MEDS: Digoxin 0.25 MG TABLET PO (10:34)
--- NOTE | 2022-10-24 10:51 | PM.PNCARD ---
Subjective Subjective Date of Service: 10/24/22 Principal diagnosis: Atrial fibrillation Interval history: Patient not having any cardiac symptoms. Denies any palpitation or shortness of breath. Heart rate is better control on Cardizem drip. Review of Systems Constitutional: Reports lethargy and Reports weakness Cardiovascular: Reports no additional cardiovascular complaints Gastrointestinal: Reports no additional gastrointestinal complaints Musculoskeletal: Reports no additional musculoskeletal complaints Reports weakness Physical Exam Vital Signs: Last Vital Signs Temp 98.8 F 10/24/22 07:35 Pulse 86 10/24/22 07:35 Resp 20 10/24/22 07:35 BP 98/60 10/24/22 07:35 Pulse Ox 91 L 10/24/22 07:35 O2 Del Method Room Air 10/24/22 07:35 BMI result Body Mass Index 20.7 Const General: cooperative, comfortable, alert, awake and tired appearing Nutritional Appearance: malnourished Orientation/consciousness: patient oriented x3 Neck Neck: Yes trachea midline, Yes supple and Yes no JVD Resp Effort & Inspection: decreased respiratory effort Auscultation: clear to auscultation bilaterally Cardio Jugular venous distension: no JVD Rhythm: abnormal rhythm irregularly irregular Heart sounds: S1 normal heart sound present and S2 normal heart sound present GI Auscultation: normal bowel sounds Skin General skin exam: no rashes or lesions noted Neuro General: patient oriented x3 Extrem General: Yes no clubbing, cyanosis or edema Objective Labs and Meds 10/23/22 06:43 10/24/22 05:43 Lab results: Laboratory Results - last 24 hr 10/23/22 10/24/22 17:00 05:43 Sodium 137 Potassium 3.1 L Chloride 112 H Carbon Dioxide 18 L Anion Gap 10 L BUN 8 L Creatinine 0.60 Estim Creat Clear Calc 104.7 Estimated GFR > 60 Random Glucose 98 Calcium 7.4 L Stool Occult Blood NEGATIVE Progress Note: A&P Assessment and plan (1) Atrial fibrillation with RVR: Status: Acute Assessment and Plan: Atrial fibrillation with rapid ventricular response in this elderly gentleman with improved rate control with medications. Will continue pursue rate control approach management was discussed with patient patient's significant other at bedside. Transition to p.o. metoprolol 25 mg q.6 hours and add digoxin 0.25 mg daily to his regimen. Continue Cardizem drip till multiple dose of metoprolol are in and then slowly taper and discontinue Cardizem drip. No oral anticoagulation given his advanced malignancy, and significant anemia. This was discussed. Risk of stroke was discussed as well. Will continue to follow with you if need be. Time Spent With Patient Time: Total time managing care of this patient today ____ minutes. Progress Note: Quality Stroke Does the patient have a stroke diagnosis?: No Procedures Date of Service Date of Service: 10/24/22
[2022-10-24 11:51] VITALS: BP 95/56; PULSE 81; RESP 19; TEMP 36.9; O2SAT 93
--- NOTE | 2022-10-24 11:56 | P.PNIM_ITS ---
Subjective Subjective Date of Service: 10/24/22 Interval History: seen and examined this morning follow up for afib RVR HR still elevated but improving denies sob, chest pain, palpitations Review of Systems Review of Systems: Yes all other systems are reviewed and are negative Constitutional Constitutional: Denies chills and Denies fever(s) ENT Ears, Nose, Mouth, and Throat: Denies dizziness Cardiovascular Cardiovascular: Denies chest pain, Denies palpitations and Denies dyspnea Respiratory Respiratory: Denies cough and Denies dyspnea Gastrointestinal Gastrointestinal: Denies abdominal pain Neurologic Neurologic: Denies dizziness Endocrine Endocrine: Denies palpitations Physical Exam Vital Signs: Vital Signs: Last Vital Signs Temp 98.4 F 10/24/22 11:51 Pulse 81 10/24/22 11:51 Resp 19 10/24/22 11:51 BP 95/56 L 10/24/22 11:51 Pulse Ox 93 10/24/22 11:51 O2 Del Method Room Air 10/24/22 11:51 BMI result Body Mass Index 20.7 Const: Other: chronically ill appearing General: comfortable, no acute distress, alert and awake Nutritional Appearance: average body habitus Resp: Effort & Inspection: normal respiratory effort, able to speak in complete sentences, no respiratory distress and no use of accessory muscles Cardio: Rate: regular rate Rhythm: abnormal rhythm irregularly irregular GI: Inspection: No distended Palpation (GI): Soft to palpation and nontender : Other: figueroa in place Neuro: Other: grossly nonfocal Extrem: General: Yes no pedal edema Objective Data Active Medications Acetaminophen (Acetaminophen 325 Mg Tablet) 650 mg PO Q6H PRN PRN Reason: Pain, Mild (Pain Scale 1-3) Atorvastatin Calcium (Atorvastatin Calcium 80 Mg Tablet) 80 mg PO BEDTIME [facility] Last Admin: 10/23/22 21:14 Dose: 80 mg Documented By: NII Calcium Carbonate (Calcium Carbonate 500 Mg Tablet) 500 mg PO BID [facility] Last Admin: 10/24/22 08:55 Dose: 500 mg Documented By: RODRIGUE Digoxin (Digoxin 0.25 Mg Tablet) 0.25 mg PO DAILY [facility] Last Admin: 10/24/22 10:34 Dose: 0.25 mg Documented By: RODRIGUE Heparin Sodium (Porcine) (Heparin Sodium,Porcine 5,000 Unit/Ml Vial) 5,000 unit SUBCUT Q12H [facility] Last Admin: 10/24/22 05:15 Dose: 5,000 unit Documented By: NII Diltiazem HCl 125 mg/ Sodium (Chloride) 125 mls @ 0 mls/hr IVCONT .Q0M [facility]; Protocol Last Admin: 10/24/22 07:41 Dose: 5 mg/hr, 5 mls/hr Documented By: RODRIGUE Metoprolol Tartrate (Metoprolol Tartrate 25 Mg Tablet) 25 mg PO Q6H [facility]; Protocol Ondansetron HCl (Ondansetron Hcl 4 Mg/2 Ml Vial) 4 mg IVPUSH Q8H PRN PRN Reason: Nausea and Vomiting Pharmacy Consult (Consult Rx Perform Med Rec) 1 each MISCELLANE ONCE PRN PRN Reason: Consult order Sodium Chloride (0.9 % Sodium Chloride Flush 3 Ml Syringe) 3 ml IVFLUSH QSHIFT [facility] Last Admin: 10/24/22 08:55 Dose: Not Given Documented By: RODRIGUE Non-Admin Reason: IV Running Labs 10/23/22 06:43 10/24/22 05:43 Labs: Laboratory Results - last 24 hr 10/23/22 10/24/22 17:00 05:43 Anion Gap 10 L Estim Creat Clear Calc 104.7 Estimated GFR > 60 Random Glucose 98 Calcium 7.4 L Stool Occult Blood NEGATIVE Assessment and Plan (1) Atrial fibrillation with RVR: Status: Acute (2) 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 Bermeo DNR/DNI Continue hospitalization for treatment of atrial fibrillation with rapid ventricular response requiring close monitoring and medication administration to lower the heart rate.? He also requires close monitoring for hypotension Daughter Mejia [phone] Akilah significant other [phone] Time Spent With Patient Time: Total time managing care of this patient today ____ minutes. Quality Stroke Does the patient have a stroke diagnosis?: No VTE Prior VTE?: No VTE Risk Level:: Medical - moderate - high VTE Device Contraindication: Treatment Not Indicated VTE Drug Contraindication: N/A - Med Ordered
[2022-10-24] MEDS: Potassium Chloride Packet 20 MEQ PACKET 40 MEQ PO (12:34)
[2022-10-24 15:11] VITALS: BP 96/62; PULSE 88; RESP 18; TEMP 36.8; O2SAT 98
[2022-10-24] MEDS: Metoprolol Tartrate 25 MG TABLET PO ×2 (15:43→20:19)
[2022-10-24] MEDS: 0.9 % Sodium Chloride Flush 3 ML SYRINGE IVFLUSH ×2 (15:43→20:19)
--- NOTE | 2022-10-24 16:55 | P.CDIM_ITS ---
PROVIDER RESPONSE TEXT: To clarify, the appropriate diagnosis supported by the clinical indicators: Clinically unable to determine (explain): paroxysmal vs persistent. unable to determine how long he h as been in afib. on last admission had convered to NSR prior to d/c QUERY TEXT: PHYSICIAN'S DOCUMENTATION REQUEST Date of Query: 10/24/2022 12:28 PM EDT Patient Name: Armin Guerra Admit Date: 10/22/2022 Dear Sravanthi Deshpande, A review of the medical record indicates additional documentation may be needed. Please review below and update the documentation accordingly. Clinical Indicators: Per Hospitalist Progress Note 10/24/22: Atrial fibrillation with rapid ventricular response loaded with digoxin, will continue daily digoxin change metoprolol to 25q6h wean cardizem drip Echo preserved EF no AC due to anemia/malignancy If possible, please provide further specificity regarding atrial fibrillation, such as: Paroxysmal atrial fibrillation: terminates spontaneously or with intervention within 7 days of onset Persistent atrial fibrillation: episodes of continuous AF that last more than 7 days and do not self- terminate Long lasting persistent atrial fibrillation: episodes of continuous AF that last more than 12 months Chronic or Permanent atrial fibrillation: when a decision has been made to accept the presence of AF and there is no further attempt to restore or maintain sinus rhythm Other (explain)Clinically unable to determine (explain)Thank you, Hannah Vance RN Use of terms such as suspected, likely, concern for, or probable (associated with a specific diagnosi s that is being evaluated, monitored, or treated as if it exists) are acceptable and can be coded in the inpatient se tting, when documented at the time of discharge. Please use your independent medical judgment in providing your response. THIS QUERY IS PART OF THE PERMANENT MEDICAL RECORD
[2022-10-24 19:40] VITALS: BP 111/58; PULSE 100; RESP 18; TEMP 36.3; O2SAT 94
[2022-10-24] MEDS: Atorvastatin Calcium 80 MG TABLET PO (20:19)
[2022-10-24 23:18] VITALS: BP 110/64; PULSE 87; RESP 20; TEMP 36.7; O2SAT 96
[2022-10-25 03:14] VITALS: BP 104/54; PULSE 118; RESP 22; TEMP 36.6; O2SAT 90
[2022-10-25] MEDS: Metoprolol Tartrate 25 MG TABLET PO ×2 (03:21→08:29)
[2022-10-25] MEDS: Heparin Sodium,Porcine 5,000 UNIT/ML VIAL 5000 UNIT SUBCUT (05:26)
[2022-10-25 07:17] VITALS: BP 110/70; PULSE 102; RESP 16; TEMP 37.3; O2SAT 96
[2022-10-25] MEDS: Digoxin 0.25 MG TABLET PO (08:29)
[2022-10-25] MEDS: 0.9 % Sodium Chloride Flush 3 ML SYRINGE IVFLUSH (08:29)
--- NOTE | 2022-10-25 10:35 | MHC.CM.PN ---
Patient is booked to d/c home w/ [facility] @ 2:30 PM, equipment delivery for 1:30 pm per [facility] RN. , and aware of plan.
--- NOTE | 2022-10-25 10:43 | PM.DS ---
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 He did not eat anything for 2 days and hasn't been to stand up alone for 2 days. He has been lethargic and cold. Blood pressures have been low. He did not have any chest pain or trouble breathing but he had muscle pains diffusely throughout his body. He had some trouble urinating and has been experiencing diarrhea.? He denied chest pain, shortness breath, nausea, vomiting, fever.? The ER he was noted to be in atrial fibrillation with rapid ventricular response with heart rate up to 150.? He was treated with multiple doses of Cardizem, metoprolol and digoxin. ? He was also noted to be hypotensive which the atrial fibrillation likely exacerbated.? He was given 2 L of IV fluids.? Chest x-ray negative for any consolidation or effusion.? EKG without any acute ST wave abnormalities.? Discussed with rudy Isbell other ([phone]) plan is to admit patient for atrial fibrillation with rapid ventricular response and hypotension. Paroxysmal Atrial fibrillation with rapid ventricular response Initially started on cardizem drip and loaded with dioxin. HR has improved, will continue daily digoxin, metoprolol changed to 25q6h and he was weaned off of cardizem drip. Echo shows preserved EF. no AC recommended due to anemia/malignancy. Patient has remained asymptomatic. Blood pressure on lower side earlier in stay but has improved with medication adjustments. Due to widely metastatic prostate cancer, patient was seen by hospice nurse for hospice informational and has elecated to return home with plan to transition to hospice. Hospice equipment delivery has been scheduled for this afternoon. Time Spent with Patient Time attestation: Total time managing care of this patient today ____ minutes. Discharge coordination time: Greater than 30 minutes Quality: Safe Use of Opioids Does Pt have an Active Cancer Diagnosis on the Problem List?: Yes Opioid Measure Date for [facility] Report: 09/25/22 Opioid Measure Time for [facility] Report: 13:39 Quality: Stroke Does the patient have a stroke diagnosis?: No Physical Exam Vital Signs: Vital Signs: Last Vital Signs Temp 99.1 F 10/25/22 07:17 Pulse 102 H 10/25/22 07:17 Resp 16 10/25/22 07:17 BP 110/70 10/25/22 07:17 Pulse Ox 96 10/25/22 07:17 O2 Del Method Room Air 10/25/22 07:17 BMI result Body Mass Index 20.7 Discharge Plan Discharge Anticipated Discharge Date/Time: 10/25/22 14:30 Patient Disposition: Home, Self-Care Discharge Diagnosis: atrial fibrillation with RVR Referrals: Guido Joseph MD [Primary Care Provider] - 1 Week Discharge Medications: New digoxin 250 mcg (0.25 mg) Tablet 0.25 mg PO DAILY 30 Days Qty: 30 0RF metoprolol tartrate 25 mg Tablet 25 mg PO Q6H 30 Days Qty: 120 0RF Protocol: Hold for SBP/HR < HOLD for SBP < : 90 HOLD for HR < : 60 Continued atorvastatin 80 mg tablet 80 mg PO BEDTIME ammonium lactate 12 % cream 1 appl topical BID PRN (Reason: Dry Skin) calcium carbonate [Calcium 600] 600 mg calcium (1,500 mg) tablet 600 mg PO BID Lupron Depot (6 Month) 45 mg syringe kit 45 mg IM [id number] Discontinued metoprolol succinate 25 mg tablet extended release 24 hr 25 mg PO BID Qty: 60 0RF Discharge Orders: Discharge Order (Routine); Ordered 10/25/22 Ordered By: Sravanthi Deshpande Activity on Discharge: As tolerated Stand Alone Forms: Patient Portal Discharge page Care Plan Goals: HR control Health Concerns: Atrial fibrillation with rapid ventricular response Plan of Treatment: dose of metoprolol was changed, please take new dose digoxin was added, please take as prescribed 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
--- NOTE | 2022-10-25 10:45 | MHC.CLN ---
F/U PT IS MODERATELY MALNOURISHED SEE FULL CLINICAL NUTRITION ASSESSMENT FOR DETAILS PO INTAKE VARIABLE RANGING FROM 25-100% DIET RX: 2GM NA -APPROPRIATE BUT CAN LIBERALIZE IF PO REMAINS POOR PT RECEPTIVE TO DRINKING ENSURE SUPPLEMENTS AND TRIAL OF THRIVE ICE CREAM TO INCREASE KCALS PT RECEIVING ENSURE AND THRIVE SUPPLEMENTS, ALTHOUGH PT PURSUING HOSPICE SERVICES SO CAN D/C IF PT NO LONGER RECEPTIVE PRIMARY GOAL IS COMFORT
[2022-10-25 11:19] VITALS: BP 98/60; PULSE 100; RESP 16; TEMP 36.2; O2SAT 97
== END 2022-10-25 15:25 | disposition home or self-care (01) | DRG 309 ==
LOC: HO.ED 15:54 → HO.EDOVER 17:34 → HO.IMC 19:49
PROVIDERS: Admitting Provider Nurse Practitioner Acute Care; Emergency Provider Emergency Medicine; PCP Internal Medicine; Visit Provider Physician Assistant Medical
DX: I48.0 Paroxysmal atrial fibrillation (principal); C78.7 Secondary malignant neoplasm of liver and intrahepatic bile duct; C79.51 Secondary malignant neoplasm of bone; D68.4 Acquired coagulation factor deficiency; D61.818 Other pancytopenia; I25.10 Atherosclerotic heart disease of native coronary artery without angina pectoris; I95.9 Hypotension, unspecified; D53.9 Nutritional anemia, unspecified; Z66 Do not resuscitate; E83.51 Hypocalcemia; C61 Malignant neoplasm of prostate; R62.7 Adult failure to thrive; Z68.20 Body mass index [BMI] 20.0-20.9, adult; D63.0 Anemia in neoplastic disease; E78.00 Pure hypercholesterolemia, unspecified; Z87.891 Personal history of nicotine dependence; Z79.899 Other long term (current) drug therapy
CPT/HCPCS: 36415; 71045; 80048; 80053; 81001; 82272; 83735; 84484; 85025; 85610; 93005; 93306; 99285; C1758; J1160; J1643; P9047

== ENCOUNTER → 2022-10-22 14:28 | Outpatient (BNV) | payer MEDICARE, SELFPAY | PROVIDERS: Emergency Provider Emergency Medicine; Visit Provider Nurse Practitioner Acute Care | DX: I48.91 Unspecified atrial fibrillation (principal); C61 Malignant neoplasm of prostate; C79.51 Secondary malignant neoplasm of bone | CPT/HCPCS: 99222; 99232; 99233; 99239 ==

== ENCOUNTER 2022-10-22 17:13 | Outpatient (BNV) | payer MEDICARE, SELFPAY | END 2022-10-23 07:00 | PROVIDERS: Admitting Provider Nurse Practitioner Acute Care; Emergency Provider Emergency Medicine; PCP Internal Medicine; Visit Provider Internal Medicine Cardiovascular Disease | DX: I35.0 Nonrheumatic aortic (valve) stenosis (principal) | CPT/HCPCS: 93306 ==

== ENCOUNTER → 2022-10-22 17:13 | Outpatient (BNV) | payer MEDICARE, SELFPAY | PROVIDERS: Admitting Provider Nurse Practitioner Acute Care; Emergency Provider Emergency Medicine; Visit Provider Internal Medicine Cardiovascular Disease | DX: I48.91 Unspecified atrial fibrillation (principal) | CPT/HCPCS: 99222; 99231 ==